=== PATIENT | male | born 1950 | race Caucasian/White ===

== ENCOUNTER 2022-12-20 13:26 | Outpatient (OUT) | payer MEDICARE, OTHER, SELFPAY ==
[2022-12-20 13:59] LABS: C Reactive Protein 2.5 mg/dL (<=1.0)
[2022-12-20 14:41] LABS: Erythrocyte Sedimentation Rate 75 mm/hr (<=20)
== END 2022-12-20 13:27 ==
LOC: LAB 13:31
DX: Z96.651 Presence of right artificial knee joint (principal)
CPT/HCPCS: 36415; 85652; 86140

== ENCOUNTER 2023-03-05 13:43 | Outpatient (OUT) | payer MEDICARE, OTHER, SELFPAY ==
[2023-03-05 14:11] LABS: Erythrocyte Sedimentation Rate 63 mm/hr (<=20)
[2023-03-05 14:34] LABS: C Reactive Protein 2.9 mg/dL (<=1.0)
== END 2023-03-05 13:44 | disposition home or self-care (01) ==
LOC: LAB 13:45
DX: Z96.651 Presence of right artificial knee joint (principal)
CPT/HCPCS: 36415; 85652; 86140

== ENCOUNTER 2023-07-22 08:59 | Outpatient (OUT) | payer MEDICARE, OTHER, SELFPAY ==
--- NOTE | 2023-07-22 09:02 | US_ITS ---
[address] [address] Patient Name: KILO ZEPEDA MRN: [id number] date: 1950 Sex: M Assigned Patient Location: US Current Patient Location: US Accession/Order Number: [id number] Exam Date: 07/22/2023 09:10 Report Date: 07/22/2023 10:08 At the request of: ELHAM DAMICO Procedure: US thyroid EXAMINATION: US thyroid HISTORY: weightloss, low tsh COMPARISON: No relevant comparison available. TECHNIQUE: Sonographic images of the thyroid gland were obtained. FINDINGS: The right thyroid lobe is normal in size, contour and homogeneous echotexture with no focal nodules. The lobe measures 5.0 x 1.4 x 1.5 cm The thyroid isthmus measures 1.1 mm, normal. The left thyroid lobe is normal in size, contour and homogeneous echotexture with no focal nodules. The lobe measures 4.8 x 1.4 x 1.8 cm US/US thyroid IMPRESSION: No abnormality TI-RADS: TI-RADS 1: Normal thyroid gland. No focal lesion. Electronically authenticated by: MIKY DEMARCO Date: 07/22/2023 10:08
== END 2023-07-22 09:00 | disposition home or self-care (01) ==
LOC: US 08:59
PROVIDERS: Visit Provider Nurse Practitioner
DX: R63.4 Abnormal weight loss (principal)
CPT/HCPCS: 76536

== ENCOUNTER 2024-12-23 08:34 | Outpatient (OUT) | payer MEDICARE, OTHER, SELFPAY ==
--- OUTSIDE RECORDS SUMMARY | 2023-08-05 12:00 | XMS_ITS ---
Author Organization The [facility] in [place] Address [address] [place] [address] Care Team Providers Care Integrity Specialist Name Role Phone Nanda Gutierrez Primary Care Provider Unavail able Dewayne Mcfadden Unavailable [phone] Allergies No Known Allergies REASON FOR VISIT REFERRAL-PULMONARY NODULES Medications Medication SIG (Take, Route, Frequency, Duration) Notes Start Date End Date Status Cholecalciferol 50 MCG (1999) 1 tablet Orally Once a day Active Citalopram Hydrobromide 20 MG 1 tablet O rally Once a day Active Lisinopril 40 MG 1 tablet Orally Once a day Active amLODIPine Besylate 10 MG 1 tablet Orall y Once a day Active Carvedilol 12.5 MG 1 tablet with food Orally Twice a day Active Omeprazole 40 MG 1 capsule 30 minutes before morning meal Orally Once a day Active Sildenafil Citrate 100 MG 1 tablet as ne eded Orally Once a day Active Social History Tobacco Use: Social History Observation Description Date Details (start date - stop date) Former Smoker NA - NA Tobacco Use/Smoking Question Answer Notes Patient is a former smoker Additional Findings: Tobacco Non-User Ex-heavy c igarette smoker (20-30/day) Tobacco use other than smoking: Question Answer Notes Are you an other tobacco user? Yes [place] Problems Problem Type SNOMED Code ICD Code Onset Dates Problem Status W/U Status Risk Notes Problem Multiple pulmonary nodules (R91.8) Active confirmed Problem Pulmonary fibrosis (30879965) Pulmonary fibrosis, unspecified (J84.10) Active confirmed Problem Ex-tobacco user (finding) (723248670) History of tobacco abuse (Z87.891) Active confirmed Problem Centrilobular emphysema (63099501) Centrilobular emphysema (J43.2) Active confirmed Vital Signs Temperature 96.6 degrees Fahrenheit 08/05/19 24 Blood pressure systolic 116 mm Hg 08/05/19 24 Blood pressure diastolic 64 mm Hg 024 Heart Rate 64 /min 08/05/2023 Respiratory Rate 18 /min 08/05/2023 Height 72 in 08/05/2023 Weight 199.0 lbs 08/05/2023 BMI 26.99 kg/m2 08/05/2023 Oximetry 98 % 08/05/2023 Encounters Encounter Location Date Provider Diagnosis Pulmonary Medicine [place] [address] [place] [address] 08/05/2023 Dewayne Mcfadden Multiple pulmonary nodules R91.8 ; Pulmonary fibrosis, unspecified J84.10 ; Centrilobular emphysema J43.2 and History of tobacco abuse Z87.891 Assessments Encounter Date Diagnosis (ICD Code) Assessment Notes Treatment Notes Treatment Clinical Notes Section Notes 08/05/2023 Multiple pulmonary nodules (ICD-10 - R91.8) There are [address], all at differing facilities, which were never directly compared with each other until today. Thanks to my MA, Scot, she retreived the records and imaging that I could view the 07/03/2023 and 08/31/2021 studies [id number]. I personally see no significant change between either study regarding the pulmonary nodules, emphysematous changes, and upper lobe predominant fibrosis. The largest is 5mm, and technically according to Fleischner Society Guidelines, nodules at this size do not require further F/U. Regardless, there is stability for 22 months between the 2 studies. I recommended to the patient that no further chest CT are needed to follow these nodules, which he voiced agreement. 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 Other considerations are hypersensitivity pneumonitis (had parakeet 30 years ago), connective tissue diseases (e.g. sarcoidosis), and postinflammatory. Less likely is idiopathic pulmonary fibrosis, as that is typically more lower lobe predominant. The fine inspiratory crackles are so faint on exam, that they could be easily missed. I expressed I am more concerned about the fibrosis than the nodules, though the fibrosis seems to be stable when I compare the imaging between 07/03/2023 and 08/31/2021. I suggested ordering a HRCT in 1 year, which is more specific than a standard CT or CTA for interstitial lung disease. HRCT have fewer slices, so pulmonary nodules the size of 5mm could be missed; however, they have been stable for 22 months, so I feel the risks of missing F/U of the nodules outweigh the benefits of assessing the fibrosis. I reviewed this with the patient and he voiced understanding. Will F/U with patient in 1 year to review the HRCT findings. 08/05/2023 Centrilobular emphysema (ICD-10 - J43.2) Moderate upper lobe predominant emphysematous findings, not grossly changed in my opinion between 07/03/2023 and . Other than a cough from postnasal drip, he is asymptomatic for any dyspnea or wheezing. No indication for PFT in asymptomatic individuals, though I considered it for the pulmonary fibrosis. For now, will hold off on PFT and wait until the HRCT - if there is any worsening, then I would order PFT regardless of symptoms. He was counseled if he beings to develop dyspnea or wheezing to let me know, and a PFT can be ordered at that time. 08/05/2023 History of tobacco abuse (ICD-10 - Z87.891) Patient quit smoking 9 years ago. He meets LDCT criteria, but I am monitoring the pulmonary fibrosis with a HRCT at this time. He was counseled not to restart smoking, not even sneaking a cigarette. Plan Of Treatment Treatment Notes Assessment Notes Multiple pulmonary nodules There are [address], all at differing facilities, which were never directly compared with each other until today. Thanks to my MA, Scot, she retreived the records and imaging that I could view the 07/03/2023 and 08/31/2021 studies [id number]. I personally see no significant change between either study regarding the pulmonary nodules, emphysematous changes, and upper lobe predominant fibrosis. The largest is 5mm, and technically according to Fleischner Society Guidelines, nodules at this size do not require further F/U. Regardless, there is stability for 22 months between the 2 studies. I recommended to the patient that no further chest CT are needed to follow these nodules, which he voiced agreement. Pulmonary fibrosis, unspecified Fibrosis of unclear etiology, though clinical suspicion is secondary to industrial exposure (from welding/fabricating, insulation with fiberglass/cellulose). Other considerations are hypersensitivity pneumonitis (had parakeet 30 years ago), connective tissue diseases (e.g. sarcoidosis), and postinflammatory. Less likely is idiopathic pulmonary fibrosis, as that is typically more lower lobe predominant. The fine inspiratory crackles are so faint on exam, that they could be easily missed. I expressed I am more concerned about the fibrosis than the nodules, though the fibrosis seems to be stable when I compare the imaging between 07/03/2023 and 08/31/2021. I suggested ordering a HRCT in 1 year, which is more specific than a standard CT or CTA for interstitial lung disease. HRCT have fewer slices, so pulmonary nodules the size of 5mm could be missed; however, they have been stable for 22 months, so I feel the risks of missing F/U of the nodules outweigh the benefits of assessing the fibrosis. I reviewed this with the patient and he voiced understanding. Will F/U with patient in 1 year to review the HRCT findings. Centrilobular emphysema Moderate upper lobe predominant emphysematous findings, not grossly changed in my opinion between 07/03/2023 and . Other than a cough from postnasal drip, he is asymptomatic for any dyspnea or wheezing. No indication for PFT in asymptomatic individuals, though I considered it for the pulmonary fibrosis. For now, will hold off on PFT and wait until the HRCT - if there is any worsening, then I would order PFT regardless of symptoms. He was counseled if he beings to develop dyspnea or wheezing to let me know, and a PFT can be ordered at that time. History of tobacco abuse Patient quit smoking 9 years ago. He meets LDCT criteria, but I am monitoring the pulmonary fibrosis with a HRCT at this time. He was counseled not to restart smoking, not even sneaking a cigarette. Next Appt Details Follow Up: 1 Year, Reason: P ulmonary fibrosis Progress Notes * Jemal CARCAMO CDOB: 2 (73 yo M)Acc No.[id number]:08/05/2023 New Patient Patient: Jemal Zhou Provider: Jazmine Mcfadden DO :1950 A ge:73 Y S ex:Male Date:08/05/2023 Address:[address] [place] [address] , [place], [id number] Pcp:KRISTI Kellogg Check In:03:48 PM ESTCheck O ut:04:31 PM EST Subjective: * Chief Complaints: * R EFERRAL-PULMONARY NODULES * HPI: G eneral: NEW PATIENT [age]yo male presents with abnormal chest CT. He had a chest CTA on 07/03/2023 @ [facility] which noted several pulmonary nodules along with other pulmonary findings. I personally reviewed reports of Chest CT 07/03/2023 ([facility]), Chest CTA 05/06/2023 ([facility]), and Chest CTA 08/31/2021 ([facility]). Synopsis below. - 07/03/2023: Bilateral pulmonary nodules, largest ~5mm RUL; emphysema, pulmonary fibrosis, ascending thoracic aorta 5.3cm - 05/06/2023: No mention of nodules, emphysema, pulmonary fibrosis, ascending thoracic aorta 4.7cm - 08/31/2021: A few scattered small granulomas , emphysema, no mention of pulmonary fibrosis, ascending thoracic aorta 5cm I was able to review the actual imaging from 07/03/2023 and 08/31/2021 [id number] (I did not have the 05/06/2023 available). After comparing these two studies, I did not see any change in the size of the pulmonary nodules or upper lung predominant emphysema and fibrosis. T he patient denies any dyspnea or wheezing. He states he has some coughing, but it is secondary to postnasal drip drainage, not from the lungs. He quit smoking cigarettes ~9 years ago; he would sneak a cigarette but then cough so harshly he put out the cigarette. 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 He had a parakeet 30 years ago. No known history of severe pneumonia, aspiration event, or rheumatoilogical diseases (e.g. RA, scleroderma, SLE, sarcoidosis). * * M A Intake Comments:. Patient is referred from Nanda Salmon NP for Multiple Pulmonary Nodules. Patient reports never being seen by Pulmonary in the past. Patient complains of sinus drainage, cough and night sweats. Patient denies any SOB, fevers, chills or hemoptysis. Patient is under the care of [facility] Cardiology & Cardiothoracic Surgery. Patient states he was recently in [facility] for a GI bleed and reports a significant amount of blood loss. Patient received 4 units at that time. Patient states he is being managed by . Patient states his appetite has improved since being in [facility]. Patient reports losing >40lbs. * ROS: G eneral/Constitutional: Fever or sweats d enies. C hange of appetite d enies. C hills d enies. W eight Change l oss ~40# over the past year. H EENT: Dry mouth d enies. S ore throat d enies. O ral Ulcers d enies. P ost Nasal Drip A dmits. C ongestion D enies. H oarseness D enies. C ardiovascular: Tachycardia d enies. C hest pain d enies. P alpitations d enies. R espiratory: Chest tightness d enies. P leurisy D enies. D yspnea d enies. C ough f rom postnasal drip. H emoptysis d enies. W heezing d enies. G astrointestinal: Acid Reflux/GERD/Heartburn d enies. M faye D enies. V omiting blood D enies. A spiration D enies. H ematochezia D enies. D ysphagia d enies. M usculoskeletal: Arthralgias/joint pain D enies. S kin: Easy bruising d enies. R latasha d enies. ? N eurologic: Paresthesias d enies. D izziness/Lightheadedness d enies. S eizures d enies. T remor d enies. H ematology: Abnormal Bleeding n o recent GI bleeding. P sychiatric: Anxiety d enies. * Active Problem List J43.2 Centrilobular emphys clive Modified On:08/05/2023/U Status:confirmed J84.10 Pulmonary fibrosis, unspecified Modified On:08/05/2023U Status:confirmed R91.8 Multiple pulmonary n odules Modified On:08/05/2023/U Status:confirmed Z87.891 History of tobacco a buse Modified On:08/05/2023 Status:confirmed * Medical History: * Surgical History: v entral hernia repair 09/18/2018abdominal aortic aneurysm repair EGD 07/12/2023tonsillectomy and adenoidectomy right knee arthroplasty * Hospitalization/Major Diagno stic Procedure: G I Bleed-[facility] 07/11/2023 * Family History: F ather: stroke, myocardial infarction, COPD, diagnosed with Hypertension. M other: diagnosed with Hypertension. B jerson(s): diagnosed with Hypertension. S istatiana(s): diagnosed with Diabetes. * Social History: T obacco Use: T obacco Use/Smoking P atient is a f ormer smoker A dditional Findings: Tobacco Non-User E x-heavy cigarette smoker (20-30/day) Tobacco use other than smoking A re you an other tobacco user? Y es Pouches LM: Additional Tobacco Questions N umber of Years Pt Smoked: 4 2 N umber of Packs per Day: 1 Electronic Cigarette use C urrent user N o When did you stop smokin years ago.. D rugs/Alcohol: D rugs H ave you used drugs other than those for medical reasons in the past 12 months? Y es M arijuana? Y es T ype: E dibles D oes the Patient have a History of Drug Abuse in the Past? Y es Caffeine I ntake: m ore than 4 cups per day Coffee/Soda Do you drink alcohol?: No. Do you smoke marijuana?: Denies. 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 * Medications: T akingamLODIPine Besylate 10 MG Tablet 1 tablet Orally Once a dayCarvedilol 12.5 MG Tablet 1 tablet with food Orally Twice a dayCholecalciferol 50 MCG (1999) Tablet 1 tablet Orally Once a dayCitalopram Hydrobromide 20 MG Tablet 1 tablet Orally Once a dayLisinopril 40 MG Tablet 1 tablet Orally Once a dayOmeprazole 40 MG Capsule Delayed Release 1 capsule 30 minutes before morning meal Orally Once a daySildenafil Citrate 100 MG Tablet 1 tablet as needed Orally Once a dayMedication List reviewed and reconciled with the patientTaking amLODIPine Besylate 10 MG Tablet 1 tablet Orally Once a dayTaking Carvedilol 12.5 MG Tablet 1 tablet with food Orally Twice a dayTaking Cholecalciferol 50 MCG (1999) Tablet 1 tablet Orally Once a dayTaking Citalopram Hydrobromide 20 MG Tablet 1 tablet Orally Once a dayTaking Lisinopril 40 MG Tablet 1 tablet Orally Once a dayTaking Omeprazole 40 MG Capsule Delayed Release 1 capsule 30 minutes before morning meal Orally Once a dayTaking Sildenafil Citrate 100 MG Tablet 1 tablet as needed Orally Once a dayMedication List reviewed and reconciled with the patient * Allergies: N .K.D.A.no[Allergies Verified] Objective: * Vitals: W t:199.0 lbs, Ht:72 in, BP:sittin/64, Temp:Forehead:96.6, HR:64 /min, RR:18 /min, BMI:26.99 Index, Oxygen sat %:Room Air:98, Ht-cm: 182.88 cm, Wt-k.26 kg. * Examination: E xam: GENERAL APPEARANCE: A ppears stated age. Skin N ormal. Mouth P ink and moist. Oropharynx M allampati Class III. Trachea M idline. Chest I ncreased A-P Diameter. Respiratory Normal M ovements, E ffort N ormal. Auscultation D iminished breath sounds. Very faint fine inspiratory crackles bilaterally in the lateral u pper thoracic area. No rhonchi or wheezing. Cardiac R egular rate and rhythm. Gastrointestinal N ormal. Vascular N o edema. Musculoskeletal N ormal posture. Neurological F ocal, intact. Psychiatric A lert and oriented x3. Polite. Mentation/Cognition N ormal. Assessment: * Assessment: 1. M ultiple pulmonary nodules - R91.8 (Primary) 2 . P ulmonary fibrosis, unspecified - J84.10 3 . C entrilobular emphysema - J43.2 4 . H istory of tobacco abuse - Z87.891? Plan: * Treatment: 2. P ulmonary fibrosis, unspecified I maging: CT Chest High Resolution (Ordered for 07/21/2024) Notes: Fibrosis of unclear etiology, though clinical suspicion is secondary to industrial exposure (from welding/fabricating, insulation with fiberglass/cellulose). Other considerations are hypersensitivity pneumonitis (had parakeet 30 years ago), connective tissue diseases (e.g. sarcoidosis), and postinflammatory. Less likely is idiopathic pulmonary fibrosis, as that is typically more lower lobe predominant. The fine inspiratory crackles are so faint on exam, that they could be easily missed. I expressed I am more concerned about the fibrosis than the nodules, though the fibrosis seems to be stable when I compare the imaging between 07/03/2023 and 08/31/2021. I suggested ordering a HRCT in 1 year, which is more specific than a standard CT or CTA for interstitial lung disease. HRCT have fewer slices, so pulmonary nodules the size of 5mm could be missed; however, they have been stable for 22 months, so I feel the risks of missing F/U of the nodules outweigh the benefits of assessing the fibrosis. I reviewed this with the patient and he voiced understanding. Will F/U with patient in 1 year to review the HRCT findings. 3. C entrilobular emphysema Notes: Moderate upper lobe predominant emphysematous findings, not grossly changed in my opinion between 07/03/2023 and . Other than a cough from postnasal drip, he is asymptomatic for any dyspnea or wheezing. No indication for PFT in asymptomatic individuals, though I considered it for the pulmonary fibrosis. For now, will hold off on PFT and wait until the HRCT - if there is any worsening, then I would order PFT regardless of symptoms. He was counseled if he beings to develop dyspnea or wheezing to let me know, and a PFT can be ordered at that time. 4. H istory of tobacco abuse Notes: Patient quit smoking 9 years ago. He meets LDCT criteria, but I am monitoring the pulmonary fibrosis with a HRCT at this time. He was counseled not to restart smoking, not even sneaking a cigarette.? * Recommended Wellness and Pre vention Guidelines: * S tatus A lert L ast Done N ext Due A ction Taken C OMPLIANT F all Risk Assessment 0 08/05/2023 0 08/05/2024 D ocumented structured data - Fall Risk Assessment: * Procedure Codes: * Preventive Medicine: COVID Vaccination: H as patient had COVID Vaccination? COVID Vaccination N o Patient Refused Immunization Status: P neumovacc P t Refused. I nfluenza P t Refused. Screenings/Counseling: F ALL RISK SCREENING Fall Risk Assessment: N o falls in the past year Are you afraid of falling? N o T OBACCO ACTION PLAN Patient counselled on the dangers of tobacco use and urged to quit. 0 08/05/2023 Cessation counseling provided 0 08/05/2023 F LAUREN EXCLUSION Reason: P atient Reason refused/declined Type of Patient Reason: D rug declined by patient B [place] ACTION PLAN Above Normal BMI Follow-up D ietary management education, guidance, and counseling * Follow Up: 1 Year (Reason: Pulmonary fibrosis) * * Sign off status: Completed Visit Status: C HK (Check Out) true * Provider: Jazmine Mcfadden, DO Date: 0 08/05/2023 Generated for [place] mancia/Abram/Aaronitting on: 0 12/23/2024 08:38 AM EDT History and Physical Notes * HPI (History of Present Illness) Category Sub-Category Detail Notes Category Not es General Patient is refe rred from Nanda Salmon NP for Multiple Pulmonary Nodules. Patient reports never being seen by Pulmonary in the past. Patient complains of sinus drainage, cough and night sweats. Patient denies any SOB, fevers, chills or hemoptysis. Patient is under the care of [facility] Cardiology & Cardiothoracic Surgery. Patient states he was recently in [facility] for a GI bleed and reports a significant amount of blood loss. Patient received 4 units at that time. Patient states he is being managed by . Patient states his appetite has improved since being in [facility]. Patient reports losing >40lbs. Examination Category Sub-Category Detail Notes Category Not es Exam GENERAL APPEARANCE: Appears stated age Skin Normal Mouth [place] and moist Trachea Midline Chest Increased A-P Diamet er Respiratory Normal Movements, Ef fort Normal Auscultation Diminished breath so unds. Very faint fine inspiratory crackles bilaterally in the lateral upper thoracic area. No rhonchi or wheezing Cardiac Regular rate and rhy thm Gastrointestinal Normal Vascular No edema Musculoskeletal Normal posture Neurological Focal, intact Psychiatric Alert and oriented x 3. Polite Mentation/Cognition Normal Oropharynx Mallampati Class III
--- OUTSIDE RECORDS SUMMARY | 2024-08-02 06:16 | XMS_ITS ---
Author Organization The [facility] in [place] Address [address] [place] [address] Care Team Providers Care Story Teller Name Role Phone Viky MONTERO-Nanda Matthews Primary Care Provider Unavail Dewayne Glez Unavailable [phone] REASON FOR VISIT Appt. Cancel Encounters Encounter Location Date Provider Diagnosis Pulmonary Medicine [facility] [address] [place] [address] 08/02/2024 Dewayne Mcfadden Plan Of Treatment No Information Progress Notes * Jemal CARCAMO CDOB: 2 (74 yo M)Acc No.[id number]:08/02/2024 Patient: Ramiro Jemal JEFFRIES :1950 A ge:74 Y S ex:Male Address:[address] [place] [address] * true * Date: Generated for Printi ng/Faxing/eTransmitting on: 0 12/23/2024 08:38 AM EDT
--- OUTSIDE RECORDS SUMMARY | 2024-08-03 05:30 | XMS_ITS ---
Author Organization The [facility] in [place] Address [address] [place] [address] Care Team Providers Care Glacing Machine Tender Name Role Phone Nanda Gutierrez Primary Care Provider Unavail able Dewayne Mcfadden Unavailable [phone] REASON FOR VISIT 1YEAR-PULMONARY FIBROSIS Encounters Encounter Location Date Provider Diagnosis Pulmonary Medicine [address] [address] 08/03/2024 Dewayne Mcfadden Plan Of Treatment No Information Progress Notes * Jemal CARCAMO CDOB: 2 (74 yo M)Acc No.[id number]:08/03/2024 UNLOCKED PROGRESS NOTE Follow Up Patient: Ramiro JEFFRIES Jemal Matthews Provider: Jazmine Mcfadden DO :1950 A ge:74 Y S ex:Male Date:08/03/2024 Address:[address], [id number] Pcp:KRISTI Kellogg Subjective: * Chief Complaints: * 1 . 1YEAR-PULMONARY FIBROSIS. * Medical History: Objective: * Vitals: Assessment: Plan: * Treatment: * * Electronic signature of Jayla Mcfadden DO on 12/23/2024 at 08:38 AM EDT Sign off status: Pending Visit Status: C ANC (Cancelled) * Provider: Jazmine Mcfadden DO Date: 0 08/03/2024 Generated for Printi ng/Abram/Aaronitting on: 0 12/23/2024 08:38 AM EDT
--- OUTSIDE RECORDS SUMMARY | 2024-12-23 08:38 | XMS_ITS | Clinical Summary ---
Author Organization [facility] Address [address] [place] [address] Care Team Providers Care Chimney Construction Supervisor Name Role Phone Natalie Clayton MD Primary Care Provider [phone] Allergies Active Allergy Reactions Criticality Noted Date Comments Atorvastatin Medium 05/06/2023 Other Reaction(s): Other Joint swelling Meloxicam Unknown 12/16/2022 Metoprolol 08/26/2023 Medications acetaminophen (Tylenol) 325 MG tablet every 4 (four) hours. Active amLODIPine (Norvasc) 10 MG tablet 1 (one) time each day at the same time. Active carvedilol (Coreg) 12.5 MG tablet every 12 (twelve) hours. Active citalopram (CeleXA) 20 MG tablet 1 (one) time each day at the same time. Active ibuprofen 200 MG tablet every 8 (eight) hours. Active lisinopril 40 MG tablet 1 (one) time each day at the same time. Active amoxicillin (Amoxil) 500 MG tabletIndication s:Status post total right knee replacement 4 tabs PO once 30-60 mins before procedure 4 tablet 1 3 Active Active Problems Problem Noted Date Diagnosed Date History of total knee replacement 12/16/2022 Resolved Problems Problem Noted Date Diagnosed Date Resolved Date Incisional hernia, without o bstruction or gangrene 12/16/2022 12/16/2022 Family History Relation Name Status Comments Father Mother Social History Tobacco Use Types Packs/Day Years Used Date Smoking Tobacco: Never Smokeless Tobacco: Current Chew Tobacco Cessation:Ready to Q uit: Not Asked; Counseling Given: Not Answered Alcohol Use Standard Drinks/Week Comments Not Currently 0 (1 standard drink = 0.6 oz pur e alcohol) Sex and Gender Information Value Date Recorded Sex Assigned at Not on file Legal Sex Male 8:24 PM EDT Gender Identity Not on file Sexual Orientation Not on file Last Filed Vital Signs Vital Sign Reading Time Taken Comments Blood Pressure 148/78 10/15/2018 12:00 PM EDT Pulse - - Temperature - - Respiratory Rate - - Oxygen Saturation - - Inhaled Oxygen Concentration - - Weight 88.5 kg (195 lb) 08/26/2023 9:35 AM EST Height 180.3 cm (5' 11 ) 08/26/2023 9:35 AM EST Body Mass Index 27.2 08/26/2023 9:35 AM EST Plan of Treatment Not on file [place] [address] MEDICARE [facility] [place] [address] Care Teams Chimney Construction Supervisor Relationship Specialty Start Date End Date Natalie Clayton MD [address] [facility] [place] [address] PCP - General Family Medicine 12/02/22
--- OUTSIDE RECORDS SUMMARY | 2024-12-23 08:38 | XMS_ITS | Encounter Summary ---
Author Organization [facility] Address [address] [place] [address] Care Team Providers Care Deer Farm Worker Name Role Phone Natalie Clayton MD Primary Care Provider [phone] Dru Hess MD Primary Care Provider [phone] Reason for Visit * Reason Comments Med Refill Encounter Details Date Type Department Care Team (Late st Contact Info) Description 01/28/2023 Refill [facility] at [facility] [address] [place] [address] Adeline Dyer PA-C [address] [place] [address] Primary hypertension Social History Tobacco Use Types Packs/Day Years Used Date Smoking Tobacco: Former Cigarettes Q uit: 07/21/2013 Smokeless Tobacco: Never Alcohol Use Standard Drinks/Week Comments Not Currently 0 (1 standard drink = 0.6 oz pur e alcohol) Sex and Gender Information Value Date Recorded Sex Assigned at Not on file Gender Identity Not on file Sexual Orientation Not on file documented as of this encounter Plan of Treatment Not on file documented as of this encounter Visit Diagnoses Diagnosis Primary hypertension Unspecified essential hypertension documented in this encounter Care Teams Deer Farm Worker Relationship Specialty Start Date End Date Natalie Clayton MD [address] [place] [address] #A PCP - General 07/02/22 03/09/23 Dru Hess MD [address] [place], [place] [id number] PCP - General Family Medicine 03/10/23 documented as of this encounter
--- OUTSIDE RECORDS SUMMARY | 2024-12-23 08:38 | XMS_ITS | Referral Summary ---
Author Organization [facility] Address [address] [place] [address] Care Team Providers Care Gravity Prospecting Operator Helper Name Role Phone Dru Hess MD Primary Care Provider [phone] Allergies Active Allergy Reactions Criticality Noted Date Comments Atorvastatin Other Medium 05/06/2023 Joint swelling Meloxicam Rash Low 12/16/2022 Medications Medication Sig Dispensed Refills Start Date End Date Status amLODIPine (Norvasc) 10 mg tablet 1 (one) time each day at the same time. Active aspirin 81 mg chewable tablet Chew 1 tablet every day by oral route. Active citalopram (CeleXA) 20 mg tablet 1 (one) time each day at the same time. Active sildenafil (Viagra) 100 mg tablet Take 1 tablet by mouth if needed each day. Active atorvastatin (Lipitor) 40 mg tabletIndications:Hy perlipidemia, unspecified hyperlipidemia type Take 1 tablet (40 mg) by mouth in the morning. 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 180 tablet 3 03/10/2023 Active Additional Information Patient taking differently: 6.25 mgoral 2 times daily with meals, Reported on 09/17/2023 rosuvastatin (Crestor) 20 mg tabletIndications:Hy perlipidemia, unspecified hyperlipidemia type Take 1 tablet (20 mg) by mouth in the morning. 30 tablet 11 03/10/2023 Active pantoprazole (ProtoNix) 40 mg EC tablet Take 40 mg by mouth in the morning and at bedtime. 08/14/2023 Active Active Problems Problem Noted Date Diagnosed Date Centrilobular emphysema 09/17/2023 09/17/19 24 History of tobacco use 09/17/2023 Multiple pulmonary nodules 09/17/202309/17 Pulmonary fibrosis 09/17/2023 09/17/2023 History of total knee replacement 12/16/2022 09/17/2023 Primary localized osteoarthritis of right knee 0 08/28/2022 09/17/2023 Aneurysm of thoracic aorta 10/01/2021 Stable angina 10/01/2021 Abdominal aortic aneurysm 01/29/2021 Edema of lower extremity 01/29/2021 Fluid overload 03/19/2014 Overview (07/02/2022): 03/19/2014 Gentle diuresis. 03/22/2014 Still requiring O2. Will give lasix 40 mg PO x1 today. 03/23/2014 Good duiresis with lasix. Decreased O2 requirements. Will give another 40mg PO today 03/24/2014 Duiresed well, no futher lasix needed. Stress hyperglycemia 03/19/2014 Overview (07/02/2022): 03/19/2014 Would transition to sliding scale insulin for blood glucose control. 03/22/2014 BS normal, will DC accuchecks Epididymitis 01/07/2014 Overview (07/02/2022): On Doxy, Cipro at OSH. Urine cx @ OSH showed E.coli, S = Cipro. right sided epididymitis with E.coli isolated from the urine 01/07/14 Urology recom tx with 2 week course po Cipro, d/c doxy. Given his prior inguinal hernia repair with mesh, the physical exam findings, and the inflammatory changes seen on CT, would favor obtaining input of the General Surgery service regarding possible infectious involvement of inguinal mesh. The incidentally noted bladder diverticulum will be address following Mr. Carcamo's recovery from his upcoming vascular surgery - we will arrange outpatient follow-up in our department for this issue. 01/10/14 Cipro 750mg bid through 01/25/14 per Infectious Disease consult. Patient will follow up with ID and Urology as outpatient Hypertension 01/07/2014 Overview (07/02/2022): Home meds: bisoprolol/hctz, norvasc IV Metoprolol/hydralazine PRN ordered for BP control post op, goal SBP<160. 03/19/2014 Resume home antihypertensive regimen for blood pressure control. Smoker 01/07/2014 Overview (07/02/2022): Plan: smoking cessation, nicotine patch. 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 He was generally healthy male, PMH w HTN taking HCTZ. 03/18/14 Celiac Artery Aneurysm repair. 03/19/2014 DC NG tube, transfer to [facility] 03/20/2014 Clear liquids 03/22/2014 Begin regular diet, Epidural DC'd. Ambulate with PT. 03/23/2014 DC pimentel, wean O2 03/24/2014 Urinating without difficulties. On RA. Discharge to home Social History Tobacco Use Types Packs/Day Years Used Date Smoking Tobacco: Former Cigarettes Q uit: 2013 Smokeless Tobacco: Current Tobacco Cessation:Ready to Q uit: Not Asked; Counseling Given: Not Answered Alcohol Use Standard Drinks/Week Comments Not Currently 0 (1 standard drink = 0.6 oz pur e alcohol) PHQ-2 Answer Date Recorded Patient Health Questionnaire-2 Score 0 05/06/2023 [place] Safety [facility] [place] Answer Date Rec orded Fear of Current or Ex-Partner Not on file Emotionally Abused Not on file 09/11/2023 Physically Abused Not on file 09/11/2023 Sexually Abused Not on file 09/11/2023 Physically or Sexually Abused Not on file Sex and Gender Information Value Date Recorded Sex Assigned at Not on file Gender Identity Not on file Sexual Orientation Not on file Last Filed Vital Signs Vital Sign Reading Time Taken Comments Blood Pressure 160/71 03/23/2024 1:22 PM EDT Pulse 58 03/23/2024 1:22 PM EDT Temperature 36.4 C (97.5 F) 05/06/2023 12:54 PM EDT Respiratory Rate 16 05/06/2023 12:54 PM EDT Oxygen Saturation 93% 09/17/2023 10:14 AM EST Inhaled Oxygen Concentration - - Weight 82.7 kg (182 lb 6 oz) 03/23/2024 1:22 PM EDT Height 180.3 cm (5' 11 ) 03/23/2024 1:22 PM EDT Body Mass Index 25.44 03/23/2024 1:22 PM EDT Plan of Treatment Not on file Care Teams Gravity Prospecting Operator Helper Relationship Specialty Start Date End Date Dru Hess MD [address] [place], [place] [id number] PCP - General Family Medicine 03/10/23
--- OUTSIDE RECORDS SUMMARY | 2024-12-23 08:38 | XMS_ITS | Clinical Summary ---
Author Organization [employer] Address [id number] [address] [place] [address] Care Team Providers Care Bay Stocker Name Role Phone Natalie Clayton MD Primary Care Provider [phone] Allergies No known active allergies Medications amLODIPine (NORVASC) 10 mg tablet Take 1 tablet (10 mg total) by mouth in the morning. Active lisinopriL (PRINIVIL,ZESTR IL) 40 mg tablet Take 1 tablet (40 mg total) by mouth in the morning. Active citalopram (CeleXA) 20 mg tablet Take 1 tablet (20 mg total) by mouth in the morning. Active carvediloL (COREG) 12.5 mg tablet Take 1 tablet (12.5 mg total) by mouth in the morning and 1 tablet (12.5 mg total) in the evening. Take with meals. Active ascorbic acid, vitamin C, (VITAMIN C) 1000 mg tablet Take 3 tablets (3,000 mg total) by mouth in the morning. Active cholecalciferol , vitamin D3, 2,000 units capsule Take 1 capsule (2,000 Units total) by mouth in the morning. Active selenium 50 mcg tablet Take 1 tablet (50 mcg total) by mouth in the morning. Active ferrous sulfate 325 (65 FE) mg tablet Take 1 tablet (325 mg total) by mouth daily with breakfast. Active Active Problems Problem Noted Date Diagnosed Date Primary localized osteoarthritis of right knee 0 08/28/2022 Family History Medical History Relation Name Comments Cancer Father Hypertension Father Hypertension Mother Stroke Mother Relation Name Status Comments Father Mother Social History Tobacco Use Types Packs/Day Years Used Date Smoking Tobacco: Former Cigarettes Smokeless Tobacco: Never Tobacco Cessation:Counseling Given: Not Answered Alcohol Use Standard Drinks/Week Comments Yes 0 (1 standard drink = 0.6 oz pur e alcohol) rare Childcare Answer Date Recorded Childcare Unknown 12/30/2018 Employment Answer Date Recorded Employment Unknown 12/30/2018 Sex and Gender Information Value Date Recorded Sex Assigned at Not on file Legal Sex Male 11:46 AM EDT Gender Identity Not on file Sexual Orientation Not on file Last Filed Vital Signs Vital Sign Reading Time Taken Comments Blood Pressure 148/83 08/29/2022 7:00 AM EST Pulse 75 08/29/2022 7:00 AM EST Temperature 36.4 C (97.5 F) 08/29/2022 7:00 AM EST Respiratory Rate 18 08/29/2022 7:00 AM EST Oxygen Saturation 93% 08/29/2022 7:00 AM EST Inhaled Oxygen Concentration - - Weight 100 kg (220 lb 6.4 oz) 08/29/2022 4:33 AM EST Height 180.3 cm (5' 11 ) 08/28/2022 2:46 PM EST Body Mass Index 30.74 08/28/2022 2:46 PM EST Plan of Treatment Health Maintenance Due Date Last Done Comments Depression Screening 1964 Tobacco Screening 1962 DTaP,Tdap and Td Vaccines (1 - Tdap) 1971 Zoster (Shingles) Vaccine (1 of 2) 2002 Fall Risk Screening 2017 Adult BMI Screening 08/29/2023 08/29/2022 Influenza Vaccine 03/21/2025 Goals Goal Patient Goal Type Associated Problems Recent Progress Patient-Stated? Author Home with [facility] Yes Yuli Boothe LSW Note: Evaluation of progress towards goal: Home with family support and [facility]. Medical Devices Implanted Type Area Chronometer Repairer Device Identifier Shelf Expiration Date Model / Serial / Lot Cement Bn Bio 40gm Rpl [id number] - Sna - [id number] Implanted:Qt y: 2 on 08/28/2022 by Sammy Riley DO at [facility] Cement Right: Knee [employer] 07/20/2024 [id number] / NA / [id number] Component Ptlr 35mm Persona Alply Kn Strl Lf - Sna - [id number] Implanted:Qt y: 1 on 08/28/2022 by Sammy Riley DO at [facility] Orthopedic Implant Right: Knee [employer] 05/15/2027 [id number] / NA / [id number] Insert Artc 8-11 G-H 11mm Kn Rt Vivacit-E Persona Strl - Sna - [id number] Implanted:Qt y: 1 on 08/28/2022 by Sammy Riley DO at [facility] Orthopedic Implant Right: Knee [employer] 01/30/2027 [id number] / NA / [id number] Component Fem 10 Std Kn Rt Crcte Rtn Cmnt Persona Cocr - Sna - [id number] Implanted:Qt y: 1 on 08/28/2022 by Sammy Riley DO at [facility] Orthopedic Implant Right: Knee [employer] 03/23/2032 [id number] / NA / [id number] Baseplate Tib 5d G Kn Rt Cmnt Stm Persona Tiv Strl - Sna - [id number] Implanted:Qt y: 1 on 08/28/2022 by Sammy Riley DO at [facility] Plate Right: Knee [employer] 03/10/2032 [id number] / NA / [id number] Explanted Type Area Chronometer Repairer Device Identifier Shelf Expiration Date Model / Serial / Lot Screw Bn 35mm 6.5mm St Hip Actb Trlg Strl Rpl [id number] 32 - Sna - [id number] Explanted:Qty: 2 on 08/28/2022 by Sammy Riley DO at [facility] Screw Right: Knee [employer] 05/28/2032 [id number] / NA / [id number] Screw Gd 48mm Qd-Spr Hex Hd Mis Strl - Sna - [id number] Explanted:Qty: 1 on 08/28/2022 by Sammy Riley DO at [facility] Screw Right: Knee [employer] 06/18/[id number] / NA / [id number] Screw Gd 48mm Qd-Spr Hex Hd Mis Strl - Sna - [id number] Explanted:Qty: 1 on 08/28/2022 by Sammy Riley, DO at [facility] Screw Right: Knee [employer] 02/23/[id number] / NA / [id number] Guide 27mm Hx Hd Scr Srg - Sna - [id number] Explanted:Qty: 1 on 08/28/2022 by Sammy Riley, DO at [facility] Screw Right: Knee [employer] 01/02/[id number] / NA / [id number] Guide 27mm Hx Hd Scr Srg - Sna - [id number] Explanted:Qty: 1 on 08/28/2022 by Sammy Riley, DO at [facility] Screw Right: Knee [employer] 12/12/[id number] / NA / [id number] [place] [address] MEDICARE [facility] [place] [address] Advance Directives * Full Code (Latest Code Status on File) Date Activated Date Inactivated Comments 08/28/2022 9:17 AM 08/29/2022 4:21 PM Care Teams Bay Stocker Relationship Specialty Start Date End Date Natalie Clayton MD PCP - General Family Medicine 08/05/22
--- OUTSIDE RECORDS SUMMARY | 2024-12-23 08:38 | XMS_ITS | Clinical Summary ---
Author Organization [facility] Address [address] [place] [address] Care Team Providers Care Golf Stud Riveter Name Role Phone Dru Hess MD Primary Care Provider [phone] Allergies Active Allergy Reactions Criticality Noted Date [...] repair. 03/19/2014 DC NG tube, transfer to [facility] 03/20/2014 Clear liquids 03/22/2014 Begin regular diet, Epidural DC'd. Ambulate with PT. 03/23/2014 DC pimentel, wean O2 03/24/2014 Urinating without difficulties. On RA. Discharge to home Family History Medical History Relation Name Comments Heart attack Father Stroke Father Relation Name Status Comments Father Social History Tobacco Use Types Packs/Day Years Used Date Smoking Tobacco: Former Cigarettes Q uit: 2013 Smokeless Tobacco: Current Tobacco Cessation:Ready to Q uit: Not Asked; Counseling Given: Not Answered Alcohol Use Standard Drinks/Week Comments Not Currently 0 (1 standard drink = 0.6 oz pur e alcohol) PHQ-2 Answer Date Recorded Patient Health Questionnaire-2 Score 0 05/06/2023 [place] [facility] Answer Date Rec orded [...] 03/23/2024 1:22 PM EDT Plan of Treatment Health Maintenance Due Date Last Done Comments CT Colonography 1952 Colonoscopy 1952 Colorectal Cancer Screening 1952 FIT-DNA 1952 FIT 1952 FOBT 1950 Medicare Annual Wellness (AWV) 1952 Sigmoidoscopy 1950 Pneumococcal Vaccine: 65+ Ye ars (1 of 2 - PCV) 1958 Depression Screening 1964 Adult Tetanus 1974 Zoster Vaccines (1 of 2) 2002 Fall Risk Screening 2017 COVID-19 Vaccine ( - 2023-2 5 season) 2024 Influenza Vaccine (Season Ended) 2025 HIB Vaccines Aged Out No longer eligi ble based on patient's age to complete this topic HPV Vaccines Aged Out No longer eligi ble based on patient's age to complete this topic IPV Vaccines Aged Out No longer eligi ble based on patient's age to complete this topic Meningococcal B Vaccine Aged Out No l onger eligible based on patient's age to complete this topic Meningococcal Vaccine Aged Out No jim oksana eligible based on patient's age to complete this topic Rotavirus Vaccines Aged Out No longer eligible based on patient's age to complete this topic Care Teams Golf Stud Riveter Relationship Specialty Start Date End Date Dru Hess MD [address] [place] [id number] PCP - General Family Medicine 03/10/23
--- OUTSIDE RECORDS SUMMARY | 2024-12-23 08:38 | XMS_ITS | Patient Health Record ---
Author Organization [facility] [place] Address [address] [place] [address] Care Team Providers Care Color Printer Operator Name Role Phone Nanda Gutierrez Primary Care Provider Unavail able Dewayne Mcfadden Unavailable [phone] Allergies No Known Allergies Reason For Referral No Information Medications Medication SIG (Take, Route, Frequency, Duration) Notes Start Date End Date Status Cholecalciferol 50 MCG (1999) 1 tablet Orally Once a day Active Citalopram Hydrobromide 20 MG 1 tablet O rally Once a day Active Lisinopril 40 MG 1 tablet Orally Once a day Active Omeprazole 40 MG 1 capsule 30 minutes before morning meal Orally Once a day Active Sildenafil Citrate 100 MG 1 tablet as ne eded Orally Once a day Active amLODIPine Besylate 10 MG 1 tablet Orall y Once a day Active Carvedilol 12.5 MG 1 tablet with food Orally Twice a day Active Social History Tobacco Use: [...] Problem Status W/U Status Risk Notes Problem Centrilobular emphysema (69611970) Centrilobular emphysema (J43.2) Active confirmed Problem Pulmonary fibrosis (00974515) Pulmonary fibrosis, unspecified (J84.10) Active confirmed Problem Multiple pulmonary nodules (121049238) Multiple pulmonary nodules (R91.8) Active confirmed Problem Ex-tobacco user (finding) (689506010) History of tobacco abuse (Z87.891) Active confirmed Encounters Encounter Location Date Provider Diagnosis Pulmonary Medicine [place] [address] [place] [address] 08/02/2024 Dewayne Mcfadden Plan Of Treatment No Information Insurance Providers Payer Name Payer Address Payer Phone Subscriber Number Group Number Insured Name Patient Relationship to Insured Coverage Start Date Coverage End Date [place] [address] [place] [address] [id number] Jemal Carcamo Self - patient is the insured 0 [employer] [place] [address] 8 MEDICARE SUPP CLMS DEPT [place] [id number] [phone] [id number] PLAN G Jemal Carcamo Self - patient is the insured Medical (General) History Medical History History ICD Code Multiple pulmonary nodules R91.8 Pulmonary fibrosis, unspecified J84.10 Centrilobular emphysema J43.2 Moderate recurrent major depression F33. 1 OA (osteoarthritis) M19.90 HTN (hypertension) I10 BPH (benign prostatic hypertrophy) N40.0 GERD (gastroesophageal reflux disease) K 21.9 Gastric ulcer with hemorrhage K25.4 Postnasal drip R09.82 Thoracic aortic aneurysm, without ruptur e I71.2 History of tobacco abuse Z87.891 Surgical History Surgery Date(Month/Year) right knee arthroplasty tonsillectomy and adenoidectomy EGD 07/12/2023 abdominal aortic aneurysm repair ventral hernia repair 09/18/2018 Hospitalization History Reason Date(Month/Year) [facility] [place] 07/11/2023
--- OUTSIDE RECORDS SUMMARY | 2024-12-23 08:39 | XMS_ITS | Clinical Summary ---
Author Organization [facility] Address [address] [place] [id number] Care Team Providers Care Communications Strategist Name Role Phone Nanda Salmon APRN.CNP Primary Care Provider [phone] Allergies Active Allergy Reactions Criticality Noted Date Comments Atorvastatin Other: See Comments 05/06/2023 Joint swelling Meloxicam Rash 12/16/2022 Medications amLODIPine (NORVASC) 10 mg tablet Take 1 tablet by mouth every afternoon. 08/22/2023 Active carvedilol (COREG) 12.5 mg tablet TAKE 1/2 (ONE-HALF) OF A TABLET BY MOUTH TWICE DAILY 07/15/2023 Active citalopram (CELEXA) 20 mg tablet Take 10 mg by mouth every morning. 08/01/[address] (PROTONIX) 40 mg tablet Take 1 tablet by mouth every 12 hours. 08/14/2023 Active lisinopril (ZESTRIL) 40 mg tablet TAKE 1/2 (ONE-HALF) OF A TABLET BY MOUTH DAILY 07/15/2023 Active MEDICATION, NON-DATABASE Take by mouth two times a day. 07/22 Delta 8 CBD gummy am and pm Active cholecalciferol (VITAMIN D-3) 50 mcg (2,000 unit) tablet Take 1 tablet by mouth once daily. 10/15/2023 Active Ascorbic Acid (VITAMIN C) 1,000 mg tablet Take 1 tablet by mouth once daily. 10/15/2023 Active Iron 18 mg tab Take 1 tablet by mouth every other day. 10/15/2023 Active tamsulosin (FLOMAX) 0.4 mg Take 1 capsule by mouth daily at bedtime. 90 capsule 10/30/2023 Active acetaminophen (TYLENOL EXTRA STRENGTH) 500 mg tablet Take 2 tablets by mouth every 6 hours as needed for pain. 56 tablet 10/30/2023 Active trospium (SANCTURA) 20 mg tablet Take 1 tablet by mouth two times a day as needed (Bladder spasms). Stop at least 24 hours before your catheter is removed 28 tablet 10/30/2023 Active Active Problems Patient Care Coordination No te Formatting of this note migh t be different from the original. 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 on file, negative stress test Important/Relevant PMH/PSH: HTN, Current smoker Overall Course (narrative, include presentation and problems managed prior to surgery or admission to Current Unit): Admitted to ICU s/p celiac artery aneurysm Procedure/Surgeries: 03/18/2014 Celiac artery aneurysm repair Airway Difficulty: Elective glidescope OR Course: Uncomplicated Pacing wires: No UNIT (summarize and move summary to overall course prior to transfer of care) Course in Current Unit (narrative): Today's Impression and Plan 03/19/2014 (include currently managed major problems): Fluid overload, Hyperglycemia, HTN Issues to communicate at signout: RNF Problem Noted Date Diagnosed Date Anemia 10/15/2023 10/15/2023 Assessment & Plan (10/16/2023 7:51 AM EDT): Assessment: + anemia related to bleeding ulcer. Required 4 units PRBCs Had EGD with clipping 06/2023 CBC stable CBC with diff: WBC 11.03 10/15/2023 RBC 5.24 10/15/2023 Hemoglobin 11.9 10/15/2023 Hematocrit 40.2 10/15/2023 MCV 76.7 10/15/2023 MCH 22.7 10/15/2023 MCHC 29.6 10/15/2023 RDW-CV 17.9 10/15/2023 Platelet Count 419 10/15/2023 Bleeding ulcer 10/15/2023 Assessment & Plan (10/15/2023 11:45 AM EDT): Assessment: required EGD with 4 clips 06/2023 Denies abdominal pain, hematochezia or N/V On Pantoprazole Pulmonary fibrosis 09/17/2023 10/15/2023 Assessment & Plan (10/15/2023 11:01 AM EDT): Assessment: Following with Dr. Mcfadden at [facility] Last OV 08/05/2023- fibrosis seems to be stable when I compare the imaging between 07/03/2023 and 08/31/2021. I suggested ordering a HRCT in 1 year, which is more specific than a standard CT or CTA for interstitial lung disease Centrilobular emphysema 09/17/2023 10/15/19 Assessment & Plan (10/15/2023 11:02 AM EDT): Assessment: Follows with Dr. Mcfadden at [facility]. Last OV 08/05/2023... Moderate upper lobe predominant emphysematous findings, not [...] PFT can be ordered at that time. Abdominal aortic aneurysm 01/29/20212023 Assessment & Plan (10/15/2023 11:41 AM EDT): Assessment: Per CT scans ( In care everywhere) CT (05/02) shows an AAA of 2.89 cm and ascending thoracic aneurysm measuring 4.74 cm with no dissection Following with vascular, Dr. Logan at [facility] - last OV 04/2023, stable Denies chest pain Fluid overload 03/19/2014 Overview (03/24/2014): 03/19/2014 Gentle diuresis. 03/22/2014 Still requiring O2. Will give lasix 40 mg PO x1 today. 03/23/2014 Good duiresis with lasix. Decreased O2 requirements. Will give another 40mg PO today 03/24/2014 Duiresed well, no futher lasix needed. Stress hyperglycemia 03/19/2014 Overview (03/22/2014): 03/19/2014 Would transition to sliding scale insulin for blood glucose control. 03/22/2014 BS normal, will DC accuchecks Epididymitis 01/07/2014 Overview (01/11/2014): On Doxy, Cipro at OSH. Urine cx [...] and Urology as outpatient Hypertension 01/07/2014 Overview (03/22/2014): Home meds: bisoprolol/hctz, norvasc IV Metoprolol/hydralazine PRN ordered for BP control post op, goal SBP<160. 03/19/2014 Resume home antihypertensive regimen for blood pressure control. Assessment & Plan (10/15/2023 11:03 AM EDT): Assessment: Stable and compliant with medications Followed by PCP and cardiology Denies chest pain or headaches Last 2 Encounter BP Readings: Date: BP: 10/15/2023 132/71 08/27/2023 160/74 Former smoker 01/07/2014 Overview (01/07/2014): Plan: smoking cessation, nicotine patch. 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 He was generally healthy male, PMH w HTN taking HCTZ. 03/18/14 Celiac Artery Aneurysm repair. 03/19/2014 DC NG tube, transfer to RNF 03/20/2014 Clear liquids 03/22/2014 Begin regular diet, Epidural DC'd. Ambulate with PT. 03/23/2014 DC pimentel, wean O2 03/24/2014 Urinating without difficulties. On RA. Discharge to home Assessment & Plan (10/15/2023 11:41 AM EDT): Assessment: s/p Celiac Artery Aneurysm repair 2013 Monitored by at [facility], stable per last OV 04/2023 Family History Medical History Relation Comments TIAs, Lyme's disease [Other] Brother Chanel ve age 55 Lymphoma [Other] Father age 67 CVA after surgery for SBO, Breast cancer [Other] Mother age 83 Obesity, fibromyalgia [Other] Sister Norman galvez age 53 Difficulty with anesthesia No Family History Relation Status Comments Brother Father Mother Sister Social History Tobacco Use Types Packs/Day Years Used Date Smoking Tobacco: Former Cigarettes 1 40 Smokeless Tobacco: Former Snuff Tobacco Cessation:Counseling Given: Not Answered Comments:occasionally has a cigarette Alcohol Use Standard Drinks/Week Comments No 0 (1 standard drink = 0.6 oz pur e alcohol) Area Deprivation Index Answer Date Jonathon rded National Score (1-100), lower number is lower ri sk 61 08/27/2023 State Score (1-10), lower number is lower risk 4 08/27/2023 Data from: https://www.neighborhoodatlas.medicine.[facility].edu/. Last address used for calculation [address] 08/27/2023 Sex and Gender Information Value Date Recorded Sex Assigned at Not on file Legal Sex Male 10:58 AM EDT Gender Identity Not on file Sexual Orientation Not on file Last Filed Vital Signs Vital Sign Reading Time Taken Comments Blood Pressure 164/75 02/18/2024 2:11 PM EDT Pulse 79 02/18/2024 2:11 PM EDT Temperature 36.6 C (97.8 F) 02/18/2024 2:11 PM EDT Respiratory Rate 15 12/03/2023 9:29 AM EDT Oxygen Saturation 100% 02/18/2024 2:11 PM EDT Inhaled Oxygen Concentration - - Weight 83.6 kg (184 lb 4.9 oz) 02/18/2024 2:11 P M EDT Height 180.3 cm (5' 11 ) 10/30/2023 2:07 PM EDT Body Mass Index 25.71 10/30/2023 2:07 PM EDT Plan of Treatment Health Maintenance Due Date Last Done Comments Abdominal Aortic Aneurysm Screening 1950 Annual PCP Team Chronic Dise ase Visit 1970 Anxiety Screening 1970 BP Controlled (<130/80) 1970 Depression Screening 1970 Hepatitis C Screening 1970 DTaP,Tdap,Td Vaccine (1 - Tdap) 1971 Pneumococcal Vaccine: 50+ (1 of 2 - PCV) 1971 CT Colonography 1997 Cologuard (FIT-DNA) 1997 Colonoscopy 1997 Colorectal Cancer Screening 1997 Fecal Occult Blood 1997 Sigmoidoscopy 1997 Shingrix Vaccine (1 of 2) 2002 RSV Vaccine (1 - Risk 60-74 years 1-dose series) 2012 Lipid Screening 01/06/2019 01/06/2014 Covid-19 Vaccine (1 - 2023-2 5 season) 2024 Advance Directive Discussion 07/21/2024 Influenza Vaccine (Season Ended) 2025 Diabetes Screening 02/03/2027 02/04/2024, 0 10/31/2023, 10/30/2023, Additional history exists Medical Devices Implanted Type Area Administrative Accountant Device Identifier Shelf Expiration Date Model / Serial / Lot Graft Vasc 15cm 8mm [facility] G - [id number] Implanted:Qty : 1 on 03/18/2014 at [facility] Graft MAQUET 01/17/2018 [id number] / / [id number] Stent Inlay [employer] 6fr Taper [employer] Polymer Phreecoat 26cm Ureteral - [id number] Implanted:Qty : 1 on 10/30/2023 at [facility] Urologic Stents Right: Ureter TERESA KE 02/27/2028 [id number] / / [id number] Procedures Procedure Name Priority Date/Time Associated Diagnosis Comments BASIC METABOLIC PANEL Routine 02/04/2024 8:05 AM EDT Malignant neoplasm of overlapping sites of bladder (HCC) LIPID PANEL, FASTING Routine 01/06/2014 9:19 AM EDT from Last 3 Months or Most Recently Relevant to Health Maintenance Results * (ABNORMAL) BASIC METABOLIC PANEL (02/04/2024 8:05 AM EDT) Glucose 120(H) 74 - 99 mg/dL 02/04/2024 8:[address] [facility] Comment: The [place] Diabetes Association (ADA) provides guidance for cutoff values for fasting glucose and random glucose. The ADA defines fasting as no caloric intake for at least 8 hours. Fasting plasma glucose results between 100 to 125 mg/dL indicate increased risk for diabetes (prediabetes). Fasting plasma glucose results greater than or equal to 126 mg/dL meet the criteria for diagnosis of diabetes. In the absence of unequivocal hyperglycemia, results should be confirmed by repeat testing. In a patient with classic symptoms of hyperglycemia or hyperglycemic crisis, random plasma glucose results greater than or equal to 200 mg/dL meet the criteria for diagnosis of diabetes. Reference: Standards of Medical Care in Diabetes 2016, [place] Diabetes Association. Diabetes Care. 2016.39(Suppl 1). BUN 15 9 - 24 mg/dL 02/04/2024 8:[address] [facility] Creatinine 0.92 0.73 - 1.22 mg/dL 02/04/2024 8:[address] [facility] Sodium 139 136 - 144 mmol/L 02/04/2024 8:[address] [facility] Potassium 4.7 3.7 - 5.1 mmol/L 02/04/2024 8:[address] [facility] Chloride 103 98 - 107 mmol/L 02/04/2024 8:[address] [facility] CO2 29 22 - 30 mmol/L 02/04/2024 8:[address] [facility] Anion Gap 7(L) 8 - 15 mmol/L 02/04/2024 8:[address] [facility] Calcium, Total 9.5 8.5 - 10.2 mg/dL 02/04/2024 8:[address] [facility] Estimated Glomerular Filtration Rate 89 >=60 mL/min/1. 73m 02/04/2024 8:[address] [facility] Comment:Estimated Glomerular Filtration Rate (eGFR) is calculated using the 2020 CKD-EPI creatinine equation. This equation utilizes serum creatinine, sex, and age as parameters. The creatinine assay has traceable calibration to isotope dilution- mass spectrometry. Refer to KDIGO guidelines for clinical interpretation. In patients with unstable renal function, e.g. those with acute kidney injury, the eGFR may not accurately reflect actual GFR. Blood BLOOD SPECIMEN / Unknown Venipuncture / Unknown 02/04/2024 8:05 AM EDT 02/04/2024 8:11 AM EDT us Abhilash Leggett MD LABORATORY Final Resul t [facility] [address] [place] [id number] * (ABNORMAL) LIPID PANEL BASIC (01/06/2014 9:19 AM EDT) Triglyceride 88 30 - 149 mg/dL [facility] Cholesterol, Total 116 100 - 199 mg/dL [facility] HDL Cholesterol 47 >45 mg/dL [facility] VLDL Cholesterol 18 6 - 40 mg/dL [facility] LDL Cholesterol, Calculated 51(L) 60 - 129 mg/dL [facility] Fasting Time Unknown hrs [facility] TC:HDL Ratio 2.47 1.00 - 5.00 [facility] LDL:HDL Ratio 1.09 0.50 - 3.55 [facility] Non HDL Cholesterol 69(L) 90 - 159 mg/dL [facility] Blood specimen (specimen) BLOOD SPECIMEN / Unknown 01/06/2014 9:19 AM EDT 01/06/2014 9:20 AM EDT Ceci Liriano PRODUCT TESTER.[employer] LABORATORY Fin al Result [facility] [address] [place] [address] from Last 3 Months or Most Recently Relevant to Health Maintenance Insurance MEDICARE Member Subscriber Plan / Payer (Ef fective 2017-Present) Name:Jemal Carcamo Member ID:[id number] Relation to Subscriber:Self Name:Jemal Carcamo Subscriber ID:[id number] Payer ID:Not on file Group ID:Not on file Type:Medicare Address: [address] Care Teams Communications Strategist Relationship Specialty Start Date End Date Nanda Salmon APRN.RHEA PCP - General 10/15/23
--- OUTSIDE RECORDS SUMMARY | 2024-12-23 08:53 | XMS_ITS | CCD ---
Author Organization [facility] Care Team Providers Care Kettle Chipper Name Role Phone CLAYTON ., DR TERE Peraza Consulting Unavailable CLAYTON ., DR TERE Peraza Primary Care Unavailable CLAYTON ., DR TERE Peraza Admitting Unavailable CLAYTON ., DR TERE Peraza Attending Unavailable TALMAGE, DR MIKY Gallo Consulting Unavailable CHAKY, MIKY Consulting Unavailable ELTAHAWY, DR BARCLAY Admitting Unavailable ELTAHAWY, DR BARCLAY Attending Unavailable ELTAHAWY, DR BARCLAY Consulting Unavailable CLAYTON ., DR TERE Peraza Primary Care Unavailable MISC, DR ANGEL Admitting Unavailable MISC, DR ANGEL Attending Unavailable MISC, DR ANGEL Consulting Unavailable CLAYTON ., DR TERE Peraza Primary Care Unavailable ALVA, DR Yasmin Alvarez Attending Unavailable ALVA, DR Yasmin Alvarez Consulting Unavailable ALVA, DR Yasmin Alvarez Admitting Unavailable CLAYTON ., DR TERE Peraza Primary Care Unavailable MISC, DR ANGEL Attending Unavailable MISC, DR ANGEL Admitting Unavailable CLAYTON ., DR TERE Peraza Primary Care Unavailable CLAYTON ., DR TERE Peraza Primary Care Unavailable ELTAHAWY, DR BARCLAY Attending Unavailable ELTAHAWY, DR BARCLAY Admitting Unavailable Elham Damico Primary Care Physician MAYNOR Santamaria Emergency Provider [phone] ALVARADO Damico Primary Care Provider [phone] MD Tia Hernandes Admit Provider MD Tia Hernandes Attending Provider MD Arvin Al Other Provider MD Rex Burgos Other Provider Arvin Al Unavailable Unavailable Primary Care Provider UnavailArvin Hatfield Consulting Unavailable Semaskiene, Tia Attending Unavailable Semaskiene, Tia Admitting Unavailable Mookie, Elham Mcgovern Primary Care Unavailable Rex Burgos Consulting Unavailable ALVA, FRANCOIS Alvarez Attending Unavailable FRANCOIS CALLE Referring Unavailable Mookie STAFFING CONSULTANT.Elham WILKERSON Primary Care Provider Mookie STAFFING CONSULTANT.Elham WILKERSON Primary Care Provider Mookie, Elham Crowley Admitting Unavailable Mookie, Elham Crowley Attending Unavailable Mookie, Elham Crowley Admitting Unavailable Mookie, Elham Crowley Attending Unavailable Mookie, Elham Crowley Referring Unavailable Mookie, Elham Crowley Admitting Unavailable Mookie, Elham Crowley Attending Unavailable Mookie, Elham Crowley Attending Unavailable Mookie, Elham Crowley Admitting Unavailable Mookie, Elham Crowley Attending Unavailable Mookie, Elham L Admitting Unavailable Mookie, Elham Crowley Admitting Unavailable Mookie, Elham Crowley Attending Unavailable Rex BURGOS Admitting Unavailable Rex BURGOS Attending Unavailable Rex BURGOS Referring Unavailable Mookie, Elham Crowley Attending Unavailable Mookie, Elham Crowley Admitting Unavailable Mookie, Elham Crowley Attending Unavailable Mookie, Elham Crowley Admitting Unavailable Mookie, Elham Crowley Admitting Unavailable Mookie, Elham Crowley Attending Unavailable Mookie, Elham Crowley Attending Unavailable Mookie, Elham Crowley Attending Unavailable Mookie, Elham Crowley Attending Unavailable Mookie, Elham Crowley Attending Unavailable Mookie, Elham Crowley Attending Unavailable Mookie, Elham Crowley Referring Unavailable Martha KELLEY Attending Unavailable Mookie STAFFING CONSULTANT.Elham WILKERSON Primary Care Provider BRENDA LEGGETT Attending Unavailable MOOKIE, ELHAM MCGOVERN Primary Care Unavailable BRENDA LEGGETT Attending Unavailable MOOKIE, ELHAM MCGOVERN Primary Care Unavailable ABOBRENDA AKERS Admitting Unavailable ABOUASSALYBRENDA Attending Unavailable ABOUASSALYBRENDA Attending Unavailable MOOKIE, ELHAM MCGOVERN Primary Care Unavailable ABOBRENDA AKERS Attending Unavailable MOOKIE, ELHAM MCGOVERN Primary Care Unavailable YESSYZOIRISJAYLENE Referring Unavailable CARRIZO, JAYLENE Referring Unavailable ELTAHAWY, EHAB Referring Unavailable CARRIZO, JAYLENE Referring Unavailable CARRIZO, JAYLENE Attending Unavailable ELTAHAWY, EHAB Referring Unavailable ELTAHAWY, EHAB Attending Unavailable CARRIZO, JAYLENE Referring Unavailable ABOUASSALY, BRENDA Referring Unavailable ABOUASSALY, BRENDA Referring Unavailable MOOKIEELHAM PRATHER Primary Care Unavailable ABOUASSALY, BRENDA Referring Unavailable MOOKIEELHAM Primary Care Unavailable MOOKIE, ELHAM MCGOVERN Primary Care Unavailable ABOUASSALY, BRENDA Referring Unavailable MOOKIEELHAM PRATHER Primary Care Unavailable Elham Damico Attending Unavailable Allergies Allergy Classification Reported Allergen(s) Allergy Type Date of Onset Reaction(s) Facility HMG-CoA Reductase Inhibitors (statins) (1 source) atorvastatin; Translations: [ATORVASTATIN] Drug Allergy [facility] Metoprolol (1 source) Metoprolol; Translations: [metoprolol] Drug Allergy [facility] NSAIDs (1 source) meloxicam; Translations: [MELOXICAM] Drug Allergy [facility] (12 sources) Metoprolol; Translations: [metoprolol] Drug Allergy [facility] (1 source) Non-steroidal anti-inflammato ry agent Drug allergy Unknown [employer] Other (1 source) NSAIDs Drug allergy (disorder) [facility] Repository (19 sources) atorvastatin; Translations: [ATORVASTATIN] Drug Allergy 3 Other: See Comments [facility] (19 sources) meloxicam; Translations: [MELOXICAM] Drug Allergy 3 Rash [facility] Medications Current Medications Medication Drug Class(es) Dates Sig (Normalized) Sig (Original) acetaminophen 500 mg oral tablet (16 sources) Start: 10-30-2023 take 2 tablets by mouth every six hours as needed acetaminophen (TYLENOL EXTRA STRENGTH) 500 mg tablet Take 2 tablets by mouth every 6 hours as needed for pain. 56 tablet 10/30/2023 Active Comment on above: Take 2 tablets by mo [facility] every 6 hours as needed for pain. amLODIPine 10 mg oral tablet (20 sources) Dihydropyridine Calcium Channel Sanna Start: 05-01-2023 take 1 tablet by mouth once amLODIPine (NORVASC) 10 mg tablet Take 1 tablet by mouth every afternoon. 08/22/2023 Active Start: 04-07-2017 take 1 tablet by polo th once daily in the morning Amlodipine Active 1 TAB PO Every morning April 06, 2017 11:00pm End: 08-27-2023 take 1 tablet by mouth once daily amLODIPine 2.5 mg tablet Take 2.5 mg by mouth once daily. 0 08/27/2023 Discontinued (Dosage adjustment) Comment on above: Take 1 tablet by polo th every afternoon. Take 2.5 mg by mouth once daily. ascorbic acid 1000 mg oral tablet (19 sources) Vitamin C Start: 10-15-2023 take 1 tablet by mouth once daily Ascorbic Acid (VITAMIN C) 1,000 mg tablet Take 1 tablet by mouth once daily. 10/15/2023 Active Start: 04-07-2017 End: 07-11-2023 take 4 tablets by mouth once daily Vitamin C Discontinued 4 TAB PO Daily April 06, 2017 11:00pm July 11, 2023 9:09pm Comment on above: Take 1 tablet by polo th once daily. carvedilol 12.5 mg oral tablet (20 sources) alpha-Adrenergic Sanna, beta-Adrenergic Sanna Start: 07-15-2023 take 6.25 mg by mouth twice daily Carvedilol Active 6.25 MG PO Twice daily 60 July 15, 2023 2:02pm Start: 07-15-2023 take 0.5 tablet by m outh twice daily carvedilol (COREG) 12.5 mg tablet TAKE 1/2 (ONE-HALF) OF A TABLET BY MOUTH TWICE DAILY 07/15/2023 Active Start: 07-11-2023 End: 07-15-2023 take 12.5 mg by mouth once daily Carvedilol Discontinued 12.5 MG PO Daily July 11, 2023 12:00am July 15, 2023 2:02pm Start: 04-29-2023 carvedilol 12. 5 mg Tab 6.25 mg = 0.5 tab(s), Oral, BID, 180 EA, 0 Refill(s), TAKE 1 TABLET BY MOUTH TWICE DAILY (WITH BREAKFAST and WITH evening meal), Refills(s) 0 Start Date: 04/29/23 Status: Ordered Comment on above: TAKE 1/2 (ONE-HALF) OF A TABLET BY MOUTH TWICE DAILY cholecalciferol 0.05 mg oral tablet (20 sources) Vitamin D Start: 10-15-19 take 1 tablet by mouth once daily cholecalciferol (VITAMIN D-3) 50 mcg (2,000 unit) tablet Take 1 tablet by mouth once daily. 10/15/2023 Active Start: 04-29-2023 Start: 04-29-2023 Comment on above: Take 1 tablet by polo th once daily. ciprofloxacin 500 mg oral tablet (1 source) Quinolone Antimicrobial Start: 10-30-19 End: 11-02-19 take 1 tablet by mouth twice daily ciprofloxacin HCl (CIPRO) 500 mg tablet Take 1 tablet by mouth two times a day for 3 days. Start the day before your Francisco catheter is removed and continue until the day afterwards 6 tablet 0 10/30/2023 11/02/2023 Active Comment on above: Take 1 tablet by polo th two times a day for 3 days. Start the day before your Francisco catheter is removed and continue until the day afterwards citalopram 20 mg oral tablet (20 sources) Serotonin Reuptake Inhibitor Start: 08-01-19 take 10 mg by mouth once daily in the morning citalopram (CELEXA) 20 mg tablet Take 10 mg by mouth every morning. 08/01/2023 Active Start: 04-29-2023 citalopram 20 mg Tab 20 mg = 1 tab(s), Oral, Daily, 90 EA, 0 Refill(s), TAKE 1 TABLET BY MOUTH EVERY MORNING, # 90 tab(s), Refills(s) 0, Pharmacy: [facility] #[id number], 176.5, cm, 07/17/23 14:25:00 EST, Height/Length Dosing, 81.8, kg, 07/17/23 14:25:00 EST, Weight Dosing Start Date: 08/01/23 Status: Ordered take 1 tablet by polo th every twenty-four hours Citalopram Hydrobromide 10 MG 1 tablet Orally Once a day Active Comment on above: Take 10 mg by mouth every morning. docusate sodium 100 mg oral capsule (9 sources) Start: 10-30-2023 End: 11-29-2023 take 1 capsule by mouth twice daily docusate sodium (COLACE) 100 mg capsule Take 1 capsule by mouth two times a day. 60 capsule 0 10/30/2023 11/29/2023 Active Comment on above: Take 1 capsule by mo [facility] two times a day. Iron (17 sources) Start: 10-15-2023 take 1 tablet by mouth every other day Iron 18 mg tab Take 1 tablet by mouth every other day. 10/15/2023 Active Start: 10-15-2023 take 1 tablet by polo every other day Iron 18 mg tab Take 1 tablet by mouth every other day. 0 10/15/2023 Suspended Start: 10-15-2023 take 1 tablet by polo th every other day Iron 18 mg tab Take 1 tablet by mouth every other day. 0 10/15/2023 Active Comment on above: Take 1 tablet by polo th every other day. iv contrast (will be provided with radiology test) (2 sources) Start: 02-18-2024 End: 02-19-2024 iv contrast (will be provided with radiology test) CT Urogram WO/W Inject, intravenously, once for 1 dose.No IV access, insert saline lock prior to the beginning of sedation, infusion, injection of imaging exam. Discontinue saline lock post exam. If Pt. has a central line or IVAD, may access for administration according to line specific nursing protocol. Once exam is complete flush line and de-access according to line specific nursing protocol in the CT contrast administration guidelines link. 1 Each 0 02/18/2024 02/19/2024 Active Start: 12-03-2023 End: 12-04-2023 iv contrast (will be provide d with radiology test) Indications: Malignant neoplasm of overlapping sites of bladder (HCC) CT Urogram WO/W Inject, intravenously, once for 1 dose.No IV access, insert saline lock prior to the beginning of sedation, infusion, injection of imaging exam. Discontinue saline lock post exam. If Pt. has a central line or IVAD, may access for administration according to line specific nursing protocol. Once exam is complete flush line and de-access according to line specific nursing protocol in the CT contrast administration guidelines link. 1 Each 0 12/03/2023 12/04/2023 Active lisinopril 20 mg oral tablet (20 sources) Angiotensin Converting Enzyme Inhibitor Start: 07-16-2023 take 1 tablet by mouth once daily lisinopril 20 mg Tab 20 mg = 1 tab(s), Oral, Daily, Refills(s) 0 Start Date: 07/16/23 Status: Ordered Start: 07-15-2023 Lisinopril Act lenny 20 MG PO DIALYSIS July 15, 2023 2:02pm Start: 07-15-2023 take 0.5 tablet by m outh once daily lisinopril (ZESTRIL) 40 mg tablet TAKE 1/2 (ONE-HALF) OF A TABLET BY MOUTH DAILY 07/15/2023 Active Start: 04-29-2023 End: 07-15-2023 Lisinopril Discontinued 40 M G PO DIALYSIS July 11, 2023 12:00am July 15, 2023 2:02pm Start: 02-28-2021 End: 07-11-2023 take 10 mg by mouth once daily Lisinopril Discontinued 10 MG PO Daily February 27, 2021 11:00pm July 11, 2023 9:09pm Comment on above: TAKE 1/2 (ONE-HALF) OF A TABLET BY MOUTH DAILY MEDICATION, NON-DATABASE (17 sources) MEDICATION, NON- DATABASE Take by mouth two times a day. 1/2 Delta 8 CBD gummy am and pm Active MEDICATION, NON- DATABASE Take by mouth two times a day. 1/2 Delta 8 CBD gummy am and pm 0 Suspended MEDICATION, NON- DATABASE Take by mouth two times a day. 1/2 Delta 8 CBD gummy am and pm 0 Active Comment on above: Take by mouth two ti mes a day. 1/2 Delta 8 CBD gummy am and pm nystatin 400652 unt/ml topical cream (11 sources) Polyene Antifungal Start: 3 nystatin Top 100,000 units/g Crm 15 gram 1 chantal, Topical, BID, 30 gram, Refill(s) 1, [facility] #[id number], 176.5, cm, 06/03/23 11:10:00 EST, Height/Length Dosing, 91.6, kg, 06/03/23 11:10:00 EST, Weight Dosing Start Date: 06/03/23 Status: Ordered omeprazole 40 mg delayed release oral capsule (3 sources) Proton Pump Inhibitor Start: 3 take 1 capsule by mouth once daily omeprazole 40 mg Cap-DR 40 mg = 1 cap(s), Oral, Daily, # 30 cap(s), Refills(s) 3, Pharmacy: [facility] #[id number], 176.5, cm, 06/03/23 11:10:00 EST, Height/Length Dosing, 91.6, kg, 06/03/23 11:10:00 EST, Weight Dosing Start Date: 06/03/23 Status: Ordered oxyCODONE hydrochloride 5 mg oral tablet (1 source) Opioid Agonist Start: End: take 1 tablet by mouth every six hours as needed for pain oxyCODONE IR (ROXICODONE) 5 mg immediate release tablet Indications: Acute post-operative pain Take 1 tablet by mouth every 6 hours as needed for pain for up to 3 days. 6 tablet 0 10/30/2023 11/02/2023 Active Comment on above: Take 1 tablet by polo th every 6 hours as needed for pain for up to 3 days. pantoprazole 40 mg delayed release oral tablet (20 sources) Proton Pump Inhibitor Start: take 1 tablet by mouth every twelve hours [address] (PROTONIX) 40 mg tablet Take 1 tablet by mouth every 12 hours. 08/14/2023 Active Start: 07-17-2023 Pantopraz[address] Tab See Instructions, Take 1 tablet twice a day for 2 weeks then 1 tablet daily Start Date: 07/17/23 Status: Ordered Start: 07-15-2023 take 1 tablet by polo twice daily, then take 1 tablet by mouth once daily Pantoprazole (Protonix) 40 mg tablet,delayed release (DR/EC) Active 40 MG PO As Directed July 15, 2023 12:00am 40 mg twice a day x 2 weeks, then 40 mg daily Comment on above: Take 1 tablet by polo every 12 hours. 1000 ml sodium chloride 9 mg/ml injection (2 sources) Start: 02-18-2024 End: 02-18-2024 0.9 % sodium chloride (NACL 0.9%) infusion Administer at rate defined per CT contrast administration specifications. To be provided with radiology test. 150 mL 0 02/18/2024 02/18/2024 Active Start: 12-03-2023 End: 12-03-2023 0.9 % sodium chloride (NACL 0.9%) infusion Administer at rate defined per CT contrast administration specifications. To be provided with radiology test. 150 mL 0 12/03/2023 12/03/2023 tamsulosin hydrochloride 0.4 mg oral capsule (16 sources) alpha-Adrenergic Sanna Start: 10-30-2023 End: 01-28-2024 take 1 capsule by mouth once daily at bedtime tamsulosin (FLOMAX) 0.4 mg Take 1 capsule by mouth daily at bedtime. 90 capsule 10/30/2023 Active Comment on above: Take 1 capsule by mo [facility] daily at bedtime. trospium chloride 20 mg oral tablet (16 sources) Cholinergic Muscarinic Antagonist Start: 10-30-2023 take 1 tablet by mouth every twelve hours as needed trospium (SANCTURA) 20 mg tablet Take 1 tablet by mouth two times a day as needed (Bladder spasms). Stop at least 24 hours before your catheter is removed 28 tablet 10/30/2023 Active Comment on above: Take 1 tablet by polo two times a day as needed (Bladder spasms). Stop at least 24 hours before your catheter is removed Completed/Discontinued Medications Medication Drug Class(es) Dates Sig (Normalized) Sig (Original) acetaminophen 325 mg / oxyCODONE hydrochloride 5 mg oral tablet (2 sources) Opioid Agonist Start: 04-16-2017 End: 02-28-2021 take 1 tablet by mouth every six hours Oxycodone-Acetamin ophen (Percocet) 5-325 mg tablet Discontinued 1 TAB PO Q6H April 16, 2017 February 28, 2021 6:14am aspirin 325 mg oral tablet (6 sources) Platelet Aggregation Inhibitor, Nonsteroidal Anti-inflammatory Drug Start: 04-07-2017 End: 07-11-2023 take 1 tablet by mouth once daily in the morning Aspirin ([place] Aspirin) 325 mg Tablet Discontinued 1 TAB PO Every morning April 06, 2017 11:00pm July 11, 2023 9:09pm Comment on above: Take 325 mg by mouth once daily. 12 hr buPROPion hydrochloride 150 mg extended release oral tablet (3 sources) Aminoketone Start: 04-07-2017 End: 07-11-2023 take 1 tablet by mouth once daily in the morning Bupropion Hcl Discontinued 1 TAB PO Every morning April 06, 2017 11:00pm July 11, 2023 9:09pm End: 08-27-2023 take 1 tablet by mouth once daily buPROPion XL 150 mg 24 hr tablet Indications: smoking cessation Take 150 mg by mouth once daily. Indications: SMOKING CESSATION 0 08/27/2023 Discontinued (Other) Comment on above: Take 150 mg by mouth once daily. Indications: SMOKING CESSATION cephalexin 500 mg oral capsule (2 sources) Cephalosporin Antibacterial Start: 04-16-20 End: 02-29-20 take 1 capsule by mouth every twelve hours Cephalexin (Keflex) 500 mg capsule Discontinued 500 MG PO Q12H April 15, 2017 11:00pm February 28, 2021 6:14am Cod Liver Oil (2 sources) Start: 04-07-20 End: 02-29-20 Cod Liver Oil Discontinued 1 TBSP PO Daily April 06, 2017 11:00pm February 28, 2021 6:13am Garlic preparation (2 sources) Non-Standardized Food Allergenic Extract Start: 04-07-20 End: 02-29-20 take 1 tablet by mouth once daily Garlic Discontinued 1 TAB PO Daily April 06, 2017 11:00pm February 28, 2021 6:14am Glucosamine-Chondroit -Vit C-Mn (Glucosamine Chondroitin Maxstr) 500-400 mg Capsule (2 sources) Start: 04-07-20 End: 07-11-20 take 3 tablets by mouth once daily Glucosamine-Chondroi t-Vit C-Mn (Glucosamine Chondroitin Maxstr) 500-400 mg Capsule Discontinued 3 TAB PO Daily April 06, 2017 11:00pm July 11, 2023 9:09pm lidocaine hydrochloride 0.02 mg/mg topical gel (8 sources) Antiarrhythmic, Amide Local Anesthetic Start: 02-18-20 End: 02-18-20 lidocaine urojet 2 % 11 mL topical gel (GLYDO) Start: 11-21-2023 End: 12-21-2023 lidocaine urojet 2 % 11 mL t opical gel (GLYDO) nadolol 20 mg oral tablet (2 sources) beta-Adrenergic Sanna Start: 02-28-2021 End: 07-11-2023 take 20 mg by mouth once daily Nadolol Discontinued 20 MG PO Daily February 27, 2021 11:00pm July 11, 2023 9:09pm Vaughan Starrucca Extract (2 sources) Start: 04-07-2017 End: 02-28-2021 take 1 capsule by mouth once daily Vaughan Starrucca Extract Discontinued 1 CAP PO Daily April 06, 2017 11:00pm February 28, 2021 6:14am rosuvastatin calcium 20 mg oral tablet (2 sources) HMG-CoA Reductase Inhibitor Start: 04-29-2023 rosuvastatin 20 mg Tab 30 EA, 0 Refill(s), TAKE 1 TABLET BY MOUTH IN THE MORNING, Refills(s) 0 Start Date: 04/29/23 Status: Ordered Jesus Vasques (2 sources) Start: 04-07-2017 End: 07-11-2023 take 1 tablet by mouth once daily Jesus Vasques Discontinued 1 TAB PO Daily April 06, 2017 11:00pm July 11, 2023 9:09pm sulfamethoxazole 800 mg / trimethoprim 160 mg oral tablet (15 sources) Dihydrofolate Reductase Inhibitor Antibacterial, Sulfonamide Antimicrobial Start: 02-18-2024 End: 02-18-2024 sulfamethoxazole- trimethoprim 800-160 mg 1 tablet (BACTRIM DS) Start: 01-05-2024 End: 01-15-2024 sulfamethoxazole-trimethopri m 800 mg-160 mg Tab 1 tab(s), Oral, BID for 10 day(s), 20 tab(s), Refill(s) 0, [facility] #72, 176.5, cm, 07/17/23 14:25:00 EST, Height/Length Dosing, 81.8, kg, 07/17/23 14:25:00 EST, Weight Dosing Start Date: 01/05/24 Stop Date: 01/15/24 Status: Ordered Start: 12-03-2023 End: 12-03-2023 sulfamethoxazole-trimethopri m 800-160 mg 1 tablet (BACTRIM DS) Start: 12-03-2023 End: 12-03-2023 sulfamethoxazole-trimethopri m 800-160 mg 1 tablet (BACTRIM DS) Start: 11-28-2023 End: 12-05-2023 take 1 tablet by mouth twice daily sulfamethoxazole-trimethoprim (BACTRIM D S) 800-160 mg per tablet Indications: Dysuria Take 1 tablet by mouth two times a day for 7 days. 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] Onset: 4 04-29-2023 Chronic Cancer of bladder (12 sources) Malignant tumor of urinary bladder; Translations: [Malignant neoplasm of bladder, unspecified] Onset: 4 08-27-2023 Chronic Chronic obstructive pulmonary disease and bronchiectasis (20 sources) Pulmonary emphysema; Translations: [Centriacinar emphysema] Onset: 4 07-09-2023 Chronic Deficiency and other anemia (3 sources) Anemia, unspecified; Translations: [Anemia, unspecified] Onset: 3 07-11-2023 Episodic Disorders of lipid metabolism (4 sources) Hyperlipidemia, unspecified; Translations: [HYPERLIPIDEMIA UNSPECIFIED] Onset: 2 Chronic Esophageal disorders (15 sources) Gastroesophageal reflux disease; Translations: [Gastro-esophageal reflux disease without esophagitis] Onset: 3 06-03-2023 Chronic Essential hypertension (20 sources) Essential hypertension; Translations: [Hypertensive disorder] Onset: 4 04-29-2023 Chronic Gastroduodenal ulcer (except hemorrhage) (2 sources) Gastric ulcer; Translations: [Gastric ulcer, unspecified as acute or chronic, without hemorrhage or perforation] Chronic Gastrointestinal hemorrhage (17 sources) Hemorrhage of digestive system; Translations: [Chronic or unspecified gastrojejunal ulcer with hemorrhage] Onset: 4 10-15-2023 Chronic Gastrointestinal hemorrhage (7 sources) Gastrointestinal hemorrhage; Translations: [Gastrointestinal hemorrhage, unspecified] Onset: 3 07-11-2023 Episodic Gastrointestinal hemorrhage (1 source) Gastrointestinal hemorrhage; Translations: [Gastrointestinal hemorrhage, unspecified] Onset: 3 Genitourinary symptoms and ill-defined conditions (2 sources) Urinary catheter in situ; Translations: [Encounter for fitting and adjustment of urinary device] Onset: 4 11-12-2023 Chronic Genitourinary symptoms and ill-defined conditions (2 sources) Dysuria; Translations: [Dysuria] 05-10-2024 Episodic Hyperplasia of prostate (9 sources) Large prostate 07-09-2023 Chronic Mood disorders (9 sources) Recurrent major depressive episodes, moderate 07-08-2023 Chronic Comment on above: added per 07/08/2023 query response. Osteoarthritis (11 sources) Osteoarthritis of right knee joint Onset: 3 04-29-2023 Chronic Other connective tissue disease (4 sources) Presence of right artificial knee joint; Translations: [PRESENCE RT ARTIFICIAL KNEE JOINT] Onset: 3 Chronic Other diseases of kidney and ureters (1 source) Urinary tract obstruction; Translations: [Other obstructive and reflux uropathy] Onset: 4 Episodic Other injuries and conditions due to external causes (2 sources) Urine finding; Translations: [Abnormal urine levels of substances chiefly nonmedicinal as to source] 08-27-2023 Episodic Other lower respiratory disease (17 sources) Fibrosis of lung; Translations: [Pulmonary fibrosis, unspecified] Onset: 4 10-15-2023 Chronic Other lower respiratory disease (9 sources) Multiple nodules of lung 07-09-2023 Episodic Other nutritional; endocrine; and metabolic disorders (11 sources) Unexplained weight loss 06-03-2023 Episodic Other nutritional; endocrine; and metabolic disorders (1 source) Unintentional weight loss; Translations: [Abnormal weight loss] 07-12-2023 Episodic Other nutritional; endocrine; and metabolic disorders (2 sources) Abnormal weight loss; Translations: [Loss of weight] Onset: 3 07-15-2023 Episodic Residual codes; unclassified (1 source) Postoperative state; Translations: [Other specified postprocedural states] 11-12-2023 Episodic Substance-related disorders (15 sources) Smoker; Translations: [Nicotine dependence, unspecified, uncomplicated] Onset: 4 04-29-2023 Chronic Comment on above: Outside Source Comme nt: Overview: Plan: smoking cessation, nicotine patch. Unclassified (1 source) Aneurysm of the ascending aorta, ruptured; Translations: [Aneurysm of the ascending aorta, ruptured] Onset: 2 Unclassified (1 source) Abdominal aortic aneurysm, without rupture, unspecified; Translations: [Abdominal aortic aneurysm, without rupture, unspecified] Onset: 2 Urinary tract infections (3 sources) Urinary tract infectious disease; Translations: [Urinary tract infection, site not specified] Onset: 4 Episodic Past or Other Problems Problem Classification Problem Date Documented Date Episodic/Chronic Crushing injury or internal injury (1 source) Unspecified injury of bladder, subsequent encounter; Translations: [Closed injury of bladder, subsequent encounter] Onset: 10-30-2023 Episodic Deficiency and other anemia (19 sources) Anemia; Translations: [Anemia, unspecified] Onset: 10-15-2023 07-11-2023 Episodic Diabetes mellitus without complication (20 sources) Metabolic stress hyperglycemia; Translations: [Hyperglycemia, unspecified] Onset: 03-19-2014 Episodic Fluid and electrolyte disorders (20 sources) Hypervolemia; Translations: [Fluid overload, unspecified] Onset: 03-19-2014 Episodic Inflammatory conditions of male genital organs (20 sources) Epididymitis; Translations: [Epididymitis] Onset: 01-07-2014 04-29-2023 Episodic Comment on above: Outside Source Comme nt: Overview: On Doxy, Cipro at OSH. Urine cx [...] bladder diverticulum will be address following Mr. Zepeda's recovery from his upcoming vascular surgery - we will arrange outpatient follow-up in our department for this issue. 01/10/14 Cipro 750mg bid through 01/25/14 per Infectious Disease consult. Patient will follow up with ID and Urology as outpatient Other connective tissue disease (1 source) Synovial cyst of popliteal space [Aaron], right knee; Translations: [SYNOVIAL CYST POP SPACE RIGHT KNEE] Onset: 02-27-2022 Episodic Other injuries and conditions due to external causes (2 sources) Abnormal urine levels of substances chiefly nonmedicinal as to source; Translations: [Abnormal urine levels of substances chiefly nonmedicinal as to source] Onset: 10-15-2023 Episodic Other nervous system disorders (1 source) Other acute postprocedural pain; Translations: [Acute post-operative pain] Onset: 10-30-2023 Episodic Other screening for suspected conditions (not mental disorders or infectious disease) (20 sources) Raised prostate specific antigen; Translations: [Decreased thyroid stimulating hormone level] Onset: 10-15-2023 06-04-2023 Episodic Residual codes; unclassified (1 source) Other specified postprocedural states; Translations: [Post-operative state] Onset: 11-12-2023 Episodic Screening and history of mental health and substance abuse codes (20 sources) Ex-smoker; Translations: [Personal history of nicotine dependence] Onset: 01-07-2014 07-09-2023 Episodic Sprains and strains (4 sources) Strain of other muscle(s) and tendon(s) at lower leg level, right leg, initial encounter; Translations: [STRAIN OTH MSC TEND LOW RT LEG INIT] Onset: 02-25-2022 Episodic Unclassified (1 source) Aneurysm of the ascending aorta, ruptured; Translations: [Aneurysm of the ascending aorta, ruptured] Onset: 09-17-2023 Unclassified (1 source) Abdominal aortic aneurysm, without rupture, unspecified; Translations: [Abdominal aortic aneurysm, without rupture, unspecified] Onset: 05-06-2023 Results Test Name Value Interpretation Reference Range Facility Ambulatory Visit Summaryon 1 Ambulatory Visit Summary Ambulatory Visit Summary JEMAL ZEPEDA :1950 Visit Date:05/17/2024 Ambulatory Visit Instructions Your Diagnosis BMI 26.0-26.9,adult, Body mass index [BMI] 26.0-26.9, adult Former smoker Overweight with body mass index (BMI) of 26 to 26.9 in adult Your Care Team Attending Physician - Elham Moon Primary Care Physician - Elham Moon This Is Your Medications List amlodipine (amLODIPine 10 mg Tab) amoxicillin-clavulanate (Augmentin 875 mg oral tablet) carvedilol (carvedilol 12.5 mg Tab) Procedures Performed TURBT - Transurethral resection of bladder tumor (09/19/2023), Cystoscopy (08/18/2023). Discharge Vitals Temperature (Tympanic) 36.7 ???C Heart Rate (Peripheral) 63 Respiratory Rate 18 Blood Pressure 180/90 Height 176.5 cm Height 69 in Weight 83.10 kg Weight 182.82 lb BMI 26.68 Medications What How Much When Why Instructions New amoxicillin-clavulanate (Augmentin 875 mg oral tablet) 1 Tablets By Mouth Every 12 hours BMI 26.0-26.9,adult Former smoker Overweight with body mass index (BMI) of 26 to 26.9 in adult Duration: 7 Days Pickup at [email or web address] Unchanged amlodipine (amLODIPine 10 mg Tab) 1 Tablets By Mouth Every day Unchanged carvedilol (carvedilol 12.5 mg Tab) 0.5 Tablets By Mouth 2 times a day 180 EA, 0 Refill(s), TAKE 1 TABLET BY MOUTH TWICE DAILY (WITH BREAKFAST and WITH evening meal) Pharmacy Information [email or web address]: [address] [place], [place] [id number] [phone] Allergies Toprol-XL Problems Ongoing - Any problem that you are currently receiving treatment for. Acid reflux Aneurysm of ascending aorta Elevated PSA Emphysema, unspecified Epididymitis Essential hypertension Former smoker Low TSH level Moderate recurrent major depression Multiple nodules of lung Osteoarthritis of right knee joint Overweight with body mass index (BMI) of 26 to 26.9 in adult Prostate enlargement Smoker Unexplained weight loss Urinary tract infection, site not specified Patient Survey You may receive a survey via text or e-mail asking about your office visit. Please share your experience with us by completing your survey. We appreciate your feedback and thank you for choosing us for your care. Normal [facility] Family Medicine Office/Clini c Noteon 05-17-2024 Family Medicine Office/Clinic Note Family Medicine Office/Clinic Note Chief Complaint BL ear drainage HPI Staff Jemal is a 73 year old male presenting with bilateral ear pain and drainage Onset: Last week Fevers: no Sinus congestion: yes over the past few months. Sneezing: no Ear pain: yes, bilateral ears Ear drainage: yes, bilateral ears Pulling at ears: yes, bilateral ears Swollen nodes: no Sore throat: no History of Present Illness pt presents today with ear pain and drainage Review of Systems PHQ Score Initial Depression Screen Score: 1 SCORE Physical Exam Vitals & Measurements T: 36.7 ???C(Tympanic) HR: 63(Peripheral) RR: 18 BP: 180/90 SpO2: 98% HT: 69 in HT: 176.5 cm WT: 83.10 kg WT: 182.82 lb BMI: 26.68 General: alert, no acute distress ENMT: oral mucosa moist, no pharyngeal erythema or exudate Cardiovascular: regular rate and rhythm, normal peripheral perfusion Respiratory: Lungs CTA, respirations non labored Extremities: no deformity, no trauma Neurological: oriented x 4, LOC appropriate for age, CN II-XII intact, motor strength equal & normal bilaterally, speech normal Assessment/Plan 1. Bilateral serous otitis media (H65.93: Unspecified nonsuppurative otitis media, bilateral) pt presents today with ear pain and drainage since . ELAINE TM red canals are swollen red and draining fluid. the outside of ears are very dry and irritated from the drainage. pt states he puts a towel on his pillow at night due to the drainage. Kenalog given in office. Augmentin sent to pharmacy. pt has been monitoring BP at home and it is 130's/70-80's. he is anxious in office today. if it increases he will notify office for medication adjustment. RTC as needed 2. BMI 26.0-26.9,adult, (Z68.26: Body mass index [BMI] 26.0-26.9, adult)Body mass index [BMI] 26.0-26.9, adult BMI education given Ordered: amoxicillin-clavulanate, = 1 tab(s), Oral, q12hr, X 7 day(s), # 14 tab(s), Refills(s) 0, Pharmacy: [email or web address], 176.5, cm, 05/17/24 13:31:00 EDT, Height/Length Dosing, 83.1, kg, 05/17/24 13:31:00 EDT, Weight Dosing 3. Former smoker (Z87.891: Personal history of nicotine dependence) continue not smoking Ordered: amoxicillin-clavulanate, = 1 tab(s), Oral, q12hr, X 7 day(s), # 14 tab(s), Refills(s) 0, Pharmacy: [email or web address], 176.5, cm, 05/17/24 13:31:00 EDT, Height/Length Dosing, 83.1, kg, 05/17/24 13:31:00 EDT, Weight Dosing 4. Overweight with body mass index (BMI) of 26 to 26.9 in adult (E66.3: Overweight) see above Ordered: amoxicillin-clavulanate, = 1 tab(s), Oral, q12hr, X 7 day(s), # 14 tab(s), Refills(s) 0, Pharmacy: [email or web address], 176.5, cm, 05/17/24 13:31:00 EDT, Height/Length Dosing, 83.1, kg, 05/17/24 13:31:00 EDT, Weight Dosing Orders: citalopram, 20 mg = 1 tab(s), Oral, Daily, 90 EA, 0 Refill(s), TAKE 1 TABLET BY MOUTH EVERY MORNING, # 90 tab(s), Refills(s) 0, Pharmacy: [email or web address], 176.5, cm, 07/17/23 14:25:00 EST, Height/Length Dosing, 81.8, kg, 07/17/23 14:25:00 EST, Weight D... nystatin topical, 1 chantal, Topical, BID, 30 gram, Refill(s) 1, [email or web address], 176.5, cm, 06/03/23 11:10:00 EST, Height/Length Dosing, 91.6, kg, 06/03/23 11:10:00 EST, Weight Dosing Follow-up No qualifying data available Problem List/Past Medical History Ongoing Acid reflux Aneurysm of ascending aorta Bilateral serous otitis media Elevated PSA Emphysema, unspecified Epididymitis Essential hypertension Former smoker Low TSH level Moderate recurrent major depression Multiple nodules of lung Osteoarthritis of right knee joint Overweight with body mass index (BMI) of 26 to 26.9 in adult Prostate enlargement Smoker Unexplained weight loss Urinary tract infection, site not specified Historical No qualifying data Procedure/Surgical History TURBT - Transurethral resection of bladder tumor (09/19/2023), Cystoscopy (08/18/2023). Medications amLODIPine 10 mg Tab, 10 mg= 1 tab(s), Oral, Daily, 3 refills Augmentin 875 mg oral tablet, 1 tab(s), Oral, q12hr carvedilol 12.5 mg Tab, 6.25 mg= 0.5 tab(s), Oral, BID Allergies Toprol-XL Social History Alcohol Never., 05/17/2024 Substance Abuse Never., 05/17/2024 Tobacco Former smoker, quit more than 30 days ago Tobacco Use:. Never Smokeless Tobacco Use:. Household tobacco concerns: No. Yes, 05/17/2024 Immunizations Vaccine Date Status Comments influenza virus vaccine, inactivated - Not Given Patient Refuses Normal [facility] Comment on above: Result Comment: Elec tronically Signed By: Mookie MONTERO, Elham Crowley\.br\Date and Time Signed: 05/17/24 14:41 EDT CREATININE BLDOrdered By: Manju Woodward on 04-21-2024 Creatinine [Mass/Vol] 0.92 mg/dL 0.73 - 1.22 mg/dL [facility] GFR/1.73 sq M.predicted among non-blacks MDRD (S/P/Bld) [Vol rate/Area] 89 mL/min/{1.73_m2} - PINF [facility] Comment on above: Estimated Glomerular Filtration Rate (eGFR) is calculated using the 2020 CKD-EPI creatinine equation. This equation utilizes serum creatinine, sex, and age as parameters. The creatinine assay has traceable calibration to isotope dilution-mass spectrometry. Refer to KDIGO guidelines for clinical interpretation. In patients with unstable renal function, e.g. those with acute kidney injury, the eGFR may not accurately reflect actual GFR. Interpretation and review of laboratory results Normal [facility] CREATININE BLDon 04-21-2024 Creatinine [Mass/Vol] 0.92 mg/dL Normal 0.73-1.22 [facility] Comment on above: Order Comment: Speci men Type: BLOOD SPECIMEN Ordering Facility: [facility] Address: [address] [place] [address] Performed By: #### C RET1 #### [facility] CLIA [id number] [address] [place] [id number] Creatinine and Glomerular filtration rate.predicted panel (S/P/Bld) 89 mL/min/1.73m??? Normal >=60 [facility] Comment on above: Order Comment: Speci men Type: BLOOD SPECIMEN Ordering Facility: [facility] Address: [address] [place] [address] Result Comment: Janis mated Glomerular Filtration Rate (eGFR) is calculated using the 2020 CKD-EPI creatinine equation. This equation utilizes serum creatinine, sex, and age as parameters. The creatinine assay has traceable calibration to isotope dilution-mass spectrometry. Refer to KDIGO guidelines for clinical interpretation. In patients with unstable renal function, e.g. those with acute kidney injury, the eGFR may not accurately reflect actual GFR. Performed By: #### C RET1 #### [facility] CLIA [id number] [address] [place] [id number] Kidney WO and W contrast Bella 04-21-2024 IMPRESSION: 1. Retroperitoneal lymphadenopathy overall similar in appearance to prior exam. 2. Mild thickening of the right lateral bladder wall, similar to prior study. No new bladder calculus or mass is seen. 3. 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 Transcribe Date/Time: Apr 21 2024 5:43P Dictated by: AKIN STEINER MD This examination was interpreted and the report reviewed and electronically signed by: AKIN STEINER MD on Apr 21 2024 5:55PM EST Thank you for allowing us to participate in the care of your patient. Should there be any questions regarding this interpretation, please call [phone]. If you are unable to reach us at the number above, please feel free to contact [facility] eRadiology at [phone]. DIVISION OF RADIOLOGY * * *Final Report* * * DATE OF EXAM: Apr 21 2024 11:16AM [facility] 0560 - CT UROGRAM WO/W IVCON / PROCEDURE REASON: Malignant neoplasm of overlapping sites of bladder (HCC) * * * * Physician Interpretation * * * * RESULT: EXAMINATION: CT ABDOMEN AND PELVIS WITHOUT AND WITH IV CONTRAST, INCLUDING EXCRETORY PHASE IMAGING (CT UROGRAM) 3D RECONSTRUCTIONS CLINICAL HISTORY: History of bladder cancer. TECHNIQUE: CT urogram protocol including unenhanced, renal parenchymal phase and excretory phase renal imaging was obtained following IV contrast. Normal saline was also administered IV. No oral contrast was given. 3D image post-processing was performed and archived at the request of the referring physician, on the CT scanner workstation without concurrent physician supervision. MQ: CTU_2 Contrast: IV: 120 ml of Omnipaque 350 IV Saline: 150 ml of 0.9% NACL Solution Oral Contrast: None CT Radiation dose: Integrated dose-length product (DLP) for this visit = 2364 mGy*cm. CT Dose Reduction Employed: Automated exposure control (AEC) COMPARISON: CT performed 02/04/2024 RESULT: Kidneys and urinary tract: Right: No solid renal mass is visualized. There is a right renal cyst measuring up to 2 cm. The opacified calices, renal pelvis and ureter are normal without dilation, filling defect, or stricture. Left: No solid renal mass is seen. There is a left renal cyst measuring up to 4.5 cm. The opacified calices, renal pelvis and ureter are normal without dilation, filling defect, or stricture. Bladder: Mild diffuse thickening of the right lateral bladder wall is noted. No gross bladder calculus or mass is seen. Abdomen and Pelvis: Liver: Multiple rounded hypodensities are seen throughout the liver, the largest measuring up to 1.8 cm. No suspicious hepatic mass is seen. Biliary: The gallbladder is distended. No cholelithiasis or gallbladder wall thickening is seen. No biliary ductal dilation is noted. Spleen: Punctate calcifications are seen within the spleen. A 1.4 cm hypodensity is noted in the spleen, nonspecific. No splenomegaly. Pancreas: No mass or duct dilation. Adrenals: No mass. GI tract: The stomach and small bowel are unremarkable. There is no evidence of small bowel obstruction or wall thickening. There is colonic diverticulosis without evidence of diverticulitis. The colon is otherwise unremarkable. Lymph nodes: Multiple bilateral retrocrural nodes are seen measuring up to 8mm in short axis. There is an ill-defined soft tissue density between the SMA and celiac axis (4:39) measuring up to 1.7 cm, stable. Left common iliac chain nodes are seen measuring up to 1.1 cm, previously 1 cm. Mesentery/Peritoneum: No ascites or mass. Retroperitoneum: No mass. Vasculature: - Abdominal aorta and iliac arteries: Atherosclerotic calcification is seen throughout the abdominal aorta. There is an infrarenal abdominal aortic aneurysm measuring up to 3.2 cm. 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 - Celiac and SMA: Patent without stenosis. - Portal venous system (SMV, splenic vein, portal vein and branches): Patent. - Hepatic veins: Patent. Pelvis: No pelvic mass or fluid collection is noted. Bones and Soft Tissues: Degenerative changes are seen in the lumbar spine. No destructive osseous lesions are seen. There is a fat-containing ventral hernia. The neck of the hernia measures up to 1.2 cm in short axis. Lower thorax: No lobar consolidation or pleural effusion is seen. Localizer images: No additional findings. DIVISION OF RADIOLOGY Provider, [facility] - 04/21/2024 * * *Final Report* * * DATE OF EXAM: Apr 21 2024 11:16AM [facility] 0560 - CT UROGRAM WO/W IVCON / PROCEDURE REASON: Malignant neoplasm of overlapping sites of bladder (HCC) * * * * Physician Interpretation * * * * RESULT: EXAMINATION: CT ABDOMEN AND PELVIS WITHOUT AND WITH IV CONTRAST, INCLUDING EXCRETORY PHASE IMAGING (CT UROGRAM) 3D RECONSTRUCTIONS CLINICAL HISTORY: History of bladder cancer. TECHNIQUE: CT urogram protocol including unenhanced, renal parenchymal phase and excretory phase renal imaging was obtained following IV contrast. Normal saline was also administered IV. No oral contrast was given. 3D image post-processing was performed and archived at the request of the referring physician, on the CT scanner workstation without concurrent physician supervision. MQ: CTU_2 Contrast: IV: 120 ml of Omnipaque 350 IV Saline: 150 ml of 0.9% NACL Solution Oral Contrast: None CT Radiation dose: Integrated dose-length product (DLP) for this visit = 2364 mGy*cm. CT Dose Reduction Employed: Automated exposure control (AEC) COMPARISON: CT performed 02/04/2024 RESULT: Kidneys and urinary tract: Right: No solid renal mass is visualized. There is a right renal cyst measuring up to 2 cm. The opacified calices, renal pelvis and ureter are normal without dilation, filling defect, or stricture. Left: No solid renal mass is seen. There is a left renal cyst measuring up to 4.5 cm. The opacified calices, renal pelvis and ureter are normal without dilation, filling defect, or stricture. Bladder: Mild diffuse thickening of the right lateral bladder wall is noted. No gross bladder calculus or mass is seen. Abdomen and Pelvis: Liver: Multiple rounded hypodensities are seen throughout the liver, the largest measuring up to 1.8 cm. No suspicious hepatic mass is seen. Biliary: The gallbladder is distended. No cholelithiasis or gallbladder wall thickening is seen. No biliary ductal dilation is noted. Spleen: Punctate calcifications are seen within the spleen. A 1.4 cm hypodensity is noted in the spleen, nonspecific. No splenomegaly. Pancreas: No mass or duct dilation. Adrenals: No mass. GI tract: The stomach and small bowel are unremarkable. There is no evidence of small bowel obstruction or wall thickening. There is colonic diverticulosis without evidence of diverticulitis. The colon is otherwise unremarkable. Lymph nodes: Multiple bilateral retrocrural nodes are seen measuring up to 8mm in short axis. There is an ill-defined soft tissue density between the SMA and celiac axis (4:39) measuring up to 1.7 cm, stable. Left common iliac chain nodes are seen measuring up to 1.1 cm, previously 1 cm. Mesentery/Peritoneum: No ascites or mass. Retroperitoneum: No mass. Vasculature: - Abdominal aorta and iliac arteries: Atherosclerotic calcification is seen throughout the abdominal aorta. There is an infrarenal abdominal aortic aneurysm measuring up to 3.2 cm. 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 - Celiac and SMA: Patent without stenosis. - Portal venous system (SMV, splenic vein, portal vein and branches): Patent. - Hepatic veins: Patent. Pelvis: No pelvic mass or fluid collection is noted. Bones and Soft Tissues: Degenerative changes are seen in the lumbar spine. No destructive osseous lesions are seen. There is a fat-containing ventral hernia. The neck of the hernia measures up to 1.2 cm in short axis. Lower thorax: No lobar consolidation or pleural effusion is seen. Localizer images: No additional findings. IMPRESSION IMPRESSION: 1. Retroperitoneal lymphadenopathy overall similar in appearance to prior exam. 2. Mild thickening of the right lateral bladder wall, similar to prior study. No new bladder calculus or mass is seen. 3. 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 Transcribe Date/Time: Apr 21 2024 5:43P Dictated by: AKIN STEINER MD This examination was interpreted and the report reviewed and electronically signed by: AKIN STEINER MD on Apr 21 2024 5:55PM EST Thank you for allowing us to participate in the care of your patient. Should there be any questions regarding this interpretation, please call [phone]. If you are unable to reach us at the number above, please feel free to contact [facility] eRadiology at [phone]. [facility] Radiology Study observation (narrative) [facility] CT Kidney WO and W contrast IVOrdered By: [facility] Provider on 04-21-[address] [facility] [address] UROGRAM WO/W IVCONon -0 CT UROGRAM WO/W IVCON * * *Final Report* * * DATE OF EXAM: Apr 21 2024 11:16AM [facility] 0560 - CT UROGRAM WO/W IVCON / PROCEDURE REASON: Malignant neoplasm of overlapping sites of bladder (HCC) * * * * Physician Interpretation * * * * RESULT: EXAMINATION: CT ABDOMEN AND PELVIS WITHOUT AND WITH IV CONTRAST, INCLUDING EXCRETORY PHASE IMAGING (CT UROGRAM) 3D RECONSTRUCTIONS CLINICAL HISTORY: History of bladder cancer. TECHNIQUE: CT urogram protocol including unenhanced, renal parenchymal phase and excretory phase renal imaging was obtained following IV contrast. Normal saline was also administered IV. No oral contrast was given. 3D image post-processing was performed and archived at the request of the referring physician, on the CT scanner workstation without concurrent physician supervision. MQ: CTU_2 Contrast: IV: 120 ml of Omnipaque 350 IV Saline: 150 ml of 0.9% NACL Solution Oral Contrast: None CT Radiation dose: Integrated dose-length product (DLP) for this visit = 2364 mGy*cm. CT Dose Reduction Employed: Automated exposure control (AEC) COMPARISON: CT performed 02/04/2024 RESULT: Kidneys and urinary tract: Right: No solid renal mass is visualized. There is a right renal cyst measuring up to 2 cm. The opacified calices, renal pelvis and ureter are normal without dilation, filling defect, or stricture. Left: No solid renal mass is seen. There is a left renal cyst measuring up to 4.5 cm. The opacified calices, renal pelvis and ureter are normal without dilation, filling defect, or stricture. Bladder: Mild diffuse thickening of the right lateral bladder wall is noted. No gross bladder calculus or mass is seen. Abdomen and Pelvis: Liver: Multiple rounded hypodensities are seen throughout the liver, the largest measuring up to 1.8 cm. No suspicious hepatic mass is seen. Biliary: The gallbladder is distended. No cholelithiasis or gallbladder wall thickening is seen. No biliary ductal dilation is noted. Spleen: Punctate calcifications are seen within the spleen. A 1.4 cm hypodensity is noted in the spleen, nonspecific. No splenomegaly. Pancreas: No mass or duct dilation. Adrenals: No mass. GI tract: The stomach and small bowel are unremarkable. There is no evidence of small bowel obstruction or wall thickening. There is colonic diverticulosis without evidence of diverticulitis. The colon is otherwise unremarkable. Lymph nodes: Multiple bilateral retrocrural nodes are seen measuring up to 8mm in short axis. There is an ill-defined soft tissue density between the SMA and celiac axis (4:39) measuring up to 1.7 cm, stable. Left common iliac chain nodes are seen measuring up to 1.1 cm, previously 1 cm. Mesentery/Peritoneum: No ascites or mass. Retroperitoneum: No mass. Vasculature: - Abdominal aorta and iliac arteries: Atherosclerotic calcification is seen throughout the abdominal aorta. There is an infrarenal abdominal aortic aneurysm measuring up to 3.2 cm. 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 - Celiac and SMA: Patent without stenosis. - Portal venous system (SMV, splenic vein, portal vein and branches): Patent. - Hepatic veins: Patent. Pelvis: No pelvic mass or fluid collection is noted. Bones and Soft Tissues: Degenerative changes are seen in the lumbar spine. No destructive osseous lesions are seen. There is a fat-containing ventral hernia. The neck of the hernia measures up to 1.2 cm in short axis. Lower thorax: No lobar consolidation or pleural effusion is seen. Localizer images: No additional findings. IMPRESSION: 1. Retroperitoneal lymphadenopathy overall similar in appearance to prior exam. 2. Mild thickening of the right lateral bladder wall, similar to prior study. No new bladder calculus or mass is seen. 3. 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 Transcribe Date/Time: Apr 21 2024 5:43P Dictated by: AKIN STEINER MD This examination was interpreted and the report reviewed and electronically signed by: AKIN STEINER MD on Apr 21 2024 5:55PM EST Thank you for allowing us to participate in the care of your patient. Should there be any questions regarding this interpretation, please call [phone]. If you are unable to reach us at the number above, please feel free to contact [facility] eRadiology at [phone]. [id number] Normal [facility] Abstracton 04-09-2024 Abstract [id number] Sherice Zepeda 1950 M Date Provider Department Center 04/09/20242019[facility] HeartVAS Family History Problem Relation Age of Onset Heart attack Father Stroke Father Family Status - Relation Status Age at Father Normal [facility] Abstracton 03-23-2024 Abstract [id number] Sherice Zepeda 1950 M Date Provider Department Center 03/23/20242019[facility] HeartVAS Family History Problem Relation Age of Onset Heart attack Father Stroke Father Family Status - Relation Status Age at Father Normal [facility] CNPNon 03-17-2024 CNPN Telephone (HEMTSA) -- JEMAL ZEPEDA ([id number]) 1950 M Date Time Provider Department 03/17/24 BRENDA LEGGETT During your visit today, we recorded the following information about you: Rut Baez RN 03/17/2024 11:18 AM Signed Please sign pended Cre for upcoming Urogram Thank You! Rut Baez RN Allergies As of Date: 03/17/2024 Noted Allergy Reaction ATORVASTATIN 05/06/2023 14 - Other: See Comments Comments: Joint swelling MELOXICAM 12/16/2022 2 - Rash Date Reviewed: 02/18/2024 Reviewed by: Tiffany Massey MA - Fully Assessed Reason for Visit: Orders [681] Primary Visit Diagnosis:Malignant neoplasm of urinary bladder, unspecified site (HCC) [C67.9] Order(s):CREATININE BLD [SQCRET] Order #: [id number] FUTURE Prescriptions as of 03/17/2024 - tamsulosin (FLOMAX) 0.4 mg Take 1 capsule by mouth daily at bedtime. - acetaminophen (TYLENOL EXTRA STRENGTH) 500 mg tablet Take 2 tablets by mouth every 6 hours as needed for pain. - trospium (SANCTURA) 20 mg tablet Take 1 tablet by mouth two times a day as needed (Bladder spasms). Stop at least 24 hours before your catheter is removed - MEDICATION, NON-DATABASE Take by mouth two times a day. 07/22 Delta 8 CBD gummy am and pm - cholecalciferol (VITAMIN D-3) 50 mcg (2,000 unit) tablet Take 1 tablet by mouth once daily. - Ascorbic Acid (VITAMIN C) 1,000 mg tablet Take 1 tablet by mouth once daily. - Iron 18 mg tab Take 1 tablet by mouth every other day. - amLODIPine (NORVASC) 10 mg tablet Take 1 tablet by mouth every afternoon. - carvedilol (COREG) 12.5 mg tablet TAKE 1/2 (ONE-HALF) OF A TABLET BY MOUTH TWICE DAILY - citalopram (CELEXA) 20 mg tablet Take 10 mg by mouth every morning. - pantoprazole DR (PROTONIX) 40 mg tablet Take 1 tablet by mouth every 12 hours. 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 Epididymitis [N45.1] 01/07/2014 Hypertension [I10] 01/07/2014 Former smoker [Z87.891] 01/07/2014 Fluid overload [E87.70] 03/19/2014 Stress hyperglycemia [R73.9] 03/19/2014 Abdominal aortic aneurysm (HCC) [I71.40] 01/29/2021 Diagnosed: 10/15/2023 Anemia [D64.9] 10/15/2023 Diagnosed: 10/15/2023 Pulmonary fibrosis (HCC) [J84.10] 09/17/2023 Diagnosed: 10/15/2023 Centrilobular emphysema (HCC) [J43.2] 09/17/2023 Diagnosed: 10/15/2023 Bleeding ulcer [K28.4] 10/15/2023 Encounter Status:Closed by MARY SCHROEDER on 03/17/24 Normal [facility] Orders Onlyon 03-16-2024 Orders Only [id number] Sherice Zepeda 1950 M Date Provider Department Center 03/16/2024 KB KRISHNA CARD [facility] Family History Problem Relation Age of Onset Heart attack Father Stroke Father Family Status - Relation Status Age at Father Normal [facility] CTA ABDOMEN PELVIS W IV CONT Timur 03-09-2024 CTA ABDOMEN PELVIS W IV CONTRAST CTA ABDOMEN/PELVIS HISTORY: Abdominal aortic aneurysm COMPARISON: 08/31/2021 TECHNIQUE: Multidetector CT angiogram through the abdomen and pelvis performed following the uncomplicated intravenous administration of 100 mL Omnipaque 350. 3-D maximum intensity projection reconstructions constructed under concurrent physician supervision on a independent workstation. 3-D images obtained to improve visualization of vascular detail. FINDINGS: Fusiform ascending aortic aneurysm measuring up to 5.1 cm in size. Extensive coronary artery calcifications. Tortuous descending thoracic aorta. Aorta at the level of the hiatus measures 3.9 cm. Diffuse atherosclerotic disease throughout the abdominal aorta. Distal abdominal aorta measures 3.1 cm in greatest dimension. Severe atherosclerotic disease in the iliac and femoral arteries without high-grade stenosis or occlusion. 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 There is a focal dissection in the distal left external iliac artery, not seen on previous study. There is a 1.1 cm irregular nodule in the right upper lobe (axial image 2), not seen on previous study. Benign cyst in the left hepatic lobe. The gallbladder is distended. The adrenal glands are unremarkable. Calcified splenic granulomas. Surgical clips and soft tissue thickening adjacent to the origin of the celiac axis, which appears similar to previous study. The celiac axis, SMA, multiple bilateral renal arteries, and JOSE ANTONIO are patent. No enlarged abdominal or pelvic lymph nodes. The prostate gland is enlarged. Right-sided bladder wall thickening. The small and large bowel are of normal caliber with no evidence of bowel wall thickening. Colonic diverticulosis without acute inflammation. Normal appendix. Fat-containing midline ventral hernia. Multilevel degenerative changes in the spine. 3D reformatted images confirm the source data findings. IMPRESSION: *Suprarenal abdominal aortic aneurysm measuring up to 3.9 cm at the level of the aortic hiatus. There is also aneurysmal dilatation of the infrarenal abdominal aorta measuring 3.1 cm. *Partially visualized ascending thoracic aortic aneurysm measuring up to 5.1 cm, incompletely imaged on this study. Dedicated CTA chest suggested for more detailed evaluation. 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 *Noncalcified nodule in the right upper lobe measuring 1.1 cm, new since previous study and concerning for malignancy until proven otherwise. *Right-sided bladder wall thickening related to cystitis though atypical bladder neoplasm not excluded. As indicated consider cystoscopy. All CT scans at this facility use dose modulation, iterative reconstruction, and/or weight based dosing when appropriate to reduce radiation dose to as low as reasonably achievable. Electronically signed: Dewayne Oreilly MD. Not Vldtd Invalid Interpretation Code [facility] CNOVon 02-18-2024 CNOV Office Visit (URFHR) -- DUANEJEMAL Byron ([id number]) 1950 M Date Time Provider Department 02/18/24 2:00 PM BRENDA LEGGETT URR During your visit today, we recorded the following information about you: Temperature Pulse Blood pressure Weight 97.8 degrees 79/minute 164/75 83.6 kg Brenda Leggett MD 02/18/2024 2:46 PM Signed Jemal Matthews Duane is a 73 year old male with history of urothelial carcinoma and a bladder diverticulum s/p robotic bladder diverticulectomy/partial cystectomy on 10/30/2023. Denies gross hematuria, UTIs or change in urinary symptoms. CTU 02/04/2024 IMPRESSION: 1. Borderline left pelvic lymphadenopathy, increased since 07/03/23. Consider interval follow-up. 2. Interval postoperative changes of the urinary bladder. 3. Mild infrarenal abdominal aortic aneurysm measuring 3.2 cm diameter, stable. No evidence of aneurysm rupture or leak. 4. Sigmoid colon diverticulosis without evidence of diverticulitis. Surgical Pathology: Robotic bladder diverticulectomy/partial cystectomy on 10/30/2023 FINAL DIAGNOSIS A. Urinary bladder, neck of bladder diverticulum margin, excision: - Benign fibromuscular tissue, negative for neoplasm. B. Urinary bladder, neck of bladder diverticulum margin, excision: - Benign urothelial mucosa. C. Lymph nodes, bilateral pelvic, excision: - Nine lymph nodes, negative for neoplasm (0/9). D. Urinary bladder, partial cystectomy: - Papillary urothelial carcinoma, high-grade, with foci of superficial lamina propria invasion. - Surgical margins are negative. - See synoptic report. Nicole's HOPS NOTE/ UNIVERSAL PROTOCOL/ SAFETY CHECKLIST Sign In History and Physical Exam reviewed and is unchanged. Primary Diagnosis: History of bladder cancer Sign in Communication: Completed. Time Out: Immediately prior to procedure, Team confirms the correct patient, correct procedure, cystoscopy, correct site and site marking, correct position (if applicable). Sign Out: Sign out discussion: Completed. Antibiotic(s) given immediately prior to procedure: Bactrim Details of procedure: as below Cystoscopy - Normal Urethra - Normal Prostate: Moderate lateral lobes VN: open Urothelium: Normal, no evidence of tumor, CIS stone, foreign body, diverticuli, etc. bladder scar right side of the bladder. Trabeculation: Moderate Inflammation: mild Ureteral Orifices: Normal, clear efflux bilaterally Trigone: Normal Preoperative diagnosis: History of bladder cancer cystoscopy today JOSE. Postoperative diagnosis: Same Procedure: Flexible cystoscopy Surgeon: Dr. Brenda Leggett Anesthesia: Lidocaine urojet Procedure: The patient was taken to the cystoscopy suite and placed in the spine position. He was then prepped and draped in the usual manner. Lidocaine gel was placed per urethra for local anesthesia. Cystoscopy was then performed using a flexible cystoscope. Sterile technique was maintained throughout. Please refer to above for specific findings during this part of the procedure. After carefully and atraumatically inspecting the urethra, prostate, VN, bladder, and UO's, the cystoscope was removed. The patient tolerated the procedure well and there were no complications. He was take for recovery in good condition. Findings: see above Complications: None EBL: None Disposition: Cystoscopy today is JOSE. Will send cytology today. Given the findings on the CT urogram recommend repeat CT urogram in 3 months. If lymph nodes continue to enlarge can consider biopsy. Given the fact that his disease was microscopically pT1 it is unlikely that this is related to his bladder cancer. MD Janine Rea Jennifer, RN 02/18/2024 2:18 PM Signed [facility] - DEPARTMENT OF UROLOGY AFTER YOUR CYSTOSCOPY Brenda Leggett MD Cysto post procedure instructions You have undergone a cystoscopy. Your doctor has inserted a telescope into your urinary bladder through your urethra to view the inside of your bladder. WHAT TO EXPECT: Possible burning during urination and/or blood-tinged urine. WHAT TO DO: Resume normal activity and medications. Drink 6-8 glasses of fluid each day for 3 days to help flush your urinary system. If a Biopsy was done, avoid Aspirin for 3 days. MEDICATIONS: You were given a preventative antibiotic, prior to the procedure. WHEN TO CALL THE DOCTOR: IF you have a fever over 100 degrees Fahrenheit. IF you are unable to urinate. IF blood clots form in your urine. IF your urine becomes very bloody and does not clear with drinking extra fluids. Allergies As of Date: 02/18/2024 Noted Allergy Reaction ATORVASTATIN 05/06/2023 14 - Other: See Comments Comments: Joint swelling MELOXICAM 12/16/2022 2 - Rash Date Reviewed: 02/18/2024 Reviewed by: Tiffany Massey MA - Fully Assessed Primary Visit Diagnosis:Malignant neoplasm of overlappi (more content not included)... Normal [facility] CYTOLOGY NON-GYNon CASE REPORT Normal [facility] Comment on above: Order Comment: Speci men Type: URINE SPECIMEN Ordering Facility: [facility] Address: [address] [place] [address] Result Comment: [facility] Cytology Report Case: [id number] Authorizing Provider: Brenda Leggett MD Collected: 02/18/2024 02:51 PM Ordering Location: Urology Received: 02/18/2024 04:44 PM Pathologist: Jagdish Hickman MD Specimen: Urine, Midstream Performed By: #### C YTONON #### [facility] CLIA [id number] [address] [place] [address] CLINICAL HISTORY History of bladder cancer Normal [facility] Comment on above: Order Comment: Speci men Type: URINE SPECIMEN Ordering Facility: [facility] Address: [address] [place] [address] Performed By: #### C YTONON #### [facility] CLIA [id number] [address] [place] [address] OF [facility] FINAL DIAGNOSIS Normal [facility] Comment on above: Order Comment: Speci men Type: URINE SPECIMEN Ordering Facility: [facility] Address: [address] [place] [address] Result Comment: A - Urine, Midstream, Urine Negative for high-grade urothelial carcinoma. Cellular changes consistent with polyomavirus. Performed By: #### C YTONON #### [facility] CLIA [id number] [address] [place] [address] FINAL PERFORMING LAB Normal [facility] Comment on above: Order Comment: Speci men Type: URINE SPECIMEN Ordering Facility: [facility] Address: [address] [place] [address] Result Comment: Tech nical component, document control assistant screening performed at [facility], [address] [place] [address] CLIA# [id number] Diagnostic interpretation performed at [facility], [address] [place] [address] CLIA# [id number] Lead Nurse: Jagdish Hickman M.D. Performed By: #### C YTONON #### [facility] CLIA [id number] [address] [place] [address] OF [facility] GROSS DESCRIPTION Normal [facility] Comment on above: Order Comment: Speci men Type: URINE SPECIMEN Ordering Facility: [facility] Address: [address] [place] [address] Result Comment: A. U rine, Midstream 90 cc clear yellow fluid . ThinPrep prepared. Performed By: #### C YTONOCampos #### [facility] CLIA [id number] OF [facility] UA DIP, URINE (POC)on 2023 BILIRUBIN UA (POCT) Negative Negative [facility] CLARITY UA (POCT) Clear [facility] COLOR UA (POCT) Yellow [facility] GLUCOSE UA (POCT) Negative Negative mg/dL [facility] Hemoglobin Ql (U) Negative Negative [facility] KETONE UA (POCT) Negative Negative mg/dL [facility] LEUKOCYTES UA (POCT) Negative Negative [facility] NITRITE UA (POCT) Negative Negative [facility] PH UA (POCT) 5.5 4.5 - 8.0 [facility] Protein Ql (U) Negative Negative mg/dL [facility] SPECIFIC GRAVITY UA (POCT) 1.010 1.005 - 1.030 [facility] UROBILINOGEN UA (POCT) 0.2 Aleyda l E.U./dL [facility] Location:[facility], [address] [place], [place], [address] [place] [address] POINT OF CARE [facility] Basic metabolic 2000 panelOr dered By: Rafael Nixon on 02-04-2024 Anion gap [Moles/Vol] 7 mmol/L Low 8 - 15 mmol/L [facility] Calcium [Mass/Vol] 9.5 mg/dL 8.5 - 10. 2 mg/dL [facility] Chloride [Moles/Vol] 103 mmol/L 98 - 10 7 mmol/L [facility] CO2 [Moles/Vol] 29 mmol/L 22 - 30 mmol/L [facility] Creatinine [Mass/Vol] 0.92 mg/dL 0.73 - 1.22 mg/dL [facility] GFR/1.73 sq M.predicted among non-blacks MDRD (S/P/Bld) [Vol rate/Area] 89 mL/min/{1.73_m2} - PINF [facility] Comment on above: Estimated Glomerular Filtration Rate (eGFR) is calculated using the 2020 CKD-EPI creatinine equation. This equation utilizes serum creatinine, sex, and age as parameters. The creatinine assay has traceable calibration to isotope dilution-mass spectrometry. Refer to KDIGO guidelines for clinical interpretation. In patients with unstable renal function, e.g. those with acute kidney injury, the eGFR may not accurately reflect actual GFR. Glucose [Mass/Vol] 120 mg/dL High 74 - 99 mg/dL [facility] Comment on above: The Citizen [place] Diabete s Association (ADA) provides guidance for cutoff values [...] Standards of Medical Care in Diabetes 2016, [place] Diabetes Association. Diabetes Care. 2016.39(Suppl 1). Interpretation and review of laboratory results Abnormal [facility] Potassium [Moles/Vol] 4.7 mmol/L 3.7 - 5.1 mmol/L [facility] Sodium [Moles/Vol] 139 mmol/L 136 - 144 mmol/L [facility] Urea nitrogen [Mass/Vol] 15 mg/dL 9 - 24 mg/dL [facility] Basic metabolic 2000 panelon 02-04-2024 Anion gap [Moles/Vol] 7 mmol/L Low 8-15 [facility] Comment on above: Order Comment: Emmie novoa Type: BLOOD SPECIMEN Ordering Facility: [facility] Address: [address] [place] [address] Performed By: #### 2 4321-2 #### [facility] CLIA [id number] [address] [place] [address] Calcium [Mass/Vol] 9.5 mg/dL Normal 8.5-10.2 [facility] Comment on above: Order Comment: Emmie novoa Type: BLOOD SPECIMEN Ordering Facility: [facility] Address: [address] [place] [address] Performed By: #### 2 4321-2 #### [facility] CLIA [id number] [address] [place] [address] Chloride [Moles/Vol] 103 mmol/L Normal 98-107 [facility] Comment on above: Order Comment: Speci men Type: BLOOD SPECIMEN Ordering Facility: [facility] Address: [address] [place] [address] Performed By: #### 2 4321-2 #### [facility] CLIA [id number] [address] [place] [address] CO2 [Moles/Vol] 29 mmol/L Normal 22-30 [facility] Comment on above: Order Comment: Speci men Type: BLOOD SPECIMEN Ordering Facility: [facility] Address: [address] [place] [address] Performed By: #### 2 4321-2 #### [facility] CLIA [id number] [address] [place] [address] Creatinine [Mass/Vol] 0.92 mg/dL Normal 0.73-1.22 [facility] Comment on above: Order Comment: Speci men Type: BLOOD SPECIMEN Ordering Facility: [facility] Address: [address] [place] [address] Performed By: #### 2 4321-2 #### [facility] CLIA [id number] [address] [place] [address] Creatinine and Glomerular filtration rate.predicted panel (S/P/Bld) 89 mL/min/1.73m??? Normal >=60 [facility] Comment on above: Order Comment: Speci men Type: BLOOD SPECIMEN Ordering Facility: [facility] Address: [address] [place] [address] Result Comment: Janis mated Glomerular Filtration Rate (eGFR) is calculated using the 2020 CKD-EPI creatinine equation. This equation utilizes serum creatinine, sex, and age as parameters. The creatinine assay has traceable calibration to isotope dilution-mass spectrometry. Refer to KDIGO guidelines for clinical interpretation. In patients with unstable renal function, e.g. those with acute kidney injury, the eGFR may not accurately reflect actual GFR. Performed By: #### 2 4321-2 #### [facility] CLIA [id number] [address] [place] [address] Glucose [Mass/Vol] 120 mg/dL High 74-99 [facility] Comment on above: Order Comment: Speci men Type: BLOOD SPECIMEN Ordering Facility: [facility] Address: [address] [place] [address] Result Comment: The [place] Diabetes Association (ADA) provides guidance for cutoff [...] Standards of Medical Care in Diabetes 2016, [place] Diabetes Association. Diabetes Care. 2016.39(Suppl 1). Performed By: #### 2 4321-2 #### [facility] CLIA [id number] [address] [place] [address] Potassium [Moles/Vol] 4.7 mmol/L Normal 3.7-5.1 [facility] Comment on above: Order Comment: Speci men Type: BLOOD SPECIMEN Ordering Facility: [facility] Address: [address] [place] [address] Performed By: #### 2 4321-2 #### [facility] CLIA [id number] [address] [place] [address] Sodium [Moles/Vol] 139 mmol/L Normal 136-144 [facility] Comment on above: Order Comment: Speci men Type: BLOOD SPECIMEN Ordering Facility: [facility] Address: [address] [place], [place] [address] Performed By: #### 2 4321-2 #### [facility] CLIA [id number] [address] [place] [address] Urea nitrogen [Mass/Vol] 15 mg/dL Normal 9-24 [facility] Comment on above: Order Comment: Speci men Type: BLOOD SPECIMEN Ordering Facility: [facility] Address: [address] [place] [address] Performed By: #### 2 4321-2 #### [facility] CLIA [id number] [address] [place] [address] CT Kidney WO and W contrast Bella 02-04-2024 IMPRESSION: 1. Borderline left pelvic lymphadenopathy, increased since 07/03/23. Consider interval follow-up. 2. Interval postoperative changes of the urinary bladder. 3. Mild infrarenal abdominal aortic aneurysm measuring 3.2 cm diameter, stable. No evidence of aneurysm rupture or leak. 4. Sigmoid colon diverticulosis without evidence of diverticulitis. Transcribe Date/Time: Feb 04 2024 4:19P Dictated by: ILSA WAKEFIELD MD This examination was interpreted and the report reviewed and electronically signed by: ILSA WAKEFIELD MD on Feb 04 2024 4:56PM EST Thank you for allowing us to participate in the care of your patient. Should there be any questions regarding this interpretation, please call [phone]. If you are unable to reach us at the number above, please feel free to contact [facility] eRadiology at [phone]. DIVISION OF RADIOLOGY * * *Final Report* * * DATE OF EXAM: Feb 04 2024 9:49AM [facility] 0560 - CT UROGRAM WO/W IVCON / PROCEDURE REASON: Malignant neoplasm of overlapping sites of bladder (HCC) * * * * Physician Interpretation * * * * RESULT: EXAMINATION: CT ABDOMEN AND PELVIS WITHOUT AND WITH IV CONTRAST, INCLUDING EXCRETORY PHASE IMAGING (CT UROGRAM) 3D RECONSTRUCTIONS CLINICAL HISTORY: Bladder cancer. Status post celiac artery aneurysm repair, history of urothelial carcinoma and a bladder diverticulum s/p robotic bladder diverticulectomy/partial cystectomy on 10/30/2023 TECHNIQUE: CT urogram protocol including unenhanced, renal parenchymal phase and excretory phase renal imaging was obtained following IV contrast. Normal saline was also administered IV. No oral contrast was given. 3D image post-processing was performed and archived at the request of the referring physician, on the CT scanner workstation without concurrent physician supervision. MQ: CTU_2 Contrast: IV: 150 ml of Omnipaque 300 IV Saline: ml of Oral Contrast: None CT Radiation dose: Integrated dose-length product (DLP) for this visit = 852 mGy*cm. CT Dose Reduction Employed: Automated exposure control (AEC) COMPARISON: 07/03/23. RESULT: Kidneys and urinary tract: Right: 2 cm right renal cyst. No evidence of suspicious enhancing renal mass or renal stones. The opacified calices, renal pelvis and ureter are normal without dilation, filling defect, or stricture. Left: 4.5 cm upper pole cyst. No suspicious enhancing mass or renal stones. The opacified calices, renal pelvis and ureter are normal without dilation, filling defect, or stricture. Bladder: Interval postoperative changes of the urinary bladder. Abdomen and Pelvis: Liver: No mass. Hepatic cysts measuring up to 1.8 cm. Biliary: No bile duct dilation. Gallbladder is unremarkable. Spleen: No mass. No splenomegaly. Pancreas: No mass or duct dilation. Adrenals: No mass. GI tract: No dilation or wall thickening. Sigmoid colon diverticulosis is noted without evidence of diverticulitis. Lymph nodes: Borderline enlarged left common iliac lymph node measuring 1.0 cm short axis (4:89), previously 0.7 cm, increased in size. Periaortic soft tissue near the celiac artery (4:43) most likely due to postoperative change, stable. Mesentery/Peritoneum: No ascites or mass. Retroperitoneum: No mass. Vasculature: - Abdominal aorta and iliac arteries: Infrarenal abdominal aortic aneurysm measuring up to 3.2 x 3.1 cm (4:80), stable. No evidence of aneurysm rupture or leak. 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 - Celiac and SMA: Patent without stenosis. Postoperative changes along the celiac artery. - Portal venous system (SMV, splenic vein, portal vein and branches): Patent. - Hepatic veins: Patent. Pelvis: No mass, ascites or fluid collection. Bones and Soft Tissues: Bone islands are noted in the left acetabulum and left proximal femur, stable. No new osseous abnormalities. Fat containing epigastric anterior abdominal hernias, stable. Lower thorax: No focal consolidation. Localizer images: No additional findings. DIVISION OF RADIOLOGY Provider, [facility] - 02/04/2024 * * *Final Report* * * DATE OF EXAM: Feb 04 2024 9:49AM [facility] 0560 - CT UROGRAM WO/W IVCON / PROCEDURE REASON: Malignant neoplasm of overlapping sites of bladder (HCC) * * * * Physician Interpretation * * * * RESULT: EXAMINATION: CT ABDOMEN AND PELVIS WITHOUT AND WITH IV CONTRAST, INCLUDING EXCRETORY PHASE IMAGING (CT UROGRAM) 3D RECONSTRUCTIONS CLINICAL HISTORY: Bladder cancer. Status post celiac artery aneurysm repair, history of urothelial carcinoma and a bladder diverticulum s/p robotic bladder diverticulectomy/partial cystectomy on 10/30/2023 TECHNIQUE: CT urogram protocol including unenhanced, renal parenchymal phase and excretory phase renal imaging was obtained following IV contrast. Normal saline was also administered IV. No oral contrast was given. 3D image post-processing was performed and archived at the request of the referring physician, on the CT scanner workstation without concurrent physician supervision. MQ: CTU_2 Contrast: IV: 150 ml of Omnipaque 300 IV Saline: ml of Oral Contrast: None CT Radiation dose: Integrated dose-length product (DLP) for this visit = 852 mGy*cm. CT Dose Reduction Employed: Automated exposure control (AEC) COMPARISON: 07/03/23. RESULT: Kidneys and urinary tract: Right: 2 cm right renal cyst. No evidence of suspicious enhancing renal mass or renal stones. The opacified calices, renal pelvis and ureter are normal without dilation, filling defect, or stricture. Left: 4.5 cm upper pole cyst. No suspicious enhancing mass or renal stones. The opacified calices, renal pelvis and ureter are normal without dilation, filling defect, or stricture. Bladder: Interval postoperative changes of the urinary bladder. Abdomen and Pelvis: Liver: No mass. Hepatic cysts measuring up to 1.8 cm. Biliary: No bile duct dilation. Gallbladder is unremarkable. Spleen: No mass. No splenomegaly. Pancreas: No mass or duct dilation. Adrenals: No mass. GI tract: No dilation or wall thickening. Sigmoid colon diverticulosis is noted without evidence of diverticulitis. Lymph nodes: Borderline enlarged left common iliac lymph node measuring 1.0 cm short axis (4:89), previously 0.7 cm, increased in size. Periaortic soft tissue near the celiac artery (4:43) most likely due to postoperative change, stable. Mesentery/Peritoneum: No ascites or mass. Retroperitoneum: No mass. Vasculature: - Abdominal aorta and iliac arteries: Infrarenal abdominal aortic aneurysm measuring up to 3.2 x 3.1 cm (4:80), stable. No evidence of aneurysm rupture or leak. 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 - Celiac and SMA: Patent without stenosis. Postoperative changes along the celiac artery. - Portal venous system (SMV, splenic vein, portal vein and branches): Patent. - Hepatic veins: Patent. Pelvis: No mass, ascites or fluid collection. Bones and Soft Tissues: Bone islands are noted in the left acetabulum and left proximal femur, stable. No new osseous abnormalities. Fat containing epigastric anterior abdominal hernias, stable. Lower thorax: No focal consolidation. Localizer images: No additional findings. IMPRESSION IMPRESSION: 1. Borderline left pelvic lymphadenopathy, increased since 07/03/23. Consider interval follow-up. 2. Interval postoperative changes of the urinary bladder. 3. Mild infrarenal abdominal aortic aneurysm measuring 3.2 cm diameter, stable. No evidence of aneurysm rupture or leak. 4. Sigmoid colon diverticulosis without evidence of diverticulitis. Transcribe Date/Time: Feb 04 2024 4:19P Dictated by: ILSA WAKEFIELD MD This examination was interpreted and the report reviewed and electronically signed by: ILSA WAKEFIELD MD on Feb 04 2024 4:56PM EST Thank you for allowing us to participate in the care of your patient. Should there be any questions regarding this interpretation, please call [phone]. If you are unable to reach us at the number above, please feel free to contact [facility] eRadiology at [phone]. [facility] Radiology Study observation (narrative) [facility] CT Kidney WO and W contrast IVOrdered By: [facility] Provider on 02-04-[address] [facility] [address] UROGRAM WO/W IVCONon 01-18 CT UROGRAM WO/W IVCON * * *Final Report* * * DATE OF EXAM: Feb 04 2024 9:49AM [facility] 0560 - CT UROGRAM WO/W IVCON / PROCEDURE REASON: Malignant neoplasm of overlapping sites of bladder (HCC) * * * * Physician Interpretation * * * * RESULT: EXAMINATION: CT ABDOMEN AND PELVIS WITHOUT AND WITH IV CONTRAST, INCLUDING EXCRETORY PHASE IMAGING (CT UROGRAM) 3D RECONSTRUCTIONS CLINICAL HISTORY: Bladder cancer. Status post celiac artery aneurysm repair, history of urothelial carcinoma and a bladder diverticulum s/p robotic bladder diverticulectomy/partial cystectomy on 10/30/2023 TECHNIQUE: CT urogram protocol including unenhanced, renal parenchymal phase and excretory phase renal imaging was obtained following IV contrast. Normal saline was also administered IV. No oral contrast was given. 3D image post-processing was performed and archived at the request of the referring physician, on the CT scanner workstation without concurrent physician supervision. MQ: CTU_2 Contrast: IV: 150 ml of Omnipaque 300 IV Saline: ml of Oral Contrast: None CT Radiation dose: Integrated dose-length product (DLP) for this visit = 852 mGy*cm. CT Dose Reduction Employed: Automated exposure control (AEC) COMPARISON: 07/03/23. RESULT: Kidneys and urinary tract: Right: 2 cm right renal cyst. No evidence of suspicious enhancing renal mass or renal stones. The opacified calices, renal pelvis and ureter are normal without dilation, filling defect, or stricture. Left: 4.5 cm upper pole cyst. No suspicious enhancing mass or renal stones. The opacified calices, renal pelvis and ureter are normal without dilation, filling defect, or stricture. Bladder: Interval postoperative changes of the urinary bladder. Abdomen and Pelvis: Liver: No mass. Hepatic cysts measuring up to 1.8 cm. Biliary: No bile duct dilation. Gallbladder is unremarkable. Spleen: No mass. No splenomegaly. Pancreas: No mass or duct dilation. Adrenals: No mass. GI tract: No dilation or wall thickening. Sigmoid colon diverticulosis is noted without evidence of diverticulitis. Lymph nodes: Borderline enlarged left common iliac lymph node measuring 1.0 cm short axis (4:89), previously 0.7 cm, increased in size. Periaortic soft tissue near the celiac artery (4:43) most likely due to postoperative change, stable. Mesentery/Peritoneum: No ascites or mass. Retroperitoneum: No mass. Vasculature: - Abdominal aorta and iliac arteries: Infrarenal abdominal aortic aneurysm measuring up to 3.2 x 3.1 cm (4:80), stable. No evidence of aneurysm rupture or leak. 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 - Celiac and SMA: Patent without stenosis. Postoperative changes along the celiac artery. - Portal venous system (SMV, splenic vein, portal vein and branches): Patent. - Hepatic veins: Patent. Pelvis: No mass, ascites or fluid collection. Bones and Soft Tissues: Bone islands are noted in the left acetabulum and left proximal femur, stable. No new osseous abnormalities. Fat containing epigastric anterior abdominal hernias, stable. Lower thorax: No focal consolidation. Localizer images: No additional findings. IMPRESSION: 1. Borderline left pelvic lymphadenopathy, increased since 07/03/23. Consider interval follow-up. 2. Interval postoperative changes of the urinary bladder. 3. Mild infrarenal abdominal aortic aneurysm measuring 3.2 cm diameter, stable. No evidence of aneurysm rupture or leak. 4. Sigmoid colon diverticulosis without evidence of diverticulitis. Transcribe Date/Time: Feb 04 2024 4:19P Dictated by: ILSA WAKEFIELD MD This examination was interpreted and the report reviewed and electronically signed by: ILSA WAKEFIELD MD on Feb 04 2024 4:56PM EST Thank you for allowing us to participate in the care of your patient. Should there be any questions regarding this interpretation, please call [phone]. If you are unable to reach us at the number above, please feel free to contact [facility] eRadiology at [phone]. [id number] Normal [facility] Coding Summary.on 01-13-2024 Coding Summary. [id number]+PG hlYWQ+ HZ9NVNAiR87wbDYyhC8hG0XKJE kMDbfaJSUHBWtRFoUlffHnYN2u aXNjZXJu IC8+JW9zHBElHpzdvIDjt6A6yU M8G87edb4pCJujyTB5HAUzRzDb xkbwb5eymHc4ETcaExaoCtUt AVMsdE43RFC3iD24Ae96gVNmxG Cnc5ksqOg8QaHhCLFePNI5nKgs JMehl7HsLHCaL07unHDbk0P8 ZBPhpDlvyYXrFjTkvSB7sV1kZT acrhqkv3jkhyynLun3mw54cBNr t2Q2nMC0I2JkwzO6YUPcjIMx OlduqOBReG4vhiyqu8yghypoMm ShCHCyXWd4GMe8UUIhrHqxSdUm TR14VXF3UWQtsqMqT6LzVRLd mTizNsY3w9C8Li2FV8OHBikhH8 VNTUFSWTwvdGQ+SS64ky88U9Um AavzImq8KLMsXCU8aDR5nN2x MHBwQIfhf8D0pXK4C4PetsMilj 1jg5ijETHqUTrgB41asYRso5D1 QQDpoLP4MAGoaCpiRgEqmP37 Oyc+HQBsoVnub3ZjKwvfd8dth2 vynLp2TadmUNBscbSeeCdlPQP1 u3CbVv5zPCBwaVT0lTO9mB1j UdKkMvO9QHevH242BmLgwQXgMw woE22vV8JfwZL+HXTvJeh5EZWs lZcoTA5jN4PiSHOfylgyeIEz lGfsDF0yDMEghzyiPCCmpG1tYJ UyU1c5BpDbNbB2ZEviR0XxWDKs rgtjGt39qV0tRnMcVkP0ONtw M8DmxlT0QRFqxBOdETtaIVN1Q6 0zu4O4PFBvGUMhHYH1bUX8zU9b bGlnbjogbGVmdDsgdmVydGlj KAjxLBcrR394ZPKsaHlaEnNeGH luZyBEYXRlOiAgMDYvMjUvMjAy NDwvdGQ+ZIDvVQB4yRpwVJPw pLJuSVpgZc9slEieoZurNP4oKS QvfvoiAXTtuV7jNVAanMIgxAng KD4nRYXwmessk456JcPeXHE1 AZQiuCIeX6YpjY9vSbUpNZPnZK VfL1DnzGBkUXxeX136GIkrJpG2 NCZodwKsC8CpSJOilAodUiG0 w4R7Hv0Jv9HhafouT3BirLDtGc KjRdypXIy6E7PrDypznGZ+PC90 RMIaKY95EVc9SCH3qGiyPSxd LWPxY0BmcQ9pBbDyDQQjCJLrVe c+PHRhYmxlIHdpZHRoPScxMDAl UyPqwAyzNE7vEo4aUWUxKXBi mAirxLZwGeKti7xeTQPaMTvdUA 8egMilW5PooWP9IWKzr4c5Gr00 S17iG8PkjWH+PDDahFA3lLA3 zE1mYrWzVaH3IYpgN316ZbGznN EsXzunq4hnm4wgtDz5FjK3QKHw afYerAieBIY1c7RcJa68W95b IHdpZHRoPSIxNSUiIHZhbGlnbj 4dsP5bIf2+YVKkoFW6yOB6bO5l UgSxXaQ2QGdfT943FkQqmHAs Aaewk9mmp7ifgGm5QmBkRZWspx YnjUmvFHN6p8TpRk88R7LfeHvg x1ZeWmz5gq88aFQvy5E7jSA2 H7VhFGPlkoqblEFkuRvkRC8eQA MjunlzIDAdtZ4qYFTbZ3b3ZcZg YsU8ZFhsQ7AcqlA4RMFjiIGv HQKzwESJjW6jdruux0clfbuuEs QfKEEmICa2XXj8SSAioHbhHhRn FAO4HdG8ZGN0fHSdyR4mkRlu sygqtH6nUij+RTR2lRDpjTSYKX 1lOjwvdGQ+UAQcEQZ0oDnpEEhh MZEecY5tAGSiN3p6OoJxElA7 CKifL6RpauE1GFLpcWJoCLJvtB GSiD1okonws7gputpiCjAjSZFd ALa0EKe9BTZtjNpnQmSgTPW7 OkK7RBH6jIXyzO3flLnpaqlacE 9wOyc+UblhgCscRUR9MRd5V1Qa Nxk5ZXChzMnmLK3khYYpZDga Ki9vqBrscQmvUQ0pWCGusapbv8 78KtCth4xuSBCwqBCmCLwqBFP7 P77hz1M9QCEeOENlGEJ8mBN0 oU7gjUtczptdqHVupOkuqfAytW jqIEqdOTpxI505BHWfaSfhShSi SKz3S7SbNbz1NGPtbQaqAY5e eQKvTChlPk7kcFglwVrcQK3iCT Nzwpchp557WrOsx0ypFJLfqNLz FXfrKLE1S45ze7J3KFEtNRBd WME3pQA1rC2aeUgdollcrZMrdI cnnyVziJvbRTqmLKboE190RFWf xOdlJfQpyYt1Y0EkHza3GYIz jKomIE4xiIVxGJahRs9bxGgtaD deZE5vQTOxftikk130QrUwz8rc HTYbvQBoESyjFTU6S13zk0C8 UIWnCFOxSNX7qIV5tE8vhZreli ogbGVmdDsgdmVydGljYWwtYWxp G746JGCwgSwxSmKkoEoeeaBw GSpeHEy4K0MxRubquVB+PC90YW QbUK87pZGotEHaq0xmwNr7KvSh YHLaSJE5sVzoRDqlu2NcYOKb L72zpPRvl6I0VLKfbTogcZUsQs WkySP3iF1xWSrulizye5klrkfp Wuaxr6tkew54dT89C85bLSnw FTWlHAUkGAFqSLJkpLfuma6zeK 9wIi8+HBWmoKW7rWS5nB5qEMIz WrZ1SGgrC519IrRntHLwCepw x4far5cxfVq0ClL0KCRzfbZmjD ttSFL8e1NhQj96O43eIFilMHRb CQHgVQMhNPCdbLgbsb5eaH5m Ii8+GSWxaNL4eTR2gB7tUgJiDr E6ARwiM087GyXgkJUgMlnvQ96v J5VnnVA+EUBnHfy0QBTvdOvs CI0klDXdJFpyNk1hFZN9CjDtBt JgDTpqE5LsMPXovalbqtgghBN7 AHEcDBCznL24Th3nhWnpKLQk hRCYpF4fxkzdv5pfcrrjQnEsXU CjSAp9KGj8WTMrhIbmFsDaHQZ8 DoX8QSK7mFYhzD4fnXxbnyqm kQ4mA1SjJVEmtszdFg73yA1eZw YcAbS3KMdbXbe+CTtNH4OUAPLW OxkFXADKLT65DR16yPJss6T2 bEB8A1TeBPDucixzevahcMY7IV SmWGXtdU79bWGpSOkbRd0fz9O1 d742UOPrXOXvgQ74Gn0gsHrm MKVjmGGZzY1yljesd4pzpmtjEb KxKMCwTNj7NGm7PDSirNkpUnYc QFJ2YdW0PLK1hTBxkM6tpKnc ailtrG0nQwz+HDSgUqxdNYz6Zi wvdGQ+EFLpQZD3cKiqZHneNOTg fO5gKFXpY0i6ToDpInC4PEwm E3TxGCWszqpyKt50bY4lJsScHx S8JPuyK3CjqcH2VPDjlLOgYAck BMH1M74is9S7BYJfKJLiSLC6 xJC2sQ9ouJdwehvsaTKmaMwetx LxyLiqFDllXTtiV545RHMdmPoh AvxxAIrtLBYgYX70MG73zDRo v0X0zRB3O5VsKLWhsimycdgrvB W3VCKeVUJfnB89uWOeXMvrWr6d d4Y5m718UWOiDROeqP21Iu1e yPofEITlnXCXeS0qsysxn4wkrq eoSmRaQRMqQDi7MWy9TSGkhRib ZoQfCQG8ZrV5WJN4lJKneX0s eKonmvnkjH9dUxi+TWFsZTwvdG Q+ZZYvUZG7tAenXNsxKZLwnS7j CYAnE8n0RgSaXgY7BCdmZ5Ge DODkwrylRw46uX0eChGaUrT2ZX peQ9QcgbR0ARCklNXcZKmmVSL5 L41qv8F2DNQlLOPbHEI9lHR5 aK9pjGwdtwshsSKroQikumPqlA njOSjnEExzW719WUEooRsqTmoz TlEOvq6eKA2bJhbwmMU+PC90 rt15K0PyBaxhYuz6YOLpYWT6yF A9dP6eTUGbTHqqa4R2dRE4Q5Mv jnDvee9qt1gaBUDqVAnaX53h kZGdp6E3NRFhvGM7DCTwdVknVr PziJ48Yll+MZBsbDgib1SyBlyk o2epb2vaiGn7YdRfJLLxmpRz pRerGLO2s4GyDq11X03tWTxiSL DaWXCaOCUnKWFupCokrq8ayT8n Ii8+EWBbwZO8tVF4jD5fOgSa WlZ2TWftW987StGmuJQvDstge9 adn7xgaIh8DaSxZPIxhaUbvLom IPX1u8FeNj95F5JvnUymk8Kb Sst6yc49jBVmi0C6yRB6X1ArVC MzwrakuGRpcPplVG2hRAIllqiw YWQfbM1yQIWtM8v9AqFvAvO3 NFvcT2SgdbG7WZTzfLOaZYDewO XReQ0ulsmxl5qdskxdBfOtAFIj MOe8VHg9IUSlwHneYvLiZBQ5 HxE1BAG3fUAdhQ7unPvvkpgxsP 9wOyc+CUp8z5rcdHEsJV0knMO6 LL30CD46wWUbz0U6nLM9E8Nn NXVpknmugipkwNB4QHAwOYFfoO 77Ey9umQxkLz4iSKCrDAL9DABb tHPdC5BfcX4bKoOgNSUoPJDe E5SsvLWzLXujT434PImiZdR1ND VzapUoG8FhLQHsqHbnGmF7z7U9 Qf9JWM88QE03MQ06lNSyd0D2 lBH3T2EhYKGwqcbkayensYC3IT CbZVUxkZ12Ji0odEgsUu1hQZEg MEP3RVGziAXqP9EvwT0aTaNr NIFgZGWbB2AyvOBgNBebO717TT ieHeS7GNNnhbTdN5PxQCBanWzg KaZ3r2U9Mq1KXa10JN96VG98 pNNbx3B5nDO0U4FeLTPytfqwje befBL1HIJgZREjlY01Vi0cwJck Dr2yZUYrZQE0MSJsmYZpR5Bi wI3pKiRiCZRuWRGlC6DejEGsQR reH945ZQvqTsV8WPDfruQsT3Tx RQUzzOosQiI6t5L8Ow9STTgc esd9W7RkBawmqPK+IY15GHPgHP 36mJLliRHyl5nkhTs2MxZfYCCj XTW6xDahZQdtn1CtMCGhJ60d nCRwv2O3JNLld (more content not included)... Normal [facility] C Urineon 01-07-2024 Bacteria identified Cx Nom (U) Microbiology PROCEDURE: Urine Culture [R1] SOURCE: U CleanCatch BODY SITE: COLLECTED DATE/TIME: 01/05/2024 11:58 EDT RECEIVED DATE/TIME: 01/05/2024 17:54 EDT START DATE/TIME: 01/05/2024 17:54 EDT FREE TEXT SOURCE: [employer]PUTER OPERATIONS SUPERVISOR, Elham MONTERO, Elham Crowley FINAL REPORTS Final Report [] Verified Date/Time: 01/07/2024 10:26 EDT >100,000 cfu/ml Escherichia coli SUSCEPTIBILITY RESULTS _ LEGEND: S=Susceptible, N/R=Not Reported, Blank=Data not available, or drug not advisable or tested, I=Intermediate, ESBL=Extended spectrum beta-lactamase, R=Resistant, TFG=Thymidine-dependent strain, RODY=Beta-lactamase positive, ANDREA=mcg/m;(mg/L), S*=Predicted susceptible interp, R*=Predicted resistant interp EC Antibiotic ANDREA Dilutn ANDREA Interp Ampicillin <=8 S Ampicillin/ <=8/4 S Sulbactam Aztreonam <=4 S Cefazolin <=2 S Cefepime <=2 S Ceftazidime <=1 S Ceftazidime/ <=8 S Avibactam Ceftriaxone <=1 S Cefuroxime <=4 S Ciprofloxacin <=0.25 S Ertapenem <=0.5 S Gentamicin <=2 S Levofloxacin <=0.5 S Meropenem <=1 S Nitrofurantoin <=32 S Piperacillin/ <=8 S Tazobactam Tetracycline <=4 S Tobramycin <=2 S Trimethoprim/ <=2/38 S Sulfa Performing Locations R1: This test was performed at: [facility], [address] [place] [address], [id number] , [place], Normal [facility] Comment on above: Performed By: #### [id number] #### [facility] [address] [place] [id number] [facility] -- JEMAL ZEPEDA ([id number]) 1950 M Date Time Provider Department 01/07/24 SANGITA WELSH [facility] During your visit today, we recorded the following information about you: Sangita Welsh RN 01/07/2024 2:12 PM Signed Patient called to update that he saw PCP a couple days ago for UTI symptoms and was found to have + e-coli. He is currently on Bactrin BID x 10days. He wanted to update office. Next appointment 02/18/24. He will update if any worsening symptoms prior to appointment. Allergies As of Date: 01/07/2024 Noted Allergy Reaction ATORVASTATIN 05/06/2023 14 - Other: See Comments Comments: Joint swelling MELOXICAM 12/16/2022 2 - Rash Date Reviewed: 12/03/2023 Reviewed by: Kera Cormier RN - Fully Assessed Reason for Visit: Patient Update [1234] Prescriptions as of 01/07/2024 - tamsulosin (FLOMAX) 0.4 mg Take 1 capsule by mouth daily at bedtime. - acetaminophen (TYLENOL EXTRA STRENGTH) 500 mg tablet Take 2 tablets by mouth every 6 hours as needed for pain. - trospium (SANCTURA) 20 mg tablet Take 1 tablet by mouth two times a day as needed (Bladder spasms). Stop at least 24 hours before your catheter is removed - MEDICATION, NON-DATABASE Take by mouth two times a day. 07/22 Delta 8 CBD gummy am and pm - cholecalciferol (VITAMIN D-3) 50 mcg (2,000 unit) tablet Take 1 tablet by mouth once daily. - Ascorbic Acid (VITAMIN C) 1,000 mg tablet Take 1 tablet by mouth once daily. - Iron 18 mg tab Take 1 tablet by mouth every other day. - amLODIPine (NORVASC) 10 mg tablet Take 1 tablet by mouth every afternoon. - carvedilol (COREG) 12.5 mg tablet TAKE 1/2 (ONE-HALF) OF A TABLET BY MOUTH TWICE DAILY - citalopram (CELEXA) 20 mg tablet Take 10 mg by mouth every morning. - pantoprazole DR (PROTONIX) 40 mg tablet Take 1 tablet by mouth every 12 hours. 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 Epididymitis [N45.1] 01/07/2014 Hypertension [I10] 01/07/2014 Former smoker [Z87.891] 01/07/2014 Fluid overload [E87.70] 03/19/2014 Stress hyperglycemia [R73.9] 03/19/2014 Abdominal aortic aneurysm (HCC) [I71.40] 01/29/2021 Anemia [D64.9] 10/15/2023 Pulmonary fibrosis (HCC) [J84.10] 09/17/2023 Centrilobular emphysema (HCC) [J43.2] 09/17/2023 Bleeding ulcer [K28.4] 10/15/2023 Encounter Status:Closed by SANGITA WELSH on 01/07/24 [facility] Reminderson 01-07-2024 Reminders - From: Elham Moon To: [facility] - Clinical; Sent: 01/07/2024 10:30:22 EDT Show up: 01/07/2024 10:30:00 EDT Subject: Ambulatory Reminder Due Date/Time: 01/08/2024 10:29:00 EDT Urine culture positive for e coli, continue and finish antibiotic that was sent in. Should notify urologist of UTI Results: Date Result Type Ind Result Name 01/05/2024 11:58 EDT MBO POS Urine Culture pt notified of message below Normal [facility] Reminders - From: Elham Moon To: [facility] - Clinical; Sent: 01/07/2024 10:30:22 EDT Show up: 01/07/2024 10:30:00 EDT Subject: Ambulatory Reminder Due Date/Time: 01/08/2024 10:29:00 EDT Urine culture positive for e coli, continue and finish antibiotic that was sent in. Should notify urologist of UTI Results: Date Result Type Ind Result Name 01/05/2024 11:58 EDT MBO POS Urine Culture Normal [facility] Nurse Consultation Noteon Nurse Consultation Note Reason for Visit Patient left a urine specimen. States that he had a tumor removed 9 weeks ago form his bladder. States that his urine smells very strong, having urination frequency and lower abdominal discomfort Assessment/Plan Urinary frequency (R35.0: Frequency of micturition) Medications amLODIPine 10 mg Tab, 10 mg= 1 tab(s), Oral, Daily, 3 refills carvedilol 12.5 mg Tab, 6.25 mg= 0.5 tab(s), Oral, BID cholecalciferol 2000 intl units oral capsule citalopram 20 mg Tab citalopram 20 mg Tab, 20 mg= 1 tab(s), Oral, Daily lisinopril 20 mg Tab, 20 mg= 1 tab(s), Oral, Daily nystatin Top 100,000 units/g Crm 15 gram, 1 chantal, Topical, BID, 1 refills Pantoprazole [address] Tab, See Instructions Allergies Toprol-XL Immunizations Vaccine Date Status Comments influenza virus vaccine, inactivated - Not Given Patient Refuses Lab Results Ambulatory Point of Care Results Bilirubin Urine Dipstick: Negative (01/05/24 11:56:00) Blood Urine Dipstick: Trace-intact (01/05/24 11:56:00) Glucose Urine Dipstick: Negative (01/05/24 11:56:00) Ketones Urine Dipstick: Negative (01/05/24 11:56:00) Leukocytes Urine Dipstick: 3+ Large (01/05/24 11:56:00) Nitrite Urine Dipstick: Positive (01/05/24 11:56:00) Protein Urine Dipstick: Negative (01/05/24 11:56:00) Specific [place] Urine Dipstick: 1.020 (01/05/24 11:56:00) Urine Appearance Urine Dipstick: Cloudy (01/05/24 11:56:00) Urine Color Urine Dipstick: Yellow (01/05/24 11:56:00) Urobilinogen Urine Dipstick: Normal 0.2-1 EU/dl (01/05/24 11:56:00) pH Urine Dipstick: 6.5 (01/05/24 11:56:00) [facility] Office Visit (URR) -- JEMAL ZEPEDA ([id number]) 1950 M Date Time Provider Department 12/03/23 9:30 AM [facility] During your visit today, we recorded the following information about you: Temperature Pulse Respiration Blood pressure 97.7 degrees 75/minute 15/minute 135/75 Brenda Leggett MD 12/03/2023 11:35 AM Signed HISTORY: Jemal Zepeda is a 73 yr old male with history of urothelial carcinoma and a bladder diverticulum s/p robotic bladder diverticulectomy/partial cystectomy on 10/30/2023 presenting for stent removal today. Surgical Pathology: Robotic bladder diverticulectomy/partial cystectomy on 10/30/2023 FINAL DIAGNOSIS A. Urinary bladder, neck of bladder diverticulum margin, excision: - Benign fibromuscular tissue, negative for neoplasm. B. Urinary bladder, neck of bladder diverticulum margin, excision: - Benign urothelial mucosa. C. Lymph nodes, bilateral pelvic, excision: - Nine lymph nodes, negative for neoplasm (0/9). D. Urinary bladder, partial cystectomy: - Papillary urothelial carcinoma, high-grade, with foci of superficial lamina propria invasion. - Surgical margins are negative. - See synoptic report. Nicole's SARAH BETH NOTE/ UNIVERSAL PROTOCOL/ SAFETY CHECKLIST Sign In History and Physical Exam reviewed and is unchanged. Primary Diagnosis: Hx of bladder cancer Sign in Communication: Completed. Time Out: Immediately prior to procedure, Team confirms the correct patient, correct procedure, cystoscopy, correct site and site marking, correct position (if applicable). Sign Out: Sign out discussion: Completed. Antibiotic(s) given immediately prior to procedure: bactrim Details of procedure: as below Urethra - See below Prostate: Moderate lateral lobes VN: open Urothelium: Normal, no evidence of tumor, CIS stone, foreign body, diverticuli, etc. Trabeculation: mild Inflammation: mild Ureteral Orifices: Normal, clear efflux bilaterally Trigone: Normal Preoperative diagnosis: Hx of bladder cancer Postoperative diagnosis: Same Procedure: Flexible cystoscopy Surgeon: Dr. Brenda Travis Anesthesia: Lidocain urojet Procedure: The patient was taken to the cystoscopy suite and placed in the supine position. He was then prepped and draped in the usual manner. Lidocaine gel was placed per urethra for local anasthesia. Cystoscopy was then performed using a flexible cystoscope. Sterile technique was maintained throughout. Please refer to above for specific findings during this part of the procedure. After carefully and atraumatically inspecting the urethra, prostate, VN, bladder, and UO's. Right ureteral stent was grasped and removed without difficulty. The cystoscope was then removed. The patient tolerated the procedure well and there were no complications. He was take for recovery in good condition. Findings: see above Complications: None EBL: None Disposition: Standard removal of right double-J stent Cystoscopy in 2 months with CTU and BMP prior By signing my name below, I, Shanell Frye, attest that this documentation has been prepared under the direction and in the presence of Dr. Leggett Electronically signed, Stweart Campbell I agree with the Chief Complaint, ROS, and Past Histories independently gathered by the clinical sales support engineer and the remaining scribed note accurately describes my personal service to the patient. MD Jarvis Guthrie Rosalie, RN 12/03/2023 1:26 PM Signed [facility] - DEPARTMENT OF UROLOGY AFTER YOUR CYSTOSCOPY Brenda Leggett MD Cysto post procedure instructions You have undergone a cystoscopy. Your doctor has inserted a telescope into your urinary bladder through your urethra to view the inside of your bladder. WHAT TO EXPECT: Possible burning during urination and/or blood-tinged urine. WHAT TO DO: Resume normal activity and medications. Drink 6-8 glasses of fluid each day for 3 days to help flush your urinary system. MEDICATIONS: You were given Bactrim DS a preventative antibiotic, prior to the procedure. WHEN TO CALL THE DOCTOR: IF you have a fever over 100 degrees Fahrenheit. IF you are unable to urinate. IF blood clots form in your urine. IF your urine becomes very bloody and does not clear with drinking extra fluids. Please call the urology office with any questions you may have. 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 #:[id number] (more content not included)... Normal [facility] UA DIP, URINE (POC)on 2023 BILIRUBIN UA (POCT) Negative Negative [facility] CLARITY UA (POCT) Cloudy [facility] COLOR UA (POCT) Dark yellow [facility] GLUCOSE UA (POCT) Negative Negative mg/dL [facility] Hemoglobin Ql (U) Large Abnormal Negative [facility] Interpretation and review of laboratory results Abnormal [facility] KETONE UA (POCT) Negative Negative mg/dL [facility] LEUKOCYTES UA (POCT) Large Abnormal Negative [facility] NITRITE UA (POCT) Positive Abnormal Negative [facility] PH UA (POCT) 5.5 4.5 - 8.0 [facility] Protein Ql (U) 30 mg/dL Abnormal Negative [facility] SPECIFIC GRAVITY UA (POCT) 1.015 1.005 - 1.030 [facility] UROBILINOGEN UA (POCT) 1.0 Aleyda l E.U./dL [facility] Location:[facility] [place], [address] [address], [place], [address] [place] [address] POINT OF CARE [facility] CNPNon 12-01-2023 CNPN Telephone (URR) -- JEMAL ZEPEDA ([id number]) 1950 M Date Time Provider Department 12/01/23 KERA CORMIER [facility] During your visit today, we recorded the following information about you: Kera Cormier RN 12/01/2023 2:14 PM Signed Pt LVM for results. Urine cx results 11/28/2023 >=100,000 CFU/ml Escherichia coli Abnormal Allergies As of Date: 12/01/2023 Noted Allergy Reaction ATORVASTATIN 05/06/2023 14 - Other: See Comments Comments: Joint swelling MELOXICAM 12/16/2022 2 - Rash Date Reviewed: 11/26/2023 Reviewed by: Briana Santos MA - Fully Assessed Reason for Visit: Results [95] Prescriptions as of 12/01/2023 - sulfamethoxazole-trimethop rim (BACTRIM DS) 800-160 mg per tablet Take 1 tablet by mouth two times a day for 7 days. - tamsulosin (FLOMAX) 0.4 mg Take 1 capsule by mouth daily at bedtime. - acetaminophen (TYLENOL EXTRA STRENGTH) 500 mg tablet Take 2 tablets by mouth every 6 hours as needed for pain. - trospium (SANCTURA) 20 mg tablet Take 1 tablet by mouth two times a day as needed (Bladder spasms). Stop at least 24 hours before your catheter is removed - MEDICATION, NON-DATABASE Take by mouth two times a day. 07/22 Delta 8 CBD gummy am and pm - cholecalciferol (VITAMIN D-3) 50 mcg (2,000 unit) tablet Take 1 tablet by mouth once daily. - Ascorbic Acid (VITAMIN C) 1,000 mg tablet Take 1 tablet by mouth once daily. - Iron 18 mg tab Take 1 tablet by mouth every other day. - amLODIPine (NORVASC) 10 mg tablet Take 1 tablet by mouth every afternoon. - carvedilol (COREG) 12.5 mg tablet TAKE 1/2 (ONE-HALF) OF A TABLET BY MOUTH TWICE DAILY - citalopram (CELEXA) 20 mg tablet Take 10 mg by mouth every morning. - pantoprazole DR (PROTONIX) 40 mg tablet Take 1 tablet by mouth every 12 hours. 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 Epididymitis [N45.1] 01/07/2014 Hypertension [I10] 01/07/2014 Former smoker [Z87.891] 01/07/2014 Fluid overload [E87.70] 03/19/2014 Stress hyperglycemia [R73.9] 03/19/2014 Abdominal aortic aneurysm (HCC) [I71.40] 01/29/2021 Anemia [D64.9] 10/15/2023 Pulmonary fibrosis (HCC) [J84.10] 09/17/2023 Centrilobular emphysema (HCC) [J43.2] 09/17/2023 Bleeding ulcer [K28.4] 10/15/2023 Encounter Status:Closed by KERA CORMIER on 12/01/23 [facility] Bacteria Ur Culton Bacteria identified Cx Nom (U) ORGANISM ID: 1 >=100,000 CFU/ml Escherichia coli ORGANISM ID: 1 (ESCHERICHIA COLI) ANTIBIOTIC INTERPRETATION ANDREA STATUS REFERENCE RANGE Ampicillin S 8 F Susceptible <=8 , Intermediate >8 , Resistant >16 Cefazolin S <=4 F Susceptible 0-16 , Intermediate <0 or >16 , Resistant >16 For uncomplicated urinary tract infections, cefazolin results can be used to predict susceptibility or resistance to cephalexin. Ceftriaxone S <=1 F Susceptible <=1 , Intermediate >1 , Resistant >=4 Cefepime S <=1 F Susceptible <=2 , Susceptible-Dose Dependent >2 , Resistant >=16 Ertapenem S <=0.5 F Susceptible <=0.5 , Intermediate >.5 , Resistant >1 Meropenem S <=0.25 F Susceptible <=1 , Intermediate >1 , Resistant >2 Ampicillin/Sulbact S 4 F Susceptible <=8 , Intermediate >8 , Resistant >16 Piperacillin/Tazobac S <=4 F Susceptible <16 , Susceptible-Dose Dependent >=16 , Resistant >=32 Gentamicin S <=1 F Susceptible <=2 , Intermediate >2 , Resistant >=8 Tobramycin S <=1 F Susceptible <4 , Intermediate >=4 , Resistant >=8 Trimeth sulfameth S <=20 F Susceptible <=40 , Resistant >40 Ciprofloxacin S <=0.25 F Susceptible <0.5 , Intermediate >=.5 , Resistant >=1 Nitrofurantoin S <=16 F Susceptible <=32 , Intermediate >32 , Resistant >64 Abnormal [facility] Comment on above: Performed By: #### 2 [id number] #### [facility] CLIA [id number] [address] [place], [place] [address] [address] [place] Monica 11-28-2023 CNPN Telephone ([facility]) -- JEMAL ZEPEDA ([id number]) 1950 M Date Time Provider Department 11/28/23 SANGITA WELSH [facility] During your visit today, we recorded the following information about you: Sangita Welsh RN 11/28/2023 11:43 AM Signed Patient order for urine culture placed. He will submit to local lab.. Sangita Welsh RN 11/28/2023 1:08 PM Signed Patient submitted urine culture and is aware to start antibiotics and that they may change after culture resulted. Grateful for call. Allergies As of Date: 11/28/2023 Noted Allergy Reaction ATORVASTATIN 05/06/2023 14 - Other: See Comments Comments: Joint swelling MELOXICAM 12/16/2022 2 - Rash Date Reviewed: 11/26/2023 Reviewed by: Briana Santos MA - Fully Assessed Reason for Visit: Orders [681] Primary Visit Diagnosis:Dysuria [R30.0] Order(s):URINE CULTURE [SQURCUL] Order #: [id number] FUTURE Prescriptions as of 11/28/2023 - sulfamethoxazole-trimethop rim (BACTRIM DS) 800-160 mg per tablet Take 1 tablet by mouth two times a day for 7 days. - tamsulosin (FLOMAX) 0.4 mg Take 1 capsule by mouth daily at bedtime. - docusate sodium (COLACE) 100 mg capsule Take 1 capsule by mouth two times a day. - acetaminophen (TYLENOL EXTRA STRENGTH) 500 mg tablet Take 2 tablets by mouth every 6 hours as needed for pain. - trospium (SANCTURA) 20 mg tablet Take 1 tablet by mouth two times a day as needed (Bladder spasms). Stop at least 24 hours before your catheter is removed - MEDICATION, NON-DATABASE Take by mouth two times a day. 07/22 Delta 8 CBD gummy am and pm - cholecalciferol (VITAMIN D-3) 50 mcg (2,000 unit) tablet Take 1 tablet by mouth once daily. - Ascorbic Acid (VITAMIN C) 1,000 mg tablet Take 1 tablet by mouth once daily. - Iron 18 mg tab Take 1 tablet by mouth every other day. - amLODIPine (NORVASC) 10 mg tablet Take 1 tablet by mouth every afternoon. - carvedilol (COREG) 12.5 mg tablet TAKE 1/2 (ONE-HALF) OF A TABLET BY MOUTH TWICE DAILY - citalopram (CELEXA) 20 mg tablet Take 10 mg by mouth every morning. - pantoprazole DR (PROTONIX) 40 mg tablet Take 1 tablet by mouth every 12 hours. 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 Epididymitis [N45.1] 01/07/2014 Hypertension [I10] 01/07/2014 Former smoker [Z87.891] 01/07/2014 Fluid overload [E87.70] 03/19/2014 Stress hyperglycemia [R73.9] 03/19/2014 Abdominal aortic aneurysm (HCC) [I71.40] 01/29/2021 Anemia [D64.9] 10/15/2023 Pulmonary fibrosis (HCC) [J84.10] 09/17/2023 Centrilobular emphysema (HCC) [J43.2] 09/17/2023 Bleeding ulcer [K28.4] 10/15/2023 Encounter Status:Closed by SANGITA WELSH on 11/28/23 [facility] Jonathan 11-26-2023 CNOV Office Visit (URFHR) -- JEMAL ZEPEDA ([id number]) 1950 M Date Time Provider Department 11/26/23 2:30 PM [facility] your visit today, we recorded the following information about you: Temperature Pulse Blood pressure 97.4 degrees 67/minute 138/[address], RN 11/26/2023 2:26 PM Signed Cystoscopy cancelled due to Positive B/O urine sample. Brenda Leggett MD 11/26/2023 2:25 PM [facility]igned [facility] H[facility]ORY AND PHYSICAL EXAM PATIENT INFO: Jemal Zepeda 73 year old REFERRING M.D.: No referring provider defined for this encounter. CHIEF COMPLAINT: UTI, hx of bladder cancer HISTORY: Jemal Zepeda is a 73 yr old male with history of urothelial carcinoma and a bladder diverticulum s/p robotic bladder diverticulectomy/partial cystectomy on 10/30/2023 presenting for stent removal today. Surgical Pathology: Robotic bladder diverticulectomy/partial cystectomy on 10/30/2023 FINAL DIAGNOSIS A. Urinary bladder, neck of bladder diverticulum margin, excision: - Benign fibromuscular tissue, negative for neoplasm. B. Urinary bladder, neck of bladder diverticulum margin, excision: - Benign urothelial mucosa. C. Lymph nodes, bilateral pelvic, excision: - Nine lymph nodes, negative for neoplasm (0/9). D. Urinary bladder, partial cystectomy: - Papillary urothelial carcinoma, high-grade, with foci of superficial lamina propria invasion. - Surgical margins are negative. - See synoptic report. LABS No results found for: PSA Creatinine (mg/dL) Date Value 10/31/2023 0.77 10/30/2023 0.83 10/15/2023 0.79 03/24/2014 0.95 03/23/2014 0.81 03/22/2014 0.74 03/21/2014 1.00 03/20/2014 1.18 PAST MEDICAL HISTORY Diagnosis Date Abdominal aortic aneurysm (HCC) 01/29/2021 Celiac artery aneurysm (HCC) Centrilobular emphysema (HCC) 09/17/2023 HTN (hypertension) Hydrocele Pulmonary fibrosis (HCC) 09/17/2023 Sleep apnea Smoker PAST SURGICAL HISTORY Procedure Laterality Date CYSTOSCOPY EGD + ulcer HERNIA REPAIR W/MESH 07/21/2001 bilateral open inguinal herniorrhaphy with mesh PAST SURGICAL HISTORY OF 03/18/2014 celiac artery aneurysm repair TOTAL KNEE REPLACEMENT Right 2022 Social History Tobacco Use Smoking status: Former Packs/day: 1.00 Years: 40.00 Additional pack years: 0.00 Total pack years: 40.00 Types: Cigarettes Smokeless tobacco: Former Types: Snuff Tobacco comments: occasionally has a cigarette Substance Use Topics Alcohol use: No Drug use: No REVIEW OF SYSTEMS: CONSTITUTIONAL: Patient reports no recent fever or weight loss EYES: Negative for redness, blurry vision, double vision or loss of vision CARDIOVASCULAR: Negative for chest pain. RESPIRATORY: Negative for cough, hemoptysis, wheezing, COPD, dyspnea or shortness of breath GI: No nausea, vomiting, or diarrhea MUSCULOSKELETAL: denies back pain or muscular weakness SKIN: Negative for lesions, rash, and itching PSYCH: Negative for sleep disturbance, mood disorder and recent psychosocial stressors. ALLERGY/IMMUNOLOGIC: Atorvastatin and Meloxicam All other reviewed and negative other than HPI. PHYSICAL EXAM: constitutional: appears healthy in no acute distress cardiovascular: appears well perfused, good color respiratory: normal respiratory motion gi: abdomen soft, non-tender without masses, hernia or organomegaly skin: no rashes or bruises noted. Extremities: Extremities normal. No deformities, edema, or skin discoloration. Neuro: Gait normal. Sensation grossly intact. IMPRESSION: Jemal Zepeda is a 73 yr old male with history of urothelial carcinoma and a bladder diverticulum s/p robotic bladder diverticulectomy/partial cystectomy on 10/30/2023 presenting for stent removal today. UA positive for nitrites today. Discussed the pros and cons of stent removal today. Mutually decided to reschedule stent extraction for a later date. Urine culture ordered today. PLAN: Urine culture ordered today Will reschedule stent extraction By signing my name below, I, Shanell Frye, attest that this documentation has been prepared under the direction and in the presence of Dr. Betsey Faulknerally signed, Stewart Campbell I agree with the Chief Complaint, ROS, and Past Histories independently gathered by the clinical sales support engineer and the remaining scribed note accurately describes my personal service to the patient. Dr. Brenda Leggett MD Provider Attestation: I, Brenda Leggett MD, personally performed the services described in this documentation. All medical record entries made by the scribe were at my direction and in my presence. I have reviewed the chart and discharge instructions (if applicable) and agree that the record reflects my personal performance and is accurate and complete. Dr. Brenda Leggett MD November 25 (more content not included)... Normal [facility] UA DIP, URINE (POC)on 2023 BILIRUBIN UA (POCT) Negative Negative [facility] CLARITY UA (POCT) Clear [facility] COLOR UA (POCT) Yellow [facility] GLUCOSE UA (POCT) Negative Negative mg/dL [facility] Hemoglobin Ql (U) Moderate Abnormal Negative [facility] Interpretation and review of laboratory results Abnormal [facility] KETONE UA (POCT) Negative Negative mg/dL [facility] LEUKOCYTES UA (POCT) Large Abnormal [facility] NITRITE UA (POCT) Positive Abnormal Negative [facility] PH UA (POCT) 6.0 4.5 - 8.0 [facility] Protein Ql (U) 30 mg/dL Abnormal Negative [facility] SPECIFIC GRAVITY UA (POCT) 1.010 1.005 - 1.030 [facility] UROBILINOGEN UA (POCT) 0.2 Aleyda l E.U./dL [facility] Location:[facility] [place], [address] [address] [place], [place], [address] [place] [address] POINT OF CARE [facility] CNPCaro 11-21-2023 CNPN Telephone (URFMOB) -- JEMAL ZEPEDA ([id number]) 1950 M Date Time Provider Department 11/21/23 BRENDA LEGGETT During your visit today, we recorded the following information about you: Anil Francisco 11/21/2023 11:36 AM Signed Jemal Gómez's , called and I was transferred her voicemail. She said he is not going to make it to his appointment today, he has flu like symptoms and does not want to make the trip. They would like to reschedule, I will call but I figure he will need triage because he has the stent in place. Allergies As of Date: 11/21/2023 Noted Allergy Reaction ATORVASTATIN 05/06/2023 14 - Other: See Comments Comments: Joint swelling MELOXICAM 12/16/2022 2 - Rash Date Reviewed: 11/12/2023 Reviewed by: Briana Santos MA - Fully Assessed Reason for Visit: Appointment [186] Prescriptions as of 11/24/2023 - tamsulosin (FLOMAX) 0.4 mg Take 1 capsule by mouth daily at bedtime. - docusate sodium (COLACE) 100 mg capsule Take 1 capsule by mouth two times a day. - acetaminophen (TYLENOL EXTRA STRENGTH) 500 mg tablet Take 2 tablets by mouth every 6 hours as needed for pain. - trospium (SANCTURA) 20 mg tablet Take 1 tablet by mouth two times a day as needed (Bladder spasms). Stop at least 24 hours before your catheter is removed - MEDICATION, NON-DATABASE Take by mouth two times a day. 07/22 Delta 8 CBD gummy am and pm - cholecalciferol (VITAMIN D-3) 50 mcg (2,000 unit) tablet Take 1 tablet by mouth once daily. - Ascorbic Acid (VITAMIN C) 1,000 mg tablet Take 1 tablet by mouth once daily. - Iron 18 mg tab Take 1 tablet by mouth every other day. - amLODIPine (NORVASC) 10 mg tablet Take 1 tablet by mouth every afternoon. - carvedilol (COREG) 12.5 mg tablet TAKE 1/2 (ONE-HALF) OF A TABLET BY MOUTH TWICE DAILY - citalopram (CELEXA) 20 mg tablet Take 10 mg by mouth every morning. - pantoprazole DR (PROTONIX) 40 mg tablet Take 1 tablet by mouth every 12 hours. 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 Epididymitis [N45.1] 01/07/2014 Hypertension [I10] 01/07/2014 Former smoker [Z87.891] 01/07/2014 Fluid overload [E87.70] 03/19/2014 Stress hyperglycemia [R73.9] 03/19/2014 Abdominal aortic aneurysm (HCC) [I71.40] 01/29/2021 Anemia [D64.9] 10/15/2023 Pulmonary fibrosis (HCC) [J84.10] 09/17/2023 Centrilobular emphysema (HCC) [J43.2] 09/17/2023 Bleeding ulcer [K28.4] 10/15/2023 Encounter Status:Closed by ANIL FRANCISCO on 11/24/23 [facility] 11-13-2023 CNPN Telephone (URFMOB) -- JEMAL ZEPEDA ([id number]) 1950 M Date Time Provider Department 11/13/23 BRENDA LEGGETT During your visit today, we recorded the following information about you: Brenda Leggett MD 11/13/2023 8:09 AM Signed Called the patient and gave him the results of his pathology report. 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 We talked about the options of close surveillance versus BCG. Given that the tumor was not located within the bladder itself and his bladder appeared normal I told him it may be reasonable to forego the BCG this time and monitor closely with a cystoscopy in 3 months. He would prefer to do that locally. He is scheduled for stent removal next week and we will discuss further at that time. Brenda Leggett MD Allergies As of Date: 11/13/2023 Noted Allergy Reaction ATORVASTATIN 05/06/2023 14 - Other: See Comments Comments: Joint swelling MELOXICAM 12/16/2022 2 - Rash Date Reviewed: 11/12/2023 Reviewed by: Briana Santos MA - Fully Assessed Reason for Visit: Results [95] Prescriptions as of 11/13/2023 - tamsulosin (FLOMAX) 0.4 mg Take 1 capsule by mouth daily at bedtime. - docusate sodium (COLACE) 100 mg capsule Take 1 capsule by mouth two times a day. - acetaminophen (TYLENOL EXTRA STRENGTH) 500 mg tablet Take 2 tablets by mouth every 6 hours as needed for pain. - trospium (SANCTURA) 20 mg tablet Take 1 tablet by mouth two times a day as needed (Bladder spasms). Stop at least 24 hours before your catheter is removed - MEDICATION, NON-DATABASE Take by mouth two times a day. 07/22 Delta 8 CBD gummy am and pm - cholecalciferol (VITAMIN D-3) 50 mcg (2,000 unit) tablet Take 1 tablet by mouth once daily. - Ascorbic Acid (VITAMIN C) 1,000 mg tablet Take 1 tablet by mouth once daily. - Iron 18 mg tab Take 1 tablet by mouth every other day. - amLODIPine (NORVASC) 10 mg tablet Take 1 tablet by mouth every afternoon. - carvedilol (COREG) 12.5 mg tablet TAKE 1/2 (ONE-HALF) OF A TABLET BY MOUTH TWICE DAILY - citalopram (CELEXA) 20 mg tablet Take 10 mg by mouth every morning. - pantoprazole DR (PROTONIX) 40 mg tablet Take 1 tablet by mouth every 12 hours. 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 Epididymitis [N45.1] 01/07/2014 Hypertension [I10] 01/07/2014 Former smoker [Z87.891] 01/07/2014 Fluid overload [E87.70] 03/19/2014 Stress hyperglycemia [R73.9] 03/19/2014 Abdominal aortic aneurysm (HCC) [I71.40] 01/29/2021 Anemia [D64.9] 10/15/2023 Pulmonary fibrosis (HCC) [J84.10] 09/17/2023 Centrilobular emphysema (HCC) [J43.2] 09/17/2023 Bleeding ulcer [K28.4] 10/15/2023 Encounter Status:[facility] Nurse Visit (URFHR) -- JEMAL ZEPEDA ([id number]) 1950 M Date Time Provider Department 11/12/23 10:00 AM NURSE [facility] During your visit today, we recorded the following information about you: Temperature Pulse Blood pressure Weight 97.7 degrees 93/minute 153/73 91.6 kg Martina Mehta RN 11/12/2023 10:40 AM Signed Urology Trial Void CHIEF COMPLAINT: Catheter Removal HPI: This is a 73 year old male with a history of 1) cystoscopy and right retrograde pyelogram and right double-J stent placement 2) robotic bladder diverticulectomy/partial cystectomy [complicated] 3) robotic right pelvic lymph node dissection on (date) 10/30/2023. The patient is here today for francisco removal by trial - of - void. He presents with a # 20 F coude Indwelling Urethral catheter. The catheter is attached to a leg bag with yellow urine. Procedure: The patient's bladder was filled to a capacity of 150 ml. with sterile water. The indwelling francisco was removed without difficulty. The total voided amount was 125ml pink tinged. The patient tolerated the procedure well. Assessment: Successful voiding trial Plan: Patient provided with emergency contact phone numbers and advised to call the doctor with symptoms of fever over 100 degrees Fahrenheit, if unable to urinate, or if urine becomes very bloody and does not clear with drinking extra fluids. Follow-up Visit: 11/21/2023 for stent removal Martina Mehta RN Allergies As of Date: 11/12/2023 Noted Allergy Reaction ATORVASTATIN 05/06/2023 14 - Other: See Comments Comments: Joint swelling MELOXICAM 12/16/2022 2 - Rash Date Reviewed: 11/12/2023 Reviewed by: Briana Santos MA - Fully Assessed Reason for Visit: Established Patient [175] Primary Visit Diagnosis:Encounter for removal of urinary catheter [Z46.6] Other Visit Diagnosis:Post-operative state [Z98.890] Prescriptions as of 11/12/2023 - tamsulosin (FLOMAX) 0.4 mg Take 1 capsule by mouth daily at bedtime. - docusate sodium (COLACE) 100 mg capsule Take 1 capsule by mouth two times a day. - acetaminophen (TYLENOL EXTRA STRENGTH) 500 mg tablet Take 2 tablets by mouth every 6 hours as needed for pain. - trospium (SANCTURA) 20 mg tablet Take 1 tablet by mouth two times a day as needed (Bladder spasms). Stop at least 24 hours before your catheter is removed - MEDICATION, NON-DATABASE Take by mouth two times a day. 07/22 Delta 8 CBD gummy am and pm - cholecalciferol (VITAMIN D-3) 50 mcg (2,000 unit) tablet Take 1 tablet by mouth once daily. - Ascorbic Acid (VITAMIN C) 1,000 mg tablet Take 1 tablet by mouth once daily. - Iron 18 mg tab Take 1 tablet by mouth every other day. - amLODIPine (NORVASC) 10 mg tablet Take 1 tablet by mouth every afternoon. - carvedilol (COREG) 12.5 mg tablet TAKE 1/2 (ONE-HALF) OF A TABLET BY MOUTH TWICE DAILY - citalopram (CELEXA) 20 mg tablet Take 10 mg by mouth every morning. - pantoprazole DR (PROTONIX) 40 mg tablet Take 1 tablet by mouth every 12 hours. 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 Epididymitis [N45.1] 01/07/2014 Hypertension [I10] 01/07/2014 Former smoker [Z87.891] 01/07/2014 Fluid overload [E87.70] 03/19/2014 Stress hyperglycemia [R73.9] 03/19/2014 Abdominal aortic aneurysm (HCC) [I71.40] 01/29/2021 Anemia [D64.9] 10/15/2023 Pulmonary fibrosis (HCC) [J84.10] 09/17/2023 Centrilobular emphysema (HCC) [J43.2] 09/17/2023 Bleeding ulcer [K28.4] 10/15/2023 Encounter Status:[facility]EM[facility] ZEP[facility] ([id number]) 1950 M Date Time Provider Department 11/12[facility]23 [facility] During your visit today, we recorded the following information about you: Lashaun Cheney, RN 11/12/2023 2:22 PM Signed Patient LVM requesting pathology from 10/30/[address] Leggett. Will update medical team. Allergies As of Date: 11/12/2023 Noted Allergy Reaction ATORVASTATIN 05/06/2023 14 - Other: See Comments Comments: Joint swelling MELOXICAM 12/16/2022 2 - Rash Date Reviewed: 11/12/2023 Reviewed by: Briana Santos MA - Fully Assessed Reason for Visit: Results [95] Prescriptions as of 11/12/2023 - tamsulosin (FLOMAX) 0.4 mg Take 1 capsule by mouth daily at bedtime. - docusate sodium (COLACE) 100 mg capsule Take 1 capsule by mouth two times a day. - acetaminophen (TYLENOL EXTRA STRENGTH) 500 mg tablet Take 2 tablets by mouth every 6 hours as needed for pain. - trospium (SANCTURA) 20 mg tablet Take 1 tablet by mouth two times a day as needed (Bladder spasms). Stop at least 24 hours before your catheter is removed - MEDICATION, NON-DATABASE Take by mouth two times a day. 07/22 Delta 8 CBD gummy am and pm - cholecalciferol (VITAMIN D-3) 50 mcg (2,000 unit) tablet Take 1 tablet by mouth once daily. - Ascorbic Acid (VITAMIN C) 1,000 mg tablet Take 1 tablet by mouth once daily. - Iron 18 mg tab Take 1 tablet by mouth every other day. - amLODIPine (NORVASC) 10 mg tablet Take 1 tablet by mouth every afternoon. - carvedilol (COREG) 12.5 mg tablet TAKE 1/2 (ONE-HALF) OF A TABLET BY MOUTH TWICE DAILY - citalopram (CELEXA) 20 mg tablet Take 10 mg by mouth every morning. - pantoprazole DR (PROTONIX) 40 mg tablet Take 1 tablet by mouth every 12 hours. 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 Epididymitis [N45.1] 01/07/2014 Hypertension [I10] 01/07/2014 Former smoker [Z87.891] 01/07/2014 Fluid overload [E87.70] 03/19/2014 Stress hyperglycemia [R73.9] 03/19/2014 Abdominal aortic aneurysm (HCC) [I71.40] 01/29/2021 Anemia [D64.9] 10/15/2023 Pulmonary fibrosis (HCC) [J84.10] 09/17/2023 Centrilobular emphysema (HCC) [J43.2] 09/17/2023 Bleeding ulcer [K28.4] 10/15/2023 Encounter Status:Closed by LASHAUN CHENEY on 11/12/23 [facility] CNPN Telephone (URFMOB) -- JEMAL ZEPEDA ([id number]) 1950 M Date Time Provider Department 11/12/23 MARY SCHROEDER URJASSI During your visit today, we recorded the following information about you: Mary Schroeder APRN.RHEA 11/12/2023 2:51 PM Signed Spoke with the patient regarding his pathology results. Discussed that it did show bladder cancer at the sites of the partial cystectomy. Discussed that the margins are negative. Patient has a stent removal with Dr. Leggett on 11/20 to further discuss the follow up plan. Mary Schroeder APRN.[facility] Surgical pathology FINAL DIAGNOSIS A. Urinary bladder, neck of bladder diverticulum margin, excision: - Benign fibromuscular tissue, negative for neoplasm. B. Urinary bladder, neck of bladder diverticulum margin, excision: - Benign urothelial mucosa. C. Lymph nodes, bilateral pelvic, excision: - Nine lymph nodes, negative for neoplasm (0/9). D. Urinary bladder, partial cystectomy: - Papillary urothelial carcinoma, high-grade, with foci of superficial lamina propria invasion. - Surgical margins are negative. - See synoptic report. Allergies As of Date: 11/12/2023 Noted Allergy Reaction ATORVASTATIN 05/06/2023 14 - Other: See Comments Comments: Joint swelling MELOXICAM 12/16/2022 2 - Rash Date Reviewed: 11/12/2023 Reviewed by: Briana Santos MA - Fully Assessed Reason for Visit: Results [95] Prescriptions as of 11/12/2023 - tamsulosin (FLOMAX) 0.4 mg Take 1 capsule by mouth daily at bedtime. - docusate sodium (COLACE) 100 mg capsule Take 1 capsule by mouth two times a day. - acetaminophen (TYLENOL EXTRA STRENGTH) 500 mg tablet Take 2 tablets by mouth every 6 hours as needed for pain. - trospium (SANCTURA) 20 mg tablet Take 1 tablet by mouth two times a day as needed (Bladder spasms). Stop at least 24 hours before your catheter is removed - MEDICATION, NON-DATABASE Take by mouth two times a day. 07/22 Delta 8 CBD gummy am and pm - cholecalciferol (VITAMIN D-3) 50 mcg (2,000 unit) tablet Take 1 tablet by mouth once daily. - Ascorbic Acid (VITAMIN C) 1,000 mg tablet Take 1 tablet by mouth once daily. - Iron 18 mg tab Take 1 tablet by mouth every other day. - amLODIPine (NORVASC) 10 mg tablet Take 1 tablet by mouth every afternoon. - carvedilol (COREG) 12.5 mg tablet TAKE 1/2 (ONE-HALF) OF A TABLET BY MOUTH TWICE DAILY - citalopram (CELEXA) 20 mg tablet Take 10 mg by mouth every morning. - pantoprazole DR (PROTONIX) 40 mg tablet Take 1 tablet by mouth every 12 hours. 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 Epididymitis [N45.1] 01/07/2014 Hypertension [I10] 01/07/2014 Former smoker [Z87.891] 01/07/2014 Fluid overload [E87.70] 03/19/2014 Stress hyperglycemia [R73.9] 03/19/2014 Abdominal aortic aneurysm (HCC) [I71.40] 01/29/2021 Anemia [D64.9] 10/15/2023 Pulmonary fibrosis (HCC) [J84.10] 09/17/2023 Centrilobular emphysema (HCC) [J43.2] 09/17/2023 Bleeding ulcer [K28.4] 10/15/2023 Encounter Status:Closed by MARY SCHROEDER on 11/12/23 [facility] Outside [facility] Correspo ndenceon 11-05-2023 Outside [facility] Correspondence [id number] [facility] Population [facility] 11-03-19 24 Population Health Case Information Case Priority: None Programs: -- Referral Source: Pest Control Service Sales Agent Referral Reason: Care coordination Case Type: Transition Care Management Risk Score: -- Case Status: Enrolled (November 03, 2023) Date Assigned: November 03, 2023 Assigned By: Checo Conley Date Enrolled: November 03, 2023 Assigned Primary Personnel: Chceo Conley Assigned Secondary Personnel: -- Case Physician: Elham Moon Problems Ongoing Acid reflux Aneurysm of ascending aorta Elevated PSA Emphysema, unspecified Epididymitis Essential hypertension Former smoker Low TSH level Moderate recurrent major depression Multiple nodules of lung Osteoarthritis of right knee joint Prostate enlargement Smoker Unexplained weight loss Historical No qualifying data Home Medications amLODIPine 10 mg Tab, 10 mg= 1 tab(s), Oral, Daily, 3 refills carvedilol 12.5 mg Tab, 6.25 mg= 0.5 tab(s), Oral, BID cholecalciferol 2000 intl units oral capsule citalopram 20 mg Tab citalopram 20 mg Tab, 20 mg= 1 tab(s), Oral, Daily lisinopril 20 mg Tab, 20 mg= 1 tab(s), Oral, Daily nystatin Top 100,000 units/g Crm 15 gram, 1 chantal, Topical, BID, 1 refills Pantop[address]ole [address] Tab, See Instructions Allergies Toprol-XL Social History Tobacco Former smoker, quit more than 30 days ago Tobacco Use:. Never Smokeless Tobacco Use:. Household tobacco concerns: No., 07/17/2023 Screenings and Assessments 11/03/23 10:35:00 Result Name Value Comment Phone Call Monitoring Consent Agreed to continue call Phone Verification Patient Information Full name, street address and date of verified CM Program Enrollment Provides verbal consent for enrollment Goals and Interventions Care Plan Progress Note Admit Date: 10/30/23 [facility] Date of Discharge: 10/31/23 Follow-up appointment scheduled? no Did you understand your discharge instructions? yes Are you able to follow them? yes Did you receive new medications? yes, tylenol 500 mg 2 tabs Q 6 hr PRN, cipro 500 mg 1 tab q 12 hr x 3 days, colace 100 mg 1 BID, oxycodone 5 mg 1 q 6 hr PRN, flomax 0.4 mg QHS, Trospium 20 mg BID PRN Have you filled the Rx's? yes Are you taking them as prescribed? yes Are you having difficulty eating or swallowing your pills? no Are you having any stomach upset, diarrhea or constipation? no, 'everything is working fine' How are you sleeping? 'good' Are you having any pain? 'not too much pain' Do you have everything you need at home to care for yourself? yes Do you have Home Health?no Spoke with patient for initial Transitional Care Management Program call. Readmission risk unavailable. Patient had little time to discuss follow up. Patient underwent partial robotic cystectomy with r pelvic lymphnode dissection, and cystoscopy and right uretal stent placement on 10/29. Patient denies any concerns with incisions. States Francisco is draining 'fine.' Patient states 'everything is going fine,' states he is not having too much pain. Patient was offered follow up with Saundra Damico and declined at this time. Patient states he would like to get in to discuss some 'other' things soon. Patient states he will call to arrange appointment. Patient has follow up with Urology on 11/11 to remove cath and then again in November to have stent removed. Patient denies any issues or concerns, states again everything is going fine.' Medications will need to be reconciled at OV. CN explained TCM program and gave CN contact number. Communication Events Date: November 03, 2023 Method: Phone call Type: Outbound Duration (min): 3 Outcome: Case discussion Contact Type: clinical administrative coordinator Contact Name: Checo Conley Notes: TCM#1- see tcm note. Created By: Checo Conley Normal [facility] Basic metabolic 2000 panelon 10-31-2023 Anion gap [Moles/Vol] 8 mmol/L Low 9-18 [facility] Comment on above: Order Comment: Speci men Type: BLOOD SPECIMENOrdering Facility: [facility] Address: [address] [place] [address] Performed By: #### 2 4321-2 ####[facility] LABORATORYCLIA [id number] [place] [address] [place] Calcium [Mass/Vol] 8.8 mg/dL Normal 8.5-10.2 [facility] Comment on above: Order Comment: Speci men Type: BLOOD SPECIMENOrdering Facility: [facility] Address: [address] [place] [address] Performed By: #### 2 4321-2 ####[facility] LABORATORYCLIA [id number] [place] [id number] [place] Chloride [Moles/Vol] 96 mmol/L Low 97-105 [facility] Comment on above: Order Comment: Speci men Type: BLOOD SPECIMENOrdering Facility: [facility] Address: [address] [place] [address] Performed By: #### 2 4321-2 ####[facility] LABORATORYCLIA [id number] [place] [id number] [place] CO2 [Moles/Vol] 26 mmol/L Normal 22-30 [facility] Comment on above: Order Comment: Speci men Type: BLOOD SPECIMENOrdering Facility: [facility] Address: [address] [place] [address] Performed By: #### 2 4321-2 ####[facility] LABORATORYCLIA [id number] [place] [id number] [place] Creatinine [Mass/Vol] 0.77 mg/dL Normal 0.73-1.22 [facility] Comment on above: Order Comment: Speci men Type: BLOOD SPECIMENOrdering Facility: [facility] Address: [address] [place] [address] Performed By: #### 2 4321-2 ####[facility] LABORATORYCLIA [id number] [place] [id number] [facility] [place] Creatinine and Glomerular filtration rate.predicted panel (S/P/Bld) 96 mL/min/1.73m??? Normal >=60 [facility] Comment on above: Order Comment: Speci men Type: BLOOD SPECIMENOrdering Facility: [facility] Address: [address] [place] [address] Result Comment: Janis mated Glomerular Filtration Rate (eGFR) is calculated using the 2020 CKD-EPI creatinine equation. This equation utilizes serum creatinine, sex, and age as parameters. The creatinine assay has traceable calibration to isotope dilution-mass spectrometry. Refer to KDIGO guidelines for clinical interpretation. In patients with unstable renal function, e.g. those with acute kidney injury, the eGFR may not accurately reflect actual GFR. Performed By: #### 2 4321-2 ####CHRISTIAN[facility] LABORATORYCLIA [id number] [place] [id number] [place] Glucose [Mass/Vol] 111 mg/dL High 74-99 [facility] Comment on above: Order Comment: Emmie novoa Type: BLOOD SPECIMENOrdering Facility: [facility] Address: [address] [place] [address] Result Comment: The Citizen Of [place] Diabetes Association (ADA) provides guidance for cutoff [...] Standards of Medical Care in Diabetes 2016, Citizen [place] Diabetes Association. Diabetes Care. 2016.39(Suppl 1). Performed By: #### 2 4321-2 ####CHRISTIAN[facility] LABORATORYCLIA [id number] [place] [id number] [place] Potassium [Moles/Vol] 3.9 mmol/L Normal 3.7-5.1 [facility] Comment on above: Order Comment: Emmie novoa Type: BLOOD SPECIMENOrdering Facility: [facility] Address: [address] [place] [address] Performed By: #### 2 4321-2 ####[facility]IAN[facility] LABORATORYCLIA [id number] [place] [id number] [place] Sodium [Moles/Vol] 130 mmol/L Low 136-144 [facility] Comment on above: Order Comment: Emmie novoa Type: BLOOD SPECIMENOrdering Facility: [facility] Address: [address] [place] [id number] Performed By: #### 2 4321-2 ####CHRISTIAN[facility] LABORATORYCLIA [id number] [place] [address] [place] Urea nitrogen [Mass/Vol] 13 mg/dL Normal 9-24 [facility] Comment on above: Order Comment: Speci men Type: BLOOD SPECIMENOrdering Facility: [facility] Address: [address] [place] [address] Performed By: #### 2 4321-2 ####CHRISTIAN[facility] LABORATORYCLIA [id number] [place] [id number] [place] CBC panel Auto (Bld)on 10-30 Erythrocyte distribution width (RBC) [Ratio] 18.9 % High 11.5-15.0 [facility] Comment on above: Order Comment: Speci men Type: BLOOD SPECIMENOrdering Facility: [facility] Address: [address] [place] [address] Performed By: #### 5 8410-2 ####CHRISTIAN[facility] LABORATORYCLIA [id number] [address] [place] Hematocrit (Bld) [Volume fraction] 33.4 % Low 39.0-51.0 [facility] Comment on above: Order Comment: Speci men Type: BLOOD SPECIMENOrdering Facility: [facility] Address: [address] [place] [address] Performed By: #### 5 8410-2 ####[facility] LABORATORYCLIA [id number] [address] [place] Hemoglobin (Bld) [Mass/Vol] 10.7 g/dL Low 13.0-17.0 [facility] Comment on above: Order Comment: Speci men Type: BLOOD SPECIMENOrdering Facility: [facility] Address: [address] [place] [address] Performed By: #### 5 8410-2 ####CHRISTIAN[facility] LABORATORYCLIA [id number] [address] [place] MCH (RBC) [Entitic mass] 23.5 pg Low 26.0-34.0 [facility] Comment on above: Order Comment: Speci men Type: BLOOD SPECIMENOrdering Facility: [facility] Address: [address] [place] [address] Performed By: #### 5 8410-2 ####[facility] LABORATORYCLIA [id number] [place] [id number] [place] MCHC (RBC) [Mass/Vol] 32.0 g/dL Normal 30.5-36.0 [facility] Comment on above: Order Comment: Speci men Type: BLOOD SPECIMENOrdering Facility: [facility] Address: [address] [place] [address] Performed By: #### 5 8410-2 ####[facility] LABORATORYCLIA [id number] [place] [id number] [place] MCV (RBC) [Entitic vol] 73.2 fL Low 80.0-100.0 [facility] Comment on above: Order Comment: Speci men Type: BLOOD SPECIMENOrdering Facility: [facility] Address: [address] [place] [address] Performed By: #### 5 8410-2 ####[facility] LABORATORYCLIA [id number] [place] [address] [place] Nucleated RBC (Bld) [#/Vol] 10*3/uL Normal <0.01 [facility] Comment on above: Order Comment: Speci men Type: BLOOD SPECIMENOrdering Facility: [facility] Address: [address] [place] [address] Performed By: #### 5 8410-2 ####[facility] LABORATORYCLIA [id number] [place] [address] [place] Platelet mean volume (Bld) [Entitic vol] 9.8 fL Normal 9.0-12.7 [facility] Comment on above: Order Comment: Speci men Type: BLOOD SPECIMENOrdering Facility: [facility] Address: [address] [place] [address] Performed By: #### 5 8410-2 ####[facility] LABORATORYCLIA [id number] [place] [address] [place] Platelets (Bld) [#/Vol] 296 10*3/uL Normal 150-400 [facility] Comment on above: Order Comment: Speci men Type: BLOOD SPECIMENOrdering Facility: [facility] Address: [address] [place] [address] Performed By: #### 5 8410-2 ####[facility]ORATORYCLIA [id number] [place] [id number] [place] RBC (Bld) [#/Vol] 4.56 10*6/uL Normal 4.20-6.00 [facility] Comment on above: Order Comment: Speci men Type: BLOOD SPECIMENOrdering Facility: [facility] Address: [address] [place] [address] Performed By: #### 5 8410-2 ####[facility]ORATORYCLIA [id number] [place] [id number] [place] WBC (Bld) [#/Vol] 11.64 10*3/uL High 3.70-11.00 [facility] Comment on above: Order Comment: Speci men Type: BLOOD SPECIMENOrdering Facility: [facility] Address: [address] [place] [address] Performed By: #### 5 8410-2 ####[facility] LABORATORYCLIA [id number] [place] [id number] [facility] [place] NURSING PROGon 10-31-2023 NURSING PROG HNO ID: [id number] Author: SHERMAN SMITH RN Service: Nursing Author Type: Registered Nurse Type: Nursing Progress Note Filed: 10/31/2023 14:49 Note Text: Daily Note: 1400: IV heplocks removed. Discharge instructions reviewed with patient and spouse, states understanding. Leg Bag applied and teaching provided to patient and spouse, states understanding. 1450: Discharge off PK3 via wheelchair with belongings. Normal [facility] ANES POSTPROC EVALon 024 ANES POSTPROC EVAL HNO ID: [id number] Author: ZOË RODRÍGUEZ MD Service: Anesthesiology Author Type: Anesthesiologist Type: Anesthesia Postprocedure Evaluation Filed: 10/30/2023 11:42 Note Text: POST ANESTHESIA EVALUATION NOTE : 1950 Procedure Summary Date: 10/30/23 Room / Location: OR01A / [facility] OR Anesthesia Start: 733 Anesthesia Stop: 1133 Procedures: ROBOTIC DIVERTICULECTOMY BLADDER (Abdomen quadrant lower) CYSTOSCOPY, INSERTION STENT URETERAL J (Right: Bladder) Diagnosis: Malignant neoplasm of overlapping sites of bladder (HCC) (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]) Surgeons: Brenda Leggett MD Responsible Provider: Zoë Rodríguez MD Anesthesia Type: general ASA Status: 3 Anesthesia Type: general Airway Type: ETT Last Vitals Vitals Value Taken Time BP 176/78 10/30/23 1131 Temp 36.6 ?C (97.9 ?F) 10/30/23 1130 Pulse 96 10/30/23 1142 Resp 29 10/30/23 1142 SpO2 94 % 10/30/23 1142 Vitals shown include unfiled device data. Post Anesthesia Patient Status Patient Evaluation: PACU. PACU/ICU Patient Condition: stable. Anticipated Disposition: phase 2 then home. Neurological Status: aware and responsive. Pulmonary Status: breathing comfortably on room air Airway Control: returned to baseline unsupported. Cardiovascular Status: stable. Pain Management: clinically adequate Postoperative Hydration: acceptable. Intraoperative Events: no significant anesthesia events Recommendation: continue current plan of care. Anesthesia Observations No Documentation SIGNATURE: Zoë Rodríguez MD PATIENT NAME: Jemal Zepeda DATE: October 30, 2023 TIME: 11:42 AM CSN: [id number] [facility] ANES PRE-OPon 10-30-2023 ANES PRE-OP HNO ID: [id number] Author: ZOË RODRÍGUEZ MD Service: Anesthesiology Author Type: Anesthesiologist Type: Anesthesia Preprocedure Evaluation Filed: 10/30/2023 07:19 Note Text: ANESTHESIOLOGY DAY OF SURGERY NOTE : 1950 Procedure Information Date/Time: 10/30/2330 Procedures: ROBOTIC DIVERTICULECTOMY BLADDER (Abdomen quadrant lower) - robotic partial cystectomy w/prior cystoscopy CYSTOSCOPY, INSERTION STENT URETERAL J (Right: Bladder) Location: OR01A / [facility] OR Surgeons: Brenad Leggett MD Estimated body mass index is 27.37 kg/m? as calculated from the following: Height as of 10/15/23: 180.3 cm (5' 11 ). Weight as of 10/15/23: 89 kg (196 lb 3.4 oz). Most recent hematocrit and potassium results: Hematocrit 40.2 10/15/2023 Potassium 4.6 10/15/2023 Relevant Problems CARDIO (+) Abdominal aortic aneurysm (HCC) (+) Celiac artery aneurysm (HCC) (+) Hypertension PULMONARY (+) Centrilobular emphysema (HCC) I - PHYSICAL EVALUATION AIRWAY Patient intubated: No. Tracheostomy tube not present Mallampati: II. TM distance: >3 FB. Neck ROM: full ROM without neurological symptoms. Mouth opening: adequate. Short neck: no. Thick neck: no DENTAL Normal dental observations. Dental findings: teeth intact. Additional exam findings: yes. CARDIOVASCULAR Normal cardiovascular observations. Rhythm: regular Rate: normal PULMONARY Normal pulmonary observations. Breath sounds clear to auscultation. II - ANESTHESIA PLAN ASA Score: 3 Anesthetic Plan: general Airway type: ETT The patient is not a current smoker. NPO Status: adequate Beta Sanna Monitoring Plan Monitoring plan: standard ASA. Post Procedure Analgesic Plan Postoperative analgesic plan: multimodal analgesia. Informed Consent Anesthetic risks, benefits, alternatives, personnel and consent discussed: yes. Patient / Responsible Libertarian agrees to proceed: yes Patient / Surrogate agrees to blood products: yes Significant changes in the patient condition since the History and Physical, not otherwise documented in primary service progress note: no. Potential Anesthesia issues that may suggest increased risk of complications or contraindication to planned procedure: none. Vitals Value Taken Time BP 146/76 10/30/23 0712 Pulse 83 10/30/23 07 Resp 18 10/30/23 0712 Temp 36.4 ?C (97.5 ?F) 10/30/23 0712 SpO2 95 % 10/30/23 0712 Facility-Administered Medications as of 10/30/2023 Medication Dose Route Frequency - lidocaine (PF) 10 mg/mL (1 %) 1-2 mg injection (XYLOCAINE) 0.1-0.2 mL INTRADERMAL PRN - lactated ringers iv infusion 5-30 mL/hr INTRAVENOUS CONTINUOUS - NaCl 0.9% iv flush bag 20 mL INTRAVENOUS PRN - heparin 5,000 Units injection 5,000 Units SUBCUTANEOUS ONCE - ceFAZolin iv piggyback 2 g in D5W (iso-osmotic) 100 mL (ANCEF) 2 g INTRAVENOUS Pre-Op Once - acetaminophen 1,000 mg tab(s) (TYLENOL) 1,000 mg ORAL Pre-Op Once - promethazine 12.5 mg tab(s) (PHENERGAN) 12.5 mg ORAL Pre-Op Once - lactated ringers iv infusion 30 mL/hr INTRAVENOUS CONTINUOUS Outpatient Medications as of 10/30/2023 Medication Sig - amLODIPine (NORVASC) 10 mg tablet Take 1 tablet by mouth every afternoon. - carvedilol (COREG) 12.5 mg tablet TAKE 1/2 (ONE-HALF) OF A TABLET BY MOUTH TWICE DAILY - citalopram (CELEXA) 20 mg tablet Take 10 mg by mouth every morning. - pantoprazole DR (PROTONIX) 40 mg tablet Take 1 tablet by mouth every 12 hours. - lisinopril (ZESTRIL) 40 mg tablet TAKE 1/2 (ONE-HALF) OF A TABLET BY MOUTH DAILY I have interviewed and examined the patient. I have reviewed the medical record and/or the pre-anesthesia evaluation, pertinent labs, and test results. This contains updated information obtained within 48 hours of Surgery/Procedure. SIGNATURE: Zoë Rodríguez MD PATIENT NAME: Jemal Zepeda DATE: October 30, 2023 TIME: 7:18 AM CSN: [id number] Normal [facility] Basic metabolic 2000 panelon 10-30-2023 Anion gap [Moles/Vol] 9 mmol/L Normal 9-18 [facility] Comment on above: Order Comment: Emmie novoa Type: BLOOD SPECIMENOrdering Facility: [facility] Address: [address] [place] [address] Performed By: #### 2 4321-2 ####[facility]ORYCL[facility] [id number] [place] [address] [place] Calcium [Mass/Vol] 8.7 mg/dL Normal 8.5-10.2 [facility] Comment on above: Order Comment: Emmie novoa Type: BLOOD SPECIMENOrdering Facility: [facility] Address: [address] [place] [address] Performed By: #### 2 4321-2 ####[facility]ORYCLIA [id number] [place] [address] [place] Chloride [Moles/Vol] 97 mmol/L Normal 97-105 [facility] Comment on above: Order Comment: Speci men Type: BLOOD SPECIMENOrdering Facility: [facility] Address: [address] [place] [address] Performed By: #### 2 4321-2 ####[facility]ORATORYCLIA [id number] [place] [id number] [place] CO2 [Moles/Vol] 26 mmol/L Normal 22-30 [facility] Comment on above: Order Comment: Speci men Type: BLOOD SPECIMENOrdering Facility: [facility] Address: [address] [place] [address] Performed By: #### 2 4321-2 ####[facility] LABORATORYCLIA [id number] [place] [address] [place] Creatinine [Mass/Vol] 0.83 mg/dL Normal 0.73-1.22 [facility] Comment on above: Order Comment: Speci men Type: BLOOD SPECIMENOrdering Facility: [facility] Address: [address] [place] [address] Performed By: #### 2 4321-2 ####[facility]ORYCLIA [id number] [address] Creatinine and Glomerular filtration rate.predicted panel (S/P/Bld) 94 mL/min/1.73m??? Normal >=60 [facility] Comment on above: Order Comment: Speci men Type: BLOOD SPECIMENOrdering Facility: [facility] Address: [address] [place] [address] Result Comment: Janis mated Glomerular Filtration Rate (eGFR) is calculated using the 2020 CKD-EPI creatinine equation. This equation utilizes serum creatinine, sex, and age as parameters. The creatinine assay has traceable calibration to isotope dilution-mass spectrometry. Refer to KDIGO guidelines for clinical interpretation. In patients with unstable renal function, e.g. those with acute kidney injury, the eGFR may not accurately reflect actual GFR. Performed By: #### 2 4321-2 ####[facility]ORYCLIA [id number] [place] [address] [place] Glucose [Mass/Vol] 168 mg/dL High 74-99 [facility] Comment on above: Order Comment: Emmie novoa Type: BLOOD SPECIMENOrdering Facility: [facility] Address: [address] [place] [address] Result Comment: The Citizen Of [place] Diabetes Association (ADA) provides guidance for cutoff [...] Standards of Medical Care in Diabetes 2016, Citizen Of [place] Diabetes Association. Diabetes Care. 2016.39(Suppl 1). Performed By: #### 2 4321-2 ####[facility]ORYCL[facility] [id number] [place] [address] [place] Potassium [Moles/Vol] 4.3 mmol/L Normal 3.7-5.1 [facility] Comment on above: Order Comment: Emmie novoa Type: BLOOD SPECIMENOrdering Facility: [facility] Address: [address] [place] [address] Performed By: #### 2 4321-2 ####[facility]ORYCLIA [id number] [place] [id number] [place] Sodium [Moles/Vol] 132 mmol/L Low 136-144 [facility] Comment on above: Order Comment: Emmie novoa Type: BLOOD SPECIMENOrdering Facility: [facility] Address: [address] [place] [address] Performed By: #### 2 4321-2 ####[facility]ORYCLIA [id number] [place] [address] [place] Urea nitrogen [Mass/Vol] 15 mg/dL Normal 9-24 [facility] Comment on above: Order Comment: Speci men Type: BLOOD SPECIMENOrdering Facility: [facility] Address: [address] [place] [address] Performed By: #### 2 4321-2 ####[facility]ORYCLIA [id number] [place] [address] [place] CBC panel Auto (Bld)on 10-29 Erythrocyte distribution width (RBC) [Ratio] 19.1 % High 11.5-15.0 [facility] Comment on above: Order Comment: Speci men Type: BLOOD SPECIMENOrdering Facility: [facility] Address: [address] [place] [address] Performed By: #### 5 8410-2 ####[facility]ORYCLIA [id number] [address] [place] Hematocrit (Bld) [Volume fraction] 37.2 % Low 39.0-51.0 [facility] Comment on above: Order Comment: Speci men Type: BLOOD SPECIMENOrdering Facility: [facility] Address: [address] [place] [address] Performed By: #### 5 8410-2 ####[facility]ATORYCLIA [id number] [place] [address] [place] Hemoglobin (Bld) [Mass/Vol] 11.7 g/dL Low 13.0-17.0 [facility] Comment on above: Order Comment: Speci men Type: BLOOD SPECIMENOrdering Facility: [facility] Address: [address] [place] [address] Performed By: #### 5 8410-2 ####[facility]ORYCLIA [id number] [place] [address] [place] MCH (RBC) [Entitic mass] 23.4 pg Low 26.0-34.0 [facility] Comment on above: Order Comment: Speci men Type: BLOOD SPECIMENOrdering Facility: [facility] Address: [address] [place] [address] Performed By: #### 5 8410-2 ####[facility]ORYCLIA [id number] [place] [address] [place] MCHC (RBC) [Mass/Vol] 31.5 g/dL Normal 30.5-36.0 [facility] Comment on above: Order Comment: Speci men Type: BLOOD SPECIMENOrdering Facility: [facility] Address: [address] [place] [address] Performed By: #### 5 8410-2 ####[facility] LABORATORYCLIA [id number] [place] [address] [place] MCV (RBC) [Entitic vol] 74.3 fL Low 80.0-100.0 [facility] Comment on above: Order Comment: Speci men Type: BLOOD SPECIMENOrdering Facility: [facility] Address: [address] [place] [address] Performed By: #### 5 8410-2 ####[facility] LABORATORYCLIA [id number] [place] [address] [place] Nucleated RBC (Bld) [#/Vol] 10*3/uL Normal <0.01 [facility] Comment on above: Order Comment: Speci men Type: BLOOD SPECIMENOrdering Facility: [facility] Address: [address] [place] [address] Performed By: #### 5 8410-2 ####[facility] LABORATORYCLIA [id number] [place] [address] [place] Platelet mean volume (Bld) [Entitic vol] 9.2 fL Normal 9.0-12.7 [facility] Comment on above: Order Comment: Speci men Type: BLOOD SPECIMENOrdering Facility: [facility] Address: [address] [place] [address] Performed By: #### 5 8410-2 ####[facility] LABORATORYCLIA [id number] [place] [address] [place] Platelets (Bld) [#/Vol] 334 10*3/uL Normal 150-400 [facility] Comment on above: Order Comment: Speci men Type: BLOOD SPECIMENOrdering Facility: [facility] Address: [address] [place] [address] Performed By: #### 5 8410-2 ####[facility]ATORYCLIA [id number] [place] [id number] [place] RBC (Bld) [#/Vol] 5.01 10*6/uL Normal 4.20-6.00 [facility] Comment on above: Order Comment: Speci men Type: BLOOD SPECIMENOrdering Facility: [facility] Address: [address] [place] [address] Performed By: #### 5 8410-2 ####[facility]ORYCLIA [id number] [place] [id number] [place] WBC (Bld) [#/Vol] 10.94 10*3/uL Normal 3.70-11.00 [facility] Comment on above: Order Comment: Speci men Type: BLOOD SPECIMENOrdering Facility: [facility] Address: [address] [place] [address] Performed By: #### 5 8410-2 ####[facility]ORYCLIA [id number] [address] OF [facility] CNPNon 10-30-2023 CNPN Telephone (URR) -- JEMLA ZEPEDA ([id number]) 1950 Date Time Provider Department 10/30/23 [facility] your visit today, we recorded the following information about you: Keyanna Alexander RN 10/30/2023 1:49 PM Signed Pt had surgery today 10/30/[address] Leggett 1) cystoscopy and right retrograde pyelogram and right double-J stent placement 2) robotic bladder diverticulectomy/partial cystectomy [complicated] 3) robotic right pelvic lymph node dissection Per Dr. Leggett, Patient needs nurse visit TOV on 11/12/2023 And Cysto stent removal in 3-4 weeks. Currently inpatient Will call once discharged for post operative assessment Keyanna Alexander RN 11/03/2023 9:36 AM Signed November 03, 2023 9:32 AM Patient called for post op follow up assessment. Reports he is doing well. Pain: Patient rates pain 2-3 on a scale of 0-10. 0 being no pain and 10 being worst pain imaginable. Patient states pain is tolerable. Using tylenol. Diet: Patient is able tolerate fluids and normal diet. Denies n/v Bowel Movement: Patient is able to pass gas and has had a bowel movement. Continues to use stool softeners Voiding: Patient states urine is rust colored Incisions: well healed per patient Medication: Denies questions or concerns about medication. Post op restrictions reviewed with patient Patient verbalized understanding and denies further questions at this time. Understands to call the office with further concerns/questions. Follow up: 11/12/23 TOV at [facility]; 11/20 stent removal at [facility] Keyanna Alexander RN Allergies As of Date: 10/30/2023 Noted Allergy Reaction ATORVASTATIN 05/06/2023 14 - Other: See Comments Comments: Joint swelling MELOXICAM 12/16/2022 2 - Rash Date Reviewed: 10/30/2023 Reviewed by: Briana Spicer RN - Fully Assessed Reason for Visit: Post Op [174] Prescriptions as of 11/03/2023 - tamsulosin (FLOMAX) 0.4 mg Take 1 capsule by mouth daily at bedtime. - docusate sodium (COLACE) 100 mg capsule Take 1 capsule by mouth two times a day. - acetaminophen (TYLENOL EXTRA STRENGTH) 500 mg tablet Take 2 tablets by mouth every 6 hours as needed for pain. - trospium (SANCTURA) 20 mg tablet Take 1 tablet by mouth two times a day as needed (Bladder spasms). Stop at least 24 hours before your catheter is removed - MEDICATION, NON-DATABASE Take by mouth two times a day. 07/22 Delta 8 CBD gummy am and pm - cholecalciferol (VITAMIN D-3) 50 mcg (2,000 unit) tablet Take 1 tablet by mouth once daily. - Ascorbic Acid (VITAMIN C) 1,000 mg tablet Take 1 tablet by mouth once daily. - Iron 18 mg tab Take 1 tablet by mouth every other day. - amLODIPine (NORVASC) 10 mg tablet Take 1 tablet by mouth every afternoon. - carvedilol (COREG) 12.5 mg tablet TAKE 1/2 (ONE-HALF) OF A TABLET BY MOUTH TWICE DAILY - citalopram (CELEXA) 20 mg tablet Take 10 mg by mouth every morning. - pantoprazole DR (PROTONIX) 40 mg tablet Take 1 tablet by mouth every 12 hours. 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 Epididymitis [N45.1] 01/07/2014 Hypertension [I10] 01/07/2014 Former smoker [Z87.891] 01/07/2014 Fluid overload [E87.70] 03/19/2014 Stress hyperglycemia [R73.9] 03/19/2014 Abdominal aortic aneurysm (HCC) [I71.40] 01/29/2021 Anemia [D64.9] 10/15/2023 Pulmonary fibrosis (HCC) [J84.10] 09/17/2023 Centrilobular emphysema (HCC) [J43.2] 09/17/2023 Bleeding ulcer [K28.4] 10/15/2023 Encounter Status:Closed by KEYANNA ALEXANDER on 10/30/23 [facility] NURSING PROGon 10-30-2023 NURSING PROG HNO ID: [id number] Author: BRIANA SPICER RN Service: Nursing Author Type: Registered Nurse Type: Nursing Progress Note Filed: 10/30/2023 18:31 Note Text: Transfer Note: PATIENT NAME: Jemal Zepeda Patient Location: [place] [id number] Room: [place] [address] Patient transferred into room/unit [id number] in stable condition. Actions taken: No futher actions taken at this time. Will continue to monitor and check with patient. [facility] NURSING PROG HNO ID: [id number] Author: BIBI DURAN RN Service: Nursing Author Type: Registered Nurse Type: Nursing Progress Note Filed: 10/30/2023 07:01 Note Text: READINESS TO LEARN COGNITIVE ABILITY: Alert and oriented MOTIVATION TO LEARN: Eager Interested FAMILY SUPPORT: None - Unavailable/disinterested INSTRUCTION PROVIDED TO: Patient PATIENT LEARNS BEST BY: Verbal Instruction FACTORS AFFECTING LEARNING: None PHYSICAL LIMITATIONS AFFECTING LEARNING: None LEARNING RESPONSE DIAGNOSIS: ADULT: Well Adult PATIENT/FAMILY RESPONSE: Verbalizes understanding of: PRE-OPERATIVE INSTRUCTIONS-Correct action to take to follow pre-operative instructions PRE-PROCEDURE INSTRUCTIONS-Correct action to take to follow pre-procedure instructions METHOD OF INSTRUCTION: Verbal instruction FOLLOW-UP PLAN: Patient instructed to call with any further issues INSTRUCTIONAL AIDS USED: NA SUPPLEMENTAL MATERIAL PROVIDED TO PATIENT: None REFERRAL (RECOMMENDATION): None Electronically Signed By: Bibi Duran [facility] OPERATIVE NOon 10-30-2023 OPERATIVE NO HNO ID: [id number] Author: BRENDA LEGGETT MD Service: Urology Author Type: Physician Type: Operative Report Filed: 10/30/2023 11:12 Note Text: OPERATIVE/PROCEDURE REPORT LOG ID: [id number] Surgery/Procedure Date: 10/30/2023 Incision/Procedure Start Time: 8:01 AM Incision Close/Procedure End Time: 11:10 AM Surgeon(s)/Proceduralist(s ) and Manager Long Term Care(s): Surgeon(s) and Role: * Brenda Leggett MD - Primary * Trey Lemus MD - Resident - Assisting Physician Manager Long Term Care: Rex Sanchez PA-C; Yolie Acosta PA-C Procedure(s): 1) cystoscopy and right retrograde pyelogram and right double-J stent placement 2) robotic bladder diverticulectomy/partial cystectomy [complicated] 3) robotic right pelvic lymph node dissection Anesthesia: General Indications: 73 year old male with history of urothelial carcinoma and a bladder diverticulum. After discussion of risks, benefits, complications, and alternatives, patient elected to proceed with robotic partial cystectomy. Operative Findings: No evidence of tumor in any other portion of the bladder. Bladder tumor was seen within the diverticulum close to the neck of the diverticulum. Retrograde pyelogram showed no hydronephrosis with a normal course of the ureter. No filling defects. Diverticulum excised robotically with grossly negative margins. Frozen section of the neck of the diverticulum margin was negative. Watertight closure of the bladder. Grossly enlarged right pelvic lymph nodes. Therefore we cleaned out all the lymph nodes in the obturator external iliac and common iliac areas. Excellent hemostasis at conclusion the case. Procedure Details: Patient was brought to the operating room, and multidisciplinary surgical huddle confirmed the correct patient, operative plan, perioperative antibiotics, pertinent medical history, drug allergies, and necessary equipment. General anesthesia was induced and perioperative antibiotics Ancef 2 g IV were administered. Patient was placed in lithotomy position, prepped, and draped in the usual sterile fashion. A a 21 Mauritian cystoscope was advanced through the urethra into the bladder. Bladder was inspected thoroughly. 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 It was probably 10-12 Mauritian in caliber. There was mild trabeculation of the bladder and there appeared to be a diverticulum with the mouth approximately 1-1/2 cm in diameter approximately 3 cm from the right ureteral orifice. We then performed cystoscopy with the 70 and 30 degree lenses and there were no evidence of lesions or tumors within the urothelium in the bladder. We then inspected the diverticulum and identified at least 1 area of abnormality in the medial aspect of the diverticulum near the neck of the diverticulum. The neck of the diverticulum within the bladder did not appear to have any mucosal abnormalities or tumors. We then advanced an open-ended catheter into the distal ureter and injected contrast for retrograde pyelogram. Findings of the retrograde pyelogram are given above. We then advanced a wire and then placed a 6 x 26 cm double-J stent under fluoroscopic and cystoscopic guidance. The wire was removed and there was a good curl in the renal pelvis and bladder. We then placed a 20 Mauritian coude catheter with 10 cc in the balloon and reposition the patient in the supine position. We then reprepped and draped him and proceeded with the robotic portion. We made a 8 mm incision in the skin between the ASIS and the umbilicus. Veress needle was then inserted and we were able to insufflate the peritoneal space without difficulty. Once we are fully insufflated the Veress needle was removed and a 8 mm robotic port was placed. Inspection with the camera revealed no injury to any structures during insufflation. The patient had a previous midline incision and we inspected the underlying adhesions. There was a small amount of omentum just above the umbilicus but were able to place all the ports inferior to the adhesions without having to mobilize or lyse any of the adhesions. We placed a 8 mm camera port just to the left of the umbilicus. We placed a left arm robotic port approximately 7 cm lateral to the camera port. Approximately 7 cm lateral to the left arm port a fourth arm robotic port was placed. Finally 4 fingerbreadths lateral and superior to the initial access port we placed a 12 mm therapeutic assistant port. The patient was then placed in steep Trendelenburg position and the robot was docked. We then identified the right ureter and proceeded to dissected off of the bladder and the diverticulum distally. We then mobilized the bladder off of the pelvic sidewall and posteriorly allowing us to identify what appears to be the bulge of the diverticulum. We then filled the bladder with 150 cc of saline and more clearly defined the separation o (more content not included)... Normal [facility] SURGICAL PATHOLOGYon 024 BLOCK FOR ADDITIONAL BIOMARKERS/MOLECULAR STUDIES D2 [facility] Comment on above: Order Comment: Speci men Type: TISSUE SPECIMEN [facility] Address: [address] [place] [address] Performed By: #### S #### [facility] CLIA [id number] [address] [place], [place] [address] [address] LABORATORY CLIA [id number] [address] [place] [address] OF [facility] CASE REPORT Normal [facility] Comment on above: Order Comment: Speci men Type: TISSUE SPECIMEN [facility] Address: [address] [place] [address] Result Comment: Surg [facility] Pathology Report Case: [id number] Authorizing Provider: Brenda Leggett MD Collected: 10/30/2023 10:05 AM Ordering Location: [facility] Received: 10/30/2023 10:14 AM Operating Room Pathologist: Harley Stone MD Intraop: Isabel Tao MD Specimens: A) - Margin, Excision, neck of bladder diverticulum margin B) - Margin, Excision, neck of bladder diverticulum margin C) - Lymph Node, bilateral lymph nodes D) - Bladder, Cystectomy, partial cystectomy Performed By: #### S #### [facility] CLIA [id number] [address] [place] [address] LABORATORY CLIA [id number] [address] [place] [address] CLINICAL HISTORY Normal [facility] Comment on above: Order Comment: Speci men Type: TISSUE SPECIMEN [facility] Address: [address] [place] [address] Result Comment: robo tic partial cystectomy w/prior cystoscopy Pre-op diagnosis: 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] Performed By: #### S #### [facility] CLIA [id number] [address] [place] [address] LABORATORY CLIA [id number] [address] [place] [address] DIAGNOSIS COMMENT Normal [facility] Comment on above: Order Comment: Speci men Type: TISSUE SPECIMEN [facility] Address: [address] [place] [address] Result Comment: Immu nohistochemical documentation: Immunohistochemistry was used in the evaluation of lymph nodes (block C2), utilizing antibodies CD3, CD20, CD5, CD21, cyclin D1, Bcl-2, CD10, and Ki-67. CD3, CD20, CD5, CD21, cyclin D1, Bcl-2, and CD10 show a normal architectural distribution of B and T cells. Ki-67 shows a very low proliferation rate. This supports a benign lymph node. Dr. Miley Flores, from the section of Hematopathology, has reviewed slide A2 and the accompanying immunohistochemical stains, and concurs. Performed By: #### S #### [facility] CLIA [id number] [address] [place] [address] LABORATORY CLIA [id number] [address] [place] [address] FINAL DIAGNOSIS Normal [facility] Comment on above: Order Comment: Speci men Type: TISSUE SPECIMEN Ordering Facility: [facility] Address: [address] [place] [address] Result Comment: A. U rinary bladder, neck of bladder diverticulum margin, excision: - Benign fibromuscular tissue, negative for neoplasm. B. Urinary bladder, neck of bladder diverticulum margin, excision: - Benign urothelial mucosa. C. Lymph nodes, bilateral pelvic, excision: - Nine lymph nodes, negative for neoplasm (0/9). D. Urinary bladder, partial cystectomy: - Papillary urothelial carcinoma, high-grade, with foci of superficial lamina propria invasion. - Surgical margins are negative. - See synoptic report. JKM 11/11/2023 Performed By: #### S #### [facility] CLIA [id number] [address] [place] [address] LABORATORY CLIA [id number] [address] [place] [address] OF [facility] FINAL PERFORMING LAB Normal [facility] Comment on above: Order Comment: Speci men Type: TISSUE SPECIMEN Ordering Facility: [facility] Address: [address] [place] [address] Result Comment: Diag nostic interpretation performed at [facility], [address] [place] [address] CLIA# [id number] Lead Nurse: Mj Camp M.D. Performed By: #### S #### [facility] CLIA [id number] [address] [place] [address] LABORATORY CLIA [id number] [address] [place] [address] GROSS DESCRIPTION Normal [facility] Comment on above: Order Comment: Speci men Type: TISSUE SPECIMEN Ordering Facility: [facility] Address: [address] [place] [address] Result Comment: A. M argin, Excision Received fresh for frozen section designated neck of bladder diverticulum margin is a pink-esparza ragged firm soft tissue that measures 0.5 x 0.4 x 0.2 cm. The specimen is entirely submitted for intraoperative consultation. WE October 30, 2023 1:00 PM Gross examination performed at [facility], [address] [place] [address] B. Margin, Excision Received in formalin designated neck of bladder diverticulum margin is a pink-esparza ragged fragment of soft tissue that measures 1.2 x 0.4 x 0.4 cm. The specimen is entirely submitted in 1 cassette. WE October 30, 2023 1:01 PM Gross examination performed at [facility], [address] [place] [address] C. Lymph Node Received in formalin designated bilateral lymph nodes are multiple esparza-yellow rubbery and lobulated fragments fibrofatty tissue that aggregate to 6 x 4.8 x 2.2 cm. Upon palpation are multiple pink rubbery lymph nodes that range in size from 0.6 to 4.1 cm in greatest dimension. The lymph nodes are entirely submitted as follows: C1-C5. Single serially sectioned lymph node C6-C7. Single serially sectioned lymph node C8-C9. Single serially sectioned lymph node C10-C11. Single serially sectioned lymph node C12. Single serially sectioned lymph node C13. Single serially sectioned lymph node C14. Single serially sectioned lymph node C15. Single serially sectioned lymph node C16. Single serially sectioned lymph node WE October 30, 2023 12:58 PM Gross examination performed at [facility], [address] [place] [address] D. Bladder, Cystectomy Received in formalin designated partial cystectomy is an outpouching of bladder that measures 5 x 4.8 x 3.1 cm and weighs 51 g. The outer surface of the outpouching of the bladder is covered by adipose tissue. A bladder resection margin is identified. The bladder is opened to reveal 2 esparza exophytic lesions. Lesion #1 measures 1.1 x 0.9 x 0.4 cm. This lesion is located 0.8 cm from the resection margin and 1.2 cm from the inked outer surface. Lesion #2 measures 1.6 x 1.4 x 0.7 cm. This lesion is located 2.2 cm from the resection margin and 0.9 cm from the inked outer surface. Sectioning through each lesion reveals that it does not extend beyond the muscularis. The remaining bladder wall is pink-esparza, distended and smooth with a wall thickness of 0.2 cm. Warehouse Assistant sections are submitted as follows: D1. Bladder resection margin shaved. D2-D3. Entire lesion #1. D4-D7. Entire lesion #2. D8. Uninvolved bladder full-thickness. WE October 31, 2023 10:33 AM Gross examination performed at [facility], [address] [place] [address] Performed By: #### S #### [facility] CLIA [id number] [address] [place] [address] LABORATORY CLIA [id number] [address] [place] [address] INTRAOPERATIVE DIAGNOSIS Normal [facility] Comment on above: Order Comment: Speci men Type: TISSUE SPECIMEN Ordering Facility: [facility] Address: [address] [place] [address] Result Comment: A. M chantelle, Excision FSA 1: Negative for carcinoma (Dr. Tao) October 30, 2023 1:00 PM Intraoperative diagnosis performed at [facility], [address] [place] [address] Performed By: #### S #### [facility] CLIA [id number] [address] [place] [address] LABORATORY CLIA [id number] [address] [place] [address] SYNOPTIC REPORT Normal [facility] Comment on above: Order Comment: Speci men Type: TISSUE SPECIMEN Ordering Facility: [facility] Address: [address] [place] [address] Result Comment: GUICHO URBANO BLADDER: Cystectomy, Anterior Exenteration URINARY BLADDER: RESECTION - All Specimens 8th Edition - Protocol posted: 04/09/2023 SPECIMEN Procedure: Partial cystectomy TUMOR Tumor Site: Diverticulum Histologic Type: Urothelial carcinoma, invasive (conventional) Histologic Grade: High-grade Tumor Size: Greatest Dimension (Centimeters): 1.6 cm Tumor Extent: Invades lamina propria (subepithelial connective tissue) Lymphatic and / or Vascular Invasion: Not identified Tumor Configuration: Papillary Treatment Effect Post Neoadjuvant Chemotherapy: No known presurgical neoadjuvant therapy MARGINS Margin Status for Invasive Tumor: All margins negative for invasive tumor Margin Status for Carcinoma in Situ / Noninvasive Papillary Urothelial Carcinoma: All margins negative for carcinoma in situ / noninvasive papillary urothelial carcinoma REGIONAL LYMPH NODES Regional Lymph Node Status: : All regional lymph nodes negative for tumor Number of Lymph Nodes Examined: 9 pTNM CLASSIFICATION (AJCC 8th Edition) Reporting of pT, pN, and (when applicable) pM categories is based on information available to the pathologist at the time the report is issued. As per the AJCC (Chapter 1, 8th Ed.) it is the managing physician???s responsibility to establish the final pathologic stage based upon all pertinent information, including but potentially not limited to this pathology report. pT Category: pT1 pN Category: pN0 ADDITIONAL FINDINGS Associated Epithelial Lesions: None identified Performed By: #### S #### [facility] CLIA [id number] [address] [facility] [address] LABORATORY CLIA [id number] TYPE + SCREENon 10-30-2023 ABO O [facility] Comment on above: Order Comment: Speci men Type: BLOOD SPECIMENOrdering Facility: [facility] Address: [address] [place] [address] Performed By: #### T SCR ####[place] [facility] [id number] [address] HISTORICAL AB SCR STATUS Negative [facility] Comment on above: Order Comment: Speci men Type: BLOOD SPECIMENOrdering Facility: [facility] Address: [address] [place] [address] Performed By: #### T SCR ####[place] [facility] [id number] [address] Rh Nom (Bld) Positive [facility] Comment on above: Order Comment: Speci men Type: BLOOD SPECIMENOrdering Facility: [facility] Address: [address] [place] [address] Performed By: #### T SCR ####[place] [facility] [id number] [address] TYPE AND SCREEN EXPIRATION 11/02/2023 23:59 [facility] Comment on above: Order Comment: Speci men Type: BLOOD SPECIMENOrdering Facility: [facility] Address: [address] [place] [address] Performed By: #### T SCR ####[place] [facility]CLIA [id number] [address] [place] CNPNon 10-21-2023 [facility] Tele[facility] JEMAL ZEPEDA ([id number]) 1950 M Date Time Provider Department 10/21/23 LASHAUN CHENEY [facility] During your visit today, we recorded the following information about you: Lashaun Cheney RN 10/21/2023 9:57 AM Signed Procedure: Primary Urology Procedure: ROBOTIC DIVERTICULECTOMY BLADDER Physician: Dr. Brenda Leggett Location: [facility]: [phone] Date AND Time: 10/30/23 MEDICAL CLEARANCE: No CARDIAC CLEARANCE: No PRE ADMISSION TESTIN10/15/23 AT: [facility] ([facility]): [phone] THE FOLLOWING WAS EVALUATED Motivation To Learn: Interested Family/Significant Other Support: Unable to assess - Family not present Cognitive Ability: Alert and oriented Patient Learns Best By: Individual Instruction Written Instruction - Hand-outs Verbal Instruction The Following Influencing Factors Were Barriers To This Education Session: None The Following Physical Limitations Were Barriers To This Education Session: None Instruction Provided To: Patient MEDICATION INFORMATION ASPIRIN and ADVIL can make you more prone to bleeding after surgery. Please STOP taking these medications at least (5) days before and for (3) days after surgery or procedure. Some common medications that contain ASPIRIN or act like Aspirin are TO BE AVOIDED: This is a list of the medications you should avoid: Advill Celebrex Motrin Aggrenox Clinoril Naprosyn(naproxen) Agrylin NSAIDS Pepto-Bismol Aleve Ecotrin Persantine [place] Excedrin Plaquenil Anacin Heparin Plavix Ascriptin Herbals Pletal Aspergum Ibuprofen Ticlid Wayne Indocin Trental Bextra Midol [place]ish Bufferin Gingko Biloba Vitamin E (MVI) MEDICATIONS YOU MAY SUBSTITUTE Anacin 3 Fioricet * Tylenol with codeine * Darvocet N 100 * Plenadol Percocet * Datril Sine-Aide Tylenol Excedrin PM (*Denotes prescription needed to obtain these medications) Learning Topic: Pre/post op information Instructions reviewed for arrival time, parking and admission. Specific topics reviewed and discussed with all surgical patients include: No eating, drinking, or smoking after midnight prior to surgery. Medications as prescribed by anesthesia or the physician. Bowel Prep as indicated. None needed Review of information contained in surgical packet Pre-operative and intra-operative general activities were reviewed including: Holding Area, assessments, surgical positioning, and Family Waiting Area. Written post-operative instructions were given to the patient regarding post-op activity, pain control, symptoms to report. Post-operative instructions provided and reviewed with patient/family: ACTIVITY - No heavy lifting (>5-10 lbs), no pushing/pulling, OK to climb stairs DRIVING - No driving while taking prescription pain medication, or within 24 hours of anesthesia, OK to ride in a car. DIET - Advance diet as tolerated and as ordered by MD, drink 8 glasses of water a day, eat a diet high in protein and fiber unless otherwise directed by MD. CATHETER - Will be inserted during surgery, you may go home with a catheter. If you go home with a catheter you will have to come back to the office for a voiding trial, UTI symptoms reviewed and patient instructed to notify MD of any of these symptoms. INCISION CARE - Keep incision clean and dry, julita to be removed 7-10 days after surgery, steristrips do not need to be removed by MD BATHING - OK to shower after surgery unless otherwise directed by MD, no tub baths. PAIN MEDICATION - IV pain medication after surgery, IV QUANTITATIVE ANALYST MARKETING if ordered by MD, discharged home with a prescription for PO pain medication, pain management after surgery, side effects of pain medication (including constipation, dizziness, drowsiness, and medication interactions). DVT PROPHYLAXIS - Early ambulation, SCDs, injectable anticoagulants (heparin, lovenox, etc) RESPIRATORY - Incentive spirometer, coughing/deep breathing exercises, ambulation. RETURN TO WORK - As directed by physician, please send any FMLA papers to physician's pig machine supervisor. SYMPTOMS TO NOTIFY MD - Fever, chills, nausea, vomiting, increased or severe pain, heavy bleeding, foul smelling drainage, pain or swelling in extremities. URGENT SYMPTOMS - Call 911 or go to ER if any shortness of breath, difficulty breathing, or chest pain. HOW TO CONTACT PHYSICIAN - Physician's office phone number given to patient, if after hours patient instructed to call hydroelectric plant operator and ask for the doctor customer records division supervisor. Patient and family have phone number to call 24 hours/day. Patient Evaluation: Verbalizes understanding Patient and/or family express understanding of upcoming surgery and the operative process. Questions answered. Follow Up Plan: Follow up as needed Supplemental Material Given: Pre-operative teaching packet provided to the patient: INPATIENT/O (more content not included)... Normal [facility] Bacteria Ur Culton 4 Bacteria identified Cx Nom (U) ORGANISM ID: 1 <10,000 CFU/ml Normal urogenital susan Normal [facility] Comment on above: Performed By: #### 2 4323-8 #### [facility] CLIA [id number] [address] [place] [address] [place] CBC W Auto Differential pane l (Bld)on 10-15-2023 Basophils (Bld) [#/Vol] 0.07 10*3/uL Normal <0.11 [facility] Comment on above: Order Comment: Speci men Type: BLOOD SPECIMEN Ordering Facility: [facility] Address: [address] [place] [address] Performed By: #### 5 7021-8 #### [facility] CLIA [id number] [address] [place] [address] [place] Basophils/100 WBC (Bld) 0.6 % Normal [facility] Comment on above: Order Comment: Speci men Type: BLOOD SPECIMEN Ordering Facility: [facility] Address: [address] [place] [address] Performed By: #### 5 7021-8 #### [facility] CLIA [id number] [address] [place] [address] [place] Differential cell count method Nom (Bld) Auto Normal [facility] Comment on above: Order Comment: Speci men Type: BLOOD SPECIMEN Ordering Facility: [facility] Address: [address] [place] [address] Performed By: #### 5 7021-8 #### [facility] CLIA [id number] [address] [place] [address] [place] Eosinophils (Bld) [#/Vol] 0.28 10*3/uL Normal <0.46 [facility] Comment on above: Order Comment: Speci men Type: BLOOD SPECIMEN Ordering Facility: [facility] Address: [address] [place] [address] Performed By: #### 5 7021-8 #### [facility] CLIA [id number] [address] [place] [address] [place] Eosinophils/100 WBC (Bld) 2.5 % Normal [facility] Comment on above: Order Comment: Speci men Type: BLOOD SPECIMEN Ordering Facility: [facility] Address: [address] [place] [address] Performed By: #### 5 7021-8 #### [facility] CLIA [id number] [address] [place] [address] [place] Erythrocyte distribution width (RBC) [Ratio] 17.9 % High 11.5-15.0 [facility] Comment on above: Order Comment: Speci men Type: BLOOD SPECIMEN Ordering Facility: [facility] Address: [address] [place] [address] Performed By: #### 5 7021-8 #### [facility] CLIA [id number] [address] [place] [address] [place] Hematocrit (Bld) [Volume fraction] 40.2 % Normal 39.0-51.0 [facility] Comment on above: Order Comment: Speci men Type: BLOOD SPECIMEN Ordering Facility: [facility] Address: [address] [place] [address] Performed By: #### 5 7021-8 #### [facility] CLIA [id number] [address] [place] [address] [place] Hemoglobin (Bld) [Mass/Vol] 11.9 g/dL Low 13.0-17.0 [facility] Comment on above: Order Comment: Speci men Type: BLOOD SPECIMEN Ordering Facility: [facility] Address: [address] [place] [address] Performed By: #### 5 7021-8 #### [facility] CLIA [id number] [address] [place] [address] [place] Immature granulocytes (Bld) [#/Vol] 0.05 10*3/uL Normal <0.10 [facility] Comment on above: Order Comment: Speci men Type: BLOOD SPECIMEN Ordering Facility: [facility] Address: [address] [place] [address] Performed By: #### 5 7021-8 #### [facility] CLIA [id number] [address] [place] [address] [place] Immature granulocytes/100 WBC (Bld) 0.5 % Normal [facility] Comment on above: Order Comment: Speci men Type: BLOOD SPECIMEN Ordering Facility: [facility] Address: [address] [place] [address] Performed By: #### 5 7021-8 #### [facility] CLIA [id number] [address] [place] [address] [place] Lymphocytes (Bld) [#/Vol] 1.86 10*3/uL Normal 1.00-4.00 [facility] Comment on above: Order Comment: Speci men Type: BLOOD SPECIMEN Ordering Facility: [facility] Address: [address] [place] [address] Performed By: #### 5 7021-8 #### [facility] CLIA [id number] [address] [place] [address] [place] Lymphocytes/100 WBC (Bld) 16.9 % Normal [facility] Comment on above: Order Comment: Speci men Type: BLOOD SPECIMEN Ordering Facility: [facility] Address: [address] [place] [address] Performed By: #### 5 7021-8 #### [facility] CLIA [id number] [address] [place] [address] [place] MCH (RBC) [Entitic mass] 22.7 pg Low 26.0-34.0 [facility] Comment on above: Order Comment: Speci men Type: BLOOD SPECIMEN Ordering Facility: [facility] Address: [address] [place] [address] Performed By: #### 5 7021-8 #### [facility] CLIA [id number] [address] [place] [address] [place] MCHC (RBC) [Mass/Vol] 29.6 g/dL Low 30.5-36.0 [facility] Comment on above: Order Comment: Speci men Type: BLOOD SPECIMEN Ordering Facility: [facility] Address: [address] [place] [address] Performed By: #### 5 7021-8 #### [facility] CLIA [id number] [address] [place] [address] [place] MCV (RBC) [Entitic vol] 76.7 fL Low 80.0-100.0 [facility] Comment on above: Order Comment: Speci men Type: BLOOD SPECIMEN Ordering Facility: [facility] Address: [address] [place] [address] Performed By: #### 5 7021-8 #### [facility] CLIA [id number] [address] [place] [address] [place] Monocytes (Bld) [#/Vol] 0.86 10*3/uL Normal <0.87 [facility] Comment on above: Order Comment: Speci men Type: BLOOD SPECIMEN Ordering Facility: [facility] Address: [address] [place] [address] Performed By: #### 5 7021-8 #### [facility] CLIA [id number] [address] [place] [address] [place] Monocytes/100 WBC (Bld) 7.8 % Normal [facility] Comment on above: Order Comment: Speci men Type: BLOOD SPECIMEN Ordering Facility: [facility] Address: [address] [place] [address] Performed By: #### 5 7021-8 #### [facility] CLIA [id number] [address] [place] [address] [place] Neutrophils (Bld) [#/Vol] 7.91 10*3/uL High 1.45-7.50 [facility] Comment on above: Order Comment: Speci men Type: BLOOD SPECIMEN Ordering Facility: [facility] Address: [address] [place] [address] Performed By: #### 5 7021-8 #### [facility] CLIA [id number] [address] [place] [address] [place] Neutrophils/100 WBC (Bld) 71.7 % Normal [facility] Comment on above: Order Comment: Speci men Type: BLOOD SPECIMEN Ordering Facility: [facility] Address: [address] [place] [address] Performed By: #### 5 7021-8 #### [facility] CLIA [id number] [address] [place] [address] [place] Nucleated RBC (Bld) [#/Vol] 10*3/uL Normal <0.01 [facility] Comment on above: Order Comment: Speci men Type: BLOOD SPECIMEN Ordering Facility: [facility] Address: [address] [place] [address] Performed By: #### 5 7021-8 #### [facility] CLIA [id number] [address] [place] [address] [place] Nucleated RBC/100 WBC (Bld) [Ratio] 0.0 /100 WBC Normal [facility] Comment on above: Order Comment: Speci men Type: BLOOD SPECIMEN Ordering Facility: [facility] Address: [address] [place] [address] Performed By: #### 5 7021-8 #### [facility] CLIA [id number] [address] [place] [address] [place] Platelet mean volume (Bld) [Entitic vol] 9.6 fL Normal 9.0-12.7 [facility] Comment on above: Order Comment: Speci men Type: BLOOD SPECIMEN Ordering Facility: [facility] Address: [address] [place] [address] Performed By: #### 5 7021-8 #### [facility] CLIA [id number] [address] [place] [address] [place] Platelets (Bld) [#/Vol] 419 10*3/uL High 150-400 [facility] Comment on above: Order Comment: Speci men Type: BLOOD SPECIMEN Ordering Facility: [facility] Address: [address] [place] [address] Performed By: #### 5 7021-8 #### [facility] CLIA [id number] [address] [place] [address] [place] RBC (Bld) [#/Vol] 5.24 10*6/uL Normal 4.20-6.00 [facility] Comment on above: Order Comment: Speci men Type: BLOOD SPECIMEN Ordering Facility: [facility] Address: [address] [place] [address] Performed By: #### 5 7021-8 #### [facility] CLIA [id number] [address] [place] [address] [place] WBC (Bld) [#/Vol] 11.03 10*3/uL High 3.70-11.00 [facility] Comment on above: Order Comment: Speci men Type: BLOOD SPECIMEN Ordering Facility: [facility] Address: [address] [place] [address] Performed By: #### 5 7021-8 #### [facility] CLIA [id number] [address] [place] [address] [place] Comprehensive metabolic 2000 panelon 10-15-2023 Albumin [Mass/Vol] 3.5 g/dL Low 3.9-4.9 [facility] Comment on above: Order Comment: Speci men Type: BLOOD SPECIMEN Ordering Facility: [facility] Address: [address] [place] [address] Performed By: #### 2 4323-8 #### [facility] CLIA [id number] [address] [place] [address] [place] ALP [Catalytic activity/Vol] 90 U/L Normal 38-113 [facility] Comment on above: Order Comment: Speci men Type: BLOOD SPECIMEN Ordering Facility: [facility] Address: [address] [place] [address] Performed By: #### 2 4323-8 #### [facility] CLIA [id number] [address] [place] [address] [place] ALT [Catalytic activity/Vol] 15 U/L Normal 10-54 [facility] Comment on above: Order Comment: Speci men Type: BLOOD SPECIMEN Ordering Facility: [facility] Address: [address] [place] [address] Performed By: #### 2 4323-8 #### [facility] CLIA [id number] [address] [place] [address] [place] Anion gap [Moles/Vol] 10 mmol/L Normal 9-18 [facility] Comment on above: Order Comment: Speci men Type: BLOOD SPECIMEN Ordering Facility: [facility] Address: [address] [id number] Performed By: #### 2 4323-8 #### [facility] CLIA [id number] [address] [place] [address] [place] AST [Catalytic activity/Vol] 25 U/L Normal 14-40 [facility] Comment on above: Order Comment: Speci men Type: BLOOD SPECIMEN Ordering Facility: [facility] Address: [address] [place] [address] Performed By: #### 2 4323-8 #### [facility] CLIA [id number] [address] [place] [address] [place] Bilirubin [Mass/Vol] 0.3 mg/dL Normal 0.2-1.3 [facility] Comment on above: Order Comment: Speci men Type: BLOOD SPECIMEN Ordering Facility: [facility] Address: [address] [place] [address] Performed By: #### 2 4323-8 #### [facility] CLIA [id number] [address] [place] [address] [place] Calcium [Mass/Vol] 9.5 mg/dL Normal 8.5-10.2 [facility] Comment on above: Order Comment: Speci men Type: BLOOD SPECIMEN Ordering Facility: [facility] Address: [address] [place] [address] Performed By: #### 2 4323-8 #### [facility] CLIA [id number] [address] [place] [address] [place] Chloride [Moles/Vol] 97 mmol/L Normal 97-105 [facility] Comment on above: Order Comment: Speci men Type: BLOOD SPECIMEN Ordering Facility: [facility] Address: [address] [place], [place] [address] Performed By: #### 2 4323-8 #### [facility] CLIA [id number] [address] [place] [address] [place] CO2 [Moles/Vol] 27 mmol/L Normal 22-30 [facility] Comment on above: Order Comment: Speci men Type: BLOOD SPECIMEN Ordering Facility: [facility] Address: [address] [place] [address] Performed By: #### 2 4323-8 #### [facility] CLIA [id number] [address] [place] [address] [place] Creatinine [Mass/Vol] 0.79 mg/dL Normal 0.73-1.22 [facility] Comment on above: Order Comment: Speci men Type: BLOOD SPECIMEN Ordering Facility: [facility] Address: [address] [place] [address] Performed By: #### 2 4323-8 #### [facility] CLIA [id number] [address] [place] [address] [place] [facility] Creatinine and Glomerular filtration rate.predicted panel (S/P/Bld) 95 mL/min/1.73m??? Normal >=60 [facility] Comment on above: Order Comment: Speci men Type: BLOOD SPECIMEN Ordering Facility: [facility] Address: [address] [place] [address] Result Comment: Janis mated Glomerular Filtration Rate (eGFR) is calculated using the 2020 CKD-EPI creatinine equation. This equation utilizes serum creatinine, sex, and age as parameters. The creatinine assay has traceable calibration to isotope dilution-mass spectrometry. Refer to KDIGO guidelines for clinical interpretation. In patients with unstable renal function, e.g. those with acute kidney injury, the eGFR may not accurately reflect actual GFR. Performed By: #### 2 4323-8 #### [facility] CLIA [id number] [address] [place] [address] [place] Glucose [Mass/Vol] 104 mg/dL High 74-99 [facility] Comment on above: Order Comment: Speci men Type: BLOOD SPECIMEN Ordering Facility: [facility] Address: [address] [place] [address] Result Comment: The [place] Diabetes Association (ADA) provides guidance for cutoff [...] Standards of Medical Care in Diabetes 2016, [place] Diabetes Association. Diabetes Care. 2016.39(Suppl 1). Performed By: #### 2 4323-8 #### [facility] CLIA [id number] [address] [place] [address] [place] Potassium [Moles/Vol] 4.6 mmol/L Normal 3.7-5.1 [facility] Comment on above: Order Comment: Speci men Type: BLOOD SPECIMEN Ordering Facility: [facility] Address: [address] [place] [address] Performed By: #### 2 4323-8 #### [facility] CLIA [id number] [address] [place] [address] [place] Protein [Mass/Vol] 8.2 g/dL High 6.3-8.0 [facility] Comment on above: Order Comment: Speci men Type: BLOOD SPECIMEN Ordering Facility: [facility] Address: [address] [place] [address] Performed By: #### 2 4323-8 #### [facility] CLIA [id number] [address] [place] [address] [place] Sodium [Moles/Vol] 134 mmol/L Low 136-144 [facility] Comment on above: Order Comment: Speci men Type: BLOOD SPECIMEN Ordering Facility: [facility] Address: [address] [place] [address] Performed By: #### 2 4323-8 #### [facility] CLIA [id number] [address] [place] [address] [place] Urea nitrogen [Mass/Vol] 15 mg/dL Normal 9-24 [facility] Comment on above: Order Comment: Speci men Type: BLOOD SPECIMEN Ordering Facility: [facility] Address: [address] [place] [address] Performed By: #### 2 4323-8 #### [facility] CLIA [id number] [address] [place] [address] [place] ECG COMPLETEon 10-15-2023 ECG COMPLETE Ventricular Rate : 7 4 BPM Atrial Rate : 74 BPM P-R Interval : 162 ms QRS Duration : 94 ms Q-T Interval : 382 ms QTC Calculation(Bazett) : 424 ms Calculated P Arimo : 69 degrees Calculated R Arimo : 57 degrees Calculated T Arimo : 63 degrees NORMAL SINUS RHYTHM POSSIBLE LEFT ATRIAL ENLARGEMENT BORDERLINE ECG Confirmed by YOLANDA GUZMAN MD ([id number]) on 10/16/2023 8:48:38 AM NAME : JEMAL ZEPEDA PID : [id number] : 1950 Gender : Male Race : ORD : [id number] Procedure Date : Oct 15 2023 11:08:34 Edit Date : Oct 16 2023 08:48:45 Diagnosis: NORMAL SINUS RHYTHM POSSIBLE LEFT ATRIAL ENLARGEMENT BORDERLINE ECG Confirmed by YOLANDA GUZMAN MD ([id number]) on 10/16/2023 8:48:38 AM Test Reason : Z01.818 Pre-op evaluation Location : 145 : [facility] Overread By : YOLANDA GUZMAN MD Edited By : OYLANDA GUZMAN MD Referred By : BRENDA LEGGETT Acquired by : am, Normal [facility] HISTORY PHYSICALon HISTORY PHYSICAL HNO ID: [id number] Author: ALISSA MORRIS APRN.RHEA Service: ? Author Type: Nurse Practitioner Type: H&P Filed: 10/16/2023 12:08 Note Text: HISTORY AND PHYSICAL EXAMINATION SERVICE DATE: 10/15/2023 SERVICE TIME: 10:48 AM PRIMARY CARE PHYSICIAN: No primary care provider on file. REASON FOR VISIT: Jemal Zepeda is a 73 year old male who is scheduled for Procedure(s) (LRB): ROBOTIC DIVERTICULECTOMY BLADDER (N/A) CYSTOSCOPY, INSERTION STENT URETERAL J (Right) at the request of Dr. Brenda Leggett for consultation. My final recommendation will be communicated back to the requesting physician by way of shared medical record or letter. Assessment/Plan Abdominal aortic aneurysm (HCC) Assessment: Per CT scans ( In care everywhere) CT (05/02) shows an AAA of 2.89 cm and ascending thoracic aneurysm measuring 4.74 cm with no dissection Following with vascular, Dr. 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 Mcfadden at [facility] Last OV 08/05/2023- fibrosis seems to be stable when I compare the imaging between 07/03/2023 and 08/31/2021. I suggested ordering a HRCT in 1 year, which is more specific than a standard CT or CTA for interstitial lung disease Centrilobular emphysema (HCC) Assessment: Follows with Dr. Mcfadden at [facility]. Last OV 08/05/2023... Moderate upper lobe predominant [...] PFT can be ordered at that time. Hypertension Assessment: Stable and compliant with medications Followed by PCP and cardiology Denies chest pain or headaches Last 2 Encounter BP Readings: Date: BP: 10/15/2023 132/71 08/27/2023 160/74 Former smoker Assessment: Quit 2013, 40 pack year Anemia Assessment: + anemia related to bleeding ulcer. Required 4 units PRBCs Had EGD with clipping 06/2023 CBC stable CBC with diff: WBC 11.03 10/15/2023 RBC 5.24 10/15/2023 Hemoglobin 11.9 10/15/2023 Hematocrit 40.2 10/15/2023 MCV 76.7 10/15/2023 MCH 22.7 10/15/2023 MCHC 29.6 10/15/2023 RDW-CV 17.9 10/15/2023 Platelet Count 419 10/15/2023 Bleeding ulcer Assessment: required EGD with 4 clips 06/2023 Denies abdominal pain, hematochezia or N/V On Pantoprazole METS: Climb a flight of stairs or walk up a hill (5.50 METs) Patient denies any chest pain or undue shortness of breath with the above physical activity. ANESTHESIA FINDINGS: Intubation History: No history of difficult intubation Significant Anesthesia Considerations: None Airway Exam: General: Normal appearance Mallampati Score is CLASS II ULBT: Class I - Lower incisors can bite the upper lip above the joselyn line Neck: Distance from hyoid to mentum during neck extension is at least 3 finger breaths, Limited movement extension Mouth: Normal tongue size Dentition: Intact Airway History: No abnormal airway history STOP BANG Score: Criteria: Snoring Hypertension Age over 50 (73 year old) Male gender Score = 4 The patient has the following: ACTIVE PROBLEM LIST Celiac Artery Aneurysm (Hcc) Epididymitis Hypertension Former Smoker Fluid Overload Stress Hyperglycemia Abdominal Aortic Aneurysm (Hcc) Anemia Pulmonary Fibrosis (Hcc) Centrilobular Emphysema (Hcc) Bleeding Ulcer Subjective CHIEF COMPLAINT: Bladder mass HPI: 73 year old year old male who was recently found to have a bladder mass. 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 Has elected for above surgery. PAST MEDICAL HISTORY Diagnosis Date Abdominal aortic aneurysm (HCC) 01/29/2021 Celiac artery aneurysm (HCC) Centrilobular emphysema (HCC) 09/17/2023 HTN (hypertension) Hydrocele Pulmonary fibrosis (HCC) 09/17/2023 Sleep apnea Smoker PAST SURGICAL HISTORY Procedure Laterality Date CYSTOSCOPY EGD + ulcer HERNIA REPAIR W/MESH 07/21/2001 bilateral open inguinal herniorrhaphy with mesh PAST SURGICAL HISTORY OF 03/18/2014 celiac artery aneurysm repair TOTAL KNEE REPLACEMENT Right 2023 FAMILY HISTORY Problem Relation Age of Onset other (CVA after surgery for SBO, Breast cancer [Other]) Mother age 83 other (more content not included)... Normal [facility] PT panel Coag (PPP)on 2023 INR Coag (PPP) [Relative time] 1.1 {INR} Normal 0.9-1.3 [facility] Comment on above: Order Comment: Emmie novoa Type: BLOOD SPECIMEN Ordering Facility: [facility] Address: [address] [place] [address] Result Comment: Kristine min K Antagonist (VKA) Therapeutic Range: INR 2 to 3 (Target INR of 2.5) Note: For patients treated with VKA drugs, such as warfarin, the [place] College of Chest Physicians 2012 Guideline recommends a therapeutic INR range of 2 to 3 (target INR of 2.5). This recommendation includes high-risk patients with antiphospholipid syndrome with previous arterial or venous thromboembolism, current-generation mechanical or bioprosthetic aortic heart valve replacement. Note: Patients with mechanical aortic valve replacement and additional risk factors for thromboembolic events (atrial fibrillation, previous thromboembolism, LV dysfunction, hypercoagulable conditions) or an older generation mechanical AVR (i.e., ball in-Cage) or any mechanical MVR should have a INR therapeutic range of 2.5 to 3.5 (target INR of 3). Curt GH, et al. Chest 2012, 141:7S-47S Jono RA et al. [facility] 2017, 70: 252-289 Performed By: #### 1 4979-9, 01665-9 #### [facility] CLIA [id number] [address] [place] [address] [place] PT Coag (PPP) [Time] 11.3 s Normal 9.7-13.0 [facility] Comment on above: Order Comment: Emmie novoa Type: BLOOD SPECIMEN Ordering Facility: [facility] Address: [address] [place] [address] Performed By: #### 1 4979-9, 26264-0 #### [facility] CLIA [id number] [address] [place] [address] [place] aPTT PPPon 10-15-2023 aPTT Coag (PPP) [Time] 31.4 s Normal 23.0-32.4 Cl [facility] Comment on above: Order Comment: Speci men Type: BLOOD SPECIMEN Ordering Facility: [facility] Address: [address] [place] [address] Performed By: #### 1 4979-9, 54599-8 #### [facility] CLIA [id number] [address] [place] [id number] OF [facility] Office Visiton 09-17-2023 Follow-up visit [id number] Sherice Zepeda 1950 M Date Provider Department Center 09/17/2023 [address] [facility] Family History Problem Relation Age of Onset Heart attack Father Stroke Father Family Status - Relation Status Age at Father Level of Service:51307 NM OFFICE/OUTPATIENT ESTABLISHED MOD MDM 30 MIN Reason for Visit and Comments: Follow-up [451157] Normal [facility] Physician Orderon 09-04-2023 Physician Order [id number]#1.00TIFF [facility] ED Note-Physicianon 09-01-19 ED Note-Physician [id number]#1.00TIFF [facility] Consultation Noteon 08-29-19 Consultation Note [id number]#1.00TIFF [facility] CNPNon 08-28-2023 CNPN Telephone (URR) -- JEMAL ZEPEDA ([id number]) 1950 M Date Time Provider Department 08/28/23 BRENDA LEGGETT During your visit today, we recorded the following information about you: Rut Myers 08/28/2023 11:40 AM Signed Office visit consults notes on 08/27/[address] Leggett faxed to Dr. Rex Burgos Allergies As of Date: 08/28/2023 (No Known Allergies) Date Reviewed: 08/27/2023 Reviewed by: Randall Yepez Ma Patito - Fully Assessed Reason for Visit: Follow Up [171] Prescriptions as of 08/28/2023 - amLODIPine (NORVASC) 10 mg tablet Take 1 tablet by mouth every afternoon. - carvedilol (COREG) 12.5 mg tablet TAKE 1/2 (ONE-HALF) OF A TABLET BY MOUTH TWICE DAILY - citalopram (CELEXA) 20 mg tablet Take 10 mg by mouth every morning. - pantoprazole DR (PROTONIX) 40 mg tablet Take 1 tablet by mouth every 12 hours. - lisinopril (ZESTRIL) 40 mg tablet TAKE 1/2 (ONE-HALF) OF A TABLET BY MOUTH DAILY - aspirin 325 mg tablet Take 325 mg by mouth once daily. 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] 01/06/2014 Epididymitis [N45.1] 01/07/2014 Hypertension [I10] 01/07/2014 Smoker [F17.200] 01/07/2014 Fluid overload [E87.70] 03/19/2014 Stress hyperglycemia [R73.9] 03/19/2014 Encounter Status:Closed by RUT MYERS on 08/28/23 [facility] CNOVon 08-27-2023 CNOV Office Visit (URR) -- JEMAL ZEPEDA ([id number]) 1950 M Date Time Provider Department 08/27/23 1:10 PM BRENDA LEGGETT URShamar During your visit today, we recorded the following information about you: Temperature Pulse Blood pressure Weight 97.9 degrees 66/minute 160/74 88.1 kg Brenda Leggett MD 08/27/2023 1:43 PM Signed [facility] NEW PATIENT HISTORY AND PHYSICAL EXAM PATIENT INFO: Jemal Zepeda 73 year old REFERRING M.D.: No referring provider defined for this encounter. CHIEF COMPLAINT: Bladder mass, elevated PSA HISTORY: Jemal Zepeda is a 73 yr old male with a hx of AAA, emphysema, epididymitis, HTH, former smoker, low TSH, BPH, lung nodules, and OA presenting for a bladder mass and elevated PSA. Most recent PSA was 4.57 on 07/14/2023. CT A/P 07/11/2023: large bladder diverticulum extending posteriorly on the right. There is dependent density that could be debris, stones, or a sessile mass. There is a slight mass effect at the bladder trigone related to a prominent prostate containing calcifications. There are no enlarged lymph nodes or pelvic ascites. There are mild degenerative changes at the hips and SI joints Cysto 08/18/[address] Burgos: 2-3 cm bladder neoplasm located within a right posteriorly located bladder diverticulum, very little to no bladder serosa around the bladder diverticulum raising the risk of perforation LABS No results found for: PSA Creatinine (mg/dL) Date Value 03/24/2014 0.95 03/23/2014 0.81 03/22/2014 0.74 03/21/2014 1.00 03/20/2014 1.18 PAST MEDICAL HISTORY Diagnosis Date Celiac artery aneurysm (HCC) HTN (hypertension) Hydrocele Sleep apnea Smoker PAST SURGICAL HISTORY Procedure Laterality Date HERNIA REPAIR W/MESH 2001 bilateral open inguinal herniorrhaphy with mesh PAST SURGICAL HISTORY OF 03/18/2014 celiac artery aneurysm repair Social History Tobacco Use Smoking status: Former Packs/day: 1.00 Years: 40.00 Additional pack years: 0.00 Total pack years: 40.00 Types: Cigarettes Smokeless tobacco: Former Types: Snuff Tobacco comments: occasionally has a cigarette Substance Use Topics Alcohol use: No Drug use: No REVIEW OF SYSTEMS: (positive in bold) GENERAL: Recent weight gain/loss, fatigue, weakness, fever, night sweats MUSCLE/JOINTS/BONE: Back pain, joint pain, joint swelling CARDIOVASCULAR: Chest pain, heart attack GASTROINTESTINAL: Abdominal pain, fecal incontinence HEAD AND NECK: Blurry vision, double vision, cataracts, loss of vision, dryness NEUROLOGIC: Numbness, tingling SKIN: Redness, rash, nodules/bumps, hair loss, color change in hands or feet RESPIRATORY: Cough, shortness of breath ENDOCRINE: Diabetes, thyroid problems THROAT: Frequent sore throats, hoarseness PHYSICAL EXAM: Constitutional: Well-nourished, No physical deformities. Normally developed. Good grooming. Neck: Neck symmetrical, not swollen, Normal tracheal position. Eyes: Normal conjunctivae, normal eyelids. Ears, Nose, Mouth, and Throat: Left ear no scars, no lesions, no masses. Right ear no scars, no lesions, no masses. Nose no scars, no lesions, no laurie. Normal hearing. Normal lips. Respiratory: NL effort, no retraction or pursed-lip breathing Cardiovascular: Normal temperature, normal extremity pulses, no swelling, no varicosities. Skin: No paleness, no jaundice, no cyanosis. No lesion, no ulcer, no rash Lymphatic: No enlargement of neck, axillae, groin. Neurologic/Psychiatric: Oriented to time, oriented to place, oriented to person. No depression, no anxiety, no agitation. Musculosckeletal: Normal gait and station of head and neck Extremities: Extremities normal, no deformities, edema, clubbing or skin discoloration Abdomen: Normal abdominal exam, Abdomen soft, non-tender. Bowel sounds normal. No masses, organomegaly IMPRESSION: Jemal Zepeda is a 73 yr old male with a hx of AAA, emphysema, epididymitis, HTH, former smoker, low TSH, BPH, lung nodules, and OA presenting for a bladder mass and elevated PSA. Most recent PSA was 4.57 on 07/14/2023. Will discuss case with Dr. Burgos to ensure that his disease is only within the diverticulum. Pt has a hx of AAA repair. He has a midline incision from the xiphoid to just to under the umbilicus. B/l inguinal hernia incisions from prior repair. Discussed the potential for robotic bladder diverticulectomy. Reviewed the procedure in detail and discussed all risks and benefits. Addressed all questions and concerns. The risks, benefits and alternatives of a robotic bladder diverticulectomy were discussed with the patient. These include, but are not limited to bleeding, infection, injury to adjacent structures (such as the rectum, bowel, or major blood vessels). There can also be wound infections, hernias and rarely chronic neuropathic pain or nu (more content not included)... [facility] 08-27-2023 CNPN Telephone (URR) -- JEMAL ZEPEDA ([id number]) 1950 M Date Time Provider Department 08/27/23 BRENDA LEGGETT [facility] During your visit today, we recorded the following information about you: Za Remy 08/27/2023 1:48 PM Signed Patient seen in office on 08/26/2023 confirmed surgery for : 10/30/[address] LEGGETT Patient scheduled for PACC on 10/15/2023 dung [place] Packet Allergies As of Date: 08/27/2023 (No Known Allergies) Date Reviewed: 08/27/2023 Reviewed by: Randall Yepez Ma, [facility] - Fully Assessed Reason for Visit: Surgery and Pacc dates [Other] Prescriptions as of 08/27/2023 - amLODIPine (NORVASC) 10 mg tablet Take 1 tablet by mouth every afternoon. - carvedilol (COREG) 12.5 mg tablet TAKE 1/2 (ONE-HALF) OF A TABLET BY MOUTH TWICE DAILY - citalopram (CELEXA) 20 mg tablet Take 10 mg by mouth every morning. - pantoprazole DR (PROTONIX) 40 mg tablet Take 1 tablet by mouth every 12 hours. - lisinopril (ZESTRIL) 40 mg tablet TAKE 1/2 (ONE-HALF) OF A TABLET BY MOUTH DAILY - aspirin 325 mg tablet Take 325 mg by mouth once daily. 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 Results: Date Result Name Ind Value Ref Range 08/18/2023 10:44 WBC 8.9 E9/L (4.0 - 11.0) 08/18/2023 10:44 RBC ((L)) 4.1 E12/L (4.3 - 5.9) 08/18/2023 10:44 HGB ((L)) 10.3 gm/dL (13.5 - 17.5) 08/18/2023 10:44 Hct ((L)) 33.0 % (37.7 - 49.0) 08/18/2023 10:44 MCV 80.9 fL (80.0 - 100.0) 08/18/2023 10:44 MCH ((L)) 25.1 pg (27.0 - 34.0) 08/18/2023 10:44 MCHC ((L)) 31.0 gm/dL (31.4 - 36.0) 08/18/2023 10:44 RDW ((H)) 17.7 % (10.9 - 14.2) 08/18/2023 10:44 Platelet 405.0 E9/L (150.0 - 500.0) 08/18/2023 10:44 MPV 7.5 fL (6.4 - 10.8) 08/18/2023 10:44 Neutro Auto 72.2 % (36.0 - 75.0) 08/18/2023 10:44 Lymph Auto 14.9 % (14.0 - 50.0) 08/18/2023 10:44 Merced Auto 9.0 % (4.0 - 14.0) 08/18/2023 10:44 Eos Auto 3.1 % (0.0 - 8.0) 08/18/2023 10:44 Basophil Auto 0.8 % (0.0 - 2.0) 08/18/2023 10:44 Neutro Absolute 6.4 E9/L (2.0 - 7.5) 08/18/2023 10:44 Lymph Absolute 1.3 E9/L (1.0 - 4.0) 08/18/2023 10:44 Merced Absolute 0.8 E9/L (0.2 - 1.0) 08/18/2023 10:44 Eos Absolute 0.3 E9/L (0.0 - 0.5) 08/18/2023 10:44 Basophil Absolute 0.1 E9/L (0.0 - 0.2) notified patient of message below Normal [facility] CBC w/ Auto Diffon 4 Basophil Absolute 0.1 E9/L Normal 0.0-0.2 [facility] Comment on above: Performed By: #### 2 [id number] ####[address] [address] Basophils/100 WBC (Bld) 0.8 % Normal 0.0-2.0 [facility] Comment on above: Performed By: #### 2 [id number] ####[address] [address] Eos Absolute 0.3 E9/L Normal 0.0-0.5 [facility] Comment on above: Performed By: #### 2 [id number] ####[address] [address] Eosinophils/100 WBC (Bld) 3.1 % Normal 0.0-8.0 [facility] Comment on above: Performed By: #### 2 829221 ####[address] [address] Erythrocyte distribution width (RBC) [Ratio] 17.7 % High 10.9-14.2 [facility] Comment on above: Performed By: #### 2 874344 ####[address] [place] [address] Hematocrit (Bld) [Volume fraction] 33.0 % Low 37.7-49.0 [facility] Comment on above: Performed By: #### 2 815503 ####[address] [address] Hemoglobin (Bld) [Mass/Vol] 10.3 g/dL Low 13.5-17.5 [facility] Comment on above: Performed By: #### 2 [id number] ####[address] [address] Lymph Absolute 1.3 E9/L Normal 1.0-4.0 [facility] Comment on above: Performed By: #### 2 393247 ####[address] [address] Lymphocytes/100 WBC (Bld) 14.9 % Normal 14.0-50.0 [facility] Comment on above: Performed By: #### 2 210581 ####[address] [address] MCH (RBC) [Entitic mass] 25.1 pg Low 27.0-34.0 [facility] Comment on above: Performed By: #### 2 298663 ####[address] [address] MCHC (RBC) [Mass/Vol] 31.0 g/dL Low 31.4-36.0 [facility] Comment on above: Performed By: #### 2 818056 ####[facility] [address] [place] [address] MCV (RBC) [Entitic vol] 80.9 fL Normal 80.0-100.0 [facility] Comment on above: Performed By: #### 2 267083 ####[address] [place] [address] Merced Absolute 0.8 E9/L Normal 0.2-1.0 [facility] Comment on above: Performed By: #### 2 680465 ####[address] [address] Monocytes/100 WBC (Bld) 9.0 % Normal 4.0-14.0 [facility] Comment on above: Performed By: #### 2 463379 ####[address] [address] Neutro Absolute 6.4 E9/L Normal 2.0-7.5 [facility] Comment on above: Performed By: #### 2 662534 ####[address] [address] Neutro Auto 72.2 % Normal 36.0-75.0 [facility] Comment on above: Performed By: #### 2 466784 ####[address] [address] Platelet 405.0 E9/L Normal 150.0-500. 0 [facility] Comment on above: Performed By: #### 2 496878 ####[address] [address] Platelet mean volume (Bld) [Entitic vol] 7.5 fL Normal 6.4-10.8 [facility] Comment on above: Performed By: #### 2 788992 ####[address] [address] RBC 4.1 E12/L Low 4.3-5.9 [facility] Comment on above: Performed By: #### 2 717305 ####[address] [address] WBC 8.9 E9/L Normal 4.0-11.0 [facility] Comment on above: Performed By: #### 2 600568 ####[address] [address] Consent for Procedure/Surger yon 08-18-2023 Consent for Procedure/Surgery [id number] Normal [facility] Consent for Treatmenton 07-22 Consent for Treatment [id number]#[id number] Normal [facility] HEMATOLOGYOrdered By: SYSTEM SYSTEM on 08-18-2023 Basophil Absolute 0.1 E9/L Normal 0.0 - 0.2 E9/L Remisol Heme Basophils/100 WBC (Bld) 0.8 % Normal 0.0 - 2.0 % Remisol Heme Eos Absolute 0.3 E9/L Normal 0.0 - 0.5 E9/L Remisol Heme Eosinophils/100 WBC (Bld) 3.1 % Normal 0.0 - 8.0 % Remisol Heme Erythrocyte distribution width (RBC) [Ratio] 17.7 % High 10.9 - 14.2 % Remisol Heme Hematocrit (Bld) [Volume fraction] 33.0 % Low 37.7 - 49.0 % Remisol Heme Hemoglobin (Bld) [Mass/Vol] 10.3 g/dL Low 13.5 - 17.5 gm/dL Remisol Heme Lymph Absolute 1.3 E9/L Normal 1.0 - 4.0 E9/L Remisol Heme Lymphocytes/100 WBC (Bld) 14.9 % Normal 14.0 - 50.0 % Remisol Heme MCH (RBC) [Entitic mass] 25.1 pg Low 27.0 - 34.0 pg Remisol Heme MCHC (RBC) [Mass/Vol] 31.0 g/dL Low 31.4 - 36.0 gm/dL Remisol Heme MCV (RBC) [Entitic vol] 80.9 fL Normal 80.0 - 100.0 fL Remisol Heme Merced Absolute 0.8 E9/L Normal 0.2 - 1.0 E9/L Remisol Heme Monocytes/100 WBC (Bld) 9.0 % Normal 4.0 - 14.0 % Remisol Heme Neutro Absolute 6.4 E9/L Normal 2.0 - 7.5 E9/L Remisol Heme Neutro Auto 72.2 % Normal 36.0 - 75.0 % Remisol Heme Platelet 405.0 E9/L Normal 150.0 - 500.0 E9/L Remisol Heme Platelet mean volume (Bld) [Entitic vol] 7.5 fL Normal 6.4 - 10.8 fL Remisol Heme RBC 4.1 E12/L Low 4.3 - 5.9 E12/L Remisol Heme WBC 8.9 E9/L Normal 4.0 - 11.0 E9/L Remisol Heme Inpatient Patient Summaryon 08-18-2023 Inpatient Patient Summary [address] [address] Clinical Summary Person Information Name: JEMAL ZEPEDA Age: 73 Years : 1950 Sex: Male PCP: Elham Moon Marital Status: Race: White Ethnicity: Non- or Language: Ecuadorean MRN: Visit Id: Visit Reason: BLADDER MASS AND OR BLADDER STONE Speciality: Acuity: Enc Type: Outpatient Med Service: Surgery Arrival: 08/18/2023 13:09:43 Discharge: Dispo Type: Address: [address] [place] [address] [address] [place] [id number] Provider Notes: Diagnosis: Problems Active Prostate enlargement Former smoker Emphysema, unspecified Multiple nodules of lung Low TSH level Moderate recurrent major depression Elevated PSA Unexplained weight loss Acid reflux Smoker (01/07/2014) Osteoarthritis of right knee joint (08/28/2022) Essential hypertension (07/02/2022) Epididymitis (01/07/2014) Aneurysm of ascending aorta (07/02/2022) Smoking Status: Functional Status: Sensory Deficits: History of Falls: Mobility Assistance Prior to Admission: ADLs: Current Level of Assistance for Self-Care/Mobility: Cognitive Status: Allergies Toprol-XL Laboratory or Other Results This Visit (last charted value for your 08/18/2023 visit) No Laboratory or Other Results This Visit Measurements: Height: Weight: Blood Pressure: Not Valued / Not Valued BMI: Procedures No Procedures Documented Immunizations No Immunizations Documented This Visit Final Med List: amlodipine (amLODIPine 10 mg Tab) 1 Tablets By Mouth every day. Refills: 3. carvedilol (carvedilol 12.5 mg Tab) 0.5 Tablets By Mouth 2 times a day. 180 EA, 0 Refill(s), TAKE 1 TABLET BY MOUTH TWICE DAILY (WITH BREAKFAST and WITH evening meal). cholecalciferol (cholecalciferol 2000 intl units oral capsule) 2000 Unknown, oral, 0 Refill(s), Take 1 capsule (2,000 Units total) by mouth in the morning.. citalopram (citalopram 20 mg Tab) 1 Tablets By Mouth every day. 90 EA, 0 Refill(s), TAKE 1 TABLET BY MOUTH EVERY MORNING. Refills: 0. citalopram (citalopram 20 mg Tab) 90 EA, 0 Refill(s), TAKE 1 TABLET BY MOUTH EVERY MORNING. lisinopril (lisinopril 20 mg Tab) 1 Tablets By Mouth every day. nystatin topical (nystatin Top 100,000 units/g Crm 15 gram) 1 Application Topical 2 times a day. Refills: 1. pantoprazole (Pantoprazole [address] Tab) Take 1 tablet twice a day for 2 weeks then 1 tablet daily. Care Team Members: Attending Physician: Rex BURGOS MD Consulting Physician: Referring Physician: Rex BURGOS MD Follow up: With: Address: When: Rex BURGOS [address] [place] [address], [address], [place] [address] Business (1) Comments: As we discussed 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 I will tentatively set you up for a scope and removal of that bladder tumor under anesthesia. The other option is to get another opinion at the [facility]. I may be speaking with one of my colleagues there and then getting back with you. Please finish your antibiotics today. Patient Education Information: EU - Cystoscopy Discharge Instructions (Custom) Normal [facility] IntraOperative Documentson 0 08-18-2023 IntraOperative Documents [id number] Normal [facility] Main OR Intraoperative Recor don 08-18-2023 Main OR Intraoperative Record IntraOp Document Type FTURO Summary Primary Physician: Rex BURGOS MD Finalized Date/Time: 08/18/23 14:31:18 Pt. Name: JEMAL ZEPEDA /Sex: 1950 Male Med Rec #: [id number] Physician: Rex BURGOS MD Financial #: [id number] Pt. Type: O Room/Bed: / Admit/Disch: 08/18/23 13:09:43 - Institution: Case Times FTURO Entry 1 Patient Times In Room 08/18/23 14:07:00 Out Room 08/18/23 14:27:00 Procedure Times Start 08/18/23 14:13:00 Stop 08/18/23 14:22:00 Anesthesia Times Last Modified By: Shiv MAKI, RAMIROOR, Leila 08/18/23 14:20:34 Case Attendance FTURO Entry 1 Entry 2 Entry 3 Case Attendee Rex BURGOS MD RN, CNOR, Lima ADLER, Mya Dee Role Performed Surgeon - Primary Grinder Set Up Operator Gear Tool - Primary Scrub - Primary Time In 08/18/23 14:07:00 08/18/23 14:07:00 08/18/23 14:07:00 Time Out 08/18/23 14:27:00 08/18/23 14:27:00 08/18/23 14:27:00 Procedure CYSTOSCOPY LOCAL(., .) CYSTOSCOPY LOCAL(., .) CYSTOSCOPY LOCAL(., .) Comments Last Modified By: Shiv MAKI, CNOR, Shiv MAKI, CNOR, Shiv RN, RAMIROOR, Leila 08/18/23 Leila 08/18/23 Leila 08/18/23 14:20:35 14:20:35 14:20:35 Surgical Procedures FTURO Entry 1 Procedure Description Procedure CYSTOSCOPY LOCAL Modifiers ., . Surgeon Description CYSTO Primary Procedure Yes Primary Surgeon Rex BURGOS MD Start 08/18/23 14:13:00 Stop 08/18/23 14:22:00 Anesthesia Type Local Surgical Service Urology Wound Class 2 - Clean-Contaminated Last Modified By: Shiv MAKI, RAMIROOR, Leila 08/18/23 14:20:36 General Case Data FTURO Pre-Care Text: Classifies surgical wound, implements aseptic technique, initiates traffic control Entry 1 Case Information OR URO 1 FT Case Level None Wound Class 2 - Clean-Contaminated Specialty Urology Preop Diagnosis BLADDER MASS AND OR Postop Same As Preop No BLADDER STONE Postop Diagnosis urethral scarring, Outcomes Met? Yes bladder diverticulum, bladder tumor Last Modified By: LEYDI Chaney RN, Ruthann 08/18/23 14:19:44 Post-Care Text: The patient is free from signs and symptoms of infection EU IntraOp - FTURO Pre-Care Text: Implements protective measures prior to operative or invasive procedure, confirms identity before the operative or invasive procedure, verifies operative procedure, surgical site, and laterality Entry 1 EU Perioperative Protocols Procedure(s) CYSTOSCOPY LOCAL(., .) Patient Identity Birthday, ID Band Verified (select at Check, Patient least 2): Participation Consents / H and P HandP, Surgery/Procedure Operative Site N/A Verified Consent Marking Verified Surgical Site Yes Laterality Verified n/a Verified Procedure Verified Yes Correct Patient Yes Position Verified Availability Equipment, Implant, Time Out Rex BURGOS MD, Verified (If Medication Participants LEYDI Chaney RN, Applicable) Lima Dee CST, Kimberly A Time Out Complete 08/18/23 14:12:00 Allergies Reviewed? Yes Allergies Reviewed Self/Patient With Body Position Supine Prep Area penis Prep Agents Betadine Solution Skin. Condition Red Additional None Specimens Collected Vitals - EU Blood Pressure 147/69 Pulse 61 bpm Respirations SPO2 EBL 0 IandO - EU Total Intake 0 Total Output 0 Outcomes Met? Yes Last Modified By: LEYDI Chaney RN, Ruthann 08/18/23 14:18:15 Post-Care Text: The patient is free from signs and symptoms of injury caused by extraneous objects Sign Out FTURO Entry 1 Before Patient Leaves OR Nurse verbally Yes Nurse verbally n/a confirms with the confirms with the team the name of team that the procedure(s) instrument, sponge, recorded and needle counts are correct (or N/A) Nurse verbally n/a Nurse verbally n/a confirms with the confirms with the team how the team whether there specimen is labeled are any equipment (including patient problems to be name), if applicable addressed Sign Out Complete 08/18/23 14:24:00 Last Modified By: LEYDI Chaney RN, Ruthann 08/18/23 14:20:46 Case Comments Finalized By: LEYDI Chaney RN, Ruthann Document Signatures Signed By: LEYDI Chaney RN, Ruthann 08/18/23 14:20 LEYDI Chaney RN, Ruthann 08/18/23 14:25 LEYDI Chaney RN, Ruthann 08/18/23 14:31 Normal [facility] Main OR Preoperative Recordo n 08-18-2023 Main OR Preoperative Record Holding Area Document Type FTURO Summary Primary Physician: Rex BURGOS MD Finalized Date/Time: 08/18/23 13:18:30 Pt. Name: JEMAL ZEPEDA Byron Humphries/Sex: 1950 Male Med Rec #: [id number] Physician: Rex BURGOS MD Financial #: [id number] Pt. Type: O Room/Bed: / Admit/Disch: 08/18/23 13:09:43 - Institution: Case Times Holding FTURO Pre-Care Text: Verifies consent for planned procedure, identifies individual values and wishes concerning care, includes family members in perioperative teaching Secures patient's records' belongings, and valuables, maintains patient's dignity and privacy, and maintains patient confidentiality Entry 1 In Holding 08/18/23 13:16:00 Outcomes Met? Yes Last Modified By: LEYDI Chaney RN, Ruthann 08/18/23 13:16:38 Post-Care Text: The patient participates in decisions affecting his or her perioperative plan of care The patient's right to privacy is maintained Surgery Checklist FTURO Entry 1 Patient Birthday, ID Band Procedure History and Physical, Identification: Check, Patient Verification: Surgical Consent, With Participation Patient NPO after Midnight: n/a Personal Items: Glasses Personal Items clothes Limitations: none Comment: Complaints of Pain: No Skin Integrity Unable to Visualize Vitals - EU Blood Pressure 147/69 Pulse 61 bpm Respirations 14 br/min SPO2 97 % Additional None RN Reviewed Yes Specimens Collected Last Modified By: LEYDI Chaney RN, Ruthann 08/18/23 13:18:28 Finalized By: LEYDI Chaney RN, Ruthann Document Signatures Signed By: LEYDI Chaney RN, Ruthann 08/18/23 13:18 [facility] Operative Reporton Operative Report Patient: TORIE ZEPEDA Age: 73 years Sex: Male : 1950 Associated Diagnoses: None Author: Rex BURGOS MD Procedure Operative Information Details: Date/ Time: 08/18/2023 14:26:00. Pre-Op Dx: Bladder Mass - D41.4, BPH w/ LUTS - N40.1, Bladder diverticulum. Post-Op Dx: Same. Anesthesia Type: Local. Procedure: Local Cystoscopy. Complications: None. Risks/Benefits/Informed Consent: Surgical risks, benefits, details of the procedure have been explained to the patient, Full informed consent has been obtained. Intraoperative Information Prepped: Patient is brought back to the endoscopy suite, Patient is placed in supine position, Patient prepped in the usual fashion with Betadine solution, 2% Xylocaine Jelly is placed per Urethra, After waiting several minutes the Cystoscope is introduced. The Urethra is: He has at least 2 areas in the bulbous urethra with a stricture. I was able to negotiate the scope through these areas into the prostatic urethra.. The Prostatic Urethra is: Obstructed, Moderate Hypertrophy, 4 cm long gland with mainly lateral lobe hypertrophy and a moderately high riding bladder neck without a median lobe. The Bladder is: Abnormal, Trabeculated Moderate (2), There is about a 2 cm entry into a large right-sided posterior bladder diverticulum. Located within it anteriorly is a bladder neoplasm measuring about 2 to 3 cm across. There appears to be microcalcifications embedded onto the surface of this papillary lesion.. The ureteral orifices: Show efflux of clear urine. Devices Implanted: None. Removal: Cystoscope is removed, The patient tolerated it well. Postoperative Information Discharge: Patient is discharged home with antibiotic coverage, Follow up arranged, The patient will need resection of this tumor located within a bladder diverticulum. Please see the [facility] progress note. This carries high risk of bladder perforation due to its location within the bladder diverticulum.. Normal [facility] Comment on above: Result Comment: Elec tronically Signed By: Rex BURGOS MD\.br\Date and Time Signed: 08/18/23 14:31 EST Outpatient Surgery Discharge Instructionon 08-18-2023 Outpatient Surgery Discharge Instruction [address] [address] Patient Discharge Instructions PERSON INFORMATION Name: JEMAL ZEPEDA Date of : 1950 Current Date: 08/18/2023 14:26:12 PHYSICIANS Admitting Physician: Rex BURGOS MD Comment: Discharge Diagnosis: JEMAL ZEPEDA has been given the following list of follow-up instructions, prescriptions, and patient education materials: IF UNABLE TO CONTACT YOUR PHYSICIAN AND YOU FEEL IT IS AN EMERGENCY, GO TO THE NEAREST EMERGENCY ROOM OR CALL 911 Follow up: With: Address: When: Rex BURGOS [address] [place] [address] AVE, [address], [address] [address] Business (1) Comments: As we discussed 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 I will tentatively set you up for a scope and removal of that bladder tumor under anesthesia. The other option is to get another opinion at the [facility]. I may be speaking with one of my colleagues there and then getting back with you. Please finish your antibiotics today. Comment: PATIENT EDUCATION INFORMATION Instructions: Cystoscopy ? Voiding after the procedure: there may be some pain, burning, urgency, frequency and blood tinged urine following the procedure. These symptoms usually resolve within 2-5 days. Drink the amount of fluid it takes to keep the urine pink to yellow or clear in color. Drinking enough water and fluids will help to ease any discomfort after your procedure. ? If you are having problems that seem out of the ordinary, please call. ? If unable to contact your physician and you feel it is an emergency, go to the nearest emergency room or call 911 ? Diet ? you may resume your normal diet. ? Activity ? you may resume your normal activities ? Call if you have a fever over 100 degrees. I, JEMAL ZEPEDA, have received the attached patient education materials/instructions and have verbalized understanding: May we do a follow up call? Yes No I was present when discharge instructions were given Patient Signature _ Date Clinican/Nurse Signature Date You may receive a survey from Maribel Lazaro asking you to rate your care experience. Your feedback is important and will help us understand what we do well and how we can improve the quality of care we provide to you, your loved ones and our community. It?s an honor to serve you. Thank you for choosing [facility] Normal [facility] Progress Note-Physicianon Progress Note-Physician Patient: JEMAL ZEPEDA Age: 73 years Sex: Male : 1950 Associated Diagnoses: None Author: LAUREN DAMON, Rex Merrill Subjective ROS & PFSH Reviewed I have reviewed the ROS and PFSH from the procedural information filed today with no changes (or with the following changes).. Health Status Allergies: Allergic Reactions (Selected) Severity Not Documented Toprol-XL- No reactions were documented., Allergies (1) Active Reaction Toprol-XL None Documented Current medications: Home Medications (8) Active amLODIPine 10 mg Tab 10 mg = 1 tab(s), Oral, Daily carvedilol 12.5 mg Tab 6.25 mg = 0.5 tab(s), Oral, BID cholecalciferol 2000 intl units oral capsule citalopram 20 mg Tab citalopram 20 mg Tab 20 mg = 1 tab(s), Oral, Daily lisinopril 20 mg Tab 20 mg = 1 tab(s), Oral, Daily nystatin Top 100,000 units/g Crm 15 gram 1 chantal, Topical, BID Pantoprazole [address] Tab See Instructions Problem list: All Problems Aneurysm of ascending aorta / SNOMED CT 6628497773 / Confirmed Epididymitis / SNOMED CT 41879901 / Confirmed Outside Source Comment: Overview: Invalid Interpretation Code On Doxy, Cipro at OSH. Urine cx @ OSH showed E.coli, S = Cipro. [facility] Comment on above: Result Comment: Elec tronically Signed By: LAUREN DAMON, Rex Merrill\.br\Date and Time Signed: 08/18/23 14:34 EST [facility] 08-15-19 [facility] Case Information Case Priority: None Programs: -- Referral Source: Pest Control Service Sales Agent Referral Reason: Care coordination Case Type: Transition Care Management Risk Score: -- Case Status: Enrolled (July 16, 2023) Date Assigned: July 16, 2023 Assigned By: Jennifer Grossman RN Date Enrolled: July 16, 2023 Assigned Primary Personnel: Checo Conley Assigned Secondary Personnel: -- Case Physician: Elham Moon Problems Ongoing Acid reflux Aneurysm of ascending aorta Elevated PSA Emphysema, unspecified Epididymitis Essential hypertension Former smoker Low TSH level Moderate recurrent major depression Multiple nodules of lung Osteoarthritis of right knee joint Prostate enlargement Smoker Unexplained weight loss Historical No qualifying data Home Medications amLODIPine 10 mg Tab, 10 mg= 1 tab(s), Oral, Daily, 3 refills carvedilol 12.5 mg Tab, 6.25 mg= 0.5 tab(s), Oral, BID cholecalciferol 2000 intl units oral capsule citalopram 20 mg Tab citalopram 20 mg Tab, 20 mg= 1 tab(s), Oral, Daily lisinopril 20 mg Tab, 20 mg= 1 tab(s), Oral, Daily nystatin Top 100,000 units/g Crm 15 gram, 1 chantal, Topical, BID, 1 refills Pantoprazole [address] Tab, See Instructions Allergies Toprol-XL Social History Tobacco Former smoker, quit more than 30 days ago Tobacco Use:. Never Smokeless Tobacco Use:. Household tobacco concerns: No., 07/17/2023 Screenings and Assessments 07/16/23 09:37:00 Result Name Value Comment Phone Call Monitoring Consent Agreed to continue call Phone Verification Patient Information Full name, street address and date of verified CM Program Enrollment Provides verbal consent for enrollment Goals and Interventions Care Plan Progress Note TCM#5- Patient states he is 'doing really good.' Patient was cleared by Dr. Al for another year, unless issues arise. Patient denies any bowel issues or GI symptoms. Patient states he is avoiding spicy foods. Notes he is able to lay flat without indigestion and is sleepy well. Patient also notes that Dr. Mcfadden has cleared him for another year, unless issues arise. Patient is scheduled for follow up CBC, 08/18/23 at 1040. Patient is aware of final TCM program call. Patient denies any further issues or concerns. Communication Events Date: August 15, 2023 Method: Phone call Type: Outbound Duration (min): 4 Outcome: Case discussion Contact Type: clinical administrative coordinator Contact Name: Checo Conley Notes: TCM#5- Spoke with patient for tcm, see ft summary note. Created By: Checo Conley Date: August 14, 2023 Method: Phone call Type: Outbound Duration (min): 2 Outcome: Left message-person Contact Type: clinical administrative coordinator Contact Name: Checo Conley Notes: TCM#5- Spoke with spouse Tangela, states patient still sleeping, CN will call patient 08/15 for tcm follow up. Created By: Checo Conley Date: August 07, 2023 Method: Phone call Type: Outbound Duration (min): 1 Outcome: Left message-voicemail Contact Type: clinical administrative coordinator Contact Name: Checo Conley Notes: TCM#4- attempted to reach pt for tcm status update, no answer, left for return call. Created By: Checo Conley Date: July 31, 2023 Method: Phone call Type: Outbound Duration (min): 7 Outcome: Case discussion Contact Type: clinical administrative coordinator Contact Name: Checo Conley Notes: TCM#4- Spoke with patient for tcm,, see ft summary note. Created By: Checo Conley Date: July 22, 2023 Method: Phone call Type: Inbound Duration (min): 5 Outcome: Case discussion Contact Type: Patient Contact Name: JEMAL ZEPEDA Notes: TCM#2, see ft summary note. Created By: Checo Conley Date: July 22, 2023 Method: Phone call Type: Outbound Duration (min): 2 Outcome: Left message-person Contact Type: Spouse Contact Name: Naa Notes: TCM#2- message left with spouse, Naa, for return call. Created By: Checo Conley Date: July 16, 2023 Method: Phone call Type: Outbound Duration (min): 14 Outcome: Case discussion Contact Type: clinical administrative coordinator Contact Name: Jennifer Grossman RN Notes: TCM #1, see FT summary note. Created By: Jennifer Grossman RN [facility] Consultation Noteon 08-14-19 Consultation Note [id number] [facility] Consultation Note [id number] [facility] Population Healthon 07-31-19 [facility] Case Information Case Priority: None Programs: -- Referral Source: Pest Control Service Sales Agent Referral Reason: Care coordination Case Type: Transition Care Management Risk Score: -- Case Status: Enrolled (July 16, 2023) Date Assigned: July 16, 2023 Assigned By: Jennifer Grossman RN Date Enrolled: July 16, 2023 Assigned Primary Personnel: Checo Conley Assigned Secondary Personnel: -- Case Physician: Elham Moon Problems Ongoing Acid reflux Aneurysm of ascending aorta Elevated PSA Emphysema, unspecified Epididymitis Essential hypertension Former smoker Low TSH level Moderate recurrent major depression Multiple nodules of lung Osteoarthritis of right knee joint Prostate enlargement Smoker Unexplained weight loss Historical No qualifying data Home Medications amLODIPine 10 mg Tab, 10 mg= 1 tab(s), Oral, Daily, 3 refills carvedilol 12.5 mg Tab, 6.25 mg= 0.5 tab(s), Oral, BID cholecalciferol 2000 intl units oral capsule citalopram 20 mg Tab lisinopril 20 mg Tab, 20 mg= 1 tab(s), Oral, Daily nystatin Top 100,000 units/g Crm 15 gram, 1 chantal, Topical, BID, 1 refills Pantoprazole [address] Giovani, See Instructions Allergies Toprol-XL Social History Tobacco Former smoker, quit more than 30 days ago Tobacco Use:. Never Smokeless Tobacco Use:. Household tobacco concerns: No., 07/17/2023 Screenings and Assessments 07/16/23 09:37:00 Result Name Value Comment Phone Call Monitoring Consent Agreed to continue call Phone Verification Patient Information Full name, street address and date of verified CM Program Enrollment Provides verbal consent for enrollment Goals and Interventions Care Plan Progress Note TCM#3- Spoke with patient states he is doing really good. Notes he is still a bit sluggish at times. Notes he continues to wake up 1-2 nights a week soaking wet, denies any other associated symptoms (PCP is investigating this.) Patient states he is eating and drinking good. Patient denies any bowel issues. Patient denies any visible blood in stool. States he has had zero indigestion. Denies urinary system issues. Patient is requesting refills on citalopram (proposal to PCP.) Recent CBC results discussed, will inquire with PCP when to repeat? Patient denies any further questions or concerns. Communication Events Date: July 31, 2023 Method: Phone call Type: Outbound Duration (min): 7 Outcome: Case discussion Contact Type: Patient Contact Name: JEMAL ZEPEDA Notes: FRANCHESCA#4- Spoke with patient for tcm,, see ft summary note. Created By: Checo Conley Date: July 22, 2023 Method: Phone call Type: Inbound Duration (min): 5 Outcome: Case discussion Contact Type: Patient Contact Name: JEMAL ZEPEDA Notes: FRANCHESCA#2, see ft summary note. Created By: Checo Conley Date: July 22, 2023 Method: Phone call Type: Outbound Duration (min): 2 Outcome: Left message-person Contact Type: Spouse Contact Name: Naa Notes: FRANCHESCA#2- message left with spouse, Naa, for return call. Created By: Checo Conley Date: July 16, 2023 Method: Phone call Type: Outbound Duration (min): 14 Outcome: Case discussion Contact Type: clinical administrative coordinator Contact Name: Jennifer Grossman RN Notes: FRANCHESCA #1, see FT summary note. Created By: Jennifer Grossman RN Normal [facility] Auto Diffon 07-23-2023 Basophils/100 WBC (Bld) 1.1 % Normal 0.0-2.0 [facility] Comment on above: Order Comment: Order Added by Discern Expert. Performed By: #### 2 [id number], [id number] ####[address] [address] Basophils/Leukocytes Auto (Bld) [Pure # fraction] 0.1 E9/L Normal 0.0-0.2 [facility] Comment on above: Order Comment: Order Added by Discern Expert. Performed By: #### 2 [id number], [id number] ####[address] [address] Eosinophils/100 WBC (Bld) 3.4 % Normal 0.0-8.0 [facility] Comment on above: Order Comment: Order Added by Berry Expert. Performed By: #### 2 [id number], [id number] ####[address] [address] Eosinophils/Leukocytes Auto (Bld) [Pure # fraction] 0.3 E9/L Normal 0.0-0.5 [facility] Comment on above: Order Comment: Order Added by Discern Expert. Performed By: #### 2 [id number], [id number] ####[address] [address] Lymphocytes/100 WBC (Bld) 11.9 % Low 14.0-50.0 [facility] Comment on above: Order Comment: Order Added by Discern Expert. Performed By: #### 2 238034, [id number] ####[address] [address] Lymphocytes/Leukocytes Auto (Bld) [Pure # fraction] 1.1 E9/L Normal 1.0-4.0 [facility] Comment on above: Order Comment: Order Added by Berry Expert. Performed By: #### 2 293108, [id number] ####[address] [address] Monocytes/100 WBC (Bld) 9.8 % Normal 4.0-14.0 [facility] Comment on above: Order Comment: Order Added by Discern Expert. Performed By: #### 2 769724, 0873960 ####[address] [address] Monocytes/Leukocytes Auto (Bld) [Pure # fraction] 0.9 E9/L Normal 0.2-1.0 [facility] Comment on above: Order Comment: Order Added by Discern Expert. Performed By: #### 2 558144, [id number] ####[address] [address] Neutrophils/100 WBC (Bld) 73.8 % Normal 36.0-75.0 [facility] Comment on above: Order Comment: Order Added by Discern Expert. Performed By: #### 2 756018, 6483299 ####[address] [address] Neutrophils/Leukocytes Auto (Bld) [Pure # fraction] 6.6 E9/L Normal 2.0-7.5 [facility] Comment on above: Order Comment: Order Added by Discern Expert. Performed By: #### 2 100240, [id number] ####[address] [address] CBC w/ Auto Diffon 4 Erythrocyte distribution width (RBC) [Ratio] 18.2 % High 10.9-14.2 [facility] Comment on above: Performed By: #### 2 830141, [id number] ####[address] [address] Hematocrit (Bld) [Volume fraction] 30.6 % Low 37.7-49.0 [facility] Comment on above: Performed By: #### 2 659225, 9464530 ####[address] [address] Hemoglobin (Bld) [Mass/Vol] 9.9 g/dL Low 13.5-17.5 [facility] Comment on above: Performed By: #### 2 392076, 9690275 ####[address] [address] MCH (RBC) [Entitic mass] 27.2 pg Normal 27.0-34.0 [facility] Comment on above: Performed By: #### 2 411984, [id number] ####[address] [address] MCHC (RBC) [Mass/Vol] 32.5 g/dL Normal 31.4-36.0 [facility] Comment on above: Performed By: #### 2 721512, 2332657 ####[place] [address] MCV (RBC) [Entitic vol] 83.9 fL Normal 80.0-100.0 [facility] Comment on above: Performed By: #### 2 302968, 0840535 ####[place] [address] Platelet mean volume (Bld) [Entitic vol] 7.3 fL Normal 6.4-10.8 [facility] Comment on above: Performed By: #### 2 635844, 8224929 ####[address] [address] Platelets (Bld) [#/Vol] 432.0 E9/L Normal 150.0-500. 0 [facility] Comment on above: Performed By: #### 2 128273, 7579049 ####[address] [address] RBC (Bld) [#/Vol] 3.6 E12/L Low 4.3-5.9 [facility] Comment on above: Performed By: #### 2 241526, 2877531 ####[address] [address] WBC corrected for nucl RBC Auto (Bld) [#/Vol] 8.9 E9/L Normal 4.0-11.0 [facility] Comment on above: Performed By: #### 2 394252, [id number] ####[place] [facility] [address] [place] [address] HEMATOLOGYOrdered By: SYSTEM SYSTEM on 07-23-2023 Basophils/100 WBC (Bld) 1.1 % Normal 0.0 - 2.0 % [facility] Basophils/Leukocytes Auto (Bld) [Pure # fraction] 0.1 E9/L Normal 0.0 - 0.2 E9/L [facility] Eosinophils/100 WBC (Bld) 3.4 % Normal 0.0 - 8.0 % [facility] Eosinophils/Leukocytes Auto (Bld) [Pure # fraction] 0.3 E9/L Normal 0.0 - 0.5 E9/L [facility] Lymphocytes/100 WBC (Bld) 11.9 % Low 14.0 - 50.0 % [facility] Lymphocytes/Leukocytes Auto (Bld) [Pure # fraction] 1.1 E9/L Normal 1.0 - 4.0 E9/L [facility] Monocytes/100 WBC (Bld) 9.8 % Normal 4.0 - 14.0 % [facility] Monocytes/Leukocytes Auto (Bld) [Pure # fraction] 0.9 E9/L Normal 0.2 - 1.0 E9/L [facility] Neutrophils/100 WBC (Bld) 73.8 % Normal 36.0 - 75.0 % [facility] Neutrophils/Leukocytes Auto (Bld) [Pure # fraction] 6.6 E9/L Normal 2.0 - 7.5 E9/L [facility] HEMATOLOGYOrdered By: Yasmine Osborne on 07-23-2023 Erythrocyte distribution width (RBC) [Ratio] 18.2 % High 10.9 - 14.2 % [facility] Hematocrit (Bld) [Volume fraction] 30.6 % Low 37.7 - 49.0 % [facility] Hemoglobin (Bld) [Mass/Vol] 9.9 g/dL Low 13.5 - 17.5 gm/dL [facility] MCH (RBC) [Entitic mass] 27.2 pg Normal 27.0 - 34.0 pg [facility] MCHC (RBC) [Mass/Vol] 32.5 g/dL Normal 31.4 - 36.0 gm/dL [facility] MCV (RBC) [Entitic vol] 83.9 fL Normal 80.0 - 100.0 fL [facility] Platelet mean volume (Bld) [Entitic vol] 7.3 fL Normal 6.4 - 10.8 fL [facility] Platelets (Bld) [#/Vol] 432.0 E9/L Normal 150.0 - 500.0 E9/L [facility] RBC (Bld) [#/Vol] 3.6 E12/L Low 4.3 - 5.9 E12/L [facility] WBC corrected for nucl RBC Auto (Bld) [#/Vol] 8.9 E9/L Normal 4.0 - 11.0 E9/L [facility] 07-22-19 [facility] Case Information Case Priority: None Programs: -- Referral Source: Pest Control Service Sales Agent Referral Reason: Care coordination Case Type: Transition Care Management Risk Score: -- Case Status: Enrolled (July 16, 2023) Date Assigned: July 16, 2023 Assigned By: Jennifer Grossman RN Date Enrolled: July 16, 2023 Assigned Primary Personnel: Checo Conley Assigned Secondary Personnel: -- Case Physician: Elham Moon Problems Ongoing Acid reflux Aneurysm of ascending aorta Elevated PSA Emphysema, unspecified Epididymitis Essential hypertension Former smoker Low TSH level Moderate recurrent major depression Multiple nodules of lung Osteoarthritis of right knee joint Prostate enlargement Smoker Unexplained weight loss Historical No qualifying data Home Medications amLODIPine 10 mg Tab, 10 mg= 1 tab(s), Oral, Daily, 3 refills carvedilol 12.5 mg Tab, 6.25 mg= 0.5 tab(s), Oral, BID cholecalciferol 2000 intl units oral capsule citalopram 20 mg Tab lisinopril 20 mg Tab, 20 mg= 1 tab(s), Oral, Daily nystatin Top 100,000 units/g Crm 15 gram, 1 chantal, Topical, BID, 1 refills Pantoprazole [address] Tab, See Instructions Allergies Toprol-XL Social History Tobacco Former smoker, quit more than 30 days ago Tobacco Use:. Never Smokeless Tobacco Use:. Household tobacco concerns: No., 07/17/2023 Screenings and Assessments 07/16/23 09:37:00 Result Name Value Comment Phone Call Monitoring Consent Agreed to continue call Phone Verification Patient Information Full name, street address and date of verified CM Program Enrollment Provides verbal consent for enrollment Goals and Interventions Care Plan Progress Note TCM#2- spoke with patient, states he is doing very well. Notes GERD symptoms have resolved. He sleeps comfortably in his bed, usually on his side, without symptoms. Patient is eating and drinking well. No bowel or urinary system issues noted. Patient has not had f/u CBC completed at this time, appointment made for 07/23/23 at 0920 for CBC per hospital d/c instructions. Patient denies any further questions or concerns. Communication Events Date: July 22, 2023 Method: Phone call Type: Inbound Duration (min): 5 Outcome: Case discussion Contact Type: Patient Contact Name: JEMAL ZEPEDA Notes: TCM#2, see ft summary note. Created By: Checo Conley Date: July 22, 2023 Method: Phone call Type: Outbound Duration (min): 2 Outcome: Left message-person Contact Type: Spouse Contact Name: Naa Notes: TCM#2- message left with spouse, Naa, for return call. Created By: Checo Conley Date: July 16, 2023 Method: Phone call Type: Outbound Duration (min): 14 Outcome: Case discussion Contact Type: clinical administrative coordinator Contact Name: Jennifer Grossman RN Notes: TCM #1, see FT summary note. Created By: Jennifer Grossman RN [facility] Ambulatory Visit Summaryon 1 09-17-2022 Ambulatory Visit Summary JEMAL ZEPEDA :1950 Visit Date:07/17/2023 Ambulatory Visit Instructions Your Diagnosis BMI 26.0-26.9,adult Former smoker Bleeding ulcer Your Care Team Attending Physician - Elham Moon Primary Care Physician - Elham Moon This Is Your Medications List amlodipine (amLODIPine 10 mg Tab) carvedilol (carvedilol 12.5 mg Tab) cholecalciferol (cholecalciferol 2000 intl units oral capsule) citalopram (citalopram 20 mg Tab) lisinopril (lisinopril 20 mg Tab) nystatin topical (nystatin Top 100,000 units/g Crm 15 gram) pantoprazole (Pantoprazole [address] Tab) Discharge Vitals Heart Rate (Peripheral) 86 Respiratory Rate 18 Blood Pressure 136/74 Height 176.5 cm Height 69 in Weight 81.8 kg Weight 179.96 lb BMI 26.26 What to do next Scheduled Follow-Up Appointments Friday 10:00 AM EST With: ALLIE DAMON, Martha Ibanez Where: [facility] Family Medicine Office/Clini c Noteon 07-17-2023 Family Medicine Office/Clinic Note HPI Staff Jemal is a 73 year old male presenting for hospital follow up Hospital: [facility] Admission date: 07/11/23 Discharge date: 07/15/23 Symptoms the patient presented with: tarry stools, found to have peptic ulcer, GI bleed New medication: Pantoprazole Current concerns: pt states he was suppose to have a paper from printed circuit boards stripper etcher on food he could eat and foods he should avoid but he was never given that. pt states has appointment with urology, pulmonology and has US set up for thyroid flu: UTD History of Present Illness pt presents today for TCM follow up. pt was hospitalized for GI ulcer bleed Review of Systems PHQ Score Initial Depression Screen Score: 0 SCORE ROS - Provider Constitutional: no fever, no chills, no sweats, no fatigue Respiratory: no shortness of breath, no cough, no orthopnea, no wheezing. Cardiovascular: no chest pain, no palpitations, no edema. Neurologic: no headache, no dizziness, no numbness, no weakness. Physical Exam Vitals & Measurements HR: 86(Peripheral) RR: 18 BP: 136/74 SpO2: 98% HT: 69 in HT: 176.5 cm WT: 81.8 kg WT: 179.96 lb BMI: 26.26 General: alert, no acute distress ENMT: oral mucosa moist, no pharyngeal erythema or exudate Cardiovascular: regular rate and rhythm, normal peripheral perfusion Respiratory: Lungs CTA, respirations non labored Extremities: no deformity, no trauma Neurological: oriented x 4, LOC appropriate for age, CN II-XII intact, motor strength equal & normal bilaterally, speech normal Assessment/Plan 1. Bleeding ulcer (K28.4: Chronic or unspecified gastrojejunal ulcer with hemorrhage) pt presents today for TCM follow up. all hospital notes reviewed. pt denies need for refills. has follow up appointments with urology, pulmonology and GI. pt is feeling much better. appetite is back and he has more energy. all questions answered. RTC as needed Ordered: TCM Trans care mgmt 7 day disch [id number] 2. BMI 26.0-26.9,adult (Z68.26: Body mass index [BMI] 26.0-26.9, adult) BMI education completer 3. Former smoker (Z87.891: Personal history of nicotine dependence) continue not smoking Follow-up No qualifying data available Problem List/Past Medical History Ongoing Acid reflux Aneurysm of ascending aorta Elevated PSA Emphysema, unspecified Epididymitis Essential hypertension Former smoker Low TSH level Moderate recurrent major depression Multiple nodules of lung Osteoarthritis of right knee joint Prostate enlargement Smoker Unexplained weight loss Historical No qualifying data Medications amLODIPine 10 mg Tab, 10 mg= 1 tab(s), Oral, Daily, 3 refills carvedilol 12.5 mg Tab, 6.25 mg= 0.5 tab(s), Oral, BID cholecalciferol 2000 intl units oral capsule citalopram 20 mg Tab lisinopril 20 mg Tab, 20 mg= 1 tab(s), Oral, Daily nystatin Top 100,000 units/g Crm 15 gram, 1 chantal, Topical, BID, 1 refills Pantoprazole [address] Tab, See Instructions Allergies Toprol-XL Social History Tobacco Former smoker, quit more than 30 days ago Tobacco Use:. Never Smokeless Tobacco Use:. Household tobacco concerns: No., 07/17/2023 Immunizations Vaccine Date Status Comments influenza virus vaccine, inactivated - Not Given Patient Refuses [facility] Comment on above: Result Comment: Elec tronically Signed By: Elham Moon\.vickey\Date and Time Signed: 07/17/23 15:23 EST Lab Reportson 07-17-2023 Lab Reports [id number] [facility] RAD - CT Reporton 07-17-2023 RAD - CT Report [id number]#[id number] [facility] Case Information Case Priority: None Programs: -- Referral Source: Pest Control Service Sales Agent Referral Reason: Care coordination Case Type: Transition Care Management Risk Score: -- Case Status: Enrolled (July 16, 2023) Date Assigned: July 16, 2023 Assigned By: Jennifer Grossman RN Date Enrolled: July 16, 2023 Assigned Primary Personnel: Checo Conley Assigned Secondary Personnel: Jennifer Grossman RN Case Physician: Elham Moon Problems Ongoing Acid reflux Aneurysm of ascending aorta Elevated PSA Emphysema, unspecified Epididymitis Essential hypertension Former smoker Low TSH level Moderate recurrent major depression Multiple nodules of lung Osteoarthritis of right knee joint Prostate enlargement Smoker Unexplained weight loss Historical No qualifying data Home Medications amLODIPine 10 mg Tab, 10 mg= 1 tab(s), Oral, Daily, 3 refills carvedilol 12.5 mg Tab, 6.25 mg= 0.5 tab(s), Oral, BID cholecalciferol 2000 intl units oral capsule citalopram 20 mg Tab lisinopril 20 mg Tab, 20 mg= 1 tab(s), Oral, Daily nystatin Top 100,000 units/g Crm 15 gram, 1 chantal, Topical, BID, 1 refills Allergies Toprol-XL Social History Tobacco Former smoker, quit more than 30 days ago Tobacco Use:. Never Smokeless Tobacco Use:. Household tobacco concerns: No., 07/09/2023 Screenings and Assessments 07/16/23 09:37:00 Result Name Value Comment Phone Call Monitoring Consent Agreed to continue call Phone Verification Patient Information Full name, street address and date of verified CM Program Enrollment Provides verbal consent for enrollment Goals and Interventions Care Plan Progress Note Admit Date: 07/11/23 [facility] Date of Discharge: 07/15/23 Follow-up appointment scheduled? yes, 07/17/23 at 1420 with Saundra Damico Did you understand your discharge instructions? yes Are you able to follow them? yes Did you receive new medications? yes, Protonix 40 mg BID, decrease Coreg 6.25 mg BID and decrease Lisinopril 20 mg daily Have you filled the Rx's? yes Are you taking them as prescribed? picking up today Are you having difficulty eating or swallowing your pills? no Are you having any stomach upset, diarrhea or constipation? yes constipation and vomited this morning How are you sleeping? okay Are you having any pain? no Do you have everything you need at home to care for yourself? yes Do you have Home Health? no Called patient for Transitional Care Management following hospitalization [place] [facility] for anemia, GI bleed from gastric ulcer and weakness. 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 Reviewed discharge instructions and medications reconciled with patient, discharge summary and EHR. Reviewed purpose and side effects of new medications with verbalized understanding from patient, and daughter who is nurse. Patient complains of headache, constipation and vomited bile this morning. Patient took Tylenol for headache and was advised to try OTC stool softener, prune juice and increase in fluids for constipation. Patient states he received IV Iron and feels that has caused constipation. Patient BP this morning 113/62. Patient supposed to have repeat CBC in 1 week, schedule follow-up with Dr. Burgos, phone number given to and has follow-up with Dr. Brown 08/06/23. Patient states [facility] office called today to schedule and he will call them back, states he is planning to put thyroid issues on hold at this time. Patient scheduled for 07/17/23 at 1420 with exra time. TCM services explained and direct phone number given. Communication Events Date: July 16, 2023 Method: Phone call Type: Outbound Duration (min): 14 Outcome: Case discussion Contact Type: clinical administrative coordinator Contact Name: Jennifer Grossman RN Notes: TCM #1, see FT summary note. Created By: Jennifer Grossman RN [facility] ED Note-Physicianon 07-15-20 ED Note-Physician [id number]#[id number] Normal [facility] Hematocrit Auto (Bld) [Volum e fraction]Ordered By: Tia Hernandes on 07-15-2023 Hematocrit (Bld) [Volume fraction] 22.4 % 38.8-50.0 [facility] Hemoglobin [Mass/volume] in BloodOrdered By: Tia Hernandes on 07-15-2023 Hemoglobin (Bld) [Mass/Vol] 7.5 g/dL 13.0-17.0 [facility] Hemoglobin and Hematocriton 07-15-2023 Hematocrit (Bld) [Volume fraction] 22.4 % Low 38.8-50.0 [facility] Comment on above: Result Comment: PERF ORMED BY: [place] [address] PATHOLOGIST CASEWORK SPECIALIST IZA THURMAN M.D. Performed By: #### C BC, BMP #### [address] Hemoglobin (Bld) [Mass/Vol] 7.5 g/dL Low 13.0-17.0 [facility] Comment on above: Performed By: #### C BC, BMP #### [address] Hematocrit (Bld) [Volume fraction] 22.2 % Low 38.8-50.0 [facility] Comment on above: Result Comment: PERF ORMED BY: [place] [address] PATHOLOGIST CASEWORK SPECIALIST IZA THURMAN M.D. Performed By: #### C BC, BMP #### [facility] [address] [place] [address] Hemoglobin (Bld) [Mass/Vol] 7.5 g/dL Low 13.0-17.0 [facility] Comment on above: Performed By: #### C BC, BMP #### [place] [address] [place] LeukoReduced RBCon 3 LeukoReduced RBC TRANSFUSED 07/15/23 1325 Normal [facility] Operative Reporton 3 Operative Report [id number] Normal [facility] Outside Hospital Correspo ndenceon 07-15-2023 Outside [facility] Correspondence [id number]#[id number] Normal [facility] Type and Screenon 07-15-2023 ABO and Rh group Nom (Bld) Blood group O Rh(D) positive Normal [facility] Comment on above: Order Comment: NEEDS NEW TS Result Comment: PERF ORMED BY: [place] [address] PATHOLOGIST CASEWORK SPECIALIST IZA THURMAN M.D. Automated basophil %Ordered By: Yuri Lucero on 07-14-2023 Basophils/100 WBC (Bld) 0.8 % Normal . [facility] Comment on above: Performed By: #### V [id number], CBC #### [facility] [address] [place] [address] Automated basophil countOrde red By: Yuri Lucero on 07-14-2023 Basophils (Bld) [#/Vol] 0.0 10*3/uL Normal 0.0-0.2 [facility] Comment on above: Result Comment: PERF ORMED BY: [place] [address] PATHOLOGIST CASEWORK SPECIALIST IZA THURMAN M.D. Performed By: #### V [id number], CBC #### [address] Automated blood monocyte cou ntOrdered By: Yuri Lucero on 07-14-2023 Monocytes (Bld) [#/Vol] 0.4 10*3/uL Normal 0.0-0.8 [facility] Comment on above: Performed By: #### V [id number], CBC #### [facility] [address] [place] [address] Automated eosinophil %Ordere d By: Yuri Lucero on 07-14-2023 Eosinophils/100 WBC (Bld) 5.2 % Normal . [facility] Comment on above: Performed By: #### V [id number], CBC #### [address] Automated eosinophil countOr dered By: Yuri Lucero on 07-14-2023 Eosinophils (Bld) [#/Vol] 0.3 10*3/uL Normal 0.0-0.45 [facility] Comment on above: Performed By: #### V [id number], CBC #### [address] Automated erythrocytes count in urine sediment (number/area)Ordered By: Yuri Lucero on 07-14-2023 RBC Auto (Urine sed) [#/Area] 1-2 [HPF] 0-4 [facility] Automated leukocytes count i n urine sediment (number/area)Ordered By: Yuri Lucero on 07-14-2023 WBC Auto (Urine sed) [#/Area] 5-9 [HPF] 0-4 [facility] [facility] monocyte %Ordered By: Yuri Lucero on 07-14-2023 Monocytes/100 WBC (Bld) 8.7 % Normal . [facility] Comment on above: Performed By: #### V [id number], CBC #### [address] Automated neutrophil %Ordere d By: Yuri Lucero on 07-14-2023 Neutrophils/100 WBC (Bld) 72.6 % Normal . [facility] Comment on above: Performed By: #### V [id number], CBC #### [address] Bilirubin Test strip Ql (U)O rdered By: Yuri Lucero on 07-14-2023 Bilirubin Ql (U) Negative Negative [facility] Color Auto (U)Ordered By: Miriam Lucero on 07-14-2023 Color (U) Yellow Yellow [facility] Complete Blood Count Auto Di ffon 07-14-2023 Hematocrit (Bld) [Volume fraction] 28.0 % Low 38.8-50.0 [facility] Comment on above: Performed By: #### V [id number], CBC #### [address] Hemoglobin (Bld) [Mass/Vol] 9.4 g/dL Low 13.0-17.0 [facility] Comment on above: Performed By: #### V [id number], CBC #### [address] Mean Corpuscular HGB Conc 33.8 g/dL Normal 32.5-35.6 [facility] Comment on above: Performed By: #### V [id number], CBC #### [facility] [address] [place] [address] [place] NRBC% 0.1 /100{WBC} Normal 0-0.5 [facility] Comment on above: Performed By: #### V [id number], CBC #### [facility] [address] [place] [address] [place] Dipstick and Microscopicon 1 09-14-2022 Appearance (U) Cloudy Critically abnormal Clear [facility] Comment on above: Order Comment: Name Collection Type:: Clean-Voided Midstream Performed By: #### C BC, BMP #### [facility] [address] [place] [address] Bacteria,Urine None Seen Normal None Seen [facility] Comment on above: Order Comment: Name Collection Type:: Clean-Voided Midstream Performed By: #### C BC, BMP #### [facility] [address] [place] [address] Bilirubin,Urine Negative Normal Negative [facility] Comment on above: Order Comment: Name Collection Type:: Clean-Voided Midstream Performed By: #### C BC, BMP #### [facility] [address] [place] [address] [place] Color (U) Yellow Normal Yellow [facility] Comment on above: Order Comment: Name Collection Type:: Clean-Voided Midstream Performed By: #### C BC, BMP #### [facility] [address] [place] [address] [place] Glucose Ql (U) Normal Normal Normal [facility] Comment on above: Order Comment: Name Collection Type:: Clean-Voided Midstream Performed By: #### C BC, BMP #### [facility] [address] [place] [address] [place] Hyaline Casts,Urine 0-8 Normal 0-8 [facility] Comment on above: Order Comment: Name Collection Type:: Clean-Voided Midstream Performed By: #### C BC, BMP #### [facility] [address] [place] [address] [place] Ketones Ql (U) Negative Normal Negative [facility] Comment on above: Order Comment: Name Collection Type:: Clean-Voided Midstream Performed By: #### C BC, BMP #### [address] Leukocyte esterase Test strip Ql (U) 2+ High Negative [facility] Comment on above: Order Comment: Name Collection Type:: Clean-Voided Midstream Performed By: #### C BC, BMP #### [place] [address] [place] Nitrite,Urine Negative Normal Negative [facility] Comment on above: Order Comment: Name Collection Type:: Clean-Voided Midstream Performed By: #### C BC, BMP #### [place] [address] [place] Occult Blood,Urine Trace High Negative [facility] Comment on above: Order Comment: Name Collection Type:: Clean-Voided Midstream Result Comment: PERF ORMED BY: [place] [address] PATHOLOGIST CASEWORK SPECIALIST IZA THURMAN M.D. Performed By: #### C BC, BMP #### [place] [address] [place] pH (U) 5.5 [pH] Normal 5.0-9.0 [facility] Comment on above: Order Comment: Name Collection Type:: Clean-Voided Midstream Performed By: #### C BC, BMP #### [place] [address] [place] Protein,Urine Trace High Negative [facility] Comment on above: Order Comment: Name Collection Type:: Clean-Voided Midstream Performed By: #### C BC, BMP #### [place] [address] [place] RBC,Urine 1-2 Normal 0-4 [facility] Comment on above: Order Comment: Name Collection Type:: Clean-Voided Midstream Performed By: #### C BC, BMP #### [address] Specificy [place],Urine 1.023 Normal 1.001-1.03 0 [facility] Comment on above: Order Comment: Name Collection Type:: Clean-Voided Midstream Performed By: #### C BC, BMP #### [address] Squamous Epithelial Cell,Urine 0-1 Normal 0-2 [facility] Comment on above: Order Comment: Name Collection Type:: Clean-Voided Midstream Performed By: #### C BC, BMP #### [address] Urobilinogen,Urine Normal Normal Normal [facility] Comment on above: Order Comment: Name Collection Type:: Clean-Voided Midstream Performed By: #### C BC, BMP #### [address] WBC,Urine 5-9 High 0-4 [facility] Comment on above: Order Comment: Name Collection Type:: Clean-Voided Midstream Performed By: #### C BC, BMP #### [address] Yeast,Urine None Seen Normal None Seen [facility] Comment on above: Order Comment: Name Collection Type:: Clean-Voided Midstream Result Comment: PERF ORMED BY: [place] [address] PATHOLOGIST CASEWORK SPECIALIST IZA THURMAN M.D. Performed By: #### C BC, BMP #### [address] Erythrocyte distribution wid th [Ratio] by Automated countOrdered By: Yuri Lucero on 07-14-2023 Erythrocyte distribution width (RBC) [Ratio] 16.4 % High 12.0-14.8 [facility] Comment on above: Performed By: #### V [id number], CBC #### [address] Erythrocytes [#/volume] in B lood by Automated countOrdered By: Yuri Lucero on 07-14-2023 RBC (Bld) [#/Vol] 3.46 10*6/uL Low 3.90-5.60 [facility] Comment on above: Performed By: #### V [id number], CBC #### [facility] [address] [place] [address] Folate [Mass/volume] in Seru m or PlasmaOrdered By: Yuri Lucero on 07-14-2023 Folate [Mass/Vol] 10.6 ng/mL >5.9 [facility] Comment on above: Folate reference ran ge: >5.9 ng/mlThe WHO technical consultation on folate and vitamin [id number] has determined that folate concentrations lessthan 4 ng/ml are considered deficient. Hemoglobin and Hematocriton 07-14-2023 Hematocrit (Bld) [Volume fraction] 23.7 % Low 38.8-50.0 [facility] Comment on above: Result Comment: PERF ORMED BY: [place] [address] PATHOLOGIST CASEWORK SPECIALIST IZA THURMAN M.D. Performed By: #### C SHYAM, BMP #### [address] Hemoglobin (Bld) [Mass/Vol] 8.0 g/dL Low 13.0-17.0 [facility] Comment on above: Performed By: #### C SHYAM, BMP #### [address] Ketones Auto test strip (U) [Mass/Vol]Ordered By: Yuri Lucero on 07-14-2023 Ketones (U) [Mass/Vol] Negative Negative [facility] - UrinalysisOrder ed By: Yuri Lucero on 07-14-2023 Hyaline casts LM Ql (Urine sed) 0-8 [LPF] 0-8 [facility] Leukocytes [#/volume] correc christina for nucleated erythrocytes in Blood by Automated counOrdered By: Yuri Lucero on 07-14-2023 WBC corrected for nucl RBC Auto (Bld) [#/Vol] 5.1 10*3/uL 4.1-10.5 [facility] Leukocytes [#/volume] in Blo od by Automated countOrdered By: Yuri Lucero on 07-14-2023 WBC (Bld) [#/Vol] 5.1 10*3/uL Normal 4.1-10.5 [facility] Comment on above: Performed By: #### V [id number], CBC #### [facility] [address] Lymphocytes [#/volume] in Bl ood by Automated countOrdered By: Yuri Lucero on 07-14-2023 Lymphocytes (Bld) [#/Vol] 0.6 10*3/uL Low 1.00-4.8 [facility] Comment on above: Performed By: #### V [id number], CBC #### [facility] [address] [place] [address] Lymphocytes/100 leukocytes i n Blood by Automated countOrdered By: Yuri Lucero on 07-14-2023 Lymphocytes/100 WBC (Bld) 12.7 % Normal . [facility] Comment on above: Performed By: #### V [id number], CBC #### [facility] [address] [place] [address] MCH [Entitic mass] by Automa christina countOrdered By: Yuri Lucero on 07-14-2023 MCH (RBC) [Entitic mass] 27.3 pg Low 27.5-35.2 [facility] Comment on above: Performed By: #### V [id number], CBC #### [facility] [address] [place] [address] MCHC Auto (RBC) [Mass/Vol]Or dered By: Yuri Lucero on 07-14-2023 MCHC (RBC) [Mass/Vol] 33.8 g/dL 32.5-35.6 [facility] MCV [Entitic volume] by Auto mated countOrdered By: Yuri Lucero on 07-14-2023 MCV (RBC) [Entitic vol] 80.9 fL Low 83.5-101 [facility] Comment on above: Performed By: #### V [id number], CBC #### [address] Neutrophils [#/volume] in Bl ood by Automated countOrdered By: Yuri Lucero on 07-14-2023 Neutrophils (Bld) [#/Vol] 3.7 10*3/uL Normal 1.8-7.7 [facility] Comment on above: Performed By: #### V [id number], CBC #### [facility] [address] Nitrite Test strip Ql (U)Ord ered By: Yuri Lucero on 07-14-2023 Nitrite Ql (U) Negative Negative [facility] Nucleated erythrocytes [Pres ence] in Blood by Automated countOrdered By: Yuri Lucero on 07-14-2023 Nucleated RBC Auto Ql (Bld) 0.1 /100{WBC} 0-0.5 [facility] PSA Diagnostic (Total Free)o n 07-14-2023 Prostate Spec Ag, Free 0.600 ng/mL Normal [facility] Comment on above: Performed By: #### C BC, BMP #### [address] PSA Total (Not a Screen) 4.570 ng/mL High 0.000-4.00 0 [facility] Comment on above: Result Comment: Seri al tumor marker results determined by assays using different manufacturers or methods may not be comparable. [facility] algorithm developer and method: Ease [employer] DXI, CHEMILUMINESCENT IMMUNOASSAY. Performed By: #### C BC, BMP #### [address] PSA,FREE% 13.1 % Normal [facility] Comment on above: Result Comment: Base d on the work of Maddie louie al.ARMAAN. 279(19):1542:47.1998 the percent free PSA may be used to determine the relative risk of prostate cancer in individual men.The percent probability of prostate cancer by patient age for men with non-suspicious NANCI results and total PSa between 4 and 10 ng/ml is as follows: % Free PSA 50 - 64 yrs. 65 - 75 yrs. 0 - 10 56% 55% 10 - 15 24% 35% 15 - 20 17% 23% 20 - 25 10% 20% >25 5% 9% PERFORMED BY: [place] [address] PATHOLOGIST CASEWORK SPECIALIST IZA THURMAN M.D. Performed By: #### C BC, BMP #### [facility] [address] [place] [address] Platelet mean volume [Entiti c volume] in Blood by Automated countOrdered By: Yuri Lucero on 07-14-2023 Platelet mean volume (Bld) [Entitic vol] 7.4 fL Normal 6.6-10.1 [facility] Comment on above: Performed By: #### V [id number], CBC #### [address] Platelets [#/volume] in Bloo d by Automated countOrdered By: Yuri Lucero on 07-14-2023 Platelets (Bld) [#/Vol] 211 10*3/uL Normal 150-450 [facility] Comment on above: Performed By: #### V [id number], CBC #### [address] Prostate Specific Ag Free [M ass/volume] in Serum or PlasmaOrdered By: Yuri Lucero on 07-14-2023 Free PSA [Mass/Vol] 0.600 ng/mL [facility] Prostate specific Ag [Mass/v olume] in Serum or PlasmaOrdered By: Yuri Lucero on 07-14-2023 Prostate specific Ag [Mass/Vol] 4.570 ng/mL 0.000-4.00 0 [facility] Comment on above: Serial tumor marker results determined by assays using different manufacturers or methods may not be comparable.[facility] algorithm developer and method:[employer] DXI, CHEMILUMINESCENT IMMUNOASSAY. Protein Auto test strip (U) [Mass/Vol]Ordered By: Yuri Lucero on 07-14-2023 Protein (U) [Mass/Vol] Trace mg/dL Negative [facility] Serum or plasma free prostat e specific antigen (PSA)/total PSA ratioOrdered By: Yuri Lucero on 07-14-2023 Free PSA/Total PSA [Mass fraction] 13.1 % [facility] Comment on above: Based on the work of Maddie et al.ARMAAN. 27919):1542:47.1998 the percent free PSA may be used to determine the relative risk of prostate cancer in individual men.The percent probability of prostate cancer by patient age for men with non-suspicious NANCI results and total PSa between 4 and 10 ng/ml is as follows:% Free PSA 50 - 64 yrs. 65 - 75 yrs. 0 - 10 56% 55% 10 - 15 24% 35% 15 - 20 17% 23% 20 - 25 10% 20% >25 5% 9% Specific gravity Auto test s trip (U) [Rel density]Ordered By: Yuri Lucero on 07-14-2023 Specific gravity (U) [Rel density] 1.023 1.001-1.03 0 [facility] Squamous epithelial cells de tection in urine sediment by light microscopyOrdered By: Yuri Lucero on 07-14-2023 Epithelial cells.squamous LM Ql (Urine sed) 0-1 [HPF] 0-2 [facility] Urine Cultureon 07-14-2023 Bacteria identified Cx Nom (U) <9,000 colonies/ml mixed bacterial skin contaminants 2 Days PERFORMED BY: [place] [address] PATHOLOGIST CASEWORK SPECIALIST IZA THURMAN M.D. [facility] Comment on above: Performed By: #### C BC, BMP #### [address] Urine bacteria detection by automated methodOrdered By: Yuri Lucero on 07-14-2023 Bacteria Auto Ql (U) None seen None Seen [facility] Urine clarity by refractomet ry automatedOrdered By: Yuri Lucero on 07-14-2023 Clarity Refractometry automated (U) Cloudy Clear [facility] Urine glucose measurement by automated test strip (mass/volume)Ordered By: Yuri Lucero on 07-14-2023 Glucose Auto test strip (U) [Mass/Vol] Normal mg/dL Normal [facility] Urine hemoglobin detection b y automated test stripOrdered By: Yuri Lucero on 07-14-2023 Hemoglobin Auto test strip Ql (U) Trace Negative [facility] Urine leukocyte esterase det ection by automated test stripOrdered By: Yuri Lucero on 07-14-2023 Leukocyte esterase Auto test strip Ql (U) 2+ Negative [facility] Urobilinogen Auto test strip (U) [Mass/Vol]Ordered By: Yuri Lucero on 07-14-2023 Urobilinogen (U) [Mass/Vol] Normal mg/dL Normal [facility] Vit. B12/Folate Profileon Folate 10.6 ng/mL Normal >5.9 [facility] Comment on above: Result Comment: Page te reference range: >5.9 ng/ml The WHO technical consultation on folate and vitamin b12 deficiencies has determined that folate concentrations less than 4 ng/ml are considered deficient. PERFORMED BY: [place] [address] PATHOLOGIST CASEWORK SPECIALIST IZA THURMAN M.D. Performed By: #### V [id number], CBC #### [facility] [address] [place] [address] Vitamin B12 ser/plasOrdered By: Yuri Lucero on 07-14-2023 Cobalamin (Vitamin B12) [Mass/Vol] 459 pg/mL Normal 180-914 [facility] Comment on above: Performed By: #### V [id number], CBC #### [facility] [address] [place] [address] Yeast detection in urine sed iment by light microscopyOrdered By: Yuri Lucero on 07-14-2023 Yeast LM Ql (Urine sed) None seen [HPF] None Seen [facility] pH Auto test strip (U)Ordere d By: Yuri Lucero on 07-14-2023 pH (U) 5.5 [pH] 5.0-9.0 [facility] Basic Metabolic Panelon 06-21 Anion gap [Moles/Vol] 8.8 mmol/L Normal 6.0-15.0 [facility] Comment on above: Performed By: #### B MP, CBC #### [facility] [address] [place] [address] [place] Calcium [Mass/Vol] 8.0 mg/dL Low 8.6-10.3 [facility] Comment on above: Performed By: #### B MP, CBC #### [facility] [address] [place] [address] [place] Chloride [Moles/Vol] 105 mmol/L Normal 98-107 [facility] Comment on above: Performed By: #### B MP, CBC #### [facility] [address] [place] [address] [place] CO2 [Moles/Vol] 24.9 mmol/L Normal 21.0-31.0 [facility] Comment on above: Performed By: #### B MP, CBC #### [facility] [address] [place] [address] [place] Creatinine [Mass/Vol] 0.70 mg/dL Normal 0.70-1.30 [facility] Comment on above: Performed By: #### B MP, CBC #### [facility] [address] [place] [address] [place] Creatinine Clr Calc Pharmacy 90.20 [facility] Comment on above: Result Comment: PERF ORMED BY: [place] [address] PATHOLOGIST CASEWORK SPECIALIST IZA THURMAN M.D. Performed By: #### B MP, CBC #### [facility] [address] [place] [address] [place] GFR/1.73 sq M.predicted MDRD (S/P/Bld) [Vol rate/Area] mL/min/{1.73_m2} [facility] Comment on above: Performed By: #### B MP, CBC #### [facility] [address] [place] [address] [place] Glucose [Mass/Vol] 103 mg/dL High 70-100 [facility] Comment on above: Result Comment: [place] Glucose Reference Range is dependent on time and content of last meal. Glucose of more than 200 mg/dL in a nonstressed, ambulatory subject supports the diagnosis of Diabetes Mellitus. ADA recommended reference range Performed By: #### B MP, CBC #### [facility] [address] Potassium [Moles/Vol] 3.7 mmol/L Normal 3.5-5.1 [facility] Comment on above: Performed By: #### B MP, CBC #### [facility] [address] Sodium [Moles/Vol] 135 mmol/L Low 136-145 [facility] Comment on above: Performed By: #### B MP, CBC #### [facility] [address] Urea nitrogen [Mass/Vol] 22 mg/dL Significant change down 02-11 [facility] Comment on above: Performed By: #### B MP, CBC #### [facility] [address] Calcium [Mass/volume] in Ser um or PlasmaOrdered By: Tia Hernandes on 07-13-2023 Calcium [Mass/Vol] 8.0 mg/dL 8.6-10.3 [facility] Carbon dioxide, total [Moles /volume] in Serum or PlasmaOrdered By: Tia Hernandes on 07-13-2023 CO2 [Moles/Vol] 24.9 mmol/L 21.0-31.0 [facility] Chloride [Moles/volume] in S aureliano or PlasmaOrdered By: Tia Hernandes on 07-13-2023 Chloride [Moles/Vol] 105 mmol/L 98-107 [facility] Complete Blood Count Auto Di ffon 07-13-2023 Basophils (Bld) [#/Vol] 0.1 10*3/uL Normal 0.0-0.2 [facility] Comment on above: Result Comment: PERF ORMED BY: [place] [address] PATHOLOGIST CASEWORK SPECIALIST IZA THURMAN M.D. Performed By: #### B MP, CBC #### [facility] [address] Basophils/100 WBC (Bld) 1.2 % Normal . [facility] Comment on above: Performed By: #### B MP, CBC #### [facility] [address] Eosinophils (Bld) [#/Vol] 0.2 10*3/uL Normal 0.0-0.45 [facility] Comment on above: Performed By: #### B MP, CBC #### [address] Eosinophils/100 WBC (Bld) 3.5 % Normal . [facility] Comment on above: Performed By: #### B MP, CBC #### [address] Erythrocyte distribution width (RBC) [Ratio] 15.9 % High 12.0-14.8 [facility] Comment on above: Performed By: #### B MP, CBC #### [address] Hematocrit (Bld) [Volume fraction] 22.0 % Low 38.8-50.0 [facility] Comment on above: Performed By: #### B MP, CBC #### [address] Hemoglobin (Bld) [Mass/Vol] 7.6 g/dL Low 13.0-17.0 [facility] Comment on above: Performed By: #### B MP, CBC #### [address] Lymphocytes (Bld) [#/Vol] 1.0 10*3/uL Normal 1.00-4.8 [facility] Comment on above: Performed By: #### B MP, CBC #### [address] Lymphocytes/100 WBC (Bld) 14.7 % Normal . [facility] Comment on above: Performed By: #### B MP, CBC #### [address] MCH (RBC) [Entitic mass] 27.6 pg Normal 27.5-35.2 [facility] Comment on above: Performed By: #### B MP, CBC #### [address] MCV (RBC) [Entitic vol] 80.1 fL Low 83.5-101 [facility] Comment on above: Performed By: #### B MP, CBC #### [address] Mean Corpuscular HGB Conc 34.4 g/dL Normal 32.5-35.6 [facility] Comment on above: Performed By: #### B MP, CBC #### [address] Monocytes (Bld) [#/Vol] 0.6 10*3/uL Normal 0.0-0.8 [facility] Comment on above: Performed By: #### B MP, CBC #### [address] Monocytes/100 WBC (Bld) 9.3 % Normal . [facility] Comment on above: Performed By: #### B MP, CBC #### [address] Neutrophils (Bld) [#/Vol] 4.8 10*3/uL Normal 1.8-7.7 [facility] Comment on above: Performed By: #### B MP, CBC #### [address] Neutrophils/100 WBC (Bld) 71.3 % Normal . [facility] Comment on above: Performed By: #### B MP, CBC #### [address] NRBC% 0.1 /100{WBC} Normal 0-0.5 [facility] Comment on above: Performed By: #### B MP, CBC #### [address] Platelet mean volume (Bld) [Entitic vol] 7.6 fL Normal 6.6-10.1 [facility] Comment on above: Performed By: #### B MP, CBC #### [facility] [address] Platelets (Bld) [#/Vol] 234 10*3/uL Normal 150-450 [facility] Comment on above: Performed By: #### B MP, CBC #### [facility] [address] RBC (Bld) [#/Vol] 2.74 10*6/uL Low 3.90-5.60 [facility] Comment on above: Performed By: #### B MP, CBC #### [facility] [address] WBC (Bld) [#/Vol] 6.7 10*3/uL Normal 4.1-10.5 [facility] Comment on above: Performed By: #### B MP, CBC #### [address] Creatinine [Mass/volume] in Serum or PlasmaOrdered By: Tia Hernandes on 07-13-2023 Creatinine [Mass/Vol] 0.70 mg/dL 0.70-1.30 [facility] Glucose [Mass/volume] in Ser um or PlasmaOrdered By: Tia Hernandes on 07-13-2023 Glucose [Mass/Vol] 103 mg/dL 70-100 [facility] Comment on above: ADA recommended refe rence rangeRandom Glucose Reference Range is dependent on time and content of last meal. Glucose of more than 200 mg/dL in a nonstressed, ambulatory subject supports the diagnosis of Diabetes Mellitus. Hemoglobin and Hematocriton 07-13-2023 Hematocrit (Bld) [Volume fraction] 22.9 % Low 38.8-50.0 [facility] Comment on above: Result Comment: PERF ORMED BY: [place] [address] PATHOLOGIST CASEWORK SPECIALIST IZA THURMAN M.D. Performed By: #### C BC, BMP #### [address] Hemoglobin (Bld) [Mass/Vol] 7.9 g/dL Low 13.0-17.0 [facility] Comment on above: Performed By: #### C BC, BMP #### [address] Hemogram CBC Without Diffon 07-13-2023 Erythrocyte distribution width (RBC) [Ratio] 16.1 % High 12.0-14.8 [facility] Comment on above: Performed By: #### C BC, BMP #### [address] Hematocrit (Bld) [Volume fraction] 22.9 % Low 38.8-50.0 [facility] Comment on above: Performed By: #### C BC, BMP #### [address] Hemoglobin (Bld) [Mass/Vol] 7.8 g/dL Low 13.0-17.0 [facility] Comment on above: Performed By: #### C BC, BMP #### [address] MCH (RBC) [Entitic mass] 27.4 pg Low 27.5-35.2 [facility] Comment on above: Performed By: #### C BC, BMP #### [address] MCV (RBC) [Entitic vol] 80.6 fL Low 83.5-101 [facility] Comment on above: Performed By: #### C BC, BMP #### [address] Mean Corpuscular HGB Conc 33.9 g/dL Normal 32.5-35.6 [facility] Comment on above: Performed By: #### C BC, BMP #### [address] Platelet mean volume (Bld) [Entitic vol] 7.3 fL Normal 6.6-10.1 [facility] Comment on above: Result Comment: PERF ORMED BY: [place] [address] PATHOLOGIST CASEWORK SPECIALIST IZA THURMAN M.D. Performed By: #### C BC, BMP #### [facility] [address] Platelets (Bld) [#/Vol] 227 10*3/uL Normal 150-450 [facility] Comment on above: Performed By: #### C BC, BMP #### [facility] [address] RBC (Bld) [#/Vol] 2.84 10*6/uL Low 3.90-5.60 [facility] Comment on above: Performed By: #### C BC, BMP #### [address] WBC (Bld) [#/Vol] 6.2 10*3/uL Normal 4.1-10.5 [facility] Comment on above: Performed By: #### C BC, BMP #### [facility] [address] [place] [address] No Panel InformationOrdered By: Tia Hernandes on 07-13-2023 Estimated GFR (CKD-EPI) > 60.0 mL/Min [facility] Creatinine Clearance (Chem 90.20 [facility] Potassium [Moles/volume] in Serum or PlasmaOrdered By: Tia Hernandes on 07-13-2023 Potassium [Moles/Vol] 3.7 mmol/L 3.5-5.1 [facility] [facility] Serum or plasma anion gap de terminationOrdered By: Tia Hernandes on 07-13-2023 Anion gap [Moles/Vol] 8.8 mmol/L 6.0-15.0 [facility] Sodium [Moles/volume] in Ser um or PlasmaOrdered By: Tia Hernandes on 07-13-2023 Sodium [Moles/Vol] 135 mmol/L 136-145 [facility] Urea nitrogen [Mass/volume] in Serum or PlasmaOrdered By: Tia Hernandes on 07-13-2023 Urea nitrogen [Mass/Vol] 22 mg/dL 02-11 [facility] Comment on above: Delta: 52 on ABO/Rh Retypeon 07-12-2023 ABO/RH Recheck Result Positive Normal [facility] Comment on above: Result Comment: PERF ORMED BY: [place] [address] PATHOLOGIST CASEWORK SPECIALIST IZA THURMAN M.D. Basic Metabolic Panelon 06-21 Anion gap [Moles/Vol] 6.8 mmol/L Normal 6.0-15.0 [facility] Comment on above: Performed By: #### C BC, BMP #### [facility] [address] Calcium [Mass/Vol] 7.9 mg/dL Low 8.6-10.3 [facility] Comment on above: Performed By: #### C BC, BMP #### [facility] [address] Chloride [Moles/Vol] 105 mmol/L Normal 98-107 [facility] Comment on above: Performed By: #### C BC, BMP #### [facility] [address] CO2 [Moles/Vol] 23.1 mmol/L Normal 21.0-31.0 [facility] Comment on above: Performed By: #### C BC, BMP #### [facility] [address] [place] [id number] [place] Creatinine [Mass/Vol] 0.79 mg/dL Normal 0.70-1.30 [facility] Comment on above: Performed By: #### C BC, BMP #### [facility] [address] [place] [address] [place] Creatinine Clr Calc Pharmacy 90.20 Normal [facility] Comment on above: Result Comment: PERF ORMED BY: [place] [address] PATHOLOGIST CASEWORK SPECIALIST IZA THURMAN M.D. Performed By: #### C BC, BMP #### [facility] [address] [place] [address] [place] GFR/1.73 sq M.predicted MDRD (S/P/Bld) [Vol rate/Area] mL/min/{1.73_m2} Normal [facility] Comment on above: Performed By: #### C BC, BMP #### [facility] [address] [place] [address] [place] Glucose [Mass/Vol] 109 mg/dL High 70-100 [facility] Comment on above: Result Comment: [place] Glucose Reference Range is dependent on time and content of last meal. Glucose of more than 200 mg/dL in a nonstressed, ambulatory subject supports the diagnosis of Diabetes Mellitus. ADA recommended reference range Performed By: #### C BC, BMP #### [facility] [address] [place] [address] [place] Potassium [Moles/Vol] 3.9 mmol/L Normal 3.5-5.1 [facility] Comment on above: Performed By: #### C BC, BMP #### [facility] [address] [place] [address] [place] Sodium [Moles/Vol] 131 mmol/L Low 136-145 [facility] Comment on above: Performed By: #### C BC, BMP #### [facility] [address] [place] [address] [place] Urea nitrogen [Mass/Vol] 52 mg/dL High 7-25 [facility] Comment on above: Performed By: #### C BC, BMP #### [facility] [address] angio abdomen pelvison CT angio abdomen pelvis [facility] [place] [address] [place] [address] CT Scan Report Signed Patient: Jemal Zepeda MR#: [id number] 18 : 1950 Acct:[id number] Age/Sex: 73 / M ADM Date: 07/11/23 Loc: Room: [address] [place] [address] Type: ADM IN Attending Dr: Tia Hernandes MD Copies to: Tia Hernandes MD Ordering Provider: Tia Hernandes MD Date of Service: 07/11/23 CT/CT angio abdomen pelvis: GI bleed/ho mesenteric and celiac artery surgery CTA OF THE ABDOMEN AND PELVIS WITH CONTRAST CLINICAL DATA: Lightheadedness, dizziness and nausea. Blood tarry stools. COMPARISON: None Spiral images were obtained through the abdomen pelvis following 90 mL of Isovue-370. Sagittal coronal MIP as well as 3-D volume rendered reconstructions of the aorta and its branches were reviewed. This CT exam was performed using one or more following dose reduction techniques: Automated exposure control, adjustment of the mA and/or kV according to patient size, or use of iterative reconstruction technique. Limited cuts through the lung bases show minor interstitial changes with possible scarring or atelectasis. There is no consolidation or pleural effusion. The heart is borderline prominent. There is coronary artery disease and a trace amount pericardial fluid. The ascending aorta shows aneurysmal dilatation with diameter 4.7 cm. The descending aorta is also mildly ectatic There is mild atherosclerotic plaque involving the aorta and iliac arteries. The suprarenal aorta is ectatic with diameter of 3.5 cm. There is also slight fusiform dilatation distally with diameter of approximately 3 cm. There is no evidence of dissection. The celiac and superior mesenteric arteries are patient. There are postoperative changes involving the celiac artery. There are multiple renal arteries which appear to be patent. There is also normal opacification of the inferior mesenteric artery. The common iliac arteries measure up to 1.9 cm in diameter and there is atherosclerotic plaque that extends down to the femoral arteries. There may be a small saccular aneurysm at the left common femoral artery measuring 9 mm in size. There is no periaortic fluid. There is a left hepatic cyst measuring 19 mm in size. No calcified gallstones are identified. Calcified splenic granulomas. There is bilateral adrenal limb thickening. No pancreatic abnormalities are seen. There are symmetric renal nephrograms, without hydronephrosis. Renal cysts are present. There are small lymph nodes. No ascites is seen. There is a supraumbilical and tiny umbilical hernia containing fat. There is fluid within the stomach. The small bowel loops are not disproportionately distended. There is mild stool along the colon. There is subtle dextroscoliotic curvature and degenerative changes at the spine. Images through the pelvis show no appendiceal inflammation though there is appendicolith. The small bowel loops are not dilated. There is minimal distal colonic stool. There are sigmoid diverticula, without associated active inflammation. There is a large bladder diverticulum extending posteriorly on the right. There is dependent density that could be debris, stones or a sessile mass. There is slight mass effect at the bladder trigone related to a prominent prostate containing calcifications. There are no enlarged lymph nodes or pelvic ascites. There are mild degenerative changes at the hips and SI joints. CT/CT angio abdomen pelvis IMPRESSION: Interstitial changes. Ascending aortic aneurysm as well as ectatic supra and infrarenal abdominal aorta and common iliac arteries. Possible tiny saccular aneurysm at the left common femoral artery. Hepatic and renal cysts. No bowel or urinary tract obstruction. Diverticulosis. Prostate hypertrophy. Right bladder diverticulum with possible bladder stone and/or mass. Impression dictated by: Anabel Gould M.D.07/12/2023 9:38 AM Dictation Location: [place] [address] Transcribed By: PAWAN 07/12/23937 Dictated By: Anabel Gould MD 07/12/2315 Signed By: 07/12/23937 Normal [facility] Complete Blood Count Auto Di ffon 07-12-2023 Basophils (Bld) [#/Vol] 0.1 10*3/uL Normal 0.0-0.2 [facility] Comment on above: Result Comment: PERF ORMED BY: [place] [address] PATHOLOGIST CASEWORK SPECIALIST IZA THURMAN M.D. Performed By: #### C SHYAM, BMP #### [address] Basophils/100 WBC (Bld) 1.1 % Normal . [facility] Comment on above: Performed By: #### C SHYAM, BMP #### [address] Eosinophils (Bld) [#/Vol] 0.2 10*3/uL Normal 0.0-0.45 [facility] Comment on above: Performed By: #### C SHYAM, BMP #### [facility] [address] Eosinophils/100 WBC (Bld) 1.8 % Normal . [facility] Comment on above: Performed By: #### C BC, BMP #### [facility] [address] Erythrocyte distribution width (RBC) [Ratio] 15.6 % High 12.0-14.8 [facility] Comment on above: Performed By: #### C BC, BMP #### [facility] [address] Hematocrit (Bld) [Volume fraction] 22.3 % Low 38.8-50.0 [facility] Comment on above: Performed By: #### C BC, BMP #### [address] Hemoglobin (Bld) [Mass/Vol] 7.5 g/dL Low 13.0-17.0 [facility] Comment on above: Performed By: #### C BC, BMP #### [address] Lymphocytes (Bld) [#/Vol] 1.4 10*3/uL Normal 1.00-4.8 [facility] Comment on above: Performed By: #### C BC, BMP #### [address] Lymphocytes/100 WBC (Bld) 16.8 % Normal . [facility] Comment on above: Performed By: #### C BC, BMP #### [place] [address] [place] MCH (RBC) [Entitic mass] 26.8 pg Low 27.5-35.2 [facility] Comment on above: Performed By: #### C BC, BMP #### [address] MCV (RBC) [Entitic vol] 79.5 fL Low 83.5-101 [facility] Comment on above: Performed By: #### C BC, BMP #### [place] [address] Mean Corpuscular HGB Conc 33.7 g/dL Normal 32.5-35.6 [facility] Comment on above: Performed By: #### C BC, BMP #### [address] Monocytes (Bld) [#/Vol] 0.6 10*3/uL Normal 0.0-0.8 [facility] Comment on above: Performed By: #### C BC, BMP #### [address] Monocytes/100 WBC (Bld) 7.1 % Normal . [facility] Comment on above: Performed By: #### C SHYAM, BMP #### [address] Neutrophils (Bld) [#/Vol] 6.3 10*3/uL Normal 1.8-7.7 [facility] Comment on above: Performed By: #### C BC, BMP #### [address] Neutrophils/100 WBC (Bld) 73.2 % Normal . [facility] Comment on above: Performed By: #### C BC, BMP #### [address] NRBC% 0.0 /100{WBC} Normal 0-0.5 [facility] Comment on above: Performed By: #### C BC, BMP #### [address] Platelet mean volume (Bld) [Entitic vol] 7.5 fL Normal 6.6-10.1 [facility] Comment on above: Performed By: #### C BC, BMP #### [place] [address] [place] Platelets (Bld) [#/Vol] 283 10*3/uL Normal 150-450 [facility] Comment on above: Performed By: #### C BC, BMP #### [place] [address] [place] RBC (Bld) [#/Vol] 2.80 10*6/uL Low 3.90-5.60 [facility] Comment on above: Performed By: #### C BC, BMP #### [address] WBC (Bld) [#/Vol] 8.6 10*3/uL Normal 4.1-10.5 [facility] Comment on above: Performed By: #### C BC, BMP #### [address] Hemoglobin and Hematocriton 07-12-2023 Hematocrit (Bld) [Volume fraction] 23.2 % Low 38.8-50.0 [facility] Comment on above: Result Comment: PERF ORMED BY: [place] [address] PATHOLOGIST CASEWORK SPECIALIST IZA THURMAN M.D. Performed By: #### H H #### [address] Hemoglobin (Bld) [Mass/Vol] 7.9 g/dL Low 13.0-17.0 [facility] Comment on above: Performed By: #### H H #### [address] Hematocrit (Bld) [Volume fraction] 22.4 % Low 38.8-50.0 [facility] Comment on above: Result Comment: PERF ORMED BY: [place] [address] PATHOLOGIST CASEWORK SPECIALIST IZA THURMAN M.D. Performed By: #### C BC, BMP #### [address] Hemoglobin (Bld) [Mass/Vol] 7.7 g/dL Low 13.0-17.0 [facility] Comment on above: Performed By: #### C BC, BMP #### [place] [address] [place] Alejandro 07-12-2023 L ------ Specimen: [id number] Received: 07/15/23 Status: PENELOPE Verdugo Num: [id number] Spec Type: Surgical Subm Dr: Arvin Al MD Tissues: A GASTRIC FOR HP (GASTRIC HP) Procedures: HE/2, Gross/Micro L4, H PYLORI, IHC First AB Age/ Patient Sex Location Account Attending Physician Jemal Zepeda/M P [id number] Tia Hernandes MD SPEC NUM: [id number] RECD: 07/15/23 STATUS: PENELOPE VERDUGO NUM: [id number] LINDA: 07/12/23- SUBM DR: Arvin Al MD ENTERED: 07/15/23 [facility] DR: SPEC TYPE: Surgical DEPT: S ORDERED: HE/2, Gross/Micro L4, H PYLORI, IHC First AB ORDERED: HE/2, Gross/Micro L4, H PYLORI, IHC First AB Pathological Diagnosis Stomach, Biopsy: Chronic Inactive Gastritis. - H. Pylori Immunostain Is Negative For H. Pylori Organisms. Clinical Information Black stools, rule out H. pylori Gross Description Received in formalin labeled with the patient's name, date of and gastric biopsy are two esparza tissues averaging 0.3 x 0.2 x 0.2 cm. Entirely submitted in one cassette labeled A1. Microscopic Description Two H E slides reviewed. The microscopic examination confirms the diagnosis. CPT Codes 96845 Specimen: [id number] Received: 07/15/23 Status: PENELOPE Verdugo Num: [id number] Spec Type: Surgical Subm Dr: Arvin Al MD Tissues: A GASTRIC FOR HP (GASTRIC HP) Procedures: HE/2, Gross/Micro L4, H PYLORI, IHC First AB Patient: Jemal Zepeda [id number] (Continued) Signed (signature on file) Brian Centeno MD 07/17/23 1834 Normal [facility] XR chest 1V portableon 07-12 XR chest 1V portable [facility] [address] XRay Report Signed Patient: Jemal Zepeda MR#: [id number] 18 : 1950 Acct:[id number] Age/Sex: 73 / M ADM Date: 07/11/23 Loc: Room: [address] [place] [address] Type: ADM IN Attending Dr: Tia Hernandes MD Copies to: DO Tia Miller MD Ordering Provider: Martha Aldana DO Date of Service: 07/11/23 XR/XR chest 1V portable: verify IJ line PORTABLE AP ERECT CHEST 2145 hours CLINICAL HISTORY: Central line placement. COMPARISON: 04/01/2014 A right IJ central line is present with tip at the cavoatrial junction. There is slight elevation of the right hemidiaphragm. There is continued minor interstitial change and possible minimal groundglass density. There is no focal consolidation, sizable effusion or pneumothorax. The heart is not significantly enlarged. The aorta is mildly ectatic. The bony structures are intact. XR/XR chest 1V portable IMPRESSION: CENTRAL LINE PLACEMENT, DESCRIBED. NO POSTPROCEDURE PNEUMOTHORAX. MINOR PARENCHYMAL CHANGES. Impression dictated by: Anabel Gould M.D.07/12/2023 9:10 AM Dictation Location: [place] [address] Transcribed By: PAWAN 07/12/23909 Dictated By: Anabel Gould MD 07/12/23907 Signed By: 07/12/23909 Normal [facility] Activated partial thrombopla stin time (aPTT) in platelet poor plasma by coagulation aOrdered By: Timo Santamaria on 07-11-2023 aPTT Coag (PPP) [Time] 31.5 s 25.1-36.5 [facility] Comment on above: A hematocrit value g reater than 55% may lead to inaccurate results in coagulation testing. Patients having hematocrit values >55% require a special collection tube for coagulation studies. Please contact the laboratory at [phone] for redraw instructions. Alanine aminotransferase [En zymatic activity/volume] in Serum or PlasmaOrdered By: Timo Santamaria on 07-11-2023 ALT [Catalytic activity/Vol] 9 U/L 7-52 [facility] Albumin [Mass/volume] in Ser um or Plasma by Bromocresol green (BCG) dye binding methoOrdered By: Timo Santamaria on 07-11-2023 Albumin BCG dye [Mass/Vol] 3.4 g/dL 3.5-5.7 [facility] Alkaline phosphatase [Enzyma tic activity/volume] in Serum or PlasmaOrdered By: Timo Santamaria on 07-11-2023 ALP [Catalytic activity/Vol] 53 U/L 34-104 [facility] Aspartate aminotransferase [ Enzymatic activity/volume] in Serum or PlasmaOrdered By: Timo Santamaria on 07-11-2023 AST [Catalytic activity/Vol] 13 U/L 13-39 [facility] Basophils Auto (Bld) [#/Vol] Ordered By: Timo Santamaria on 07-11-2023 Basophils (Bld) [#/Vol] 0.1 10*3/uL 0.0-0.2 [facility] Basophils/100 WBC Auto (Bld) Ordered By: Timo Santamaria on 07-11-2023 Basophils/100 WBC (Bld) 0.7 % . [facility] Bilirubin.total [Mass/volume ] in Serum or PlasmaOrdered By: Timo Santamaria on 07-11-2023 Bilirubin [Mass/Vol] 0.3 mg/dL 0.3-1.0 [facility] Calcium [Mass/volume] in Ser um or PlasmaOrdered By: Timo Santamaria on 07-11-2023 Calcium [Mass/Vol] 9.3 mg/dL 8.6-10.3 [facility] Carbon dioxide, total [Moles /volume] in Serum or PlasmaOrdered By: Timo Santamaria on 07-11-2023 CO2 [Moles/Vol] 24.2 mmol/L 21.0-31.0 [facility] Chloride [Moles/volume] in S aureliano or PlasmaOrdered By: Timo Santamaria on 07-11-2023 Chloride [Moles/Vol] 99 mmol/L 98-107 [facility] Complete Blood Count Auto Di ffon 07-11-2023 Basophils (Bld) [#/Vol] 0.1 10*3/uL Normal 0.0-0.2 [facility] Comment on above: Result Comment: PERF ORMED BY: [place] [address] PATHOLOGIST CASEWORK SPECIALIST IZA THURMAN M.D. Performed By: #### P T, TIBC, PTT, CECIL, CMP, CBC, FE #### [facility] [address] [place] [address] Basophils/100 WBC (Bld) 0.7 % Normal . [facility] Comment on above: Performed By: #### P T, TIBC, PTT, CECIL, CMP, CBC, FE #### [facility] [address] [place] [address] [place] Eosinophils (Bld) [#/Vol] 0.2 10*3/uL Normal 0.0-0.45 [facility] Comment on above: Performed By: #### P T, TIBC, PTT, CECIL, CMP, CBC, FE #### [facility] [address] [place] [address] [place] Eosinophils/100 WBC (Bld) 1.6 % Normal . [facility] Comment on above: Performed By: #### P T, TIBC, PTT, CECIL, CMP, CBC, FE #### [address] Erythrocyte distribution width (RBC) [Ratio] 15.2 % High 12.0-14.8 [facility] Comment on above: Performed By: #### P T, TIBC, PTT, CECIL, CMP, CBC, FE #### [address] Hematocrit (Bld) [Volume fraction] 27.1 % Low 38.8-50.0 [facility] Comment on above: Performed By: #### P T, TIBC, PTT, CECIL, CMP, CBC, FE #### [address] Hemoglobin (Bld) [Mass/Vol] 9.0 g/dL Low 13.0-17.0 [facility] Comment on above: Performed By: #### P T, TIBC, PTT, CECIL, CMP, CBC, FE #### [address] Lymphocytes (Bld) [#/Vol] 1.5 10*3/uL Normal 1.00-4.8 [facility] Comment on above: Performed By: #### P T, TIBC, PTT, CECIL, CMP, CBC, FE #### [address] Lymphocytes/100 WBC (Bld) 14.2 % Normal . [facility] Comment on above: Performed By: #### P T, TIBC, PTT, CECIL, CMP, CBC, FE #### [address] MCH (RBC) [Entitic mass] 25.9 pg Low 27.5-35.2 [facility] Comment on above: Performed By: #### P T, TIBC, PTT, CECIL, CMP, CBC, FE #### [address] MCV (RBC) [Entitic vol] 78.1 fL Low 83.5-101 [facility] Comment on above: Performed By: #### P T, TIBC, PTT, CECIL, CMP, CBC, FE #### [address] Mean Corpuscular HGB Conc 33.2 g/dL Normal 32.5-35.6 [facility] Comment on above: Performed By: #### P T, TIBC, PTT, CECIL, CMP, CBC, FE #### [place] [address] [place] Monocytes (Bld) [#/Vol] 0.7 10*3/uL Normal 0.0-0.8 [facility] Comment on above: Performed By: #### P T, TIBC, PTT, CECIL, CMP, CBC, FE #### [address] Monocytes/100 WBC (Bld) 17.97 % Normal 0.00-20.00 [facility] Comment on above: Performed By: #### P T, TIBC, PTT, CECIL, CMP, CBC, FE #### [address] Monocytes/100 WBC (Bld) 6.7 % Normal . [facility] Comment on above: Performed By: #### P T, TIBC, PTT, CECIL, CMP, CBC, FE #### [address] Neutrophils (Bld) [#/Vol] 8.1 10*3/uL High 1.8-7.7 [facility] Comment on above: Performed By: #### P T, TIBC, PTT, CECIL, CMP, CBC, FE #### [place] [address] [place] Neutrophils/100 WBC (Bld) 76.8 % Normal . [facility] Comment on above: Performed By: #### P T, TIBC, PTT, CECIL, CMP, CBC, FE #### [address] NRBC% 0.1 /100{WBC} Normal 0-0.5 [facility] Comment on above: Performed By: #### P T, TIBC, PTT, CECIL, CMP, CBC, FE #### [facility] [address] Platelet mean volume (Bld) [Entitic vol] 7.7 fL Normal 6.6-10.1 [facility] Comment on above: Performed By: #### P T, TIBC, PTT, CECIL, CMP, CBC, FE #### [facility] [address] Platelets (Bld) [#/Vol] 392 10*3/uL Normal 150-450 [facility] Comment on above: Performed By: #### P T, TIBC, PTT, CECIL, CMP, CBC, FE #### [address] RBC (Bld) [#/Vol] 3.48 10*6/uL Low 3.90-5.60 [facility] Comment on above: Performed By: #### P T, TIBC, PTT, CECIL, CMP, CBC, FE #### [address] WBC (Bld) [#/Vol] 10.5 10*3/uL Normal 4.1-10.5 [facility] Comment on above: Performed By: #### P T, TIBC, PTT, CECIL, CMP, CBC, FE #### [address] Comprehensive Metabolic Pane alejandro 07-11-2023 Albumin [Mass/Vol] 3.4 g/dL Low 3.5-5.7 [facility] Comment on above: Performed By: #### C BC, BMP #### [address] Albumin/Globulin [Mass ratio] 0.9 {ratio} Normal [facility] Comment on above: Performed By: #### C BC, BMP #### [address] ALP [Catalytic activity/Vol] 53 U/L Normal 34-104 [facility] Comment on above: Performed By: #### C BC, BMP #### [facility] [address] [place] [id number] [place] ALT [Catalytic activity/Vol] 9 U/L Normal 7-52 [facility] Comment on above: Performed By: #### C BC, BMP #### [facility] [address] [place] [address] [place] Anion gap [Moles/Vol] 11.0 mmol/L Normal 6.0-15.0 [facility] Comment on above: Performed By: #### C BC, BMP #### [facility] [address] [place] [id number] [place] AST [Catalytic activity/Vol] 13 U/L Normal 13-39 [facility] Comment on above: Performed By: #### C BC, BMP #### [facility] [address] Bilirubin [Mass/Vol] 0.3 mg/dL Normal 0.3-1.0 [facility] Comment on above: Performed By: #### C BC, BMP #### [facility] [address] [place] [phone] [place] Calcium [Mass/Vol] 9.3 mg/dL Normal 8.6-10.3 [facility] Comment on above: Performed By: #### C BC, BMP #### [facility] [address] [place] [phone] [place] Chloride [Moles/Vol] 99 mmol/L Normal 98-107 [facility] Comment on above: Performed By: #### C BC, BMP #### [facility] [address] [place] [phone] [place] CO2 [Moles/Vol] 24.2 mmol/L Normal 21.0-31.0 [facility] Comment on above: Performed By: #### C BC, BMP #### [facility] [address] [place] [id number] [place] Creatinine [Mass/Vol] 0.99 mg/dL Normal 0.70-1.30 [facility] Comment on above: Performed By: #### C BC, BMP #### [address] Creatinine Clr Calc Pharmacy 72.89 [facility] Comment on above: Result Comment: PERF ORMED BY: [place] [address] PATHOLOGIST CASEWORK SPECIALIST IZA THURMAN M.D. Performed By: #### C BC, BMP #### [address] GFR/1.73 sq M.predicted MDRD (S/P/Bld) [Vol rate/Area] mL/min/{1.73_m2} [facility] Comment on above: Performed By: #### C BC, BMP #### [address] Globulin (S) [Mass/Vol] 3.9 g/dL [facility] Comment on above: Performed By: #### C BC, BMP #### [address] Glucose [Mass/Vol] 102 mg/dL High 70-100 [facility] Comment on above: Result Comment: [facility] Glucose Reference Range is dependent on time and content of last meal. Glucose of more than 200 mg/dL in a nonstressed, ambulatory subject supports the diagnosis of Diabetes Mellitus. ADA recommended reference range Performed By: #### C BC, BMP #### [address] Potassium [Moles/Vol] 4.2 mmol/L Normal 3.5-5.1 [facility] Comment on above: Performed By: #### C BC, BMP #### [address] Protein [Mass/Vol] 7.3 g/dL Normal 6.4-8.9 [facility] Comment on above: Performed By: #### C BC, BMP #### [address] Sodium [Moles/Vol] 130 mmol/L Low 136-145 [facility] Comment on above: Performed By: #### C SHYAM, BMP #### [facility] [address] Urea nitrogen [Mass/Vol] 60 mg/dL High 02-11 [facility] Comment on above: Performed By: #### C BC, BMP #### [facility] [address] Creatinine [Mass/volume] in Serum or PlasmaOrdered By: Timo Santamaria on 07-11-2023 Creatinine [Mass/Vol] 0.99 mg/dL 0.70-1.30 [facility] ECG 12 lead ECGon 07-11-2023 ECG 12 lead ECG [facility] [place] [address] [place] [address] Electrocardiograph Report Signed Patient: Jemal Zepeda MR#: [id number] : 1950 Acct:[id number] Age/Sex: 73 / M ADM Date: 07/11/23 Loc: Room: [address] [place] [address] Type: ADM IN Attending Dr: Tia Hernandes MD Ordering Provider: Timo Santamaria PA-C Date of Service: 07/11/23 ECG/ECG 12 lead ECG: GI BLEED Copies to: Test Reason : Blood Pressure : 115/057 mmHG Vent. Rate : 090 BPM Atrial Rate : 090 BPM P-R Int : 140 ms QRS Dur : 096 ms QT Int : 354 ms P-R-T Axes : 070 069 071 degrees QTc Int : 433 ms Normal sinus rhythm Normal ECG When compared with ECG of 07-APR-2017 09:35, Vent. rate has increased BY 33 BPM Confirmed by MARTHA ALDANA DO ([id number]) on 07/11/2023 11:35:37 PM Referred By: Electronically Signed By:MARTHA ALDANA DO Transcribed By: MUS Signed By Martha Aldana DO [address] [facility] Eosinophils Auto (Bld) [#/Vo l]Ordered By: Timo Santamaria on 07-11-2023 Eosinophils (Bld) [#/Vol] 0.2 10*3/uL 0.0-0.45 [facility] Eosinophils/100 WBC Auto (Bl d)Ordered By: Timo Santamaria on 07-11-2023 Eosinophils/100 WBC (Bld) 1.6 % . [facility] Erythrocyte distribution wid th Auto (RBC) [Ratio]Ordered By: Timo Santamaria on 07-11-2023 Erythrocyte distribution width (RBC) [Ratio] 15.2 % 12.0-14.8 [facility] Ferritinon 07-11-2023 Ferritin [Mass/Vol] 60.8 ng/mL Normal 23.9-336.2 [facility] Comment on above: Result Comment: PERF ORMED BY: [place] [address] PATHOLOGIST CASEWORK SPECIALIST IZA THURMAN M.D. Performed By: #### C BC, BMP #### [address] Ferritin [Mass/volume] in Se rum or PlasmaOrdered By: Timo Santamaria on 07-11-2023 Ferritin [Mass/Vol] 60.8 ng/mL 23.9-336.2 [facility] Globulin Calc (S) [Mass/Vol] Ordered By: Timo Santamraia on 07-11-2023 Globulin (S) [Mass/Vol] 3.9 g/dL [facility] Glucose [Mass/volume] in Ser um or PlasmaOrdered By: Timo Santamaria on 07-11-2023 Glucose [Mass/Vol] 102 mg/dL 70-100 [facility] Comment on above: ADA recommended refe rence rangeRandom Glucose Reference Range is dependent on time and content of last meal. Glucose of more than 200 mg/dL in a nonstressed, ambulatory subject supports the diagnosis of Diabetes Mellitus. Hematocrit Auto (Bld) [Volum e fraction]Ordered By: Timo Santamaria on 07-11-2023 Hematocrit (Bld) [Volume fraction] 27.1 % 38.8-50.0 [facility] Hemoglobin [Mass/volume] in BloodOrdered By: Timo Santamaria on 07-11-2023 Hemoglobin (Bld) [Mass/Vol] 9.0 g/dL 13.0-17.0 [facility] INR in Platelet poor plasma by Coagulation assayOrdered By: Timo Santamaria on 07-11-2023 INR Coag (PPP) [Relative time] 1.2 {INR} [facility] Comment on above: INR Therapeutic Rang e A) Pre- and Peroperative OAT started two weeks before surgery. NOT HIP SURGERY: 1.5 - 2.5 HIP SURGERY: 2 - 3B) Primary and secondary prevention of venous THROMBOSIS: 2 - 3C) Active venous thrombosis, pulmonary embolismand prevention of recurrent venous thrombosis: 2 - 3D) Prevention of arterial thromboembolismincluding patients with mechanical heart valves: 3 - 4.5 Ironon 07-11-2023 Iron [Mass/Vol] 45 ug/dL Low 50-212 [facility] Comment on above: Result Comment: PERF ORMED BY: [place] [address] PATHOLOGIST CASEWORK SPECIALIST IZA THURMAN M.D. Performed By: #### C BC, BMP #### [address] Iron [Mass/volume] in Serum or PlasmaOrdered By: Timo Santamaria on 07-11-2023 Iron [Mass/Vol] 45 ug/dL 50-212 [facility] Iron binding capacity [Mass/ volume] in Serum or PlasmaOrdered By: Timo Santamaria on 07-11-2023 Iron binding capacity [Mass/Vol] 265 ug/dL 255-450 [facility] Leukocytes [#/volume] correc christina for nucleated erythrocytes in Blood by Automated counOrdered By: Timo Santamaria on 07-11-2023 WBC corrected for nucl RBC Auto (Bld) [#/Vol] 10.5 10*3/uL 4.1-10.5 [facility] Lymphocytes Auto (Bld) [#/Vo l]Ordered By: Timo Santamaria on 07-11-2023 Lymphocytes (Bld) [#/Vol] 1.5 10*3/uL 1.00-4.8 [facility] Lymphocytes/100 WBC Auto (Bl d)Ordered By: Timo Santamaria on 07-11-2023 Lymphocytes/100 WBC (Bld) 14.2 % . [facility] MCH Auto (RBC) [Entitic mass ]Ordered By: Timo Santamaria on 07-11-2023 MCH (RBC) [Entitic mass] 25.9 pg 27.5-35.2 [facility] MCHC Auto (RBC) [Mass/Vol]Or dered By: Timo Santamaria on 07-11-2023 MCHC (RBC) [Mass/Vol] 33.2 g/dL 32.5-35.6 [facility] MCV Auto (RBC) [Entitic vol] Ordered By: Timo Santamaria on 07-11-2023 MCV (RBC) [Entitic vol] 78.1 fL 83.5-101 [facility] Monocyte distribution width [Entitic volume] in Blood by AutomatedOrdered By: Timo Santamaria on 07-11-2023 Monocyte distribution width Auto (Bld) [Entitic vol] 17.97 % 0.00-20.00 [facility] Monocytes Auto (Bld) [#/Vol] Ordered By: Timo Santamaria on 07-11-2023 Monocytes (Bld) [#/Vol] 0.7 10*3/uL 0.0-0.8 [facility] Monocytes/100 WBC Auto (Bld) Ordered By: Timo Santamaria on 07-11-2023 Monocytes/100 WBC (Bld) 6.7 % . [facility] Neutrophils Auto (Bld) [#/Vo l]Ordered By: Timo Santamaria on 07-11-2023 Neutrophils (Bld) [#/Vol] 8.1 10*3/uL 1.8-7.7 [facility] Neutrophils/100 WBC Auto (Bl d)Ordered By: Timo Santamaria on 07-11-2023 Neutrophils/100 WBC (Bld) 76.8 % . [facility] No Panel InformationOrdered By: Timo Santamaria on 07-11-2023 Estimated GFR (CKD-EPI) > 60.0 mL/Min [facility] Creatinine Clearance (Chem 72.89 [facility] Nucleated erythrocytes [Pres ence] in Blood by Automated countOrdered By: Timo Santamaria on 07-11-2023 Nucleated RBC Auto Ql (Bld) 0.1 /100{WBC} 0-0.5 [facility] Partial Thromboplastin Timeo n 07-11-2023 aPTT Coag (Bld) [Time] 31.5 s Normal 25.1-36.5 [facility] Comment on above: Result Comment: A he matocrit value greater than 55% may lead to inaccurate results in coagulation testing. Patients having hematocrit values >55% require a special collection tube for coagulation studies. Please contact the laboratory at [phone] for redraw instructions. PERFORMED BY: [place] [address] PATHOLOGIST CASEWORK SPECIALIST IZA THURMAN M.D. Performed By: #### C BC, BMP #### [facility] [address] [place] [address] Platelet mean volume Auto (B ld) [Entitic vol]Ordered By: Timo Santamaria on 07-11-2023 Platelet mean volume (Bld) [Entitic vol] 7.7 fL 6.6-10.1 [facility] Platelets Auto (Bld) [#/Vol] Ordered By: Timo Santamaria on 07-11-2023 Platelets (Bld) [#/Vol] 392 10*3/uL 150-450 [facility] Potassium [Moles/volume] in Serum or PlasmaOrdered By: Timo Santamaria on 07-11-2023 Potassium [Moles/Vol] 4.2 mmol/L 3.5-5.1 [facility] Protein [Mass/volume] in Ser um or PlasmaOrdered By: Timo Santamaria on 07-11-2023 Protein [Mass/Vol] 7.3 g/dL 6.4-8.9 [facility] Prothrombin Time INRon 07-11 INR Coag (PPP) [Relative time] 1.2 {INR} Normal [facility] Comment on above: Result Comment: INR Therapeutic Range A) Pre- and Peroperative OAT started two weeks before surgery. NOT HIP SURGERY: 1.5 - 2.5 HIP SURGERY: 2 - 3 B) Primary and secondary prevention of venous THROMBOSIS: 2 - 3 C) Active venous thrombosis, pulmonary embolism and prevention of recurrent venous thrombosis: 2 - 3 D) Prevention of arterial thromboembolism including patients with mechanical heart valves: 3 - 4.5 Performed By: #### C BC, BMP #### [facility] [address] [place] [address], [place] [address] [facility] PT Coag (PPP) [Time] 14.4 s High 9.0-12.9 [facility] Comment on above: Result Comment: A he matocrit value greater than 55% may lead to inaccurate results in coagulation testing. Patients having hematocrit values >55% require a special collection tube for coagulation studies. Please contact the laboratory at [phone] for redraw instructions. Performed By: #### C BC, BMP #### [facility] [address] [place] [address] [facility] Prothrombin time (PT)Ordered By: Timo Santamaria on 07-11-2023 PT Coag (PPP) [Time] 14.4 s 9.0-12.9 [facility] Comment on above: A hematocrit value g reater than 55% may lead to inaccurate results in coagulation testing. Patients having hematocrit values >55% require a special collection tube for coagulation studies. Please contact the laboratory at [phone] for redraw instructions. RBC Auto (Bld) [#/Vol]Ordere d By: Timo Santamaria on 07-11-2023 RBC (Bld) [#/Vol] 3.48 10*6/uL 3.90-5.60 [facility] Reminderson 07-11-2023 Reminders - From: Elham Moon To: [facility] - Clinical; Sent: 07/11/2023 10:46:26 EST Show up: 07/11/2023 10:46:00 EST Subject: Ambulatory Reminder Due Date/Time: 07/12/2023 10:45:00 EST Thyroid labs are all normal, testosterone is also normal. slightly anemic. but over all labs are much better this time Results: Date Result Name Ind Value Ref Range 07/09/2023 11:42 WBC 8.7 E9/L (4.0 - 11.0) 07/09/2023 11:42 RBC 4.6 E12/L (4.3 - 5.9) 07/09/2023 11:42 HGB ((L)) 11.9 gm/dL (13.5 - 17.5) 07/09/2023 11:42 Hct ((L)) 36.3 % (37.7 - 49.0) 07/09/2023 11:42 MCV ((L)) 79.3 fL (80.0 - 100.0) 07/09/2023 11:42 MCH ((L)) 26.0 pg (27.0 - 34.0) 07/09/2023 11:42 MCHC 32.8 gm/dL (31.4 - 36.0) 07/09/2023 11:42 RDW ((H)) 15.6 % (10.9 - 14.2) 07/09/2023 11:42 Platelet 358.0 E9/L (150.0 - 500.0) 07/09/2023 11:42 MPV 8.0 fL (6.4 - 10.8) 07/09/2023 11:42 Neutro Auto 73.6 % (36.0 - 75.0) 07/09/2023 11:42 Lymph Auto ((L)) 13.5 % (14.0 - 50.0) 07/09/2023 11:42 [place] Auto 8.4 % (4.0 - 14.0) 07/09/2023 11:42 Eos Auto 3.7 % (0.0 - 8.0) 07/09/2023 11:42 Basophil Auto 0.8 % (0.0 - 2.0) 07/09/2023 11:42 Neutro Absolute 6.4 E9/L (2.0 - 7.5) 07/09/2023 11:42 Lymph Absolute 1.2 E9/L (1.0 - 4.0) 07/09/2023 11:42 [place] Absolute 0.7 E9/L (0.2 - 1.0) 07/09/2023 11:42 Eos Absolute 0.3 E9/L (0.0 - 0.5) 07/09/2023 11:42 Basophil Absolute 0.1 E9/L (0.0 - 0.2) 07/09/2023 11:42 Glucose Lvl 105 mg/dL (55 - 199) 07/09/2023 11:42 BUN 11 mg/dL (5 - 21) 07/09/2023 11:42 Creatinine 0.8 mg/dL (0.5 - 1.3) 07/09/2023 11:42 eGFR >60 mL/min/1.73 m2 (>=59 - ) 07/09/2023 11:42 BUN/Creat Ratio 14 (10 - 20) 07/09/2023 11:42 Sodium Lvl ((L)) 132 mmol/L (135 - 145) 07/09/2023 11:42 Potassium Lvl 4.4 mmol/L (3.5 - 5.3) 07/09/2023 11:42 Chloride ((L)) 97 mmol/L (101 - 111) 07/09/2023 11:42 CO2 31 mmol/L (21 - 31) 07/09/2023 11:42 AGAP 8 mEq/L (6 - 16) 07/09/2023 11:42 Calcium Lvl 9.0 mg/dL (8.9 - 11.1) 07/09/2023 11:42 Alk Phos 65 Int._Unit/L (21 - 98) 07/09/2023 11:42 ALT 10 Int._Unit/L (6 - 46) 07/09/2023 11:42 AST 14 Int._Unit/L (5 - 43) 07/09/2023 11:42 Total Protein 7.2 gm/dL (6.0 - 7.8) 07/09/2023 11:42 Albumin Lvl ((L)) 3.2 gm/dL (3.3 - 5.0) 07/09/2023 11:42 Globulin 4.0 gm/dL (1.4 - 4.0) 07/09/2023 11:42 A/G Ratio ((L)) 0.8 (1.1 - 2.2) 07/09/2023 11:42 Bili Total 0.5 mg/dL (0.0 - 1.1) 07/09/2023 11:42 TSH 1.66 mcIU/mL (0.34 - 5.60) 07/09/2023 11:42 T4 Free 0.97 ng/dL (0.58 - 1.64) 07/09/2023 11:42 T3 Free 2.2 pg/mL (2.0-4.4 - ) 07/09/2023 11:42 Testoster Tot 333 ng/dL (264-916 - ) pt notified Normal [facility] Serum or plasma albumin/glob ulin mass ratioOrdered By: Timo Santamaria on 07-11-2023 Albumin/Globulin [Mass ratio] 0.9 {ratio} [facility] Serum or plasma anion gap de terminationOrdered By: Timo Santamaria on 07-11-2023 Anion gap [Moles/Vol] 11.0 mmol/L 6.0-15.0 [facility] Sodium [Moles/volume] in Ser um or PlasmaOrdered By: Timo Santamaria on 07-11-2023 Sodium [Moles/Vol] 130 mmol/L 136-145 [facility] T3 Freeon 07-11-2023 Free T3 [Mass/Vol] 2.2 pg/mL Invalid Interpretation Code 2.0-4.4 [facility] Comment on above: Result Comment: Perf ormed at: [facility] [address] [id number] PhD Connor Hutchinson Performed By: #### 2 383976, 7397034, 4334844, 2721513, 42986520, 3243640, 1311591, 2319013 ####[facility] [address] [place] [address] Testost Totalon 07-11-2023 Testosterone [Mass/Vol] 333 ng/dL Invalid Interpretation Code 627-762 [facility] Comment on above: Result Comment: Adul t male reference interval is based on a population of healthy nonobese males (BMI <30) between 19 and 39 years old. liban Garcia.al. JCEM 2017,102;1437-6684. PMID: 27225618. Performed at: [facility] [place] [address] [place], [place] [id number] PhD Connor Hutchinson Performed By: #### 2 132295, 3370123, 9537371, 5374679, 87929772, 8370586, 9138925, 3013282 ####[facility] [address] [place] [address] Total Iron Binding Capacityo n 07-11-2023 Total Iron Binding Capacity 265 ug/dL Normal 255-450 [facility] Comment on above: Performed By: #### C BC, BMP #### [facility] [address] [place] [address] [place] Transferrin [Mass/Vol] 189 mg/dL Low 203-362 [facility] Comment on above: Performed By: #### C BC, BMP #### [facility] [address] [place] [address] [facility] Transferrin [Mass/volume] in Serum or PlasmaOrdered By: Timo Santamaria on 07-11-2023 Transferrin [Mass/Vol] 189 mg/dL 203-362 [facility] Urea nitrogen [Mass/volume] in Serum or PlasmaOrdered By: Timo Santamaria on 07-11-2023 Urea nitrogen [Mass/Vol] 60 mg/dL 7-25 [facility] WBC Auto (Bld) [#/Vol]Ordere d By: Timo Santamaria on 07-11-2023 WBC (Bld) [#/Vol] 10.5 10*3/uL 4.1-10.5 [facility] Physician Referralon 023 Physician Referral [id number] Normal [facility] Ambulatory Visit Summaryon 1 09-09-2022 Ambulatory Visit Summary JEMAL ZEPEDA :1950 Visit Date:07/09/2023 Ambulatory Visit Instructions Your Diagnosis Moderate recurrent major depression BMI 29.0-29.9,adult Smoker Your Care Team Attending Physician - Elham Moon Primary Care Physician - Elham Moon This Is Your Medications List amlodipine (amLODIPine 10 mg Tab) carvedilol (carvedilol 12.5 mg Tab) cholecalciferol (cholecalciferol 2000 intl units oral capsule) citalopram (citalopram 20 mg Tab) lisinopril (lisinopril 40 mg Tab) nystatin topical (nystatin Top 100,000 units/g Crm 15 gram) omeprazole (omeprazole 40 mg Cap-DR) Discharge Vitals Heart Rate (Peripheral) 70 Respiratory Rate 14 Blood Pressure 140/84 Height 176.5 cm Height 69 in Weight 90.90 kg Weight 199.98 lb BMI 29.18 What to do next Scheduled Follow-Up Appointments Friday 10:00 AM EST With: ALLIE DAMON, Martha Ibanez Where: [facility] Giovani Normal [facility] Auto Diffon 07-09-2023 Basophils/100 WBC (Bld) 0.8 % Normal 0.0-2.0 [facility] Comment on above: Order Comment: Order Added by Discern Expert. Performed By: #### 2 285649, 4428821, 5342360, 1521939, 57825535, 7854518, 9681772, 0869091 ####[facility] [address] [place] [address] Basophils/Leukocytes Auto (Bld) [Pure # fraction] 0.1 E9/L Normal 0.0-0.2 [facility] Comment on above: Order Comment: Order Added by Discern Expert. Performed By: #### 2 456650, 5841820, 9389164, 4355307, 00825194, 3389715, 0454218, 3874534 ####[facility] [address] [place] [address] Eosinophils/100 WBC (Bld) 3.7 % Normal 0.0-8.0 [facility] Comment on above: Order Comment: Order Added by Discern Expert. Performed By: #### 2 833884, 5686656, 6390288, 0024112, 64297891, 0199510, 2823225, 7631550 ####[facility] [address] [place] [address] Eosinophils/Leukocytes Auto (Bld) [Pure # fraction] 0.3 E9/L Normal 0.0-0.5 [facility] Comment on above: Order Comment: Order Added by Discern Expert. Performed By: #### 2 137052, 4148061, 1441872, 7797430, 21029313, 2479414, 5871979, 3533774 ####[facility] [address] [place] [address] Lymphocytes/100 WBC (Bld) 13.5 % Low 14.0-50.0 [facility] Comment on above: Order Comment: Order Added by Discern Expert. Performed By: #### 2 700602, 2417023, 0950926, 4516183, 72491962, 4113371, 1838120, 1557806 ####[facility] [address] [place] [address] Lymphocytes/Leukocytes Auto (Bld) [Pure # fraction] 1.2 E9/L Normal 1.0-4.0 [facility] Comment on above: Order Comment: Order Added by Berry Expert. Performed By: #### 2 614874, 4745068, 1007043, 8277026, 71062542, 8838161, 5461436, 8646744 ####[facility] [address] [place] [address] Monocytes/100 WBC (Bld) 8.4 % Normal 4.0-14.0 [facility] Comment on above: Order Comment: Order Added by Berry Expert. Performed By: #### 2 477469, 6546497, 3498423, 9830134, 71745076, 2614381, 1964976, 4607390 ####[facility] [address] [place] [address] Monocytes/Leukocytes Auto (Bld) [Pure # fraction] 0.7 E9/L Normal 0.2-1.0 [facility] Comment on above: Order Comment: Order Added by Berry Expert. Performed By: #### 2 846590, 2937187, 8607289, 1812815, 72623294, 2231584, 7075648, 7522814 ####[facility] [address] [place] [address] Neutrophils/100 WBC (Bld) 73.6 % Normal 36.0-75.0 [facility] Comment on above: Order Comment: Order Added by Berry Expert. Performed By: #### 2 357176, 0543716, 1694527, 9046173, 90509756, 4121278, 3219573, 2934474 ####[facility] [address] [place] [address] Neutrophils/Leukocytes Auto (Bld) [Pure # fraction] 6.4 E9/L Normal 2.0-7.5 [facility] Comment on above: Order Comment: Order Added by Discern Expert. Performed By: #### 2 804833, 4811903, 6590565, 8924510, 43327999, 8845549, 2112204, 3682567 ####[place] [address] [place] [address] CBC w/ Auto Diffon Erythrocyte distribution width (RBC) [Ratio] 15.6 % High 10.9-14.2 [facility] Comment on above: Performed By: #### 2 980352, 1349449, 9467154, 9431708, 11481313, 9662996, 0127881, 0979590 ####[address] [place] [address] Hematocrit (Bld) [Volume fraction] 36.3 % Low 37.7-49.0 [facility] Comment on above: Performed By: #### 2 386094, 0007771, 8356039, 2923094, 55845264, 8594441, 1466279, 9424376 ####[address] [place] [address] Hemoglobin (Bld) [Mass/Vol] 11.9 g/dL Low 13.5-17.5 [facility] Comment on above: Performed By: #### 2 293970, 8628679, 7106650, 0699020, 04186411, 2789037, 4765074, 1517300 ####[address] [place] [address] MCH (RBC) [Entitic mass] 26.0 pg Low 27.0-34.0 [facility] Comment on above: Performed By: #### 2 713877, 9279927, 5733289, 1515452, 07728616, 7199750, 6649358, 1060366 ####[facility] [place] [address] MCHC (RBC) [Mass/Vol] 32.8 g/dL Normal 31.4-36.0 [facility] Comment on above: Performed By: #### 2 151931, 1819648, 7039570, 8815348, 24935324, 8785821, 9427946, 3721648 ####[place] [address] MCV (RBC) [Entitic vol] 79.3 fL Low 80.0-100.0 [facility] Comment on above: Performed By: #### 2 957561, 4038916, 3748798, 3083147, 59279724, 8147955, 2339670, 6567352 ####[place] [address] Platelet mean volume (Bld) [Entitic vol] 8.0 fL Normal 6.4-10.8 [facility] Comment on above: Performed By: #### 2 675406, 7575526, 8744140, 6138511, 77965175, 4507931, 5787956, 0722434 ####[address] [address] Platelets (Bld) [#/Vol] 358.0 E9/L Normal 150.0-500. 0 [facility] Comment on above: Performed By: #### 2 702097, 6995705, 5354725, 8325325, 39400799, 4030432, 4546196, 3187044 ####[address] [address] RBC (Bld) [#/Vol] 4.6 E12/L Normal 4.3-5.9 [facility] Comment on above: Performed By: #### 2 756284, 4270509, 2798294, 4940939, 18801800, 1056525, 1449362, 8298131 ####[place] [address] WBC corrected for nucl RBC Auto (Bld) [#/Vol] 8.7 E9/L Normal 4.0-11.0 [facility] Comment on above: Performed By: #### 2 806041, 2580288, 3897170, 8581511, 93682454, 1571604, 8844417, 9813560 ####[facility] [address] [place] [address] CHEMISTRYOrdered By: SYSTEM SYSTEM on 07-09-2023 Albumin [Mass/Vol] 3.2 g/dL Low 3.3 - 5.0 gm/dL Remisol Chem Albumin/Globulin [Mass ratio] 0.8 {ratio} Low 1.1 - 2.2 [facility] Alk Phos 65 [iU]/d Normal 21 - 98 Int._Unit/ L Remisol Chem ALT 10 [iU]/d Normal 6 - 46 Int._Unit/ L [facility] Anion gap [Moles/Vol] 8 mmol/L Normal 6 - 16 mEq/L [facility] Chem AST 14 [iU]/d Normal 5 - 43 Int._Unit/ L [facility] Chem Bili Total 0.5 mg/dL Normal 0.0 - 1.1 mg/dL [facility] Calcium [Mass/Vol] 9.0 mg/dL Normal 8.9 - 11. 1 mg/dL [facility] Chloride [Moles/Vol] 97 mmol/L Low 101 - 1 11 mmol/L Rem[facility] Chem CO2 [Moles/Vol] 31 mmol/L Normal 21 - 31 mmol/L [facility] Chem Creatinine [Mass/Vol] 0.8 mg/dL Normal 0.5 - 1.3 mg/dL [facility] Chem eGFR mL/min/1.73 m2 Normal >=59mL/min /1.73 m2 Remisol Chem Free T4 [Mass/Vol] 0.97 ng/dL Normal 0.58 - 1.64 ng/dL [facility] Globulin (S) [Mass/Vol] 4.0 g/dL Normal 1.4 - 4.0 gm/dL [facility] Glucose [Mass/Vol] 105 mg/dL Normal 55 - 199 mg/dL [facility] Potassium [Moles/Vol] 4.4 mmol/L Normal 3.5 - 5.3 mmol/L [facility] Chem Protein [Mass/Vol] 7.2 g/dL Normal 6.0 - 7.8 gm/dL [facility] Sodium [Moles/Vol] 132 mmol/L Low 135 - 145 mmol/L Remisol Chem TSH Qn 1.66 m[IU]/L Normal 0.34 - 5.60 mcIU/mL [facility] Urea nitrogen [Mass/Vol] 11 mg/dL Normal 5 - 21 mg/dL [facility] Urea nitrogen/Creatinine [Mass ratio] 14 mg/mg Normal 10 - 20 Remisol Chem CMPon 07-09-2023 Albumin [Mass/Vol] 3.2 g/dL Low 3.3-5.0 [facility] Comment on above: Performed By: #### 2 877759, 1640543, 9434140, 9572272, 53043103, 8459909, 5666062, 9288492 ####[facility] [address] [place] [address] Albumin/Globulin [Mass ratio] 0.8 {ratio} Low 1.1-2.2 [facility] Comment on above: Performed By: #### 2 508451, 0123113, 6142442, 0307476, 90264484, 6919609, 6325591, 8635924 ####[facility] [address] [place] [address] Alk Phos 65 Int._Unit/L Normal 21-98 [facility] Comment on above: Performed By: #### 2 531002, 2868592, 5764109, 0081632, 87568212, 6251607, 2861253, 5797887 ####[facility] [address] [place] [address] ALT 10 Int._Unit/L Normal 6-46 [facility] Comment on above: Performed By: #### 2 237325, 2183656, 2556863, 2326510, 01973168, 1625688, 1586775, 1903121 ####[facility] [address] [place] [address] Anion gap [Moles/Vol] 8 mmol/L Normal 6-16 [facility] Comment on above: Performed By: #### 2 990430, 7762697, 5746731, 9488904, 94589118, 0280090, 4010822, 0384464 ####[facility] [address] [place] [address] AST 14 Int._Unit/L Normal 5-43 [facility] Comment on above: Performed By: #### 2 538855, 5041508, 7923831, 8805997, 14834429, 3756311, 5573888, 4666667 ####[facility] [address] [place] [address] Bili Total 0.5 mg/dL Normal 0.0-1.1 [facility] Comment on above: Performed By: #### 2 964334, 5080086, 7416814, 2918239, 32772334, 0731700, 5791456, 1490443 ####[facility] [address] [place] [address] BUN/Creat Ratio 14 No Units Normal 10-20 [facility] Comment on above: Performed By: #### 2 010874, 0257398, 4874441, 8352056, 02254085, 2279872, 1518910, 3923219 ####[facility] [address] [place] [address] Calcium [Mass/Vol] 9.0 mg/dL Normal 8.9-11.1 [facility] Comment on above: Performed By: #### 2 509578, 1608241, 4456525, 2187608, 05767362, 1230609, 8424189, 3352108 ####[facility] [address] [place] [address] Chloride [Moles/Vol] 97 mmol/L Low 101-111 [facility] Comment on above: Performed By: #### 2 244732, 8359709, 3138102, 2817493, 10558975, 9980145, 0942445, 5698119 ####[facility] [address] [place] [address] CO2 [Moles/Vol] 31 mmol/L Normal 21-31 [facility] Comment on above: Performed By: #### 2 632695, 6923313, 0302982, 4036351, 40793109, 7130660, 0319140, 4222539 ####[facility] [address] [place] [address] Creatinine [Mass/Vol] 0.8 mg/dL Normal 0.5-1.3 [facility] Comment on above: Performed By: #### 2 147163, 9400310, 5153981, 6776089, 17088882, 3881857, 9386644, 6010215 ####[facility] [address] [place] [address] Globulin (S) [Mass/Vol] 4.0 g/dL Normal 1.4-4.0 [facility] Comment on above: Performed By: #### 2 239423, 6485886, 0951973, 4727686, 51520375, 2180534, 9561913, 2449873 ####[facility] [address] [place] [address] Glucose [Mass/Vol] 105 mg/dL Normal 55-199 [facility] Comment on above: Performed By: #### 2 504314, 8891881, 1523284, 8058716, 39450238, 2438998, 3335789, 5944355 ####[facility] [address] [place] [address] Potassium [Moles/Vol] 4.4 mmol/L Normal 3.5-5.3 [facility] Comment on above: Performed By: #### 2 075662, 0057311, 4046431, 0399949, 02665453, 8466967, 6469145, 7406081 ####[facility] [address] [place] [address] Protein [Mass/Vol] 7.2 g/dL Normal 6.0-7.8 [facility] Comment on above: Performed By: #### 2 837884, 9283687, 2993407, 8700961, 50201010, 8177609, 7234959, 0168195 ####[facility] [address] [place] [address] Sodium [Moles/Vol] 132 mmol/L Low 135-145 [facility] Comment on above: Performed By: #### 2 367744, 0575345, 8465909, 6073279, 93224466, 8571988, 2032199, 8614923 ####[facility] [address] [place] [address] Urea nitrogen [Mass/Vol] 11 mg/dL Normal 5-21 [facility] Comment on above: Performed By: #### 2 865152, 5438845, 5938739, 7653136, 98507621, 0041772, 5516491, 7682252 ####[facility] [address] [place] [address] Family Medicine Office/Clini c Noteon 07-09-2023 Family Medicine Office/Clinic Note HPI Staff Jemal is a 73 year old male presenting to discuss CT results Pt here today to go over CT scans done on 07/03/23 History of Present Illness pt presents today to go over CT results Review of Systems PHQ Score Initial Depression Screen Score: 0 SCORE ROS - Provider Constitutional: no fever, no chills, no sweats, yes fatigue, night sweats, weight loss Respiratory: no shortness of breath, no cough, no orthopnea, no wheezing. Cardiovascular: no chest pain, no palpitations, no edema. Neurologic: no headache, no dizziness, no numbness, no weakness. Physical Exam Vitals & Measurements HR: 70(Peripheral) RR: 14 BP: 140/84 SpO2: 97% HT: 69 in HT: 176.5 cm WT: 90.90 kg WT: 199.98 lb BMI: 29.18 General: alert, no acute distress ENMT: oral mucosa moist, no pharyngeal erythema or exudate Cardiovascular: regular rate and rhythm, normal peripheral perfusion Respiratory: Lungs CTA, respirations non labored Extremities: no deformity, no trauma Neurological: oriented x 4, LOC appropriate for age, CN II-XII intact, motor strength equal & normal bilaterally, speech normal Assessment/Plan 1. Unexplained weight loss (R63.4: Abnormal weight loss) pt continues to lose weight. he has appointment with GI in July. pt states he just can't eat much. he just feels full as soon as he starts to eat anything. we started omeprazole at last visit. but it has not helped with symptoms at all. labs repeated in office today Ordered: [facility] External Ambulatory Referral 2. Low TSH level (R79.89: Other specified abnormal findings of blood chemistry) will repeat TSH today and check Free T3 and Free T4. u/s of thryoid ordered as well. will have that done at [facility]. 3. Multiple nodules of lung (R91.8: Other nonspecific abnormal finding of lung field) CT scan showed nodules on both lungs. 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 will refer to DR. Mcfadden for further evaluation. Ordered: [facility] External Ambulatory Referral 4. Emphysema, unspecified (J43.9: Emphysema, unspecified) newly diagnosed with CT of chest Ordered: [facility] External Ambulatory Referral 5. Moderate recurrent major depression (F33.1: Major depressive disorder, recurrent, moderate) taking citalopram Ordered: CBC w/ Auto Diff Comprehensive Metabolic Panel Free T4 Lab Specimen Collect 43138 T3 Free Testosterone Level Total Thyroid Stimulating Hormone 6. Prostate enlargement (N40.0: Benign prostatic hyperplasia without lower urinary tract symptoms) pt is scheduled with urology August 06. PSA is also elevated 7. BMI 29.0-29.9,adult (Z68.29: Body mass index [BMI] 29.0-29.9, adult) BMI education complete Ordered: CBC w/ Auto Diff Comprehensive Metabolic Panel Free T4 Lab Specimen Collect 07781 T3 Free Testosterone Level Total Thyroid Stimulating Hormone 8. Former smoker (Z87.891: Personal history of nicotine dependence) continue not smoking Follow-up No qualifying data available Problem List/Past Medical History Ongoing Acid reflux Aneurysm of ascending aorta Elevated PSA Emphysema, unspecified Epididymitis Essential hypertension Former smoker Low TSH level Moderate recurrent major depression Multiple nodules of lung Osteoarthritis of right knee joint Prostate enlargement Smoker Unexplained weight loss Historical No qualifying data Medications amLODIPine 10 mg Tab, 10 mg= 1 tab(s), Oral, Daily, 3 refills carvedilol 12.5 mg Tab cholecalciferol 2000 intl units oral capsule citalopram 20 mg Tab lisinopril 40 mg Tab nystatin Top 100,000 units/g Crm 15 gram, 1 chantal, Topical, BID, 1 refills omeprazole 40 mg Cap-DR, 40 mg= 1 cap(s), Oral, Daily, 3 refills Allergies Toprol-XL Social History Tobacco Never (less than 100 in lifetime) Tobacco Use:. Never Smokeless Tobacco Use:. Household tobacco concerns: No., 07/09/2023 Immunizations Vaccine Date Status Comments influenza virus vaccine, inactivated - Not Given Patient Refuses Normal [facility] Comment on above: Result Comment: Elec tronically Signed By: Mookie MONTERO, Elham Crowley\.br\Date and Time Signed: 07/09/23 12:59 EST Free T4on 07-09-2023 Free T4 [Mass/Vol] 0.97 ng/dL Normal 0.58-1.64 [facility] Comment on above: Performed By: #### 2 179334, 6351181, 4603565, 4794215, 87646653, 7566445, 8044733, 9314106 ####[facility] [address] [place] [address] HEMATOLOGYOrdered By: SYSTEM SYSTEM on 07-09-2023 Basophils/100 WBC (Bld) 0.8 % Normal 0.0 - 2.0 % [facility] Basophils/Leukocytes Auto (Bld) [Pure # fraction] 0.1 E9/L Normal 0.0 - 0.2 E9/L [facility] Eosinophils/100 WBC (Bld) 3.7 % Normal 0.0 - 8.0 % [facility] Eosinophils/Leukocytes Auto (Bld) [Pure # fraction] 0.3 E9/L Normal 0.0 - 0.5 E9/L [facility] Lymphocytes/100 WBC (Bld) 13.5 % Low 14.0 - 50.0 % [facility] Lymphocytes/Leukocytes Auto (Bld) [Pure # fraction] 1.2 E9/L Normal 1.0 - 4.0 E9/L [facility] Monocytes/100 WBC (Bld) 8.4 % Normal 4.0 - 14.0 % [facility] Monocytes/Leukocytes Auto (Bld) [Pure # fraction] 0.7 E9/L Normal 0.2 - 1.0 E9/L [facility] Neutrophils/100 WBC (Bld) 73.6 % Normal 36.0 - 75.0 % [facility] Neutrophils/Leukocytes Auto (Bld) [Pure # fraction] 6.4 E9/L Normal 2.0 - 7.5 E9/L [facility] HEMATOLOGYOrdered By: Carlee Alvarenga on 07-09-2023 Erythrocyte distribution width (RBC) [Ratio] 15.6 % High 10.9 - 14.2 % [facility] Hematocrit (Bld) [Volume fraction] 36.3 % Low 37.7 - 49.0 % [facility] Hemoglobin (Bld) [Mass/Vol] 11.9 g/dL Low 13.5 - 17.5 gm/dL [facility] MCH (RBC) [Entitic mass] 26.0 pg Low 27.0 - 34.0 pg [facility] MCHC (RBC) [Mass/Vol] 32.8 g/dL Normal 31.4 - 36.0 gm/dL [facility] MCV (RBC) [Entitic vol] 79.3 fL Low 80.0 - 100.0 fL [facility] Platelet mean volume (Bld) [Entitic vol] 8.0 fL Normal 6.4 - 10.8 fL [facility] Platelets (Bld) [#/Vol] 358.0 E9/L Normal 150.0 - 500.0 E9/L [facility] RBC (Bld) [#/Vol] 4.6 E12/L Normal 4.3 - 5.9 E12/L [facility] WBC corrected for nucl RBC Auto (Bld) [#/Vol] 8.7 E9/L Normal 4.0 - 11.0 E9/L [facility] Physician Orderon 07-09-2023 Physician Order [id number] Normal [facility] TSHon 07-09-2023 TSH Qn 1.66 m[IU]/L Normal 0.34-5.60 [facility] Comment on above: Performed By: #### 2 900479, 4533836, 7065695, 7273390, 41140648, 4449674, 3563803, 0734607 ####[facility] [address] [place] [address] eGFRon 07-09-2023 GFR/1.73 sq M.predicted among non-blacks MDRD (S/P/Bld) [Vol rate/Area] mL/min/{1.73_m2} Normal >=59 [facility] Comment on above: Order Comment: Order added by Discern Expert. Performed By: #### 2 246241, 1863281, 5757841, 9488530, 36845462, 7194357, 0371292, 4382637 ####[facility] [address] [place] [address] Pre-Visit Planningon 023 Pre-Visit Planning - From: Dinah Awad To: Elham Moon; Sent: 07/08/2023 07:57:12 EST Subject: Pre-Visit Planning Due Date/Time: 07/08/2023 07:57:00 EST Caller Name: JEMAL ZEPEDA; Caller Number: Ramiro , Brittany [facility] Elham. During a pre-visit planning chart review, I noted the following medication documented in the medical record: citalopram 20 mg every morning. Based on your medical judgement, can you please indicate what conditions indicate the necessity of the medication? I can update the Chronic Problem List with your response if you would like. -Additional comments: -Will determine during Office Visit In responding to this request, please exercise your independent professional judgement. The fact that a question is asked does not imply that any particular answer is desired or expected. If you have any questions, please feel free to contact me at extension [phone]. Thank you! Dinah Awad LPN From: Elham Moon To: Dinah Awad; Sent: 07/08/2023 08:49:05 EST Subject: RE: Pre-Visit Planning Caller Name: JEMAL ZEPEDA; Caller Number: Ramiro , M depression recurrent moderate Normal [address] [facility] CT Abdomen/Pelvis w/ Contras ton 07-04-2023 CT Abdomen/Pelvis w/ Contrast Exam Date/Time: 07/03/2023 15:23 EST Reason for Exam: Weight loss, unintended;Other (please specify) Report Please review report CT chest for report of CT abdomen pelvis Ordering Provider: Elham Damico FINAL REPORT Dictated: 07/04/2023 9:02 am Rock Blanco MD Signed (Electronic Signature): 07/04/2023 9:02 am Signed by: Rock Blanco MD Transcribed by: DP Technologist: WOODY Technical Comments GFR (mL/min/1/73m2) na Contrast: Isovue 300 Contrast amount in ml's: 100 Rectal Contrast Given? No Oral contrast amount in ml's: 900 Normal [facility] [address] Chest w/ Contraston 07-04 CT Chest w/ Contrast Exam Date/Time: 07/03/2023 15:23 EST Reason for Exam: Weight loss, unintended;Other (please specify) Report IMPRESSION: ANEURYSM, ASCENDING THORACIC AORTA, MEASURING 5.0 X 5.3 CM. ANEURYSM, INFRARENAL ABDOMINAL AORTA AT BIFURCATION, MEASURING 3.1 X 2.8 CM. SURGICAL CHANGES AT OSTIA SUPERIOR MESENTERIC ARTERY AND CELIAC ARTERY. BILATERAL LUNG NODULES MEASURING UP TO 4.8 MM. RECOMMENDATIONS BELOW. EMPHYSEMA. RECOMMEND PATIENT BE EVALUATED FOR LOW-DOSE CANCER SCREENING PROTOCOL. INTERSTITIAL LUNG DISEASE. PROSTATIC ENLARGEMENT. URINARY BLADDER DIVERTICULUM. OTHER FINDINGS DISCUSSED. CT OF THE CHEST, ABDOMEN, AND PELVIS WITH INTRAVENOUS CONTRAST MEDIUM. HISTORY: Weight loss, unintended TECHNICAL FACTORS: CT imaging of the chest, abdomen, and pelvis, was obtained and formatted as 5 mm contiguous axial images from the thoracic inlet through the symphysis pubis. Sagittal and coronal reconstructions obtained during postprocessing. Intravenous contrast medium: 100 ml of Isovue-300. Oral contrast medium: Barium sulfate, 900 mL Comparison: None CT OF THE CHEST WITH INTRAVENOUS CONTRAST MEDIUM. FINDINGS: Right lun.8 mm noncalcified nodule pleural-based nodule, posterior right upper lobe (series 2, image 24). No consolidation, pleural effusion, pneumothorax. Emphysema, greatest in upper lobe. Subsegmental atelectatic change dependent right lower lobe. Reticular change, greatest in right upper lobe. Left lung: Pleural-based noncalcified 3 mm nodule posterior left upper lobe (series 2, image 30). No consolidation, pleural effusion, pneumothorax. Emphysema, greatest in upper lobe. Reticular change, greatest in left upper lobe. Lymph nodes: No hilar, mediastinal, or axillary lymph node enlargement. Report Thoracic aorta: AP and transverse dimension of the ascending thoracic aorta measures 5.0 x 5.3 cm. Cardiac: Size normal. No pericardial effusion. Coronary artery calcification identified. Musculoskeletal:No osteoblastic, and no osteolytic lesions. CT OF THE ABDOMEN AND PELVIS WITH INTRAVENOUS CONTRAST MEDIUM. FINDINGS: Liver: Normal in size, and shape. Mildly lobulated 1.7 x 1.7 cm cyst anterior margin left hepatic lobe. Several smaller cysts also identified in both left hepatic and right hepatic lobes. Punctate calcification identified in the liver. Bile Ducts: Normal in caliber. Gallbladder: No stones or wall thickening. Pancreas: Normal without masses, cysts, ductal dilatation or calcification. Spleen: Normal in size without masses. Punctate calcification identified spleen. No splenules. Kidneys: Normal in size and enhancement. No hydronephrosis, or stones. 1.8 cm simple cyst posterior mid pole right kidney. 3.2 cm cortical cyst posterior upper pole left kidney.. Adrenals: Normal. Small bowel: Normal in caliber. Appendix: Normal. Colon: Normal in caliber. Peritoneum: No ascites, free air, or fluid collections. Vessels: Aorta with intermittent atherosclerotic change. AP and transverse dimension, infrarenal abdominal aorta at the aortic bifurcation measures 3.1 x 2.8 cm. Postsurgical changes at ostia of celiac artery and superior mesenteric artery. Portal vein, splenic vein, superior mesenteric vein are patent. Lymph nodes: Retroperitoneal: No enlarged retroperitoneal lymph nodes. Mesenteric: No enlarged mesenteric lymph nodes. Pelvic: No enlarged pelvic lymph nodes. Ureters: Normal in course and caliber. No calcifications. Bladder: No wall thickening. Bladder diverticulum, right lateral wall, measuring approximately 5.3 x 3.2 cm. Prostate: Enlarged with transverse diameter 5.4 cm. Calcification identified centrally within prostate. Abdominal Wall: 5.4 mm fat-containing periumbilical anterior abdominal wall defect. No diastasis of rectus musculature. No edema or masses. Report Bones: No bone lesions. Used to space narrowing L4-L5 and L5-S1 with posterior disc space narrowing remainder of lumbar spine. Small anterior osteophytes L3-L5. No post operative changes. Fleischner Society 2017 Guidelines for Management of Incidentally Detected Pulmonary Nodules in Adults A: Solid Nodules* Single Low risk <6 mm No routine follow-up 6-[address] at 6-12 months, then consider CT at 18-24 months >[address] at 3 months, PET/CT, or tissue sampling Nodules <6 mm do not require routine follow-up, but certain patients at high risk with suspicious nodule morphology, upper lobe location, or both may warrant 12-month follow-up (recommendation 1A). High risk <[address] at 12 months 6-[address] at 6-12 months, then CT at 18-24 months >[address] at 3 months, PET/CT, or tissue sampling Nodules <6 mm do not require routine follow-up, but certain patients at high risk with suspicious nodule morphology, upper lobe location, or both may warrant 12-month follow-up (fazal (more content not included)... Normal [facility] Consent for Treatmenton 06-20 Consent for Treatment [id number]#[id number] [facility] Physician Referralon 023 Physician Referral [id number]#1.00TIFF [facility] Physician Referralon 023 Physician Referral [id number]#[id number] [facility] TSHon 11-15-2023 TSH Qn 0.29 m[IU]/L Low 0.34-5.60 [facility] Comment on above: Performed By: #### 2 261584, 7078858, 91581765, 1672333, 85315821, 2222756, 601207475, 2144452 ####[facility] [address] [place] [address] Vitamin D 25 Hydroxyon 06-04 25-hydroxyvitamin D3 [Mass/Vol] 37.6 ng/mL Normal 30.0-100.0 [facility] Comment on above: Result Comment: Vit h[place] D deficiency has been defined as a level of serum 25-OH vitamin D less than 20 ng/mL (1,2) by the Stephenson of Medicine and an Endocrine Society practice guideline. The Endocrine Society further defined vitamin D insufficiency as a level between 21 and 29 ng/mL (2). 1. IOM ([employer] of Medicine). 2010. Dietary reference intakes for calcium and D. Read [place]: The National Academies Press. 2. Hanh MF, Verónica NC, Jamie BARKSDALE, et al. Evaluation, treatment, and prevention of vitamin D deficiency: an Endocrine Society clinical practice guideline. JCEM. 2010; 96 (7):1911-30. Performed By: #### 2 468899, 8071920, 10882708, 1907798, 54115779, 0121202, [id number], 2287214 ####[facility] [address] [place] [address] Ambulatory Visit Summaryon 1 08-03-2022 Ambulatory Visit Summary JEMAL ZEPEDA :1950 Visit Date:06/03/2023 Ambulatory Visit Instructions Your Diagnosis BMI 29.0-29.9,adult Smoker Fatigue Prostate cancer screening Weight loss Essential hypertension Your Care Team Attending Physician - Elham Moon Primary Care Physician - Elham Moon This Is Your Medications List amlodipine (amLODIPine 10 mg Tab) carvedilol (carvedilol 12.5 mg Tab) cholecalciferol (cholecalciferol 2000 intl units oral capsule) citalopram (citalopram 20 mg Tab) lisinopril (lisinopril 40 mg Tab) rosuvastatin (rosuvastatin 20 mg Tab) Discharge Vitals Heart Rate (Peripheral) 68 Respiratory Rate 18 Blood Pressure 130/74 Height 176.5 cm Height 69 in Weight 91.6 kg Weight 201.52 lb BMI 29.4 Medications What How Much When Instructions Unchanged amlodipine (amLODIPine 10 mg Tab) 1 Tablets By Mouth Every day Unchanged carvedilol (carvedilol 12.5 mg Tab) 180 EA, 0 Refill(s), TAKE 1 TABLET BY MOUTH TWICE DAILY (WITH BREAKFAST and WITH evening meal) Unchanged cholecalciferol (cholecalciferol 2000 intl units oral capsule) 2000 Unknown, oral, 0 Refill(s), Take 1 capsule (2,000 Units total) by mouth in the morning. Unchanged citalopram (citalopram 20 mg Tab) 90 EA, 0 Refill(s), TAKE 1 TABLET BY MOUTH EVERY MORNING Unchanged lisinopril (lisinopril 40 mg Tab) 90 EA, 0 Refill(s), TAKE 1 TABLET BY MOUTH EVERY MORNING Unchanged rosuvastatin (rosuvastatin 20 mg Tab) 30 EA, 0 Refill(s), TAKE 1 TABLET BY MOUTH IN THE MORNING Allergies Toprol-XL Problems Ongoing - Any problem that you are currently receiving treatment for. Aneurysm of ascending aorta Epididymitis Essential hypertension Osteoarthritis of right knee joint Smoker Patient Survey You may receive a survey via text or e-mail asking about your office visit. Please share your experience with us by completing your survey. We appreciate your feedback and thank you for choosing us for your care. [facility] Ambulatory Visit Summary JEMAL ZEPEDA Byron :1950 Visit Date:06/03/2023 Ambulatory Visit Instructions Your Diagnosis BMI 29.0-29.9,adult Smoker Fatigue Prostate cancer screening Weight loss Essential hypertension Your Care Team Attending Physician - Elham Moon Primary Care Physician - Elham Moon This Is Your Medications List amlodipine (amLODIPine 10 mg Tab) carvedilol (carvedilol 12.5 mg Tab) cholecalciferol (cholecalciferol 2000 intl units oral capsule) citalopram (citalopram 20 mg Tab) lisinopril (lisinopril 40 mg Tab) rosuvastatin (rosuvastatin 20 mg Tab) Discharge Vitals Heart Rate (Peripheral) 68 Respiratory Rate 18 Blood Pressure 130/74 Height 176.5 cm Height 69 in Weight 91.6 kg Weight 201.52 lb BMI 29.4 Medications What How Much When Instructions Unchanged amlodipine (amLODIPine 10 mg Tab) 1 Tablets By Mouth Every day Unchanged carvedilol (carvedilol 12.5 mg Tab) 180 EA, 0 Refill(s), TAKE 1 TABLET BY MOUTH TWICE DAILY (WITH BREAKFAST and WITH evening meal) Unchanged cholecalciferol (cholecalciferol 2000 intl units oral capsule) 2000 Unknown, oral, 0 Refill(s), Take 1 capsule (2,000 Units total) by mouth in the morning. Unchanged citalopram (citalopram 20 mg Tab) 90 EA, 0 Refill(s), TAKE 1 TABLET BY MOUTH EVERY MORNING Unchanged lisinopril (lisinopril 40 mg Tab) 90 EA, 0 Refill(s), TAKE 1 TABLET BY MOUTH EVERY MORNING Unchanged rosuvastatin (rosuvastatin 20 mg Tab) 30 EA, 0 Refill(s), TAKE 1 TABLET BY MOUTH IN THE MORNING Allergies Toprol-XL Problems Ongoing - Any problem that you are currently receiving treatment for. Aneurysm of ascending aorta Epididymitis Essential hypertension Osteoarthritis of right knee joint Smoker Patient Survey You may receive a survey via text or e-mail asking about your office visit. Please share your experience with us by completing your survey. We appreciate your feedback and thank you for choosing us for your care. Normal [facility] Auto Diffon 06-03-2023 Basophils/100 WBC (Bld) 0.6 % Normal 0.0-2.0 [facility] Comment on above: Order Comment: Order Added by Discern Expert. Performed By: #### 2 133553, 2224827, 12350951, 8947894, 64030403, 0876843, [id number], 7889956 #### [facility] [address] [place] [address] Basophils/Leukocytes Auto (Bld) [Pure # fraction] 0.0 E9/L Normal 0.0-0.2 [facility] Comment on above: Order Comment: Order Added by Discern Expert. Performed By: #### 2 603822, 4996219, 43134935, 0020264, 01210638, 3800320, 049069086, 0625814 #### [facility] [address] [place] [address] Eosinophils/100 WBC (Bld) 3.7 % Normal 0.0-8.0 [facility] Comment on above: Order Comment: Order Added by Discern Expert. Performed By: #### 2 790861, 4998058, 03312440, 3192615, 20803218, 7882066, 035489655, 2598479 #### [facility] [address] [place] [address] Eosinophils/Leukocytes Auto (Bld) [Pure # fraction] 0.3 E9/L Normal 0.0-0.5 [facility] Comment on above: Order Comment: Order Added by Berry Expert. Performed By: #### 2 457652, 2400460, 76980868, 5435997, 94230017, 4556272, 242550731, 7355563 #### [facility] [address] [place] [address] Lymphocytes/100 WBC (Bld) 13.8 % Low 14.0-50.0 [facility] Comment on above: Order Comment: Order Added by Berry Expert. Performed By: #### 2 091455, 7882505, 25597202, 1265582, 74094852, 6418499, 475313584, 6209339 #### [facility] [address] [place] [address] Lymphocytes/Leukocytes Auto (Bld) [Pure # fraction] 1.1 E9/L Normal 1.0-4.0 [facility] Comment on above: Order Comment: Order Added by Berry Expert. Performed By: #### 2 659927, 8414127, 84378353, 0316162, 26834692, 9132952, 958004333, 7190186 #### [facility] [address] [place] [address] [place] [address] Monocytes/100 WBC (Bld) 9.9 % Normal 4.0-14.0 [facility] Comment on above: Order Comment: Order Added by Discern Expert. Performed By: #### 2 436364, 4385449, 59287235, 2878588, 30883546, 2291198, 650842481, 6442463 #### [facility] [address] [place] [address] Monocytes/Leukocytes Auto (Bld) [Pure # fraction] 0.8 E9/L Normal 0.2-1.0 [facility] Comment on above: Order Comment: Order Added by Discern Expert. Performed By: #### 2 090049, 3697232, 76902062, 7310480, 00335491, 1732974, 037303376, 8243200 #### [facility] [address] [place] [address] Neutrophils/100 WBC (Bld) 72.0 % Normal 36.0-75.0 [facility] Comment on above: Order Comment: Order Added by Discern Expert. Performed By: #### 2 922779, 4198715, 25732531, 3277789, 15295632, 3314651, 274394597, 4137738 #### [facility] [address] [place] [address] Neutrophils/Leukocytes Auto (Bld) [Pure # fraction] 5.6 E9/L Normal 2.0-7.5 [facility] Comment on above: Order Comment: Order Added by Discern Expert. Performed By: #### 2 759424, 9390967, 84823552, 7863064, 28973108, 4924778, 512497670, 0595457 #### [facility] [address] [place] [address] CBC w/ Auto Diffon 3 Erythrocyte distribution width (RBC) [Ratio] 15.1 % High 10.9-14.2 [facility] Comment on above: Performed By: #### 2 118657, 5427577, 36354941, 2327497, 31230539, 0543796, 654550614, 1064224 #### [facility] [facility] [address] [place] [address] Hematocrit (Bld) [Volume fraction] 37.0 % Low 37.7-49.0 [facility] Comment on above: Performed By: #### 2 945775, 9516535, 15429161, 0080846, 84779671, 4183592, 001791920, 5368916 #### [facility] [address] [id number] Hemoglobin (Bld) [Mass/Vol] 12.0 g/dL Low 13.5-17.5 [facility] Comment on above: Performed By: #### 2 290485, 5622490, 83304392, 3263086, 45972835, 5561748, 397918599, 1545732 #### [facility] [address] [place], [place] [address] MCH (RBC) [Entitic mass] 25.9 pg Low 27.0-34.0 [facility] Comment on above: Performed By: #### 2 608943, 7456351, 85772270, 8716548, 25788854, 9988699, 250335554, 1028477 #### [facility] [address] [place] [address] MCHC (RBC) [Mass/Vol] 32.4 g/dL Normal 31.4-36.0 [facility] Comment on above: Performed By: #### 2 073435, 9746669, 66113130, 8543338, 97785323, 0809039, 412497840, 6735670 #### [facility] [address] [place] [address] MCV (RBC) [Entitic vol] 79.9 fL Low 80.0-100.0 [facility] Comment on above: Performed By: #### 2 664162, 4485124, 80688604, 5146207, 84954745, 3814101, 647576330, 4910704 #### [facility] [address] [place] [address] Platelet mean volume (Bld) [Entitic vol] 8.6 fL Normal 6.4-10.8 [facility] Comment on above: Performed By: #### 2 367690, 4617180, 57009865, 6545190, 66440999, 4442831, 664056298, 1359873 #### [facility] [address] [place] [address] Platelets (Bld) [#/Vol] 337.0 E9/L Normal 150.0-500. 0 [facility] Comment on above: Performed By: #### 2 353759, 5577699, 57361417, 5839628, 18997040, 0573482, 093220816, 6071662 #### [facility] [address] [place] [address] RBC (Bld) [#/Vol] 4.6 E12/L Normal 4.3-5.9 [facility] Comment on above: Performed By: #### 2 814389, 3979270, 54690481, 6402624, 31937841, 2010129, 092231811, 3395576 #### [facility] [address] [place] [address] WBC corrected for nucl RBC Auto (Bld) [#/Vol] 7.7 E9/L Normal 4.0-11.0 [facility] Comment on above: Performed By: #### 2 338094, 4569317, 42027986, 7612056, 04404318, 1600298, 843862821, 5756509 #### [facility] [address] [place] [address] CHEMISTRYOrdered By: SYSTEM SYSTEM on 06-03-2023 25-hydroxyvitamin D3 [Mass/Vol] 37.6 ng/mL Normal 30.0 - 100.0 ng/mL [facility] Remisol Comment on above: Interpretive Data: Vitamin D deficiency has been defined as a level of serum 25-OH vitamin D less than 20 ng/mL (1,2) by the [employer] of Medicine and an Endocrine Society practice guideline. The Endocrine Society further defined vitamin D insufficiency as a level between 21 and 29 ng/mL (2). 1. IOM ([employer] of Medicine). 2010. Dietary reference intakes for calcium and D. Read [place]: The National AcademMarketocracy Press. 2. Hanh MF, Verónica MCNEIL, Jamie BARKSDALE, et al. Evaluation, treatment, and prevention of vitamin D deficiency: an Endocrine Society clinical practice guideline. JCEM. 2010; 96 (7):1911-30. Albumin [Mass/Vol] 3.0 g/dL Low 3.3 - 5.0 gm/dL [facility] Albumin/Globulin [Mass ratio] 0.7 {ratio} Low 1.1 - 2.2 [facility] ALP [Catalytic activity/Vol] 59 [iU]/d Normal 21 - 98 Int._Unit/ L [facility] ALT No additional P-5'-P [Catalytic activity/Vol] 14 [iU]/d Normal 6 - 46 Int._Unit/ L [facility] Anion gap [Moles/Vol] 13 mmol/L Normal 6 - 16 mEq/L [facility] AST [Catalytic activity/Vol] 20 [iU]/d Normal 5 - 43 Int._Unit/ L [facility] Bilirubin [Mass/Vol] 0.5 mg/dL Normal 0.0 - 1 .1 mg/dL [facility] Calcium [Mass/Vol] 8.7 mg/dL Low 8.9 - 11. 1 mg/dL [facility] Chloride [Moles/Vol] 97 mmol/L Low 101 - 1 11 mmol/L [facility] Cholesterol [Mass/Vol] 90 mg/dL Low 120 - 200 mg/dL [facility] Cholesterol in HDL [Mass/Vol] 31 mg/dL Invalid Interpretation Code [facility] Comment on above: Interpretive Data: H DL > or equal to 60 mg/dL: Low cardiovascular risk HDL < 40 mg/dL : High cardiovascular risk Cholesterol in LDL [Mass/Vol] 46 mg/dL Normal <=129mg/dL [facility] Cholesterol in VLDL [Mass/Vol] 11 mg/dL Normal 7 - 40 mg/dL [facility] CO2 [Moles/Vol] 27 mmol/L Normal 21 - 31 mmol/L [facility] Creatinine [Mass/Vol] 0.9 mg/dL Normal 0.5 - 1.3 mg/dL [facility] GFR/1.73 sq M.predicted among non-blacks MDRD (S/P/Bld) [Vol rate/Area] 92 mL/min/1.73 m2 Normal >=59mL/min /1.73 m2 [facility] Comment on above: Interpretive Data: C hronic kidney disease could be indicated at eGFR's of less than 60 mL/min/1.73m2. Kidney failure is indicated at less than 15 mL/min/1.73m2. Globulin (S) [Mass/Vol] 4.5 g/dL High 1.4 - 4.0 gm/dL [facility] Glucose [Mass/Vol] 123 mg/dL Normal 55 - 199 mg/dL [facility] Comment on above: Interpretive Data: I f this glucose result represents a fasting glucose, interpretation should refer to the following reference range: 55-99 mg/dL Potassium [Moles/Vol] 4.2 mmol/L Normal 3.5 - 5.3 mmol/L [facility] Prostate specific Ag [Mass/Vol] 4.4 ng/mL High 0.1 - 3.5 ng/mL [facility] Comment on above: Interpretive Data: T he concentration of PSA determined by different manufacturers can vary due to differences in assay methods and reagent specificity. Values obtained from different assay methods cannot be used interchangeably. The methodology used for this result was chemiluminescence using [employer]'s Access Hybritech PSA reagent. Protein [Mass/Vol] 7.5 g/dL Normal 6.0 - 7.8 gm/dL [facility] Sodium [Moles/Vol] 133 mmol/L Low 135 - 145 mmol/L [facility] Triglyceride [Mass/Vol] 57 mg/dL Normal <=149mg/dL [facility] TSH Qn 0.29 m[IU]/L Low 0.34 - 5.60 mcIU/mL [facility] Urea nitrogen [Mass/Vol] 12 mg/dL Normal 5 - 21 mg/dL [facility] Urea nitrogen/Creatinine [Mass ratio] 13 mg/mg Normal 10 - 20 [facility] Remisol CMPon 06-03-2023 Albumin [Mass/Vol] 3.0 g/dL Low 3.3-5.0 [facility] Comment on above: Performed By: #### 2 488249, 1134144, 41595894, 6993998, 08273620, 7257032, 090799641, 2150401 #### [facility] [address] [place] [address] Albumin/Globulin (S) [Mass conc ratio] 0.7 Low 1.1-2.2 [facility] Comment on above: Performed By: #### 2 538813, 5507808, 32909391, 5293854, 77541094, 5191867, 192480533, 8723612 #### [facility] [address] [place] [address] ALP [Catalytic activity/Vol] 59 Int._Unit/L Normal 21-98 [facility] Comment on above: Performed By: #### 2 189177, 3547000, 66787735, 9270730, 32136027, 4109955, 114284736, 8682312 #### [facility] [address] [place] [address] ALT No additional P-5'-P [Catalytic activity/Vol] 14 Int._Unit/L Normal 6-46 [facility] Comment on above: Performed By: #### 2 196770, 9675941, 58033025, 0805716, 81962776, 2959174, 935371683, 3508347 #### [facility] [address] [place] [address] Anion gap [Moles/Vol] 13 mmol/L Normal 6-16 [facility] Comment on above: Performed By: #### 2 466430, 5902074, 32798457, 9110101, 52597933, 0916702, 890104399, 1306330 #### [facility] [address] [place] [address] AST [Catalytic activity/Vol] 20 Int._Unit/L Normal 5-43 [facility] Comment on above: Performed By: #### 2 351763, 0315291, 53117472, 7617744, 51426738, 2734109, 093347871, 3998994 #### [facility] [address] [place] [address] Bilirubin [Mass/Vol] 0.5 mg/dL Normal 0.0-1.1 [facility] Comment on above: Performed By: #### 2 013472, 2440528, 37736683, 3577351, 05012439, 2122165, 229081120, 2609752 #### [facility] [address] [place] [address] Calcium [Mass/Vol] 8.7 mg/dL Low 8.9-11.1 [facility] Comment on above: Performed By: #### 2 919543, 1914898, 83634710, 1607911, 43749284, 4835607, 215600758, 0871062 #### [facility] [address] [place] [address] Chloride [Moles/Vol] 97 mmol/L Low 101-111 [facility] Comment on above: Performed By: #### 2 628390, 2590325, 64574580, 5577247, 73191690, 2578799, 383856196, 6659173 #### [facility] [address] [place] [address] CO2 [Moles/Vol] 27 mmol/L Normal 21-31 [facility] Comment on above: Performed By: #### 2 205044, 1247522, 15370991, 6266763, 38292010, 8175561, 156385187, 2690705 #### [facility] [address] [place] [address] Creatinine [Mass/Vol] 0.9 mg/dL Normal 0.5-1.3 [facility] Comment on above: Performed By: #### 2 519022, 4896532, 10918933, 9572535, 71082316, 0544127, 615903333, 3790796 #### [facility] [address] [place] [address] Globulin (S) [Mass/Vol] 4.5 g/dL High 1.4-4.0 [facility] Comment on above: Performed By: #### 2 078591, 1315688, 88300229, 2225938, 63233700, 2149196, 170976468, 9725753 #### [facility] [address] [place] [address] Glucose [Mass/Vol] 123 mg/dL Normal 55-199 [facility] Comment on above: Result Comment: If t his glucose result represents a fasting glucose, interpretation should refer to the following reference range: 55-99 mg/dL Performed By: #### 2 463617, 0352587, 17993177, 5406603, 64388313, 4907784, 766288593, 2609298 #### [facility] [address] [place] [address] Potassium [Moles/Vol] 4.2 mmol/L Normal 3.5-5.3 [facility] Comment on above: Performed By: #### 2 110159, 0470839, 20204707, 2214371, 16513858, 7444816, 403387802, 4047055 #### [facility] [address] [place] [address] Protein [Mass/Vol] 7.5 g/dL Normal 6.0-7.8 [facility] Comment on above: Performed By: #### 2 935211, 2707999, 65036460, 4915655, 79769001, 8524341, 714482743, 6522034 #### [facility] [address] [place] [address] Sodium [Moles/Vol] 133 mmol/L Low 135-145 [facility] Comment on above: Performed By: #### 2 086935, 7813718, 96223515, 3826246, 41143397, 0224724, 338968883, 6785472 #### [facility] [address] [place] [address] Urea nitrogen [Mass/Vol] 12 mg/dL Normal 5-21 [facility] Comment on above: Performed By: #### 2 746353, 4246677, 32945029, 1845398, 04563196, 5366338, 105082351, 1438298 #### [facility] [address] [place] [address] Urea nitrogen/Creatinine [Mass ratio] 13 No Units Normal 10-20 [facility] Comment on above: Performed By: #### 2 691967, 4196327, 17239497, 2318751, 03848647, 6432696, 596581725, 9652137 #### [facility] [address] [place] [address] Family Medicine Office/Clini c Noteon 06-03-2023 Family Medicine Office/Clinic Note HPI Staff Jemal is a 72 year old male presenting for acute visit Concerns: Umbilical hernia was noticed 1.[address] scan he has done checking aneurysm status. Pt states he has no pain or discomfort only with taking a shower he can feel it. Pt states since 08/2022 has noticed appetite is decreased only eating once a day in the evening sometimes will eat small half sandwich for lunch when he does swallow sometimes food feels like it sits there . Has lost 25-30 pounds. Feeling fatigued Intermittent sinus drainage 1.5 months will feel like his lymph nodes will be swelled Night sweats intermittently 2-3 months waking up 3am and will be soaked by 7am History of Present Illness pt presents today c/o weight loss, severe fatigue, muscle atrophy Review of Systems PHQ Score Initial Depression Screen Score: 0 SCORE ROS - Provider Constitutional: no fever, no chills, no sweats, yes fatigue weight loss Respiratory: no shortness of breath, no cough, no orthopnea, no wheezing. Cardiovascular: no chest pain, no palpitations, no edema. Neurologic: no headache, no dizziness, no numbness, no weakness. Physical Exam Vitals & Measurements HR: 68(Peripheral) RR: 18 BP: 130/74 SpO2: 93% HT: 69 in HT: 176.5 cm WT: 91.6 kg WT: 201.52 lb BMI: 29.4 General: alert, no acute distress ENMT: oral mucosa moist, no pharyngeal erythema or exudate Cardiovascular: regular rate and rhythm, normal peripheral perfusion Respiratory: Lungs CTA, respirations non labored Extremities: no deformity, no trauma Neurological: oriented x 4, LOC appropriate for age, CN II-XII intact, motor strength equal & normal bilaterally, speech normal Assessment/Plan 1. Unexplained weight loss (R63.4: Abnormal weight loss) pt c/o weight loss. he states he eats very little, gets nauseated after taking a few bites. has nights that he wakes up in the middle of the night and just vomits. but does feel better after he vomits. pt had colonoscopy a few years ago. but I will refer to GI in [place] per pt preference. pt will return in 3 weeks to go over labs and touch base on symptoms after starting omeprazole Ordered: nystatin topical, 1 chantal, Topical, BID, 30 gram, Refill(s) 1, [email or web address], 176.5, cm, 06/03/23 11:10:00 EST, Height/Length Dosing, 91.6, kg, 06/03/23 11:10:00 EST, Weight Dosing omeprazole, 40 mg = 1 cap(s), Oral, Daily, # 30 cap(s), Refills(s) 3, Pharmacy: [email or web address], 176.5, cm, 06/03/23 11:10:00 EST, Height/Length Dosing, 91.6, kg, 06/03/23 11:10:00 EST, Weight Dosing CBC w/ Auto Diff Comprehensive Metabolic Panel [facility] External Ambulatory Referral Lab Specimen Collect [id number] Lipid Panel PSA Screen, Total Thyroid Stimulating Hormone Vitamin D 25 Hydroxy 2. Acid reflux (K21.9: Gastro-esophageal reflux disease without esophagitis) omeprazole ordered Ordered: nystatin topical, 1 chantal, Topical, BID, 30 gram, Refill(s) 1, [email or web address], 176.5, cm, 06/03/23 11:10:00 EST, Height/Length Dosing, 91.6, kg, 06/03/23 11:10:00 EST, Weight Dosing omeprazole, 40 mg = 1 cap(s), Oral, Daily, # 30 cap(s), Refills(s) 3, Pharmacy: [email or web address], 176.5, cm, 06/03/23 11:10:00 EST, Height/Length Dosing, 91.6, kg, 06/03/23 11:10:00 EST, Weight Dosing [facility] External Ambulatory Referral 3. Fatigue (R53.83: Other fatigue) pt presents today c/o severe fatigue. will draw labs today. Ordered: nystatin topical, 1 chantal, Topical, BID, 30 gram, Refill(s) 1, [email or web address], 176.5, cm, 06/03/23 11:10:00 EST, Height/Length Dosing, 91.6, kg, 06/03/23 11:10:00 EST, Weight Dosing omeprazole, 40 mg = 1 cap(s), Oral, Daily, # 30 cap(s), Refills(s) 3, Pharmacy: [email or web address], 176.5, cm, 06/03/23 11:10:00 EST, Height/Length Dosing, 91.6, kg, 06/03/23 11:10:00 EST, Weight Dosing CBC w/ Auto Diff Comprehensive Metabolic Panel [facility] External Ambulatory Referral Lab Specimen Collect [id number] Lipid Panel PSA Screen, Total Thyroid Stimulating Hormone Vitamin D 25 Hydroxy 4. Prostate cancer screening (Z12.5: Encounter for screening for malignant neoplasm of prostate) PSA drawn in office today Ordered: nystatin topical, 1 chantal, Topical, BID, 30 gram, Refill(s) 1, [email or web address], 176.5, cm, 06/03/23 11:10:00 EST, Height/Length Dosing, 91.6, kg, 06/03/23 11:10:00 EST, Weight Dosing omeprazole, 40 mg = 1 cap(s), Oral, Daily, # 30 cap(s), Refills(s) 3, Pharmacy: [email or web address], 176.5, cm, 06/03/23 11:10:00 EST, Height/Length Dosing, 91.6, kg, 06/03/23 11:10:00 EST, Weight Dosing CBC w/ Auto Diff Comprehensive Metabolic Panel [facility] External Ambulatory Referral Lab Specimen Collect [id number] Lipid Panel PSA Screen, Total Thyroid Stimulating Hormone Vitamin D 25 Hydroxy 5. Essential hypertension (I10: Essential (primary) hypertension) labs drawn in office today Ordered: nystatin topical, 1 chantal, Topical, BID, 30 gram, Refill(s) 1, [facility] 176.5, (more content not included)... Normal [facility] Comment on above: Result Comment: Elec tronically Signed By: Mookie MONTERO, Elham Crowley\.br\Date and Time Signed: 06/03/23 12:57 EST HEMATOLOGYOrdered By: SYSTEM SYSTEM on 06-03-2023 Basophils/100 WBC (Bld) 0.6 % Normal 0.0 - 2.0 % [facility] Basophils/Leukocytes Auto (Bld) [Pure # fraction] 0.0 E9/L Normal 0.0 - 0.2 E9/L [facility] Eosinophils/100 WBC (Bld) 3.7 % Normal 0.0 - 8.0 % [facility] Eosinophils/Leukocytes Auto (Bld) [Pure # fraction] 0.3 E9/L Normal 0.0 - 0.5 E9/L [facility] Lymphocytes/100 WBC (Bld) 13.8 % Low 14.0 - 50.0 % [facility] Lymphocytes/Leukocytes Auto (Bld) [Pure # fraction] 1.1 E9/L Normal 1.0 - 4.0 E9/L [facility] Monocytes/100 WBC (Bld) 9.9 % Normal 4.0 - 14.0 % [facility] Monocytes/Leukocytes Auto (Bld) [Pure # fraction] 0.8 E9/L Normal 0.2 - 1.0 E9/L [facility] Neutrophils/100 WBC (Bld) 72.0 % Normal 36.0 - 75.0 % [facility] Neutrophils/Leukocytes Auto (Bld) [Pure # fraction] 5.6 E9/L Normal 2.0 - 7.5 E9/L [facility] HEMATOLOGYOrdered By: Magaly Hastings on 06-03-2023 Erythrocyte distribution width (RBC) [Ratio] 15.1 % High 10.9 - 14.2 % [facility] Hematocrit (Bld) [Volume fraction] 37.0 % Low 37.7 - 49.0 % [facility] Hemoglobin (Bld) [Mass/Vol] 12.0 g/dL Low 13.5 - 17.5 gm/dL [facility] MCH (RBC) [Entitic mass] 25.9 pg Low 27.0 - 34.0 pg [facility] MCHC (RBC) [Mass/Vol] 32.4 g/dL Normal 31.4 - 36.0 gm/dL [facility] MCV (RBC) [Entitic vol] 79.9 fL Low 80.0 - 100.0 fL [facility] Platelet mean volume (Bld) [Entitic vol] 8.6 fL Normal 6.4 - 10.8 fL [facility] Platelets (Bld) [#/Vol] 337.0 E9/L Normal 150.0 - 500.0 E9/L [facility] RBC (Bld) [#/Vol] 4.6 E12/L Normal 4.3 - 5.9 E12/L [facility] WBC corrected for nucl RBC Auto (Bld) [#/Vol] 7.7 E9/L Normal 4.0 - 11.0 E9/L [facility] Lipid Panelon 06-03-2023 Cholesterol [Mass/Vol] 90 mg/dL Low 120-200 Fi [facility] Comment on above: Performed By: #### 2 219759, 1543341, 03114581, 7918674, 00336912, 4771300, 128238572, 3559528 ####[facility] [address] [place] [address] Cholesterol in HDL [Mass/Vol] 31 mg/dL Invalid Interpretation Code [facility] Comment on above: Result Comment: HDL > or equal to 60 mg/dL: Low cardiovascular risk HDL < 40 mg/dL : High cardiovascular risk Performed By: #### 2 839630, 6884446, 52653701, 9715525, 91441075, 0384316, 379951338, 5622031 ####[facility] [address] [place] [address] Cholesterol in LDL [Mass/Vol] 46 mg/dL Normal <=129 [facility] Comment on above: Performed By: #### 2 516852, 6084294, 22080328, 9891099, 02655388, 8472868, 686925431, 8565340 ####[facility] [address] [place] [address] Cholesterol in VLDL [Mass/Vol] 11 mg/dL Normal 7-40 [facility] Comment on above: Performed By: #### 2 880027, 9590669, 11135320, 2161004, 40045375, 7574774, 068781517, 7521800 ####[facility] [address] [place] [address] Triglyceride [Mass/Vol] 57 mg/dL Normal <=149 [facility] Comment on above: Performed By: #### 2 605095, 6174088, 99821077, 9572182, 38284460, 5607423, 919612103, 3630140 ####[facility] [address] [place] [address] PSA Screen, Totalon 06-03-20 23 Prostate specific Ag [Mass/Vol] 4.4 ng/mL High 0.1-3.5 [facility] Comment on above: Result Comment: The concentration of PSA determined by different manufacturers can vary due to differences in assay methods and reagent specificity. Values obtained from different assay methods cannot be used interchangeably. The methodology used for this result was chemiluminescence using [employer]'s Access Hybritech PSA reagent. Performed By: #### 2 096290, 6817078, 09570531, 8805193, 10505518, 2994993, 186711237, 8462645 #### [facility] [address] [place] [address] eGFRon 06-03-2023 GFR/1.73 sq M.predicted among non-blacks MDRD (S/P/Bld) [Vol rate/Area] 92 mL/min/1.73 m2 Normal >=59 [facility] Comment on above: Order Comment: Order added by Discern Expert. Result Comment: Senior Cost Accountant norah kidney disease could be indicated at eGFR's of less than 60 mL/min/1.73m2. Kidney failure is indicated at less than 15 mL/min/1.73m2. Performed By: #### 2 068619, 7293119, 83934916, 3283933, 18501301, 9986769, 251604512, 8742578 ####[facility] [address] [place] [address] RAD - Ultrasound Reporton RAD - Ultrasound Report [id number] Normal [facility] CTA CHEST W AND/OR WO IV CON TRASTon 05-06-2023 CTA CHEST W AND/OR WO IV CONTRAST CTA CHEST W AND/OR WO IV CONTRAST 05/06/2023 9:19 AM SIGNS AND SYMPTOMS: Abdominal aortic aneurysm TECHNOLOGIST COMMENTS: QUESTION FOR THE RADIOLOGIST: PROTOCOL: CTA of the chest conducted reformatted into standard images and three-dimensional maximal intensity projection images on a separate workstation. 100 mL Omnipaque 350 COMPARISON: August 31, 2021 FINDINGS: Thoracic inlet: Normal Mediastinum: No adenopathy Ana no adenopathy Vessels: Dilatation of the ascending thoracic aorta up to 4.7 cm please see snapshot image. Atherosclerotic changes in the thoracic aorta no dissection. HEART: Normal size. No pericardial effusion. Severe coronary artery calcification Airways: Normal LUNGS: Upper lobe centrilobular emphysema in addition to this there is peripheral irregular interstitial density likely representing some pulmonary fibrosis. No focal pneumonia. Pleura: No effusion CHEST WALL: Normal Upper abdomen: Cysts in the liver kidney Bones: Degenerative changes thoracic spine IMPRESSION: Aneurysmal dilatation of the ascending thoracic aorta up to 4.74 cm no dissection Upper lobe centrilobular emphysema superimposed on this is peripheral reticular coarse linear density consistent with some underlying pulmonary fibrosis . All CT scans at this facility use dose modulation iterative reconstruction and or weight balanced dosing when appropriate to reduce radiation dose to as low as reasonably achievable Electronically signed: Michael Tao. Normal [facility] Consulton 05-06-2023 Consult [id number] Sherice Zepeda 1950 [facility] Provider Department Center 05/06/2023 [id number] LOGAN HVCVASENDO AR HeartVAS Family History Problem Relation Age of Onset Heart attack Father Stroke Father Family Status - Relation Status Age at Father Level of Service:67444 NM OFFICE/OP CONSLTJ NEW/EST PT HIGH MDM 55 MINUTES Reason for Visit and Comments: New Patient [632] - Aneurysm if ascending thoracic aorta Normal [facility] Ambulatory Visit Summaryon 1 Ambulatory Visit Summary JEMAL ZEPEDA Byron :1950 Visit Date:05/01/2023 Ambulatory Visit Instructions Your Diagnosis BMI 31.0-31.9,adult Non-smoker Your Care Team Attending Physician - Elham Moon Primary Care Physician - Elham Moon This Is Your Medications List amlodipine (amLODIPine 10 mg Tab) amlodipine (amLODIPine 10 mg Tab) carvedilol (carvedilol 12.5 mg Tab) cholecalciferol (cholecalciferol 2000 intl units oral capsule) citalopram (citalopram 20 mg Tab) lisinopril (lisinopril 40 mg Tab) rosuvastatin (rosuvastatin 20 mg Tab) Discharge Vitals Heart Rate (Peripheral) 64 Respiratory Rate 18 Blood Pressure 138/88 Height 176.5 cm Height 69 in Weight 96.6 kg Weight 212.52 lb BMI 31.01 Medications What How Much When Instructions Unchanged amlodipine (amLODIPine 10 mg Tab) 90 EA, 0 Refill(s), TAKE 1 TABLET BY MOUTH EVERY DAY Unchanged amlodipine (amLODIPine 10 mg Tab) 1 Tablets By Mouth Every day Pickup at [facility] Unchanged carvedilol (carvedilol 12.5 mg Tab) 180 EA, 0 Refill(s), TAKE 1 TABLET BY MOUTH TWICE DAILY (WITH BREAKFAST and WITH evening meal) Unchanged cholecalciferol (cholecalciferol 2000 intl units oral capsule) 2000 Unknown, oral, 0 Refill(s), Take 1 capsule (2,000 Units total) by mouth in the morning. Unchanged citalopram (citalopram 20 mg Tab) 90 EA, 0 Refill(s), TAKE 1 TABLET BY MOUTH EVERY MORNING Unchanged lisinopril (lisinopril 40 mg Tab) 90 EA, 0 Refill(s), TAKE 1 TABLET BY MOUTH EVERY MORNING Unchanged rosuvastatin (rosuvastatin 20 mg Tab) 30 EA, 0 Refill(s), TAKE 1 TABLET BY MOUTH IN THE MORNING Pharmacy Information [id number]: [address] [place] [id number] [phone] Medications and Immunizations Administered Not Given influenza virus vaccine, inactivated, Patient Refuses Allergies Toprol-XL Problems Ongoing - Any problem that you are currently receiving treatment for. Aneurysm of ascending aorta Epididymitis Essential hypertension Osteoarthritis of right knee joint Smoker Normal [facility] Medicine Office/Clini c Noteon 05-01-2023 Family Medicine Office/Clinic Note HPI Staff Jemal is a 72 year old male presenting to establish care Establish Care: History: Any previous diagnosis: HTN, HLD, osteoarthritis, aneurysm of thoracic aorta History of seeing any specialist: finance lead Dr hurtado When was your last doctors visit: Last provider: Dr Clayton Any recent labs: recently [facility] Health Maintenance UTD: Colonoscopy: 02/28/2021 PSA: unsure when last time it was checked Flu: Refused Acute: Current issues/complaints: needs refill on amlodipine History of Present Illness pt presents today to establish care is in need of refills Review of Systems PHQ Score Initial Depression Screen Score: 0 ROS - Provider Constitutional: no fever, no chills, no sweats, no fatigue Respiratory: no shortness of breath, no cough, no orthopnea, no wheezing. Cardiovascular: no chest pain, no palpitations, no edema. Neurologic: no headache, no dizziness, no numbness, no weakness. arthritis pain in shoulders and back Physical Exam Vitals & Measurements HR: 64(Peripheral) RR: 18 BP: 138/88 SpO2: 98% HT: 69 in HT: 176.5 cm WT: 96.6 kg WT: 212.52 lb BMI: 31.01 General: alert, no acute distress ENMT: oral mucosa moist, no pharyngeal erythema or exudate Cardiovascular: regular rate and rhythm, normal peripheral perfusion Respiratory: Lungs CTA, respirations non labored Extremities: no deformity, no trauma Neurological: oriented x 4, LOC appropriate for age, CN II-XII intact, motor strength equal & normal bilaterally, speech normal Assessment/Plan 1. Essential hypertension (I10: Essential (primary) hypertension) Pt is in need of refills on amlodipine. BP at goal today. pt had labs recently at [facility]. all questions answered. RTC as needed 2. Aneurysm of ascending aorta (I71.21: Aneurysm of the ascending aorta, without rupture) pt scheduled for CT scan next week with finance lead 3. BMI 31.0-31.9,adult (Z68.31: Body mass index [BMI] 31.0-31.9, adult) BMI education complete 4. Non-smoker (Z78.9: Other specified health status) continue not smoking Orders: amlodipine, 10 mg = 1 tab(s), Oral, Daily, # 90 tab(s), Refills(s) 3, Pharmacy: [facility], 176.5, cm, 05/01/23 13:29:00 EDT, Height/Length Dosing, 96.6, kg, 05/01/23 13:29:00 EDT, Weight Dosing Follow-up No qualifying data available Problem List/Past Medical History Ongoing Aneurysm of ascending aorta Epididymitis Essential hypertension Osteoarthritis of right knee joint Smoker Historical No qualifying data Medications amLODIPine 10 mg Tab amLODIPine 10 mg Tab, 10 mg= 1 tab(s), Oral, Daily, 3 refills carvedilol 12.5 mg Tab cholecalciferol 2000 intl units oral capsule citalopram 20 mg Tab lisinopril 40 mg Tab rosuvastatin 20 mg Tab Allergies Toprol-XL Social History Tobacco Never (less than 100 in lifetime) Tobacco Use:. Never Smokeless Tobacco Use:. Household tobacco concerns: No., 05/01/2023 Immunizations Vaccine Date Status Comments influenza virus vaccine, inactivated - Not Given Patient Refuses Normal [facility] Comment on above: Result Comment: Elec tronically Signed By: Elham Moon\.br\Date and Time Signed: 05/01/23 13:43 EDT Consultation Noteon 02-25-20 Consultation Note [id number] Normal [facility] SYNOVIAL FLUID CELL COUNTon 12-04-2022 Clarity, Fluid Bloody. Abnormal Clear [facility] Comment on above: Performed By: #### S [facility] #### [facility] [address] [place] [address] Dr. Jorden Mazarigeos Color, Fluid Red Abnormal Yellow [facility] Comment on above: Performed By: #### S YNFCC #### [facility] [address] [place] [address] Dr. Jorden Mazariegos Comment: Normal [facility] Comment on above: Performed By: #### S YNFCC #### [facility] [address] [place] [address] Dr. Jorden Mazariegos Eosinophils, Fluid 3 % Normal Not Estab. The [facility] Comment on above: Performed By: #### S YNFCC #### [facility] [address] [place] [address] Dr. Jorden Mazariegos Lining Cells, Synovial Fluid Normal [facility] Comment on above: Performed By: #### S YNFCC #### [facility] [address] [place] [address] Dr. Jorden Mazariegos Lymphocytes, Fluid 21 % Normal Not Estab. The [facility] Comment on above: Performed By: #### S YNFCC #### [facility] [address] [place] [address] Dr. Jorden Mazariegos Macrophages 10 % Normal Not Estab. The [facility] Comment on above: Performed By: #### S YNFCC #### [facility] [address] [place] [address] Dr. Jorden Mazariegos Neut, Fluid 66 % Normal Not Estab. The [facility] Comment on above: Performed By: #### S YNFCC #### [facility] [address] [place] [address] Dr. Jorden Mazariegos Nucleated Cells, Synovial Fluid 1575 cells/uL Critically high 0-200 [facility] Comment on above: Performed By: #### S YNFCC #### [facility] [address] [place] [address] Dr. Jorden Mazariegos RBC, Fluid >[id number] Normal Not Estab. The [facility] Comment on above: Performed By: #### S YNFCC #### [facility] [address] [place] [address] Dr. Jorden Mazariegos CULTURE JOINT FLUIDon 2022 CULTURE JOINT FLUID Culture Observations : IN PROCESS. Normal [facility] Comment on above: Performed By: #### J NTFLCX #### [facility] [address] [place] [address] Dr. Jorden BUI STAINon 12-03-2022 COMMENTS NO ORGANISMS OBSERVED Normal [facility] Comment on above: Performed By: #### G STAIN #### [facility] [address] [address] [address] Jorden Mazariegos DIPHTHEROIDS [facility] Comment on above: Performed By: #### G STAIN #### [facility] [address] [address] [address] Jorden Mazariegos EPITHELIALS [facility] Comment on above: Performed By: #### G STAIN #### [facility] [address] [place] [address] Dr. Jorden Mazariegos FUNGAL ELEMENTS [facility] Comment on above: Performed By: #### G STAIN #### [facility] [address] [place] [address] Dr. Jorden Mazariegos GRAM NEG BACILLI [facility] Comment on above: Performed By: #### G STAIN #### [facility] [address] [place] [address] Dr. Jorden BUI NEG DIPPLOCOCCI Normal [facility] Comment on above: Performed By: #### G STAIN #### [facility] [address] [place] [address] Dr. Jorden Mazariegos GRAM POS BACILLI [facility] Comment on above: Performed By: #### G STAIN #### [facility] [address] [place] [address] Dr. Jorden Mazariegos GRAM POSITIVE COCCI Normal [facility] Comment on above: Performed By: #### G STAIN #### [facility] [address] [place] [address] Dr. Jorden Mazariegos GRAM STAIN SOURCE Rt Patella Bursa Normal [facility] Comment on above: Performed By: #### G STAIN #### [facility] [address] [address] [address] Jorden Mazariegos GS_DIPTH Normal [facility] Comment on above: Performed By: #### G STAIN #### [facility] [address] [address] [address] Jorden Mazariegos WBC RARE Normal [facility] Comment on above: Performed By: #### G STAIN #### [facility] [address] [address] [address] Jorden Mazariegos CRPon 11-22-2022 CRP 2.5 mg/dL Critically high <=1.0 [facility] Comment on above: Performed By: #### C RP #### [facility] [address] [address] [address] Jorden Mazariegos SED [facility] 2022 SED RATE 65 mm/hr Critically high <=20 [facility] Comment on above: Performed By: #### S EDR #### [facility] [address] [place] [address] Dr. Jorden Mazariegos LIPID PROFILEon 07-03-2022 CHOL-HDL RATIO NORM SEE BELOW Normal [facility] Comment on above: Result Comment: 3.3 - 4.4 LOW RISK 4.4 - 7.1 AVERAGE RISK 7.1 - 11.0 MODERATE RISK >11.0 HIGH RISK Performed By: #### L IVGRISELDA, LIPID #### [facility] [address] [address] [address] Jorden Mazariegos Cholesterol [Mass/Vol] 106 mg/dL Normal <=200 [facility] Comment on above: Performed By: #### L IVGRISELDA, LIPID #### [facility] [address] [address] [address] Jorden Mazariegos Cholesterol in HDL [Mass/Vol] 38 mg/dL Critically low 40-60 [facility] Comment on above: Performed By: #### L IVGRISELDA, LIPID #### [facility] [address] [address] [address] Jorden Mazariegos Cholesterol in LDL [Mass/Vol] 51.2 mg/dL Normal [facility] Comment on above: Performed By: #### L IVGRISELDA, LIPID #### [facility] [address] [address] [address] Jorden Mazariegos Cholesterol.total/Chol esterol in HDL [Mass ratio] 2.8 {ratio} Normal [facility] Comment on above: Performed By: #### L IVER, LIPID #### [facility] [address] [address] [address] Jorden Mazariegos HDL NORMAL > or = 60 mg/dl - LO W CARDIOVASCULAR RISK <40 mg/dl - HIGH CARDIOVASCULAR RISK Normal [facility] Comment on above: Performed By: #### L IVER, LIPID #### [facility] [address] [address] [address] Jorden Mazariegos LDL CALC NORMAL SEE BELOW Normal [facility] Comment on above: Result Comment: <100 mg/dl OPTIMAL 100 - 129 mg/dl NEAR OR ABOVE OPTIMAL 130 - 159 mg/dl BORDERLINE HIGH 160 - 189 mg/dl HIGH >190 mg/dl VERY HIGH Performed By: #### L IVGRISELDA, LIPID #### [facility] [address] [address] [address] Jorden Mazariegos Triglyceride [Mass/Vol] 84 mg/dL Normal <=150 [facility] Comment on above: Performed By: #### L IVGRISELDA LIPID #### [facility] [address] [place] [address] Dr. Jorden Mazariegos VLDL CALC 16.8 mg/dL Normal [facility] Comment on above: Performed By: #### L IVGRISELDA, LIPID #### [facility] [address] [address] [address] Jorden Mazariegos LIVER PROFILEon 07-03-2022 Albumin [Mass/Vol] 3.1 g/dL Critically low 3.4-5.0 Th e [facility] Comment on above: Performed By: #### L IVGRISELDA LIPID #### [facility] [address] [place] [address] Dr. Jorden Mazariegos Albumin/Globulin [Mass ratio] 0.6 {ratio} Normal [facility] Comment on above: Performed By: #### L IVER, LIPID #### [facility] [address] [place] [address] Dr. Jorden Mazariegos ALP [Catalytic activity/Vol] 90 U/L Normal 46-116 [facility] Comment on above: Performed By: #### L IVER, LIPID #### [facility] [address] [place] [address] Dr. Jorden Mazariegos ALT [Catalytic activity/Vol] 13 U/L Critically low 16-63 [facility] Comment on above: Performed By: #### L IVER, LIPID #### [facility] [address] [place] [address] Dr. Jorden Mazariegos AST [Catalytic activity/Vol] 15 U/L Normal 15-37 [facility] Comment on above: Performed By: #### L IVGRISELDA, LIPID #### [facility] [address] [place] [address] Dr. Jorden Mazariegos BILI, CONJUGATED 0.1 mg/dL Normal 0.0-0.2 [facility] Comment on above: Performed By: #### L IVGRISELDA, LIPID #### [facility] [address] [place] [address] Dr. Jorden Mazariegos Bilirubin [Mass/Vol] 0.4 mg/dL Normal 0.2-1.0 [facility] Comment on above: Performed By: #### L IVGRISELDA, LIPID #### [facility] [address] [place] [address] Dr. Jorden Mazariegos Globulin (S) [Mass/Vol] 5.0 g/dL Normal [facility] Comment on above: Performed By: #### L IVGRISELDA, LIPID #### [facility] [address] [place] [address] Dr. Jorden Mazariegos Protein [Mass/Vol] 8.1 g/dL Normal 6.4-8.2 [facility] Comment on above: Performed By: #### L IVGRISELDA, LIPID #### [facility] [address] [place] [address] Dr. Jorden Mazariegos XR FOREIGN BODY EYEon 2021 XR FOREIGN BODY EYE EXAM: XR FOREIGN BOD Y EYE HISTORY: Foreign body in eye COMPARISON: None. TECHNIQUE: AP and lateral radiographs of the orbits were acquired. FINDINGS: no radiopaque foreign body in the projection of the orbits. A few dental fillings are noted. No acute osseous abnormality. The paranasal sinuses appear to be well pneumatized. IMPRESSION: No orbital radiopaque foreign body. Electronically authenticated by: MIKY BARBOUR Date: 2022-02-25 16:15 Normal [facility] Vital Signs Date Time Vital Sign Value Performing Clinician Facility 02-18-2024 14:11-0400 Body mass index (BMI) [Ratio] 25.71 kg/m2 Brenda Leggett MD Work Phone: [facility] 02-18-2024 14:11-0400 Body temperature 97.81 [degF] Brenda Leggett MD Work Phone: [facility] 02-18-2024 14:11-0400 Body weight 83.6 kg Brenda Leggett MD Work Phone: [facility] 02-18-2024 14:11-0400 Diastolic blood pressure 75 mm[Hg] Brenda Leggett MD Work Phone: [facility] 02-18-2024 14:11-0400 Heart rate 79 /min Brenda Leggett MD Work Phone: [facility] 02-18-2024 14:11-0400 SaO2% (BldA) [Mass fraction] 100 % Brenda Leggett MD Work Phone: [facility] 02-18-2024 14:11-0400 Systolic blood pressure 164 mm[Hg] Brenda Leggett MD Work Phone: [facility] 12-03-2023 09:29-0400 Body temperature 97.7 [degF] Brenda Leggett MD Work Phone: [facility] 12-03-2023 09:29-0400 Diastolic blood pressure 75 mm[Hg] Brenda Leggett MD Work Phone: [facility] 12-03-2023 09:29-0400 Heart rate 75 /min Brenda Leggett MD Work Phone: [facility] 12-03-2023 09:29-0400 Respiratory rate 15 /min Brenda Leggett MD Work Phone: [facility] 12-03-2023 09:29-0400 Systolic blood pressure 135 mm[Hg] Brenda Leggett MD Work Phone: [facility] 11-26-2023 14:08-0400 Body temperature 97.39 [degF] Brenda Leggett MD Work Phone: [facility] 11-26-2023 14:08-0400 Diastolic blood pressure 76 mm[Hg] Brenda Leggett MD Work Phone: [facility] 11-26-2023 14:08-0400 Heart rate 67 /min Brenda Leggett MD Work Phone: [facility] 11-26-2023 14:08-0400 Systolic blood pressure 138 mm[Hg] Brenda Leggett MD Work Phone: [facility] 11-12-2023 09:59-0400 Body mass index (BMI) [Ratio] 28.17 kg/m2 Nurse [facility] 11-12-2023 09:59-0400 Body temperature 97.7 [degF] Nurse [facility] 11-12-2023 09:59-0400 Body weight 91.63 kg Nurse [facility] 11-12-2023 09:59-0400 Diastolic blood pressure 73 mm[Hg] Nurse [facility] 11-12-2023 09:59-0400 Heart rate 93 /min Nurse [facility] 11-12-2023 09:59-0400 Systolic blood pressure 153 mm[Hg] Nurse [facility] 08-27-2023 13:07-0500 Body temperature 97.9 [degF] Brenda Leggett MD Work Phone: [facility] 08-27-2023 13:07-0500 Body weight 88.09 kg Brenda Leggett MD Work Phone: [facility] 08-27-2023 13:07-0500 Diastolic blood pressure 74 mm[Hg] Brenda Leggett MD Work Phone: [facility] 08-27-2023 13:07-0500 Heart rate 66 /min Brenda Leggett MD Work Phone: [facility] 08-27-2023 13:07-0500 SaO2% (BldA) [Mass fraction] 99 % Brenda Leggett MD Work Phone: [facility] 08-27-2023 13:07-0500 Systolic blood pressure 160 mm[Hg] Brenda Leggett MD Work Phone: [facility] 08-06-2023 13:15-0500 Body height 180.34 cm Arvin Ditty Other [employer] Other 08-06-2023 13:15-0500 Body mass index (BMI) [Ratio] 27.19 kg/m2 Arvin Al Other [employer] Other 08-06-2023 13:15-0500 Body weight 88.45 kg Arvin lA Other [employer] Other 07-15-2023 16:38-0500 Body height 180.34 cm MARCELO-Byron Santamaria Work Phone: [facility] 07-15-2023 16:00-0500 Body temperature 98.1 [degF] MARCELO-Byron Santamaria Work Phone: [facility] 07-15-2023 16:00-0500 Diastolic blood pressure 70 mm[Hg] PA-Byron Santamaria Work Phone: [facility] 07-15-2023 16:00-0500 Heart rate 67 /min MARCELO-Byron Santamaria Work Phone: [facility] 07-15-2023 16:00-0500 Respiratory rate 18 /min MARCELO-Byron Santamaria Work Phone: [facility] 07-15-2023 16:00-0500 SaO2% (BldA) [Mass fraction] 98 % PA-C Timo Santamaria Work Phone: [facility] 07-15-2023 16:00-0500 Systolic blood pressure 148 mm[Hg] PA-C Timo Santamaria Work Phone: [facility] 07-15-2023 05:18-0500 Body weight 88.7 kg PA-C Timo Santamaria Work Phone: [facility] 07-12-2023 10:35-0500 Inhaled oxygen flow rate 8 L/min PA-C Timo Santamaria Work Phone: [facility] 07-11-2023 22:30-0500 Diastolic blood pressure 66 mm[Hg] PA-C Timo Santamaria Work Phone: [facility] 07-11-2023 22:30-0500 Heart rate 86 /min PA-C Timo Santamaria Work Phone: [facility] 07-11-2023 22:30-0500 Respiratory rate 18 /min PA-C Timozaheer Santamaria Work Phone: [facility] 07-11-2023 22:30-0500 SaO2% (BldA) [Mass fraction] 98 % PA-C Timo Santamaria Work Phone: [facility] 07-11-2023 22:30-0500 Systolic blood pressure 114 mm[Hg] PA-C Timozaheer Santamaria Work Phone: [facility] 07-11-2023 17:57-0500 Body height 180.34 cm PA-C Timo Santamaria Work Phone: [facility] 07-11-2023 17:57-0500 Body temperature 98 [degF] PA-C Timo Santamaria Work Phone: [facility] 07-11-2023 17:57-0500 Body weight 88.9 kg PA-C Timozaheer Santamaria Work Phone: [facility] Encounters Encounter Date Encounter Type Care Provider Facility Start: 05-17-2024 End: 05-17-2024 ambulatory Elham Damico [facility] Start: 04-21-2024 End: 04-21-2024 ambulatory BRENDA ABOUASSALY Facility:[facility] Start: 04-21-2024 End: 04-21-2024 Subsequent hospital visit by physician Arrival Time Radiology Work Phone: [facility] Comment on above: Malignant neoplasm o f overlapping sites of bladder (HCC) [C67.8] Start: 03-17-2024 End: 03-17-2024 Telephone encounter Brenda Leggett MD Work Phone: Hematology/Oncology Comment on above: Orders Start: 03-09-2024 End: 03-09-2024 ambulatory [facility] Start: 02-18-2024 End: 02-18-2024 Patient encounter procedure Brenda Leggett MD Work Phone: Urology Comment on above: Malignant neoplasm o f overlapping sites of bladder (HCC) (Primary Dx) Start: 02-18-2024 End: 02-18-2024 ambulatory BRENDA [facility]OUAFOX [facility] Facility:[facility] Start: 02-04-2024 End: 02-04-2024 [facility] Start: 02-04-2024 End: 02-04-2024 Subsequent hospital visit by physician Arrival Time Radiology Work Phone: Radiology [facility] Comment on above: Malignant neoplasm o f overlapping sites of bladder (HCC) [C67.8] Start: 01-07-2024 Telephone encounter Sangita Welsh RN Urology Comment on above: Patient Update Start: 01-05-2024 End: 01-05-2024 Lab Drop off Elham Damico [facility] Start: 01-05-2024 End: 01-05-2024 ambulatory Elham Damico Facility:[facility] Start: 12-16-2023 End: 12-16-2023 ambulatory JAYLENE LOGAN [facility] Start: 12-03-2023 End: 12-03-2023 Patient encounter procedure Brenda Leggett MD Work Phone: Urology Comment on above: Malignant neoplasm o f overlapping sites of bladder (HCC) (Primary Dx) Start: 12-03-2023 End: 12-03-2023 ambulatory BRENDA LEGGETT Facility:[facility] Start: 12-01-2023 Telephone encounter Kera Cormier RN Urology Comment on above: Results Start: 11-28-2023 Telephone encounter Sangita Welsh RN Urology Comment on above: Orders Dysuria (Primary Dx) Start: 11-28-2023 End: 11-28-2023 ambulatory ELHAM DAMICO Facility:[facility] Start: 11-26-2023 End: 11-26-2023 ambulatory BRENDA LEGGETT Facility:[facility] Start: 11-26-2023 End: 11-26-2023 Patient encounter procedure Brenda Leggett MD Work Phone: Urology Comment on above: Malignant neoplasm o f overlapping sites of bladder (HCC) (Primary Dx); Abnormal urine levels of substances chiefly nonmedicinal as to source Start: 11-21-2023 Telephone encounter Brenda akers MD Work Phone: Urology Comment on above: Appointment Start: 11-13-2023 Telephone encounter Brenda akers MD Work Phone: Urology Comment on above: Results Start: 11-12-2023 Telephone encounter Lashaun Cheney RN Ur ology Comment on above: Results Start: 11-12-2023 End: 11-12-2023 Nursing evaluation of patient and report Nurse Uma Montelongo Mc Urology Comment on above: Encounter for remova l of urinary catheter (Primary Dx); Post-operative state Start: 11-12-2023 End: 11-12-2023 ambulatory ELHAM MCGOVERN MOOKIE Facility:[facility] Start: 11-03-2023 End: 11-13-2023 ambulatory Elham L Mookie Facility:[id number] Start: 10-30-2023 Telephone encounter Keyanna Alexander RN Urology Comment on above: Post Op Start: 10-30-2023 End: 10-31-2023 ambulatory BRENDA LEGGETT Facility:[facility] Start: 10-21-2023 Telephone encounter Lashaun zavalaogy Comment on above: Pre-Op Teaching Start: 10-15-2023 End: 10-15-2023 ambulatory BRENDA LEGGETT Facility:[facility] Start: 10-15-2023 Encounter for other preprocedural examination BRENDA LEGGETT [facility] Start: 09-17-2023 End: 09-17-2023 ambulatory EHAB [facility] Start: 08-28-2023 Telephone encounter Brenda akers MD Work Phone: Urology Comment on above: Follow Up Start: 08-27-2023 End: 08-27-2023 ambulatory Brenda Leggett MD Work Phone: Urology Start: 08-27-2023 Telephone encounter Brenda akers MD Work Phone: Urology Comment on above: Surgery and Pacc cristina es Start: 08-27-2023 End: 08-27-2023 Patient encounter procedure Brenda Leggett MD Work Phone: Urology Comment on above: Malignant neoplasm o f urinary bladder, unspecified site (HCC) (Primary Dx) Start: 08-26-2023 End: 08-27-2023 ambulatory FRANCOIS CALLE Not Available Start: 08-18-2023 End: 09-19-2023 Pre-admission assessment Rex BURGOS [facility] Start: 08-18-2023 End: 08-18-2023 ambulatory Rex BURGOS Facility:[facility] Start: 08-18-2023 End: 08-18-2023 Patient encounter procedure Rex BURGOS [facility] Start: 08-18-2023 End: 08-18-2023 Lab Drop off Elham L Mookie [facility] Start: 08-18-2023 End: 08-18-2023 ambulatory Elham L Mookie Facility:[facility] Start: 08-06-2023 End: 08-06-2023 ambulatory Arvin Mikaela Other [facility] [employer] Other Start: 08-06-2023 Patient encounter procedure Arvin Al [facility] Gastroenterology Start: 08-04-2023 End: 08-04-2023 ambulatory Elham L Mookie Facility: [facility] Start: 08-04-2023 End: 08-04-2023 Patient encounter procedure Martha KELLEY [facility] Start: 07-23-2023 End: 07-23-2023 Lab Drop off Elham L Mookie [facility] Start: 07-23-2023 End: 07-23-2023 ambulatory Elham L Mookie Facility:[facility] Start: 07-17-2023 End: 07-17-2023 ambulatory Elham L Mookie Facility:[facility] Diana stanley Start: 07-16-2023 End: 08-18-2023 ambulatory Elham L Mookie Facility:CD:[id number] Start: 07-11-2023 End: 07-15-2023 Evaluation and management of inpatient Arvin Del Torobetzaida Facility:[facility] Start: 07-11-2023 End: 07-15-2023 Evaluation and management of inpatient PA-C Timo Santamaria Work Phone: [facility] Work Phone: Start: 07-09-2023 End: 07-09-2023 Lab Drop off Elham L Mookie [facility] Start: 07-09-2023 End: 07-09-2023 ambulatory Elham L Mookie Facility:[facility] Start: 07-03-2023 End: 07-03-2023 ambulatory Elham L Mookie Facility:[facility] Start: 07-03-2023 End: 07-03-2023 Patient encounter procedure Elham L Mookie [facility] Start: 06-10-2023 ambulatory Elham Mookie Facility:[facility] Start: 06-03-2023 End: 06-03-2023 Lab Drop off Elham L Mookie [facility] Start: 06-03-2023 End: 06-03-2023 ambulatory Elham L Mookie Facility:[facility] Start: 05-06-2023 ambulatory [facility] Start: 05-06-2023 End: 05-06-[address] [facility] Start: 05-06-2023 End: 05-06-[address] [facility] Start: 05-01-2023 End: 05-01-2023 ambulatory Elham L Mookie Facility:[facility] Diana stanley Start: 12-03-2022 End: 12-03-[address] Yasmin CALLE Facility:[facility] Start: 11-22-2022 End: 11-23-[address] DOCTOR YANG Facility:[facility] Start: 07-15-[address] DOCTOR YANG Facility :[facility] Start: 07-03-2022 End: 07-04-[address] NING DELANEY Facility:[facility] Start: 02-25-2022 End: 02-26-[address] TERE CLAYTON . Facility:[facility] Start: 01-17-[address] TERE CLAYTON . Facil ity:[facility] Procedures Date Procedure Procedure Detail Performing Clinician Start: 04-21-2024 Ct abdomen & pelvis w/o contrst 1/> body re Brenda Leggett MD Work Phone: Start: 04-21-2024 CREATININE BLD Mary Schroeder STAFFING CONSULTANT.SHOT MAN Work Phone: Start: 02-18-2024 Urnls dip stick/tablet rgnt auto w/o microscopy Brenda Leggett MD Work Phone: Start: 02-04-2024 Ct abdomen & pelvis w/o contrst 1/> body re Brenda Leggett MD Work Phone: Start: 02-04-2024 Basic metabolic panel calcium total Brenda Leggett MD Work Phone: Start: 12-03-2023 Urnls dip stick/tablet rgnt auto w/o microscopy Brenda Leggett MD Work Phone: Start: 11-26-2023 Urnls dip stick/tablet rgnt auto w/o microscopy Brenda Leggett MD Work Phone: Start: 10-30-2023 Antibody screen BRENDA LEGGETT Comment on above: Order Comment: Specimen Type: BLOOD SPEC IMENOrdering Facility: [facility] Address: [address] [place] [address] Performed By: #### T [facility] ####[place] [facility] [id number] [address] OF [place] Start: 07-15-2023 Antibody screen Arvin Al Comment on above: Order Comment: NEEDS NEW TS Result Comment: PERF ORMED BY: [facility] [address] [place] [address] PATHOLOGIST CASEWORK SPECIALIST IZA THURMAN M.D. Start: 07-12-2023 Esophagogastroduodenoscopy MAYNOR naranjo Work Phone: Start: 07-11-2023 Computed tomography angiography of abdominal and/or pelvic blood vessel MAYNOR Santamaria Work Phone: Start: 07-11-2023 Plain chest X-ray MAYNOR Santamaria Work Phone: Start: 01-06-2014 Lipid 1996 panel - Serum or Plasma Augusto Leggett MD Work Phone: Plan of Treatment Date Care Activity Detail Author Start: 02-03-2027 Diabetes Screening Diabetes Screenoh evi [facility] Start: 10-30-2026 Diabetes Screening Diabetes Screenin evi [facility] Start: 10-29-2026 Diabetes Screening Diabetes Screenin g [facility] Start: 10-14-2026 Diabetes Screening Diabetes Screenin g [facility] Start: 08-05-2025 [facility] Start: 05-20-2024 End: 03-19-2025 CT Kidney WO and W contrast IV CT UROGRAM WO/W IVCON Radiology Routine Malignant neoplasm of overlapping sites of bladder (HCC) Expected: 05/20/2024 (Approximate), Expires: 03/19/2025 [facility] Work Phone: Comment on above: Expected: 05/20/2024 (Approximate), Expires: 03/19/2025 Start: 04-28-2024 End: 04-28-2024 Patient encounter procedure 04/28/2024 1:50 PM EDT Office Visit Urology [address] [place] [address] Brenda Leggett MD [address] [place] [address] 3 month follow up ( no cysto) Urology Comment on above: 3 month follow up ( no cysto) Start: 04-21-2024 End: 07-21-2024 CREATININE BLD CREATININE BLD Lab Routine Malignant neoplasm of urinary bladder, unspecified site (HCC) Expected: 04/21/2024 (Approximate), Expires: 07/21/2024 [facility] Work Phone: Comment on above: Expected: 04/21/2024 (Approximate), Expires: 07/21/2024 Start: 04-21-2024 End: 04-21-2024 Patient encounter procedure 04/21/2024 10:15 AM EDT Appointment Radiology Pet CT [address] [place] [address] [place] [address] Ct [address]iology Pet CT Comment on above: Ct urogram Start: 03-21-2024 Covid-19 Vaccine ( season) Covid-19 Vaccine ( season) [facility] Start: 03-21-2024 Covid-19 Vaccine ( season) Covid-19 Vaccine ( season) [facility] Start: 03-21-2024 Influenza vaccination [facility] Start: 02-18-2024 End: 02-18-2024 Patient encounter procedure 02/18/2024 2:00 PM EDT Office Visit Urology [address] [place] [address] Brenda Leggett MD [address] [place], [place] [id number] STENT EXTRACTION Urology Comment on above: STENT EXTRACTION Start: 02-04-2024 End: 02-04-2024 Patient encounter procedure 02/04/2024 8:00 AM EDT Appointment Radiology Pet CT [address] [place] [address] [place] [address] Leggett Radiology Pet CT Comment on above: Ct Urogram Dr Julia lieberman Start: 02-02-2024 End: 05-03-2024 Basic metabolic 2000 panel - Serum or Plasma BASIC METABOLIC PANEL Lab Routine Malignant neoplasm of overlapping sites of bladder (HCC) Expected: 02/02/2024 (Approximate), Expires: 05/03/2024 [facility] Comment on above: Expected: 02/02/2024 (Approximate), Expires: 05/03/2024 Start: 02-02-2024 End: 01-01-2025 CT Kidney WO and W contrast IV CT UROGRAM WO/W IVCON Radiology Routine Malignant neoplasm of overlapping sites of bladder (HCC) Expected: 02/02/2024 (Approximate), Expires: 01/01/2025 [facility] Work Phone: Comment on above: Expected: 02/02/2024 (Approximate), Expires: 01/01/2025 Start: 12-03-2023 End: 12-03-2023 Patient encounter procedure 12/03/2023 9:30 AM EDT Office Visit Urology [address] [place] [address] Brenda Leggett MD [address] [place] [address] STENT EXTRACTION Urology Comment on above: STENT EXTRACTION Start: 11-28-2023 End: 02-27-2024 Bacteria identified in Urine by Culture [facility] Work Phone: Comment on above: Expected: 11/28/2023 , Expires: 02/27/2024 Start: 11-26-2023 End: 11-26-2023 Patient encounter procedure 11/26/2023 2:30 PM EDT Office Visit Urology [address] [place] [address] Brenda Leggett MD [address] [place] [address] STENT EXTRACTION Urology Comment on above: STENT EXTRACTION Start: 11-21-2023 End: 11-21-2023 Patient encounter procedure 11/21/2023 2:00 PM EDT Office Visit Urology [address] [place] [address] Brenda Leggett MD [address] [place] [address] STENT REMOVAL Urology Comment on above: STENT REMOVAL Start: 08-27-2023 End: 11-26-2023 aPTT in Platelet poor plasma by Coagulation assay ACTIVATED PTT Lab Routine Malignant neoplasm of overlapping sites of bladder (HCC) Abnormal coagulation profile Expected: 08/27/2023, Expires: 11/26/2023 [facility] Work Phone: Comment on above: Expected: 08/27/2023 , Expires: 11/26/2023 Start: 08-27-2023 End: 11-26-2023 Bacteria identified in Urine by Culture URINE CULTURE Microbiology Routine Malignant neoplasm of overlapping sites of bladder (HCC) Abnormal urine levels of substances chiefly nonmedicinal as to source Expected: 08/27/2023, Expires: 11/26/2023 [facility] Work Phone: Comment on above: Expected: 08/27/2023 , Expires: 11/26/2023 Start: 08-27-2023 End: 11-26-2023 CBC W Auto Differential panel - Blood CBC + DIFF Lab Routine Malignant neoplasm of overlapping sites of bladder (HCC) Expected: 08/27/2023, Expires: 11/26/2023 [facility] Work Phone: Comment on above: Expected: 08/27/2023 , Expires: 11/26/2023 Start: 08-27-2023 End: 11-26-2023 Comprehensive metabolic 2000 panel - Serum or Plasma COMP METABOLIC PANEL Lab Routine Malignant neoplasm of overlapping sites of bladder (HCC) Expected: 08/27/2023, Expires: 11/26/2023 [facility] Work Phone: Comment on above: Expected: 08/27/2023 , Expires: 11/26/2023 Start: 08-27-2023 End: 11-26-2023 PT panel - Platelet poor plasma by Coagulation assay PROTHROMBIN TIME/PT Lab Routine Malignant neoplasm of overlapping sites of bladder (HCC) Expected: 08/27/2023, Expires: 11/26/2023 [facility] Work Phone: Comment on above: Expected: 08/27/2023 , Expires: 11/26/2023 Start: 07-21-2023 Advance Directive Discussion A dvance Directive Discussion [facility] Start: 07-21-2023 Behavioral Health Screening Be havioral Health Screening [facility] Start: 07-21-2023 Depression Assessment Depression Ass essment [facility] Start: 07-15-2023 [facility] Start: 07-14-2023 Urine culture Urine Culture [facility] Start: 07-13-2023 Referral to urologist [facility] Start: 07-12-2023 Blood chemistry [facility] Start: 07-12-2023 End: 07-12-2023 [facility] Start: 07-11-2023 End: 07-11-2023 [facility] Start: 07-11-2023 Computed tomography angiography of abdominal and/or pelvic blood vessel CT angio abdomen pelvis [facility] Start: 07-11-2023 CTA Abdominal vessel s and Pelvis vessels W contrast IV [facility] Start: 07-11-2023 Plain chest X-ray XR chest 1V portab le [facility] Start: 07-11-2023 XR Chest Single view Fi [facility] Start: 07-11-2023 Referral to associate dean [facility] Start: 07-11-2023 Hospital admission [facility] Start: 07-11-2023 End: 07-12-2023 [facility] Start: 03-21-2023 Covid-19 Vaccine ( season) Covid-19 Vaccine ( season) [facility] Start: 03-21-2023 Influenza vaccination Influenz a Vaccine (#1) [facility] Start: 01-06-2019 Lipid panel Lipid Screening [facility] Start: 2017 Pneumococcal Vaccine : 65+ (1 of 1 - PCV) Pneumococcal Vaccine: 65+ (1 of 1 - PCV) [facility] Start: 2012 RSV Vaccine (1 - 1-d ose 60+ series) RSV Vaccine (1 - 1-dose 60+ series) [facility] Start: 2012 RSV Vaccine (1 - Ris k 60-74 years 1-dose series) RSV Vaccine (1 - Risk 60-74 years 1-dose series) [facility] Start: 2002 Shingrix Vaccine (1 of 2) Cid grix Vaccine (1 of 2) [facility] Start: 1997 Screening for malign ant neoplasm of colon [facility] Start: 1982 Zoledronic acid therapy Alpha- 1 Antitrypsin Deficiency Screening [facility] Start: 1971 Urine microalbumin profile DTa P,Tdap,Td Vaccine (1 - Tdap) [facility] Start: 1970 Annual PCP Team Senior Cost Accountant norah Disease Visit Annual PCP Team Chronic Disease Visit [facility] Start: 1970 Anxiety Screening Anxiety Screening [facility] Start: 1970 BP Controlled (<130/80) BP Con trolled (<130/80) [facility] Start: 1970 Depression Screening Depression Scre ening [facility] Start: 1970 Hepatitis C screening Hepatitis C Kareem koo [facility] Start: 1970 Spirometry Spirometry [facility] Start: 1958 Pneumococcal Vaccine : 65+ (1 of 2 - PCV) Pneumococcal Vaccine: 65+ (1 of 2 - PCV) [facility] Start: 1952 Covid-19 Vaccine (#1) Covid-19 Vacci ne (#1) [facility] Start: 1952 Abdominal aortic ane urysm screening Abdominal Aortic Aneurysm Screening [facility] Anion gap measurement [facility] Bacteria identified in Urine by Culture URINE CULTURE Microbiology Routine Malignant neoplasm of overlapping sites of bladder (HCC) Abnormal urine levels of substances chiefly nonmedicinal as to source Ordered: 11/26/2023 [facility] Work Phone: Comment on above: Ordered: 11/26/2023 Basophils [#/volume] in Blood by Automated count [facility] Basophils/100 leukoc ytes in Blood by Automated count [facility] CYTOLOGY NON-GRADUATE RECRUITER CYTOLOGY NON-GY N Lab Routine Malignant neoplasm of overlapping sites of bladder (HCC) 02/18/2024 2:51 PM EDT [facility] Eosinophils [#/volum e] in Blood [facility] Eosinophils/100 leuk ocytes in Blood by Automated count [facility] Erythrocyte distribu tion width [Ratio] by Automated count [facility] Erythrocytes [#/volu me] in Blood [facility] Hematocrit [Volume F raction] of Blood [facility] Hematocrit [Volume F raction] of Blood [facility] Hemoglobin [Mass/vol ume] in Blood [facility] Hemoglobin [Mass/vol ume] in Blood [facility] Leukocytes [#/volume ] corrected for nucleated erythrocytes in Blood by Automated coun [facility] Leukocytes [#/volume ] in Blood [facility] Lymphocytes [#/volum e] in Blood by Automated count [facility] Lymphocytes/100 leuk ocytes in Blood by Automated count [facility] MCH [Entitic mass] b y Automated count [facility] MCHC [Mass/volume] b y Automated count [facility] MCV [Entitic volume] by Automated count [facility] Monocytes [#/volume] in Blood by Automated count [facility] Monocytes/100 leukoc ytes in Blood by Automated count [facility] Neutrophils [#/volum e] in Blood by Automated count [facility] Neutrophils/100 leuk ocytes in Blood by Automated count [facility] Nucleated erythrocyt es [Presence] in Blood by Automated count [facility] Patient Education Gastric Ulcer (DC) [facility] Work Phone: Patient referral [facility] Work Phone: Platelet mean volume [Entitic volume] in Blood by Automated count [facility] Platelets [#/volume] in Blood [facility] Immunizations Immunization Date Immunization Notes Care Provider Fa cility NEGATED: Highlighted row has not occurred!05-01-2023 influenza virus vaccine, unspecified formulation Elham Damico [facility] Payers Date Payer Category Payer Self-pay [id number] 2020 Unknown [employer] SUPPLEMENT [id number] 2020-Present [phone] [address] [place] [address] Indemnity [id number] 2020 Unknown [id number] 2017 Medicare MEDICARE MEDICAR E A AND B [id number] 2017-Present [phone] [address] [address] [place] [address] Medicare [id number] 1959 Medicare [id number] 1959 Self-pay [id number] 1959 Unknown [id number] 1952 Unknown [id number] 2.16.840.1.650633.3.579. 2.593 1952 Unknown [id number] 2.16.840.1.353021.3.579. 2.593 1952 Unknown [id number] 2.16.840.1.807265.3.579. 2.593 1952 Unknown [id number] 2.16.840.1.746918.3.579. 2.593 1952 Unknown [id number] 2.16.840.1.308394.3.579. 2.593 1952 Unknown [id number] 2.16.840.1.728809.3.579. 2.593 1952 Unknown [id number] 2.16.840.1.062655.3.579. 2.1259 1952 Unknown [id number] 2.16.840.1.511279.3.579. 2.1259 1952 Unknown [id number] 2.16.840.1.274265.3.579. 2.727 1952 Unknown [id number] 2.16.840.1.941856.3.579. 2.727 1952 Unknown [id number] 2.16.840.1.474858.3.579. 2.727 1952 Unknown [id number] 2.16.840.1.993231.3.579. 2.727 1952 Unknown [id number] 2.16.840.1.429998.3.579. 2.727 1952 Unknown [id number] 2.16.840.1.415020.3.579. 2.727 1952 Unknown [id number] 2.16.840.1.131623.3.579. 2.727 1952 Unknown [id number] 2.16.840.1.727826.3.579. 2.727 1952 Unknown [id number] 2.16.840.1.988492.3.579. 2.727 1952 Unknown [id number] 2.16.840.1.782445.3.579. 2.727 1952 Unknown [id number] 2.16.840.1.450849.3.579. 2.727 1952 Unknown [id number] 2.16.840.1.598815.3.579. 2.727 1952 Unknown [id number] 2.16.840.1.767736.3.579. 2.727 1952 Unknown [id number] 2.16.840.1.849433.3.579. 2.727 1952 Unknown [id number] 2.16.840.1.505488.3.579. 2.727 1952 Unknown [id number] 2.16.840.1.040157.3.579. 2.727 1952 Unknown [id number] 2.16.840.1.971684.3.579. 2.727 1952 Unknown [id number] 2.16.840.1.006447.3.579. 2.727 Private Health Insurance [employer] [id number] Unknown [id number] 2.16.840.1.372679.3.579. 2.531 Social History Date Type Detail Facility Start: 06-03-2023 Tobacco smoking status Never s moked tobacco (finding) [facility] Tobacco smoking status Never Fishe [facility] Start: 08-27-2023 End: 02-18-2024 Sex Assigned At Male [facility] Start: 07-09-2023 End: 11-12-2023 Tobacco smoking status Ex-smoker (finding) [facility] Start: 1950 Sex Assigned At Male [facility] History of tobacco use Current smoker [facility] Work Phone: History of tobacco use Cigarette Smoker [facility] Work Phone: Start: 03-17-2014 End: 08-27-2023 Cigarettes smoked current (pack per day) - Reported 1 [facility] Start: 03-17-2014 End: 11-12-2023 Tobacco use and exposure Former smokeless tobacco user [facility] Work Phone: History of tobacco use Snuff User [facility] Work Phone: Start: 04-22-2016 End: 02-18-2024 Alcohol intake Current non-drinker of alcohol (finding) [facility] Start: 03-17-2014 Tobacco Comment 02/07/14- jose ent smokes 2-3 cigs a day.Using e-cigs [facility] Start: 1950 Sex Assigned At Not on file [facility] Start: 11-12-2023 Tobacco Comment occasionally h as a cigarette [facility] Medical Equipment Procedure Code Equipment Code Equipment Origin al Text Equipment Identifier Dates Graft Vasc 15cm 8mm [facility] G - [id number] Start: 03-18-2014 Stent Inlay Opti ma 6fr Taper [employer] Phreecoat 26cm Ureteral - [id number] Start: 10-30-2023 Goals Date Patient Goal Desired Activity /State Functional Status Date Assessment Result Facility 07-15-2023 Functional status Patient at Baseline [facility] Work Phone: Mental Status Date Assessment Result Facility 07-15-2023 Cognitive function Cognitive Sta tus Patient at Baseline [facility] Work Phone: Clinical Notes 02-25-2022 to 04-21-2024 Rut Baez RN - 04/21/2024 10:15 AM Zhanna Cochran RT(R) - 04/21/2024 10:15 AM EDTTelephone Encounter - Rut Baez RN - 03/17/2024 11:16 AM Lashaun Loya RN - 11/26/2023 2:26 PM EDT Note Date & Type Note Facility 04-21-2024 History of Presen t illness Narrative Radiology Service Progress Note DATE OF SERVICE: April 21, 2024 TIME: 10:32 AM PATIENT WEIGHT: 184LBS PATIENT IDENTITY VERIFICATION COMPLETED USING TWO (2) STANDARD IDENTIFIERS: Name and Date of confirmed by patient verbally. FALL SCREENING: Has the patient had 2 falls in the last year or 1 fall with injury or currently using an Ambulatory Assistive Device (Walker, Cane, Wheelchair, Crutches, etc.)? No PATIENT GENDER DATA: Male ALLERGIES: Reviewed and unchanged CONTRAST ALLERGY: No EXAM: CT -CONTRAST INDUCED NEPHROPATHY RISK FACTORS: Patient age > 60 years CREATININE: Creatinine Date Value Ref Range Status 04/21/2024 0.92 0.73 - 1.22 mg/dL Final 02/04/2024 0.92 0.73 - 1.22 mg/dL Final 10/31/2023 0.77 0.73 - 1.22 mg/dL Final Estimated Glomerular Filtration Rate Date Value Ref Range Status 04/21/2024 89 >=60 mL/min/1.73m Final Comment: Estimated Glomerular Filtration Rate (eGFR) is calculated using the 2020 CKD-EPI creatinine equation. This equation utilizes serum creatinine, sex, and age as parameters. The creatinine assay has traceable calibration to isotope dilution-mass spectrometry. Refer to KDIGO guidelines for clinical interpretation. In patients with unstable renal function, e.g. those with acute kidney injury, the eGFR may not accurately reflect actual GFR. eGFR- Date Value Ref Range Status 03/17/2014 >60 Final P.O.C.T. RESULTS: POC done: Yes, See Lab Tab April 21, 2024 TREATMENT: N/A IV SITE: Ambulatory: A peripheral IV was started in the Right antecubital site with a Angio cath: 20 gauge. IV SITE APPEARANCE: Clean,Dry and Intact SIGNATURE: Rut Baez RN PATIENT NAME: Jemal Zepeda DATE: April 21, 2024 TIME: 10:32 AM Radiology Service Progress Note PATIENT NAME: Jemal Zepeda DATE OF SERVICE: April 21, 2024 TIME: 11:27 AM PATIENT IDENTITY VERIFICATION COMPLETED USING TWO (2) IDENTIFIERS: Name and Date of confirmed by patient verbally. FALL SCREENING: Has the patient had 2 falls in the last year or 1 fall with injury or currently using an Ambulatory Assistive Device (Walker, Cane, Wheelchair, Crutches, etc.)? No PATIENT GENDER DATA: Male PATIENT RELEVANT IMPLANT DATA REVIEWED: Not Applicable PATIENT PRESENTS WITH AN IMPLANTABLE OR ATTACHED QUILL CLEANING MACHINE OPERATOR: No RADIOLOGY DEPARTMENT: CT; Exam(s) Completed: Urogram PERIPHERAL IV DATA: Site assessment: Clean,Dry and Intact, Site disposition Discontinued SIGNED BY: RT Jc(Shamar) April 21, 2024 11:27 AM documented in this encounter [facility] 04-21-2024 Note HNO ID: [id number] Author: ZHANNA MONTEZ RT(R) Service: ? Author Type: Technologist Type: Progress Notes Filed: 04/21/2024 11:28 Note Text: Radiology Service Progress Note PATIENT NAME: Jemal Zepeda DATE OF SERVICE: April 21, 2024 TIME: 11:27 AM PATIENT IDENTITY VERIFICATION COMPLETED USING TWO (2) IDENTIFIERS: Name and Date of confirmed by patient verbally. FALL SCREENING: Has the patient had 2 falls in the last year or 1 fall with injury or currently using an Ambulatory Assistive Device (Walker, Cane, Wheelchair, Crutches, etc.)? No PATIENT GENDER DATA: Male PATIENT RELEVANT IMPLANT DATA REVIEWED: Not Applicable PATIENT PRESENTS WITH AN IMPLANTABLE OR ATTACHED QUILL CLEANING MACHINE OPERATOR: No RADIOLOGY DEPARTMENT: CT; Exam(s) Completed: Urogram PERIPHERAL IV DATA: Site assessment: Clean,Dry and Intact, Site disposition Discontinued SIGNED BY: RT Jc(Shamar) April 21, 2024 11:27 AM [facility] 04-21-2024 Note HNO ID: [id number] Author: RUT BAEZ RN Service: ? Author Type: Registered Nurse Type: Progress Notes Filed: 04/21/2024 10:32 Note Text: Radiology Service Progress Note DATE OF SERVICE: April 21, 2024 TIME: 10:32 AM PATIENT WEIGHT: 184LBS PATIENT IDENTITY VERIFICATION COMPLETED USING TWO (2) STANDARD IDENTIFIERS: Name and Date of confirmed by patient verbally. FALL SCREENING: Has the patient had 2 falls in the last year or 1 fall with injury or currently using an Ambulatory Assistive Device (Walker, Cane, Wheelchair, Crutches, etc.)? No PATIENT GENDER DATA: Male ALLERGIES: Reviewed and unchanged CONTRAST ALLERGY: No EXAM: CT -CONTRAST INDUCED NEPHROPATHY RISK FACTORS: Patient age > 60 years CREATININE: Creatinine Date Value Ref Range Status 04/21/2024 0.92 0.73 - 1.22 mg/dL Final 02/04/2024 0.92 0.73 - 1.22 mg/dL Final 10/31/2023 0.77 0.73 - 1.22 mg/dL Final Estimated Glomerular Filtration Rate Date Value Ref Range Status 04/21/2024 89 >=60 mL/min/1.73m? Final Comment: Estimated Glomerular Filtration Rate (eGFR) is calculated using the 2020 CKD-EPI creatinine equation. This equation utilizes serum creatinine, sex, and age as parameters. The creatinine assay has traceable calibration to isotope dilution-mass spectrometry. Refer to KDIGO guidelines for clinical interpretation. In patients with unstable renal function, e.g. those with acute kidney injury, the eGFR may not accurately reflect actual GFR. eGFR- Date Value Ref Range Status 03/17/2014 >60 Final P.O.C.T. RESULTS: POC done: Yes, See Lab Tab April 21, 2024 TREATMENT: N/A IV SITE: Ambulatory: A peripheral IV was started in the Right antecubital site with a Angio cath: 20 gauge. IV SITE APPEARANCE: Clean,Dry and Intact SIGNATURE: Rut Baez RN PATIENT NAME: Jemal Zepeda DATE: April 21, 2024 TIME: 10:32 AM [facility] 03-17-2024 Telephone encounter Note Please sign pended Cre for upcoming Urogram Thank You! Rut Baez RN [facility] 03-17-2024 Miscellaneous Notes Please sign pended Cre for upcoming Urogram Thank You! Rut Baez RN documented in this encounter [facility] 02-18-2024 Nurse Note [facility] - DEPARTMENT OF UROLOGY AFTER YOUR CYSTOSCOPY Brenda Leggett MD Cysto post procedure instructions You have undergone a cystoscopy. Your doctor has inserted a telescope into your urinary bladder through your urethra to view the inside of your bladder. WHAT TO EXPECT: Possible burning during urination and/or blood-tinged urine. WHAT TO DO: Resume normal activity and medications. Drink 6-8 glasses of fluid each day for 3 days to help flush your urinary system. If a Biopsy was done, avoid Aspirin for 3 days. MEDICATIONS: You were given a preventative antibiotic, prior to the procedure. WHEN TO CALL THE DOCTOR: IF you have a fever over 100 degrees Fahrenheit. IF you are unable to urinate. IF blood clots form in your urine. IF your urine becomes very bloody and does not clear with drinking extra fluids. [facility] 02-18-2024 Nurse Note [facility] - DEPARTMENT OF UROLOGY AFTER YOUR CYSTOSCOPY Brenda Leggett MD Cysto post procedure instructions You have undergone a cystoscopy. Your doctor has inserted a telescope into your urinary bladder through your urethra to view the inside of your bladder. WHAT TO EXPECT: Possible burning during urination and/or blood-tinged urine. WHAT TO DO: Resume normal activity and medications. Drink 6-8 glasses of fluid each day for 3 days to help flush your urinary system. If a Biopsy was done, avoid Aspirin for 3 days. MEDICATIONS: You were given a preventative antibiotic, prior to the procedure. WHEN TO CALL THE DOCTOR: IF you have a fever over 100 degrees Fahrenheit. IF you are unable to urinate. IF blood clots form in your urine. IF your urine becomes very bloody and does not clear with drinking extra fluids. documented in this encounter [facility] 02-18-2024 History of Presen t illness Narrative Jemal Zepeda is a 73 year old male with history of urothelial carcinoma and a bladder diverticulum s/p robotic bladder diverticulectomy/partial cystectomy on 10/30/2023. Denies gross hematuria, UTIs or change in urinary symptoms. CTU 02/04/2024 IMPRESSION: 1. Borderline left pelvic lymphadenopathy, increased since 07/03/23. Consider interval follow-up. 2. Interval postoperative changes of the urinary bladder. 3. Mild infrarenal abdominal aortic aneurysm measuring 3.2 cm diameter, stable. No evidence of aneurysm rupture or leak. 4. Sigmoid colon diverticulosis without evidence of diverticulitis. Surgical Pathology: Robotic bladder diverticulectomy/partial cystectomy on 10/30/2023 FINAL DIAGNOSIS A. Urinary bladder, neck of bladder diverticulum margin, excision: - Benign fibromuscular tissue, negative for neoplasm. B. Urinary bladder, neck of bladder diverticulum margin, excision: - Benign urothelial mucosa. C. Lymph nodes, bilateral pelvic, excision: - Nine lymph nodes, negative for neoplasm (0/9). D. Urinary bladder, partial cystectomy: - Papillary urothelial carcinoma, high-grade, with foci of superficial lamina propria invasion. - Surgical margins are negative. - See synoptic report. Nicole's HOPS NOTE/ UNIVERSAL PROTOCOL/ SAFETY CHECKLIST Sign In History and Physical Exam reviewed and is unchanged. Primary Diagnosis: History of bladder cancer Sign in Communication: Completed. Time Out: Immediately prior to procedure, Team confirms the correct patient, correct procedure, cystoscopy, correct site and site marking, correct position (if applicable). Sign Out: Sign out discussion: Completed. Antibiotic(s) given immediately prior to procedure: Bactrim Details of procedure: as below Cystoscopy - Normal Urethra - Normal Prostate: Moderate lateral lobes VN: open Urothelium: Normal, no evidence of tumor, CIS stone, foreign body, diverticuli, etc. bladder scar right side of the bladder. Trabeculation: Moderate Inflammation: mild Ureteral Orifices: Normal, clear efflux bilaterally Trigone: Normal Preoperative diagnosis: History of bladder cancer cystoscopy today JOSE. Postoperative diagnosis: Same Procedure: Flexible cystoscopy Surgeon: Dr. Brenda Leggett Anesthesia: Lidocaine urojet Procedure: The patient was taken to the cystoscopy suite and placed in the spine position. He was then prepped and draped in the usual manner. Lidocaine gel was placed per urethra for local anesthesia. Cystoscopy was then performed using a flexible cystoscope. Sterile technique was maintained throughout. Please refer to above for specific findings during this part of the procedure. After carefully and atraumatically inspecting the urethra, prostate, VN, bladder, and UO's, the cystoscope was removed. The patient tolerated the procedure well and there were no complications. He was take for recovery in good condition. Findings: see above Complications: None EBL: None Disposition: Cystoscopy today is JOSE. Will send cytology today. Given the findings on the CT urogram recommend repeat CT urogram in 3 months. If lymph nodes continue to enlarge can consider biopsy. Given the fact that his disease was microscopically pT1 it is unlikely that this is related to his bladder cancer. Brenda Leggett MD documented in this encounter [facility] 02-18-2024 Note HNO ID: [id number] Author: BRENDA LEGGETT MD Service: ? Author Type: Physician Type: Progress Notes Filed: 02/18/2024 14:46 Note Text: Jemal Zepeda is a 73 year old male with history of urothelial carcinoma and a bladder diverticulum s/p robotic bladder diverticulectomy/partial cystectomy on 10/30/2023. Denies gross hematuria, UTIs or change in urinary symptoms. CTU 02/04/2024 IMPRESSION: 1. Borderline left pelvic lymphadenopathy, increased since 07/03/23. Consider interval follow-up. 2. Interval postoperative changes of the urinary bladder. 3. Mild infrarenal abdominal aortic aneurysm measuring 3.2 cm diameter, stable. No evidence of aneurysm rupture or leak. 4. Sigmoid colon diverticulosis without evidence of diverticulitis. Surgical Pathology: Robotic bladder diverticulectomy/partial cystectomy on 10/30/2023 FINAL DIAGNOSIS A. Urinary bladder, neck of bladder diverticulum margin, excision: - Benign fibromuscular tissue, negative for neoplasm. B. Urinary bladder, neck of bladder diverticulum margin, excision: - Benign urothelial mucosa. C. Lymph nodes, bilateral pelvic, excision: - Nine lymph nodes, negative for neoplasm (0/9). D. Urinary bladder, partial cystectomy: - Papillary urothelial carcinoma, high-grade, with foci of superficial lamina propria invasion. - Surgical margins are negative. - See synoptic report. Nicole's HOPS NOTE/ UNIVERSAL PROTOCOL/ SAFETY CHECKLIST Sign In History and Physical Exam reviewed and is unchanged. Primary Diagnosis: History of bladder cancer Sign in Communication: Completed. Time Out: Immediately prior to procedure, Team confirms the correct patient, correct procedure, cystoscopy, correct site and site marking, correct position (if applicable). Sign Out: Sign out discussion: Completed. Antibiotic(s) given immediately prior to procedure: Bactrim Details of procedure: as below Cystoscopy - Normal Urethra - Normal Prostate: Moderate lateral lobes VN: open Urothelium: Normal, no evidence of tumor, CIS stone, foreign body, diverticuli, etc. bladder scar right side of the bladder. Trabeculation: Moderate Inflammation: mild Ureteral Orifices: Normal, clear efflux bilaterally Trigone: Normal Preoperative diagnosis: History of bladder cancer cystoscopy today JOSE. Postoperative diagnosis: Same Procedure: Flexible cystoscopy Surgeon: Dr. Brenda Leggett Anesthesia: Lidocaine urojet Procedure: The patient was taken to the cystoscopy suite and placed in the spine position. He was then prepped and draped in the usual manner. Lidocaine gel was placed per urethra for local anesthesia. Cystoscopy was then performed using a flexible cystoscope. Sterile technique was maintained throughout. Please refer to above for specific findings during this part of the procedure. After carefully and atraumatically inspecting the urethra, prostate, VN, bladder, and UO's, the cystoscope was removed. The patient tolerated the procedure well and there were no complications. He was take for recovery in good condition. Findings: see above Complications: None EBL: None Disposition: Cystoscopy today is JOSE. Will send cytology today. Given the findings on the CT urogram recommend repeat CT urogram in 3 months. If lymph nodes continue to enlarge can consider biopsy. Given the fact that his disease was microscopically pT1 it is unlikely that this is related to his bladder cancer. Brenda Leggett MD [facility] 02-04-2024 History of Presen t illness Narrative Radiology Service Progress Note DATE OF SERVICE: February 04, 2024 TIME: 8:57 AM PATIENT WEIGHT: 178LBS PATIENT IDENTITY VERIFICATION COMPLETED USING TWO (2) STANDARD IDENTIFIERS: Name and Date of confirmed by patient verbally. FALL SCREENING: Has the patient had 2 falls in the last year or 1 fall with injury or currently using an Ambulatory Assistive Device (Walker, Cane, Wheelchair, Crutches, etc.)? No PATIENT GENDER DATA: Male ALLERGIES: Reviewed and unchanged CONTRAST ALLERGY: No EXAM: CT -CONTRAST INDUCED NEPHROPATHY RISK FACTORS: Patient age > 60 years CREATININE: Creatinine Date Value Ref Range Status 02/04/2024 0.92 0.73 - 1.22 mg/dL Final 10/31/2023 0.77 0.73 - 1.22 mg/dL Final 10/30/2023 0.83 0.73 - 1.22 mg/dL Final Estimated Glomerular Filtration Rate Date Value Ref Range Status 02/04/2024 89 >=60 mL/min/1.73m Final Comment: Estimated Glomerular Filtration Rate (eGFR) is calculated using the 2020 CKD-EPI creatinine equation. This equation utilizes serum creatinine, sex, and age as parameters. The creatinine assay has traceable calibration to isotope dilution-mass spectrometry. Refer to KDIGO guidelines for clinical interpretation. In patients with unstable renal function, e.g. those with acute kidney injury, the eGFR may not accurately reflect actual GFR. eGFR- Date Value Ref Range Status 03/17/2014 >60 Final P.O.C.T. RESULTS: POC done: Yes, See Lab Tab February 04, 2024 TREATMENT: N/A IV SITE: Ambulatory: A peripheral IV was started in the Left antecubital site with a Angio cath: 20 gauge. IV SITE APPEARANCE: Clean,Dry and Intact SIGNATURE: Rut Baez RN PATIENT NAME: Jemal Zepeda DATE: February 04, 2024 TIME: 8:57 AM Radiology Service Progress Note PATIENT NAME: Jemal Zepeda DATE OF SERVICE: February 04, 2024 TIME: 10:02 AM PATIENT IDENTITY VERIFICATION COMPLETED USING TWO (2) IDENTIFIERS: Name and Date of confirmed by patient verbally. FALL SCREENING: Has the patient had 2 falls in the last year or 1 fall with injury or currently using an Ambulatory Assistive Device (Walker, Cane, Wheelchair, Crutches, etc.)? No PATIENT GENDER DATA: Male PATIENT RELEVANT IMPLANT DATA REVIEWED: Not Applicable PATIENT PRESENTS WITH AN IMPLANTABLE OR ATTACHED QUILL CLEANING MACHINE OPERATOR: No RADIOLOGY DEPARTMENT: CT; Exam(s) Completed: Urogram PERIPHERAL IV DATA: Site assessment: Clean,Dry and Intact, Site disposition Discontinued SIGNED BY: RT Jc(R) February 04, 2024 10:02 AM documented in this encounter [facility] 02-04-2024 Note HNO ID: [id number] Author: RUT BAEZ RN Service: ? Author Type: Registered Nurse Type: Progress Notes Filed: 02/04/2024 08:58 Note Text: Radiology Service Progress Note DATE OF SERVICE: February 04, 2024 TIME: 8:57 AM PATIENT WEIGHT: 178LBS PATIENT IDENTITY VERIFICATION COMPLETED USING TWO (2) STANDARD IDENTIFIERS: Name and Date of confirmed by patient verbally. FALL SCREENING: Has the patient had 2 falls in the last year or 1 fall with injury or currently using an Ambulatory Assistive Device (Walker, Cane, Wheelchair, Crutches, etc.)? No PATIENT GENDER DATA: Male ALLERGIES: Reviewed and unchanged CONTRAST ALLERGY: No EXAM: CT -CONTRAST INDUCED NEPHROPATHY RISK FACTORS: Patient age > 60 years CREATININE: Creatinine Date Value Ref Range Status 02/04/2024 0.92 0.73 - 1.22 mg/dL Final 10/31/2023 0.77 0.73 - 1.22 mg/dL Final 10/30/2023 0.83 0.73 - 1.22 mg/dL Final Estimated Glomerular Filtration Rate Date Value Ref Range Status 02/04/2024 89 >=60 mL/min/1.73m? Final Comment: Estimated Glomerular Filtration Rate (eGFR) is calculated using the 2020 CKD-EPI creatinine equation. This equation utilizes serum creatinine, sex, and age as parameters. The creatinine assay has traceable calibration to isotope dilution-mass spectrometry. Refer to KDIGO guidelines for clinical interpretation. In patients with unstable renal function, e.g. those with acute kidney injury, the eGFR may not accurately reflect actual GFR. eGFR- Date Value Ref Range Status 03/17/2014 >60 Final P.O.C.T. RESULTS: POC done: Yes, See Lab Tab February 04, 2024 TREATMENT: N/A IV SITE: Ambulatory: A peripheral IV was started in the Left antecubital site with a Angio cath: 20 gauge. IV SITE APPEARANCE: Clean,Dry and Intact SIGNATURE: Rut Baez RN PATIENT NAME: Jemal Zepeda DATE: February 04, 2024 TIME: 8:57 AM [facility] 02-04-2024 Note HNO ID: [id number] Author: ZHANNA MONTEZ RT(Shamar) Service: ? Author Type: Technologist Type: Progress Notes Filed: 02/04/2024 10:02 Note Text: Radiology Service Progress Note PATIENT NAME: Jemal Zepeda DATE OF SERVICE: February 04, 2024 TIME: 10:02 AM PATIENT IDENTITY VERIFICATION COMPLETED USING TWO (2) IDENTIFIERS: Name and Date of confirmed by patient verbally. FALL SCREENING: Has the patient had 2 falls in the last year or 1 fall with injury or currently using an Ambulatory Assistive Device (Walker, Cane, Wheelchair, Crutches, etc.)? No PATIENT GENDER DATA: Male PATIENT RELEVANT IMPLANT DATA REVIEWED: Not Applicable PATIENT PRESENTS WITH AN IMPLANTABLE OR ATTACHED QUILL CLEANING MACHINE OPERATOR: No RADIOLOGY DEPARTMENT: CT; Exam(s) Completed: Urogram PERIPHERAL IV DATA: Site assessment: Clean,Dry and Intact, Site disposition Discontinued SIGNED BY: RT Jc(R) February 04, 2024 10:02 AM [facility] 01-07-2024 Telephone encounter Note Patient called to update that he saw PCP a couple days ago for UTI symptoms and was found to have + e-coli. He is currently on Bactrin BID x 10days. He wanted to update office. Next appointment 02/18/24. He will update if any worsening symptoms prior to appointment. [facility] 01-07-2024 Miscellaneous Notes Patient called to update that he saw PCP a couple days ago for UTI symptoms and was found to have + e-coli. He is currently on Bactrin BID x 10days. He wanted to update office. Next appointment 02/18/24. He will update if any worsening symptoms prior to appointment. documented in this encounter [facility] 01-05-2024 Evaluation + Plan note Diagnostic Tests PendingUrine Culture 01/05/24 [facility] 12-03-2023 Nurse Note [facility] - DEPARTMENT OF UROLOGY AFTER YOUR CYSTOSCOPY Brenda Leggett MD Cysto post procedure instructions You have undergone a cystoscopy. Your doctor has inserted a telescope into your urinary bladder through your urethra to view the inside of your bladder. WHAT TO EXPECT: Possible burning during urination and/or blood-tinged urine. WHAT TO DO: Resume normal activity and medications. Drink 6-8 glasses of fluid each day for 3 days to help flush your urinary system. MEDICATIONS: You were given Bactrim DS a preventative antibiotic, prior to the procedure. WHEN TO CALL THE DOCTOR: IF you have a fever over 100 degrees Fahrenheit. IF you are unable to urinate. IF blood clots form in your urine. IF your urine becomes very bloody and does not clear with drinking extra fluids. Please call the urology office with any questions you may have. Thank you, Kera Cormier RN [facility] 12-03-2023 Nurse Note [facility] - DEPARTMENT OF UROLOGY AFTER YOUR CYSTOSCOPY Brenda Leggett MD Cysto post procedure instructions You have undergone a cystoscopy. Your doctor has inserted a telescope into your urinary bladder through your urethra to view the inside of your bladder. WHAT TO EXPECT: Possible burning during urination and/or blood-tinged urine. WHAT TO DO: Resume normal activity and medications. Drink 6-8 glasses of fluid each day for 3 days to help flush your urinary system. MEDICATIONS: You were given Bactrim DS a preventative antibiotic, prior to the procedure. WHEN TO CALL THE DOCTOR: IF you have a fever over 100 degrees Fahrenheit. IF you are unable to urinate. IF blood clots form in your urine. IF your urine becomes very bloody and does not clear with drinking extra fluids. Please call the urology office with any questions you may have. Thank you, Kera Cormier RN documented in this encounter [facility] 12-03-2023 History of Presen t illness Narrative HISTORY: Jemal Zepeda is a 73 yr old male with history of urothelial carcinoma and a bladder diverticulum s/p robotic bladder diverticulectomy/partial cystectomy on 10/30/2023 presenting for stent removal today. Surgical Pathology: Robotic bladder diverticulectomy/partial cystectomy on 10/30/2023 FINAL DIAGNOSIS A. Urinary bladder, neck of bladder diverticulum margin, excision: - Benign fibromuscular tissue, negative for neoplasm. B. Urinary bladder, neck of bladder diverticulum margin, excision: - Benign urothelial mucosa. C. Lymph nodes, bilateral pelvic, excision: - Nine lymph nodes, negative for neoplasm (0/9). D. Urinary bladder, partial cystectomy: - Papillary urothelial carcinoma, high-grade, with foci of superficial lamina propria invasion. - Surgical margins are negative. - See synoptic report. M.DAyo[facility] HOPS NOTE/ UNIVERSAL PROTOCOL/ SAFETY CHECKLIST Sign In History and Physical Exam reviewed and is unchanged. Primary Diagnosis: Hx of bladder cancer Sign in Communication: Completed. Time Out: Immediately prior to procedure, Team confirms the correct patient, correct procedure, cystoscopy, correct site and site marking, correct position (if applicable). Sign Out: Sign out discussion: Completed. Antibiotic(s) given immediately prior to procedure: bactrim Details of procedure: as below Urethra - See below Prostate: Moderate lateral lobes VN: open Urothelium: Normal, no evidence of tumor, CIS stone, foreign body, diverticuli, etc. Trabeculation: mild Inflammation: mild Ureteral Orifices: Normal, clear efflux bilaterally Trigone: Normal Preoperative diagnosis: Hx of bladder cancer Postoperative diagnosis: Same Procedure: Flexible cystoscopy Surgeon: Dr. Brenda Travis Anesthesia: Lidocain urojet Procedure: The patient was taken to the cystoscopy suite and placed in the supine position. He was then prepped and draped in the usual manner. Lidocaine gel was placed per urethra for local anasthesia. Cystoscopy was then performed using a flexible cystoscope. Sterile technique was maintained throughout. Please refer to above for specific findings during this part of the procedure. After carefully and atraumatically inspecting the urethra, prostate, VN, bladder, and UO's. Right ureteral stent was grasped and removed without difficulty. The cystoscope was then removed. The patient tolerated the procedure well and there were no complications. He was take for recovery in good condition. Findings: see above Complications: None EBL: None Disposition: Standard removal of right double-J stent Cystoscopy in 2 months with CTU and BMP prior By signing my name below, I, Shanell Frye, attest that this documentation has been prepared under the direction and in the presence of Dr. Leggett Electronically signed, Stewart Campbell I agree with the Chief Complaint, ROS, and Past Histories independently gathered by the clinical sales support engineer and the remaining scribed note accurately describes my personal service to the patient. Dr. Brenda Leggett MD documented in this encounter [facility] 12-03-2023 Note HNO ID: [id number] Author: BRENDA LEGGETT MD Service: ? Author Type: Physician Type: Progress Notes Filed: 12/03/2023 11:35 Note Text: HISTORY: Jemal Zepeda is a 73 yr old male with history of urothelial carcinoma and a bladder diverticulum s/p robotic bladder diverticulectomy/partial cystectomy on 10/30/2023 presenting for stent removal today. Surgical Pathology: Robotic bladder diverticulectomy/partial cystectomy on 10/30/2023 FINAL DIAGNOSIS A. Urinary bladder, neck of bladder diverticulum margin, excision: - Benign fibromuscular tissue, negative for neoplasm. B. Urinary bladder, neck of bladder diverticulum margin, excision: - Benign urothelial mucosa. C. Lymph nodes, bilateral pelvic, excision: - Nine lymph nodes, negative for neoplasm (0/9). D. Urinary bladder, partial cystectomy: - Papillary urothelial carcinoma, high-grade, with foci of superficial lamina propria invasion. - Surgical margins are negative. - See synoptic report. Nicole's HOPS NOTE/ UNIVERSAL PROTOCOL/ SAFETY CHECKLIST Sign In History and Physical Exam reviewed and is unchanged. Primary Diagnosis: Hx of bladder cancer Sign in Communication: Completed. Time Out: Immediately prior to procedure, Team confirms the correct patient, correct procedure, cystoscopy, correct site and site marking, correct position (if applicable). Sign Out: Sign out discussion: Completed. Antibiotic(s) given immediately prior to procedure: bactrim Details of procedure: as below Urethra - See below Prostate: Moderate lateral lobes VN: open Urothelium: Normal, no evidence of tumor, CIS stone, foreign body, diverticuli, etc. Trabeculation: mild Inflammation: mild Ureteral Orifices: Normal, clear efflux bilaterally Trigone: Normal Preoperative diagnosis: Hx of bladder cancer Postoperative diagnosis: Same Procedure: Flexible cystoscopy Surgeon: Dr. Brenda Travis Anesthesia: Lidocain urojet Procedure: The patient was taken to the cystoscopy suite and placed in the supine position. He was then prepped and draped in the usual manner. Lidocaine gel was placed per urethra for local anasthesia. Cystoscopy was then performed using a flexible cystoscope. Sterile technique was maintained throughout. Please refer to above for specific findings during this part of the procedure. After carefully and atraumatically inspecting the urethra, prostate, VN, bladder, and UO's. Right ureteral stent was grasped and removed without difficulty. The cystoscope was then removed. The patient tolerated the procedure well and there were no complications. He was take for recovery in good condition. Findings: see above Complications: None EBL: None Disposition: Standard removal of right double-J stent Cystoscopy in 2 months with CTU and BMP prior By signing my name below, I, Shanell Frye, attest that this documentation has been prepared under the direction and in the presence of Dr. Leggett Electronically signed, Stewart Campbell I agree with the Chief Complaint, ROS, and Past Histories independently gathered by the clinical sales support engineer and the remaining scribed note accurately describes my personal service to the patient. Dr. Brenda Leggett MD [facility] 12-01-2023 Telephone encounter Note Pt LVM for results. Urine cx results 11/28/2023 >=100,000 CFU/ml Escherichia coli Abnormal [facility] 12-01-2023 Miscellaneous Notes Pt LVM for results. Urine cx results 11/28/2023 >=100,000 CFU/ml Escherichia coli Abnormal documented in this encounter [facility] 11-28-2023 Telephone encounter Note Patient submitted urine culture and is aware to start antibiotics and that they may change after culture resulted. Grateful for call. [facility] 11-28-2023 Miscellaneous Notes Patient submitted urine culture and is aware to start antibiotics and that they may change after culture resulted. Grateful for call. Patient order for urine culture placed. He will submit to local lab.. documented in this encounter [facility] 11-28-2023 Telephone encounter Note Patient order for urine culture placed. He will submit to local lab.. [facility] 11-26-2023 History of Presen t illness Narrative [facility] FOLLOW-UP PATIENT HISTORY AND PHYSICAL EXAM PATIENT INFO: Jemal Zepeda 73 year old REFERRING M.D.: No referring provider defined for this encounter. CHIEF COMPLAINT: UTI, hx of bladder cancer HISTORY: Jemal Zepeda is a 73 yr old male with history of urothelial carcinoma and a bladder diverticulum s/p robotic bladder diverticulectomy/partial cystectomy on 10/30/2023 presenting for stent removal today. Surgical Pathology: Robotic bladder diverticulectomy/partial cystectomy on 10/30/2023 FINAL DIAGNOSIS A. Urinary bladder, neck of bladder diverticulum margin, excision: - Benign fibromuscular tissue, negative for neoplasm. B. Urinary bladder, neck of bladder diverticulum margin, excision: - Benign urothelial mucosa. C. Lymph nodes, bilateral pelvic, excision: - Nine lymph nodes, negative for neoplasm (0/9). D. Urinary bladder, partial cystectomy: - Papillary urothelial carcinoma, high-grade, with foci of superficial lamina propria invasion. - Surgical margins are negative. - See synoptic report. LABS No results found for: PSA Creatinine (mg/dL) Date Value 10/31/2023 0.77 10/30/2023 0.83 10/15/2023 0.79 03/24/2014 0.95 03/23/2014 0.81 03/22/2014 0.74 03/21/2014 1.00 03/20/2014 1.18 PAST MEDICAL HISTORY Diagnosis Date Abdominal aortic aneurysm (HCC) 01/29/2021 Celiac artery aneurysm (HCC) Centrilobular emphysema (HCC) 09/17/2023 HTN (hypertension) Hydrocele Pulmonary fibrosis (HCC) 09/17/2023 Sleep apnea Smoker PAST SURGICAL HISTORY Procedure Laterality Date CYSTOSCOPY EGD + ulcer HERNIA REPAIR W/MESH 07/21/2001 bilateral open inguinal herniorrhaphy with mesh PAST SURGICAL HISTORY OF 03/18/2014 celiac artery aneurysm repair TOTAL KNEE REPLACEMENT Right 2022 Social History Tobacco Use Smoking status: Former Packs/day: 1.00 Years: 40.00 Additional pack years: 0.00 Total pack years: 40.00 Types: Cigarettes Smokeless tobacco: Former Types: Snuff Tobacco comments: occasionally has a cigarette Substance Use Topics Alcohol use: No Drug use: No REVIEW OF SYSTEMS: CONSTITUTIONAL: Patient reports no recent fever or weight loss EYES: Negative for redness, blurry vision, double vision or loss of vision CARDIOVASCULAR: Negative for chest pain. RESPIRATORY: Negative for cough, hemoptysis, wheezing, COPD, dyspnea or shortness of breath GI: No nausea, vomiting, or diarrhea MUSCULOSKELETAL: denies back pain or muscular weakness SKIN: Negative for lesions, rash, and itching PSYCH: Negative for sleep disturbance, mood disorder and recent psychosocial stressors. ALLERGY/IMMUNOLOGIC: Atorvastatin and Meloxicam All other reviewed and negative other than HPI. PHYSICAL EXAM: constitutional: appears healthy in no acute distress cardiovascular: appears well perfused, good color respiratory: normal respiratory motion gi: abdomen soft, non-tender without masses, hernia or organomegaly skin: no rashes or bruises noted. Extremities: Extremities normal. No deformities, edema, or skin discoloration. Neuro: Gait normal. Sensation grossly intact. IMPRESSION: Jemal Zepeda is a 73 yr old male with history of urothelial carcinoma and a bladder diverticulum s/p robotic bladder diverticulectomy/partial cystectomy on 10/30/2023 presenting for stent removal today. UA positive for nitrites today. Discussed the pros and cons of stent removal today. Mutually decided to reschedule stent extraction for a later date. Urine culture ordered today. PLAN: Urine culture ordered today Will reschedule stent extraction By signing my name below, Shanell Peña, attest that this documentation has been prepared under the direction and in the presence of Dr. Leggett Electronically signedShanell Scribe I agree with the Chief Complaint, ROS, and Past Histories independently gathered by the clinical sales support engineer and the remaining scribed note accurately describes my personal service to the patient. Dr. Brenda Leggett MD Provider Attestation: Brenda Peña MD, personally performed the services described in this documentation. All medical record entries made by the scribe were at my direction and in my presence. I have reviewed the chart and discharge instructions (if applicable) and agree that the record reflects my personal performance and is accurate and complete. Dr. Brenda Leggett MD November 26, 2023 2:25 PM r documented in this encounter [facility] 11-26-2023 Note HNO ID: [id number] Author: BRENDA LEGGETT MD Service: ? Author Type: Physician Type: Progress Notes Filed: 11/26/2023 14:25 Note Text: [facility]IENT HISTORY AND PHYSICAL EXAM PATIENT INFO: Jemal Zepeda 73 year old REFERRING M.D.: No referring provider defined for this encounter. CHIEF COMPLAINT: UTI, hx of bladder cancer HISTORY: Jemal Zepeda is a 73 yr old male with history of urothelial carcinoma and a bladder diverticulum s/p robotic bladder diverticulectomy/partial cystectomy on 10/30/2023 presenting for stent removal today. Surgical Pathology: Robotic bladder diverticulectomy/partial cystectomy on 10/30/2023 FINAL DIAGNOSIS A. Urinary bladder, neck of bladder diverticulum margin, excision: - Benign fibromuscular tissue, negative for neoplasm. B. Urinary bladder, neck of bladder diverticulum margin, excision: - Benign urothelial mucosa. C. Lymph nodes, bilateral pelvic, excision: - Nine lymph nodes, negative for neoplasm (0/9). D. Urinary bladder, partial cystectomy: - Papillary urothelial carcinoma, high-grade, with foci of superficial lamina propria invasion. - Surgical margins are negative. - See synoptic report. LABS No results found for: PSA Creatinine (mg/dL) Date Value 10/31/2023 0.77 10/30/2023 0.83 10/15/2023 0.79 03/24/2014 0.95 03/23/2014 0.81 03/22/2014 0.74 03/21/2014 1.00 03/20/2014 1.18 PAST MEDICAL HISTORY Diagnosis Date Abdominal aortic aneurysm (HCC) 01/29/2021 Celiac artery aneurysm (HCC) Centrilobular emphysema (HCC) 09/17/2023 HTN (hypertension) Hydrocele Pulmonary fibrosis (HCC) 09/17/2023 Sleep apnea Smoker PAST SURGICAL HISTORY Procedure Laterality Date CYSTOSCOPY EGD + ulcer HERNIA REPAIR W/MESH 07/21/2001 bilateral open inguinal herniorrhaphy with mesh PAST SURGICAL HISTORY OF 03/18/2014 celiac artery aneurysm repair TOTAL KNEE REPLACEMENT Right 2022 Social History Tobacco Use Smoking status: Former Packs/day: 1.00 Years: 40.00 Additional pack years: 0.00 Total pack years: 40.00 Types: Cigarettes Smokeless tobacco: Former Types: Snuff Tobacco comments: occasionally has a cigarette Substance Use Topics Alcohol use: No Drug use: No REVIEW OF SYSTEMS: CONSTITUTIONAL: Patient reports no recent fever or weight loss EYES: Negative for redness, blurry vision, double vision or loss of vision CARDIOVASCULAR: Negative for chest pain. RESPIRATORY: Negative for cough, hemoptysis, wheezing, COPD, dyspnea or shortness of breath GI: No nausea, vomiting, or diarrhea MUSCULOSKELETAL: denies back pain or muscular weakness SKIN: Negative for lesions, rash, and itching PSYCH: Negative for sleep disturbance, mood disorder and recent psychosocial stressors. ALLERGY/IMMUNOLOGIC: Atorvastatin and Meloxicam All other reviewed and negative other than HPI. PHYSICAL EXAM: constitutional: appears healthy in no acute distress cardiovascular: appears well perfused, good color respiratory: normal respiratory motion gi: abdomen soft, non-tender without masses, hernia or organomegaly skin: no rashes or bruises noted. Extremities: Extremities normal. No deformities, edema, or skin discoloration. Neuro: Gait normal. Sensation grossly intact. IMPRESSION: Jemal Zepeda is a 73 yr old male with history of urothelial carcinoma and a bladder diverticulum s/p robotic bladder diverticulectomy/partial cystectomy on 10/30/2023 presenting for stent removal today. UA positive for nitrites today. Discussed the pros and cons of stent removal today. Mutually decided to reschedule stent extraction for a later date. Urine culture ordered today. PLAN: Urine culture ordered today Will reschedule stent extraction By signing my name below, Shanell Peña, attest that this documentation has been prepared under the direction and in the presence of Dr. Leggett Electronically signed, Stewart Campbell I agree with the Chief Complaint, ROS, and Past Histories independently gathered by the clinical sales support engineer and the remaining scribed note accurately describes my personal service to the patient. Dr. Brenda Leggett MD Provider Attestation: IBrenda MD, personally performed the services described in this documentation. All medical record entries made by the scribe were at my direction and in my presence. I have reviewed the chart and discharge instructions (if applicable) and agree that the record reflects my personal performance and is accurate and complete. Dr. Brenda Leggett MD November 26, 2023 2:25 PM [facility] 11-26-2023 Nurse Note Cystoscopy cancelled due to Positive B/O urine sample. [facility] 11-26-2023 Nurse Note Cystoscopy cancelled due to Positive B/O urine sample. documented in this encounter [facility] 11-21-2023 Telephone encounter Note Jemal Gómez's , called and I was transferred her voicemail. She said he is not going to make it to his appointment today, he has flu like symptoms and does not want to make the trip. They would like to reschedule, I will call but I figure he will need triage because he has the stent in place. [facility] 11-21-2023 Miscellaneous Notes Jemal Gómez's , called and I was transferred her voicemail. She said he is not going to make it to his appointment today, he has flu like symptoms and does not want to make the trip. They would like to reschedule, I will call but I figure he will need triage because he has the stent in place. documented in this encounter [facility] 11-13-2023 Telephone encounter Note Called the patient and gave him the results of his pathology report. 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 We talked about the options of close surveillance versus BCG. Given that the tumor was not located within the bladder itself and his bladder appeared normal I told him it may be reasonable to forego the BCG this time and monitor closely with a cystoscopy in 3 months. He would prefer to do that locally. He is scheduled for stent removal next week and we will discuss further at that time. Brenda Leggett MD [facility] Work Phone: 11-13-2023 Miscellaneous Notes Called the patient and gave him the results of his pathology report. 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 We talked about the options of close surveillance versus BCG. Given that the tumor was not located within the bladder itself and his bladder appeared normal I told him it may be reasonable to forego the BCG this time and monitor closely with a cystoscopy in 3 months. He would prefer to do that locally. He is scheduled for stent removal next week and we will discuss further at that time. Brenda Leggett MD documented in this encounter [facility] 11-12-2023 Telephone encounter Note Spoke with the patient regarding his pathology results. Discussed that it did show bladder cancer at the sites of the partial cystectomy. Discussed that the margins are negative. Patient has a stent removal with Dr. Leggett on 11/20 to further discuss the follow up plan. Mary Schroeder APRN.CNP Surgical pathology FINAL DIAGNOSIS A. Urinary bladder, neck of bladder diverticulum margin, excision: - Benign fibromuscular tissue, negative for neoplasm. B. Urinary bladder, neck of bladder diverticulum margin, excision: - Benign urothelial mucosa. C. Lymph nodes, bilateral pelvic, excision: - Nine lymph nodes, negative for neoplasm (0/9). D. Urinary bladder, partial cystectomy: - Papillary urothelial carcinoma, high-grade, with foci of superficial lamina propria invasion. - Surgical margins are negative. - See synoptic report. [facility] Work Phone: 11-12-2023 Miscellaneous Notes Spoke with the patient regarding his pathology results. Discussed that it did show bladder cancer at the sites of the partial cystectomy. Discussed that the margins are negative. Patient has a stent removal with Dr. Leggett on 11/20 to further discuss the follow up plan. Mary Schroeder APRN.CNP Surgical pathology FINAL DIAGNOSIS A. Urinary bladder, neck of bladder diverticulum margin, excision: - Benign fibromuscular tissue, negative for neoplasm. B. Urinary bladder, neck of bladder diverticulum margin, excision: - Benign urothelial mucosa. C. Lymph nodes, bilateral pelvic, excision: - Nine lymph nodes, negative for neoplasm (0/9). D. Urinary bladder, partial cystectomy: - Papillary urothelial carcinoma, high-grade, with foci of superficial lamina propria invasion. - Surgical margins are negative. - See synoptic report. documented in this encounter [facility] 11-12-2023 Telephone encounter Note Patient LVM requesting pathology from 10/30/[address] Leggett. Will update medical team. [facility] 11-12-2023 Miscellaneous Notes Patient LVM requesting pathology from 10/30/[address] Leggett. Will update medical team. documented in this encounter [facility] 11-12-2023 Note HNO ID: [id number] Author: MARTINA MEHTA RN Service: ? Author Type: Registered Nurse Type: Progress Notes Filed: 11/12/2023 10:40 Note Text: Urology Trial Void CHIEF COMPLAINT: Catheter Removal HPI: This is a 73 year old male with a history of 1) cystoscopy and right retrograde pyelogram and right double-J stent placement 2) robotic bladder diverticulectomy/partial cystectomy [complicated] 3) robotic right pelvic lymph node dissection on (date) 10/30/2023. The patient is here today for francisco removal by trial - of - void. He presents with a # 20 F coude Indwelling Urethral catheter. The catheter is attached to a leg bag with yellow urine. Procedure: The patient's bladder was filled to a capacity of 150 ml. with sterile water. The indwelling francisco was removed without difficulty. The total voided amount was 125ml pink tinged. The patient tolerated the procedure well. Assessment: Successful voiding trial Plan: Patient provided with emergency contact phone numbers and advised to call the doctor with symptoms of fever over 100 degrees Fahrenheit, if unable to urinate, or if urine becomes very bloody and does not clear with drinking extra fluids. Follow-up Visit: 11/21/2023 for stent removal Martina Mehta RN [facility] 11-12-2023 History of Presen t illness Narrative Urology Trial Void CHIEF COMPLAINT: Catheter Removal HPI: This is a 73 year old male with a history of 1) cystoscopy and right retrograde pyelogram and right double-J stent placement 2) robotic bladder diverticulectomy/partial cystectomy [complicated] 3) robotic right pelvic lymph node dissection on (date) 10/30/2023. The patient is here today for francisco removal by trial - of - void. He presents with a # 20 F coude Indwelling Urethral catheter. The catheter is attached to a leg bag with yellow urine. Procedure: The patient's bladder was filled to a capacity of 150 ml. with sterile water. The indwelling francisco was removed without difficulty. The total voided amount was 125ml pink tinged. The patient tolerated the procedure well. Assessment: Successful voiding trial Plan: Patient provided with emergency contact phone numbers and advised to call the doctor with symptoms of fever over 100 degrees Fahrenheit, if unable to urinate, or if urine becomes very bloody and does not clear with drinking extra fluids. Follow-up Visit: 11/21/2023 for stent removal Martina Mehta RN documented in this encounter [facility] 10-31-2023 Note HNO ID: [id number] Author: BRENDA LEGGETT MD Service: Urology Author Type: Physician Type: Progress Notes Filed: 10/31/2023 07:26 Note Text: [facility] UROLOGY PROGRESS NOTE Name: Jemal Zepeda Bed: [id number] Date: October 31, 2023 ASSESSMENT AND PLAN POD#1 s/p robotic bladder diverticulectomy and LND Doing well Advance diet Ambulate home later today remove DAVIAN prior to discharge TO in 2 weeks - arranged Cysto stent removal in 3-4 weeks - arranged Will call with path Subjective - Feels well, no complaints -Pain: mild -CP/SOB: Denies -N/V:Denies -Bowel function: none -Ambulating: not yet Objective Vital Signs BP 147/82 Pulse 82 Temp 36.4 ?C (97.6 ?F) (Oral) Resp 20 Ht 180.3 cm (5' 11 ) Wt 86.6 kg (191 lb) SpO2 93% BMI 26.64 kg/m? Input and Output Intake/Output Summary (Last 24 hours) at 10/31/2023 0724 Last data filed at 10/31/2023 0516 Gross per 24 hour Intake 1700 ml Output 1540 ml Net 160 ml Drains: serosang Urine: old blood, draining well Physical Exam PHYSICAL EXAM General: WDWN pt in NAD HEENT: NCAT, sclera anicteric CV: RRR, well perfused Resp: breathing comfortably on NC GI: Abd soft, non distended, mildly tender, incisions CDI Neuro: Alert and Oriented Recent Labs 10/31/23 0420 10/30/23 1142 WBC 11.64* 10.94 HB 10.7* 11.7* HCT 33.4* 37.2* PLT 296 334 NA 130* 132* K 3.9 4.3 CHLOR 96* 97 CO2 26 26 BUN 13 15 CREAT 0.77 0.83 GLUC 111* 168* Imaging n/a Brenda Leggett MD [facility] 10-31-2023 Note HNO ID: [id number] Author: TREY LEMUS MD Service: Urology Author Type: Resident Type: Progress Notes Filed: 10/31/2023 10:05 Note Text: UROLOGY INPATIENT PROGRESS NOTE SERVICE DATE: 10/30/2023 SERVICE TIME: 11:19 AM PATIENT AGE: [age] year old DIAGNOSIS, ASSESSMENT AND PLAN Assessment: Jemal Zepeda is a 73 year old male with history of large bladder diverticulum with bladder mass now s/p robotic partial cystectomy and right extended pelvic lymph node dissection POD#: 1 Interval: - pain controlled, no n/v/sob/cp - VSS - Hb 10.7 < 11.7, Cr 0.8 (0.8) - UOP 1.3L - DAVIAN 40cc SS PLAN: - pain control PRN - IS, OOB - CLD. Colace. MIVF - Francisco for 2 weeks - Right internal stent, removal in 3-4 weeks - DAVIAN remove today - SQH TID, SCD - Periop ancef Discharge planning - POD1 plan - Secondary Dx and Complications - HTN POA - home meds, holding parameters on BHARATH I BPH POA - flomax, francisco GERD POA - home PPI Anxiety/depression POA - home celexa Bladder mass POA - follow up pathology Will d/w Dr. Betsey Lemus MD Urology Resident [phone] After 5pm or weekends: [id number] ([facility]), [id number] ([place]) OBJECTIVE BP 146/76 Pulse 83 Temp 36.4 ?C (97.5 ?F) (Temporal Artery) Resp 18 SpO2 95% INTAKE/OUTPUT: Intake/Output Summary (Last 24 hours) at 10/30/2023 1119 Last data filed at 10/30/2023 1118 Gross per 24 hour Intake 1700 ml Output 150 ml Net 1550 ml PHYSICAL EXAM: GENERAL: nad, wdwn PULM: unlabored on ra CV: rrr ABD: soft, appr tender, incisions c/d/I, DAVIAN ss : francisco draining clear yellow EXT: no swelling IP MEDICATIONS: Current Facility-Administered Medications Medication Dose Route Frequency albuterol 2.5 mg /3 mL (0.083 %) 2.5 mg (PROVENTIL) 2.5 mg INHALATION PRN lactated ringers iv infusion 75 mL/hr INTRAVENOUS CONTINUOUS fentaNYL 50 mcg/mL 50 mcg injection (SUBLIMAZE) 50 mcg INTRAVENOUS q 10 MIN PRN HYDROmorphone 0.2 mg injection (DILAUDID) 0.2 mg INTRAVENOUS q 5 MIN PRN ondansetron 4 mg tab(s) (ZOFRAN) 4 mg ORAL q 6 H PRN Or ondansetron (PF) 4 mg injection (ZOFRAN) 4 mg INTRAVENOUS q 6 H PRN meperidine (PF) 12.5 mg injection (DEMEROL) 12.5 mg INTRAVENOUS q 10 MIN PRN NaCl 0.9% irrigation solution X (OR/PROCEDURE) PRN NaCl 0.9% irrigation bag X (OR/PROCEDURE) PRN iothalamate meglumine 17.2 % solution (CYSTO-CONRAY II) X (OR/PROCEDURE) PRN Facility-Administered Medications Ordered in Other Encounters Medication Dose Route Frequency lactated ringers iv infusion INTRAVENOUS X (ONE-STEP ONLY) CONTINUOUS PRN fentaNYL 50 mcg/mL injection (SUBLIMAZE) INTRAVENOUS PRN lidocaine HCl (PF) 20 mg/mL (2 %) injection INTRAVENOUS PRN propofol injection (DIPRIVAN) INTRAVENOUS PRN rocuronium injection INTRAVENOUS PRN esmolol injection (BREVIBLOC) INTRAVENOUS PRN dexAMETHasone sodium phosphate injection (DECADRON) INTRAVENOUS PRN PHENYLephrine injection INTRAVENOUS PRN PHENYLephrine 10 mg in NaCl 0.9% 100 mL (TODD-SYNEPHRINE) INTRAVENOUS X (ONE-STEP ONLY) CONTINUOUS PRN lactated ringers iv infusion INTRAVENOUS X (ONE-STEP ONLY) CONTINUOUS PRN ondansetron (PF) injection (ZOFRAN) INTRAVENOUS PRN neostigmine injection (BLOXIVERZ) INTRAVENOUS PRN glycopyrrolate injection (ROBINUL) INTRAVENOUS PRN LABS: CBC, Coags, BMP, Mg, Phos Recent Labs 10/31/23 0420 10/30/23 1142 WBC 11.64* 10.94 HB 10.7* 11.7* HCT 33.4* 37.2* PLT 296 334 NA 130* 132* K 3.9 4.3 CHLOR 96* 97 CO2 26 26 BUN 13 15 CREAT 0.77 0.83 GLUC 111* 168* CA 8.8 8.7 [facility] 10-30-2023 Miscellaneous Notes Pt had surgery today 10/30/[address] Leggett 1) cystoscopy and right retrograde pyelogram and right double-J stent placement 2) robotic bladder diverticulectomy/partial cystectomy [complicated] 3) robotic right pelvic lymph node dissection Per Dr. Leggett, Patient needs nurse visit TOV on 11/12/2023 And Cysto stent removal in 3-4 weeks. Currently inpatient Will call once discharged for post operative assessment documented in this encounter [facility] 10-30-2023 Note HNO ID: [id number] Author: VINEET STACY APRN.PROFESSIONAL CASTER Service: Anesthesiology Author Type: Nurse Pipe And Test Supervisor Type: Anesthesia Procedure Notes Filed: 10/30/2023 08:04 Note Text: ANESTHESIOLOGY PROCEDURE NOTE Gastric Tube General Information Procedure Start Time/Medication Administration: 10/30/2023 7:55 AM Procedure End Time: 10/30/2023 7:56 AM Patient location during procedure: OR Timeout Performed Pre-procedure: timeout performed Consent Obtained: Yes 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, 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 Indication: gastric decompression Staffing PROFESSIONAL CASTER: Vineet Stacy APRN.PROFESSIONAL CASTER Performed by: JUAN ANTONIO Procedure Details Type: Orogastric tube Cortrak monitor used: No Size: 18 Fr cm Initial Auscultation Appears Confirmatory: Yes Successful Placement: yes Post-Procedure Details Patient tolerated the procedure well with no immediate complications SIGNATURE: Vineet Stayc APRN.CRNA PATIENT NAME: Jemal Zepeda DATE: October 30, 2023 TIME: 8:03 AM CSN: [id number] [facility] 10-30-2023 Note HNO ID: [id number] Author: VINEET STACY APRN.CRNA Service: Anesthesiology Author Type: Nurse Pipe And Test Supervisor Type: Anesthesia Procedure Notes Filed: 10/30/2023 08:03 Note Text: ANESTHESIOLOGY PROCEDURE NOTE PIV General Information Procedure Start Time/Medication Administration: 10/30/2023 7:50 AM Procedure End Time: 10/30/2023 7:51 AM Patient Location: OR Staffing Anesthesiologist: Zoë Rodríguez MD Performed by: anesthesiologist Preparation Sterility Preparation: hand hygiene performed prior to procedure, surgical cap used, mask used, skin prep agent completely dried prior to procedure Sterility Technique Not Completely Performed Due to Extreme Emergency: No Site Prep: chlorhexidine Procedure Details Indication: need for IV access Needle Size/Type: 16 gauge angiocath Orientation: Right Location: Hand Imaging Guidance Used: No SIGNATURE: Vineet Stacy APRN.CRNA PATIENT NAME: Jemal Zepeda DATE: October 30, 2023 TIME: 8:02 AM CSN: [id number] [facility] 10-30-2023 Note HNO ID: [id number] Author: VINEET STACY APRN.CRNA Service: Anesthesiology Author Type: Nurse Pipe And Test Supervisor Type: Anesthesia Procedure Notes Filed: 10/30/2023 08:02 Note Text: ANESTHESIOLOGY PROCEDURE NOTE Airway General Information Procedure Start Time/Medication Administration: 10/30/2023 7:48 AM Procedure End Time: 10/30/2023 7:50 AM Patient location during procedure: OR Timeout Performed Pre-procedure: timeout performed Consent Obtained: Yes 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, 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 Staffing PROFESSIONAL CASTER: Vineet Stacy APRN.PROFESSIONAL CASTER Performed by: JUAN ANTONIO Indications and Patient Condition Indications for airway management: anesthesia and airway protection Preoxygenated: yes anesthesia circuit Patient position: sniffing Method: asleep Cricoid Pressure: No Manual In-Line Stabilization: No Difficult Mask: No Airway Accessory: oral airway Final Airway Details Final airway type: endotracheal airway Final Endotracheal Airway: ETT Cuffed: yes Successful intubation technique: video laryngoscopy Devices used: Lindquist (small mouth opening.) Endotracheal tube insertion site: oral Blade: Kindra Blade size: #4 ETT size (mm): 7.5 Measured from: lips Measurement (cm): 23 Placement verified by: chest auscultation and capnometry Cormack-Lehane Classification: grade I - full view of glottis Number of attempts at approach: 1 Ventilation between attempts: none Failed airway: no Unrecognized esophageal intubation: no Airway not difficult SIGNATURE: Vineet Stacy APRN.PROFESSIONAL CASTER PATIENT NAME: Jemal Zepeda DATE: October 30, 2023 TIME: 8:01 AM CSN: [id number] [facility] 10-30-2023 Note HNO ID: [id number] Author: REX SANCHEZ PA-C Service: Urology Author Type: Physician Manager Long Term Care Type: Plan of Care Filed: 10/30/2023 07:18 Note Text: Patient is seen by me in the preoperative holding area and identified by name and date via wrist band. I introduced myself to the patient and confirmed that Jemal Zepeda is here for Robotic Diverticulectomy of the bladder with cystoscopy and stent placement with Dr. Leggett. Patient verbalized understanding and voiced no questions or concerns at this time. [facility] 10-21-2023 Miscellaneous Notes Procedure: Primary Urology Procedure: ROBOTIC DIVERTICULECTOMY BLADDER Physician: Dr. Brenda Leggett Location: [facility]: [phone] Date & Time: 10/30/23 MEDICAL CLEARANCE: No CARDIAC CLEARANCE: No PRE ADMISSION TESTIN10/15/23 AT: [facility] ([facility]): [phone] THE FOLLOWING WAS EVALUATED Motivation To Learn: Interested Family/Significant Other Support: Unable to assess - Family not present Cognitive Ability: Alert and oriented Patient Learns Best By: Individual Instruction Written Instruction - Hand-outs Verbal Instruction The Following Influencing Factors Were Barriers To This Education Session: None The Following Physical Limitations Were Barriers To This Education Session: None Instruction Provided To: Patient MEDICATION INFORMATION ASPIRIN and ADVIL can make you more prone to bleeding after surgery. Please STOP taking these medications at least (5) days before and for (3) days after surgery or procedure. Some common medications that contain ASPIRIN or act like Aspirin are TO BE AVOIDED: This is a list of the medications you should avoid: Advill Celebrex Motrin Aggrenox Clinoril Naprosyn(naproxen) Agrylin NSAIDS Pepto-Bismol Aleve Ecotrin Persantine Lily-[place] Excedrin Plaquenil Anacin Heparin Plavix Ascriptin Herbals Pletal Aspergum Ibuprofen Ticlid Wayne Indocin Trental Bextra Midol Vanquish Bufferin Gingko Biloba Vitamin E (MVI) MEDICATIONS YOU MAY SUBSTITUTE Anacin 3 Fioricet * Tylenol with codeine * Darvocet N 100 * Plenadol Percocet * Datril Sine-Aide Tylenol Excedrin PM (*Denotes prescription needed to obtain these medications) Learning Topic: Pre/post op information Instructions reviewed for arrival time, parking and admission. Specific topics reviewed and discussed with all surgical patients include: No eating, drinking, or smoking after midnight prior to surgery. Medications as prescribed by anesthesia or the physician. Bowel Prep as indicated. None needed Review of information contained in surgical packet Pre-operative and intra-operative general activities were reviewed including: Holding Area, assessments, surgical positioning, and Family Waiting Area. Written post-operative instructions were given to the patient regarding post-op activity, pain control, symptoms to report. Post-operative instructions provided and reviewed with patient/family: ACTIVITY - No heavy lifting (>5-10 lbs), no pushing/pulling, OK to climb stairs DRIVING - No driving while taking prescription pain medication, or within 24 hours of anesthesia, OK to ride in a car. DIET - Advance diet as tolerated and as ordered by MD, drink 8 glasses of water a day, eat a diet high in protein and fiber unless otherwise directed by MD. CATHETER - Will be inserted during surgery, you may go home with a catheter. If you go home with a catheter you will have to come back to the office for a voiding trial, UTI symptoms reviewed and patient instructed to notify MD of any of these symptoms. INCISION CARE - Keep incision clean and dry, julita to be removed 7-10 days after surgery, steristrips do not need to be removed by MD BATHING - OK to shower after surgery unless otherwise directed by MD, no tub baths. PAIN MEDICATION - IV pain medication after surgery, IV QUANTITATIVE ANALYST MARKETING if ordered by MD, discharged home with a prescription for PO pain medication, pain management after surgery, side effects of pain medication (including constipation, dizziness, drowsiness, and medication interactions). DVT PROPHYLAXIS - Early ambulation, SCDs, injectable anticoagulants (heparin, lovenox, etc) RESPIRATORY - Incentive spirometer, coughing/deep breathing exercises, ambulation. RETURN TO WORK - As directed by physician, please send any FMLA papers to physician's pig machine supervisor. SYMPTOMS TO NOTIFY MD - Fever, chills, nausea, vomiting, increased or severe pain, heavy bleeding, foul smelling drainage, pain or swelling in extremities. URGENT SYMPTOMS - Call 911 or go to ER if any shortness of breath, difficulty breathing, or chest pain. HOW TO CONTACT PHYSICIAN - Physician's office phone number given to patient, if after hours patient instructed to call hydroelectric plant operator and ask for the doctor customer records division supervisor. Patient and family have phone number to call 24 hours/day. Patient Evaluation: Verbalizes understanding Patient and/or family express understanding of upcoming surgery and the operative process. Questions answered. Follow Up Plan: Follow up as needed Supplemental Material Given: Pre-operative teaching packet provided to the patient: INPATIENT/OUTPATIENT printed instructions; Post-operative instruction sheet, bowel prep instruction sheet For questions contact: Dr. Brenda Leggett's office at [phone] Instructed By Lashaun Cheney RN documented in this encounter [facility] 09-17-2023 Note [facility] Cardiology Clinic Note Chief Complaint: Patient here for 6 mo follow up AAA and hypertension. He has lost 20# since last visit in Feb 2023. Says he's been treated for anemia and bleeding ulcer since then. He is not taking aspirin anymore. Routine labs were drawn in May 2023, and he's tolerating Crestor. Denies chest pain, SOB, palpitations, and lightheadedness/syncope. HPI: Jemal Zepeda is a 73 y.o. 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 He has arthritic discomfort in his joints. He could not tolerate his Lipitor due to muscle aches and pains. UPDATE 09/17/2023 I unfortunately had an eventful several months since I last saw him. Was diagnosed with blood loss anemia; felt to have a bleeding ulcer. Required EGD and clipping. In the process, due to significant abdominal discomfort and loss of appetite, he lost a significant amount of weight. Currently, he feels improved. He denies anginal chest pain. He has pain on deep breaths that is related to pulmonary parenchymal scarring per his gear nicker. No interscapular pain. No orthopnea, no paroxysmal external dyspnea, no lower extremity edema. Cardiology ROS: Review of Systems Constitutional: Positive for malaise/fatigue and weight loss (20# since Feb 2023). All other systems reviewed and are negative. Past Medical History He has a past medical history of Aneurysm ([facility]), Hyperlipidemia, Hypertension, and PVD (peripheral vascular disease) ([facility]). Surgical History He has a past surgical history that includes Abdominal aortic aneurysm repair; Hernia repair; and Replacement total knee oncologic. Social History He reports that he has been smoking cigarettes. He uses smokeless tobacco. He reports that he does not currently use alcohol. Drug use questions deferred to the physician. Family History Family History Problem Relation Name Age of Onset Heart attack Father Stroke Father Allergies Lipitor [atorvastatin] and Meloxicam Medications Current Outpatient Medications: amLODIPine (Norvasc) 10 mg tablet, 1 (one) time each day at the same time., Disp: , Rfl: aspirin 81 mg chewable tablet, Chew 1 tablet every day by oral route., Disp: , Rfl: atorvastatin (Lipitor) 40 mg tablet, Take 1 tablet (40 mg) by mouth in the morning. (Patient not taking: Reported on 03/10/2023), Disp: 90 tablet, Rfl: 3 carvedilol (Coreg) 12.5 mg tablet, Take 1 tablet (12.5 mg) by mouth with breakfast and with evening meal., Disp: 180 tablet, Rfl: 3 citalopram (CeleXA) 20 mg tablet, 1 (one) time each day at the same time., Disp: , Rfl: lisinopril 40 mg tablet, TAKE 1 TABLET BY MOUTH EVERY MORNING, Disp: 90 tablet, Rfl: 1 rosuvastatin (Crestor) 20 mg tablet, Take 1 tablet (20 mg) by mouth in the morning., Disp: 30 tablet, Rfl: 11 sildenafil (Viagra) 100 mg tablet, Take 1 tablet by mouth if needed each day., Disp: , Rfl: Last Recorded Vitals BP 110/68 (BP Location: Left arm, Patient Position: Sitting) Pulse 79 Ht 1.829 m (6') Wt 88.9 kg (196 lb) SpO2 93% BMI 26.58 kg/m??? Physical Examination: GENERAL: alert and oriented x3, well developed, in no acute distress. HEAD: atraumatic, normocephalic. EYES: KARENA, EOMI. NECK: trachea midline, no JVD present, no carotid bruits present. CARDIAC: S1, S2 present. RRR. No murmur, rubs, or gallops. RESPIRATORY: CTAB, no increased effort of breathing, no rales, rhonchi, or wheezing. ABDOMEN: soft, nontender, nondistended. EXTREMITIES: no lower extremity edema, peripheral pulses are 2+ bilaterally. No rash/skin discoloration present. NEURO: strength/sensation equal and symmetric in bilateral upper and lower extremities. PSYCH: appropriate mood, affect, and judgement. Echocardiogram 02/05/2021: Global left ventricular systolic function is normal. Mild left ventricular hypertrophy. Mild diastolic dysfunction. Moderately elevated right-sided pressures. No significant valvular dysfunction. Mildly dilated aortic root at 4.1 cm and moderately dilated ascending aorta 4.54 cm. EXAMINATION: CTA CHEST WO W CON, CTA ABD/PELVIS WO W CON HISTORY: Abdominal aortic aneurysm without rupture , follow-up COMPARISON: Ultrasound abdominal aorta 01/23/2021 TECHNIQUE: After obtaining the patient's consent, CT images of the chest, abdomen and pelvis were obtained with non-ionic intravenous contrast material. Axial, Coronal, and Sagittal images. Multi-planar reformatted/3-D images were created to optimize visualization of vascular anatomy. Dose reduction techniques were achieved by using automated exposure control and/or adjustment of mA and/or kV according to patient size and/or use of iterative reconstruction technique. FINDINGS: VASCULATURE: No pulmonary embolism or abnormal opacity. LUNGS: Moder (more content not included)... [facility] 08-28-2023 Miscellaneous Notes Office visit consults notes on 08/27/[address] Leggett faxed to Dr. Rex Burgos documented in this encounter [facility] 08-27-2023 Miscellaneous Notes Patient seen in office on 08/26/2023 confirmed surgery for : 10/30/[address] LEGGETT Patient scheduled for PACC on 10/15/2023 dung Durbin documented in this encounter [facility] 08-27-2023 History of Presen t illness Narrative [facility] NEW PATIENT HISTORY AND PHYSICAL EXAM PATIENT INFO: Jemal Zepeda 73 year old REFERRING M.D.: No referring provider defined for this encounter. CHIEF COMPLAINT: Bladder mass, elevated PSA HISTORY: Jemal Zepeda is a 73 yr old male with a hx of AAA, emphysema, epididymitis, HTH, former smoker, low TSH, BPH, lung nodules, and OA presenting for a bladder mass and elevated PSA. Most recent PSA was 4.57 on 07/14/2023. CT A/P 07/11/2023: large bladder diverticulum extending posteriorly on the right. There is dependent density that could be debris, stones, or a sessile mass. There is a slight mass effect at the bladder trigone related to a prominent prostate containing calcifications. There are no enlarged lymph nodes or pelvic ascites. There are mild degenerative changes at the hips and SI joints Cysto 08/18/[address] Burgos: 2-3 cm bladder neoplasm located within a right posteriorly located bladder diverticulum, very little to no bladder serosa around the bladder diverticulum raising the risk of perforation LABS No results found for: PSA Creatinine (mg/dL) Date Value 03/24/2014 0.95 03/23/2014 0.81 03/22/2014 0.74 03/21/2014 1.00 03/20/2014 1.18 PAST MEDICAL HISTORY Diagnosis Date Celiac artery aneurysm (HCC) HTN (hypertension) Hydrocele Sleep apnea Smoker PAST SURGICAL HISTORY Procedure Laterality Date HERNIA REPAIR W/MESH 2001 bilateral open inguinal herniorrhaphy with mesh PAST SURGICAL HISTORY OF 03/18/2014 celiac artery aneurysm repair Social History Tobacco Use Smoking status: Former Packs/day: 1.00 Years: 40.00 Additional pack years: 0.00 Total pack years: 40.00 Types: Cigarettes Smokeless tobacco: Former Types: Snuff Tobacco comments: occasionally has a cigarette Substance Use Topics Alcohol use: No Drug use: No REVIEW OF SYSTEMS: (positive in bold) GENERAL: Recent weight gain/loss, fatigue, weakness, fever, night sweats MUSCLE/JOINTS/BONE: Back pain, joint pain, joint swelling CARDIOVASCULAR: Chest pain, heart attack GASTROINTESTINAL: Abdominal pain, fecal incontinence HEAD & NECK: Blurry vision, double vision, cataracts, loss of vision, dryness NEUROLOGIC: Numbness, tingling SKIN: Redness, rash, nodules/bumps, hair loss, color change in hands or feet RESPIRATORY: Cough, shortness of breath ENDOCRINE: Diabetes, thyroid problems THROAT: Frequent sore throats, hoarseness PHYSICAL EXAM: Constitutional: Well-nourished, No physical deformities. Normally developed. Good grooming. Neck: Neck symmetrical, not swollen, Normal tracheal position. Eyes: Normal conjunctivae, normal eyelids. Ears, Nose, Mouth, and Throat: Left ear no scars, no lesions, no masses. Right ear no scars, no lesions, no masses. Nose no scars, no lesions, no laurie. Normal hearing. Normal lips. Respiratory: NL effort, no retraction or pursed-lip breathing Cardiovascular: Normal temperature, normal extremity pulses, no swelling, no varicosities. Skin: No paleness, no jaundice, no cyanosis. No lesion, no ulcer, no rash Lymphatic: No enlargement of neck, axillae, groin. Neurologic/Psychiatric: Oriented to time, oriented to place, oriented to person. No depression, no anxiety, no agitation. Musculosckeletal: Normal gait and station of head and neck Extremities: Extremities normal, no deformities, edema, clubbing or skin discoloration Abdomen: Normal abdominal exam, Abdomen soft, non-tender. Bowel sounds normal. No masses, organomegaly IMPRESSION: Jemal Zepeda is a 73 yr old male with a hx of AAA, emphysema, epididymitis, HTH, former smoker, low TSH, BPH, lung nodules, and OA presenting for a bladder mass and elevated PSA. Most recent PSA was 4.57 on 07/14/2023. Will discuss case with Dr. Burgos to ensure that his disease is only within the diverticulum. Pt has a hx of AAA repair. He has a midline incision from the xiphoid to just to under the umbilicus. B/l inguinal hernia incisions from prior repair. Discussed the potential for robotic bladder diverticulectomy. Reviewed the procedure in detail and discussed all risks and benefits. Addressed all questions and concerns. The risks, benefits and alternatives of a robotic bladder diverticulectomy were discussed with the patient. These include, but are not limited to bleeding, infection, injury to adjacent structures (such as the rectum, bowel, or major blood vessels). There can also be wound infections, hernias and rarely chronic neuropathic pain or numbness. We also talked about medical complications, such as cardiac (RI, etc), respiratory (pneumonia, etc), renal (Acute kidney injury, etc), Blood clots (DVTs, PEs, etc), as well as other complications. We also talked about possible bowel complications, including obstruction, bowel leak, fistula formation or ischemia requiring reoperation. Patient understood these risks, questions were answered and he agreed to proceed. In summary, we discussed the procedure, risks, potential benefits, and reasonable alternatives, and we also discussed the fact that if this patient elected surgical therapy, that we would operate as a team with involvement of myself as primary surgeon, with possible assistance of our residents, or potentially a colleague if needed, but that I would be there for critical portions of the procedure. We talked about the possible need for ureteral reimplantation. He does have a previous midline incision and therefore there may need to be a lysis of adhesions or possible conversion to open. He understands increased risk of bowel injury related to his previous abdominal surgery. PLAN: Will message Dr. Burgos to ensure cancer is confined to the diverticulum Will plan for robotic bladder diverticulectomy/partial cystectomy with prior cystoscopy right double-J stent to ensure no involvement of the bladder. By signing my name below, I, Shanell Frye, attest that this documentation has been prepared under the direction and in the presence of Dr. Leggett Electronically signed, Adilene Campbellibe I agree with the Chief Complaint, ROS, and Past Histories independently gathered by the clinical sales support engineer and the remaining scribed note accurately describes my personal service to the patient. Dr. Brenda Leggett MD This is a 73 year old male who is referred by Dr. Rex Burgos for a chief complaint of bladder tumor. Final recommendations will be communicated back to the requesting physician by way of the shared medical record, or letter to requesting physician via [place] mail. documented in this encounter [facility] 08-27-2023 Note HNO ID: [id number] Author: BRENDA LEGGETT MD Service: ? Author Type: Physician Type: Progress Notes Filed: 08/27/2023 13:43 Note Text[facility] H[facility]ORY AND PHYSICAL EXAM PATIENT INFO: Jemal Zepeda 73 year old REFERRING M.D.: No referring provider defined for this encounter. CHIEF COMPLAINT: Bladder mass, elevated PSA HISTORY: Jemal Zepeda is a 73 yr old male with a hx of AAA, emphysema, epididymitis, HTH, former smoker, low TSH, BPH, lung nodules, and OA presenting for a bladder mass and elevated PSA. Most recent PSA was 4.57 on 07/14/2023. CT A/P 07/11/2023: large bladder diverticulum extending posteriorly on the right. There is dependent density that could be debris, stones, or a sessile mass. There is a slight mass effect at the bladder trigone related to a prominent prostate containing calcifications. There are no enlarged lymph nodes or pelvic ascites. There are mild degenerative changes at the hips and SI joints Cysto 08/18/[address] Burgos: 2-3 cm bladder neoplasm located within a right posteriorly located bladder diverticulum, very little to no bladder serosa around the bladder diverticulum raising the risk of perforation LABS No results found for: PSA Creatinine (mg/dL) Date Value 03/24/2014 0.95 03/23/2014 0.81 03/22/2014 0.74 03/21/2014 1.00 03/20/2014 1.18 PAST MEDICAL HISTORY Diagnosis Date Celiac artery aneurysm (HCC) HTN (hypertension) Hydrocele Sleep apnea Smoker PAST SURGICAL HISTORY Procedure Laterality Date HERNIA REPAIR W/MESH 2001 bilateral open inguinal herniorrhaphy with mesh PAST SURGICAL HISTORY OF 03/18/2014 celiac artery aneurysm repair Social History Tobacco Use Smoking status: Former Packs/day: 1.00 Years: 40.00 Additional pack years: 0.00 Total pack years: 40.00 Types: Cigarettes Smokeless tobacco: Former Types: Snuff Tobacco comments: occasionally has a cigarette Substance Use Topics Alcohol use: No Drug use: No REVIEW OF SYSTEMS: (positive in bold) GENERAL: Recent weight gain/loss, fatigue, weakness, fever, night sweats MUSCLE/JOINTS/BONE: Back pain, joint pain, joint swelling CARDIOVASCULAR: Chest pain, heart attack GASTROINTESTINAL: Abdominal pain, fecal incontinence HEAD AND NECK: Blurry vision, double vision, cataracts, loss of vision, dryness NEUROLOGIC: Numbness, tingling SKIN: Redness, rash, nodules/bumps, hair loss, color change in hands or feet RESPIRATORY: Cough, shortness of breath ENDOCRINE: Diabetes, thyroid problems THROAT: Frequent sore throats, hoarseness PHYSICAL EXAM: Constitutional: Well-nourished, No physical deformities. Normally developed. Good grooming. Neck: Neck symmetrical, not swollen, Normal tracheal position. Eyes: Normal conjunctivae, normal eyelids. Ears, Nose, Mouth, and Throat: Left ear no scars, no lesions, no masses. Right ear no scars, no lesions, no masses. Nose no scars, no lesions, no laurie. Normal hearing. Normal lips. Respiratory: NL effort, no retraction or pursed-lip breathing Cardiovascular: Normal temperature, normal extremity pulses, no swelling, no varicosities. Skin: No paleness, no jaundice, no cyanosis. No lesion, no ulcer, no rash Lymphatic: No enlargement of neck, axillae, groin. Neurologic/Psychiatric: Oriented to time, oriented to place, oriented to person. No depression, no anxiety, no agitation. Musculosckeletal: Normal gait and station of head and neck Extremities: Extremities normal, no deformities, edema, clubbing or skin discoloration Abdomen: Normal abdominal exam, Abdomen soft, non-tender. Bowel sounds normal. No masses, organomegaly IMPRESSION: Jemal Zepeda is a 73 yr old male with a hx of AAA, emphysema, epididymitis, HTH, former smoker, low TSH, BPH, lung nodules, and OA presenting for a bladder mass and elevated PSA. Most recent PSA was 4.57 on 07/14/2023. Will discuss case with Dr. Burgos to ensure that his disease is only within the diverticulum. Pt has a hx of AAA repair. He has a midline incision from the xiphoid to just to under the umbilicus. B/l inguinal hernia incisions from prior repair. Discussed the potential for robotic bladder diverticulectomy. Reviewed the procedure in detail and discussed all risks and benefits. Addressed all questions and concerns. The risks, benefits and alternatives of a robotic bladder diverticulectomy were discussed with the patient. These include, but are not limited to bleeding, infection, injury to adjacent structures (such as the rectum, bowel, or major blood vessels). There can also be wound infections, hernias and rarely chronic neuropathic pain or numbness. We also talked about medical complications, such as cardiac (RI, etc), respiratory (pneumonia, etc), renal (Acute kidney injury, etc), Blood clots (DVTs, PEs, etc), as well as other complications. We also talked about possible bowel complications, including obs (more content not included)... [facility] 08-18-2023 Hospital Discharg e instructions Patient Education 08/18/2023 14:25:24 EU - Cystoscopy Discharge Instructions (Custom) Cystoscopy Voiding after the procedure: there may be some pain, burning, urgency, frequency and blood tinged urine following the procedure. These symptoms usually resolve within 2-5 days. Drink the amount of fluid it takes to keep the urine pink to yellow or clear in color. Drinking enough water and fluids will help to ease any discomfort after your procedure. If you are having problems that seem out of the ordinary, please call. If unable to contact your physician and you feel it is an emergency, go to the nearest emergency room or call 911 Diet you may resume your normal diet. Activity you may resume your normal activities Call if you have a fever over 100 degrees. Follow Up Care 07/16/2023 16:07:06 With:Rex BURGOS Address: [address] [place] [address] Business (1) When: Unknown Comments:As we discussed 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 I will tentatively set you up for a scope and removal of that bladder tumor under anesthesia. The other option is to get another opinion at the [facility]. I may be speaking with one of my colleagues there and then getting back with you.Please finish your antibiotics today. [facility] 08-18-2023 Note [id number] [facility] 08-18-2023 Note Cystoscopy ? Voiding after the procedure: there may be some pain, burning, urgency, frequency and blood tinged urine following the procedure. These symptoms usually resolve within 2-5 days. Drink the amount of fluid it takes to keep the urine pink to yellow or clear in color. Drinking enough water and fluids will help to ease any discomfort after your procedure. ? If you are having problems that seem out of the ordinary, please call. ? If unable to contact your physician and you feel it is an emergency, go to the nearest emergency room or call 911 ? Diet ? you may resume your normal diet. ? Activity ? you may resume your normal activities ? Call if you have a fever over 100 degrees. [facility] 08-18-2023 Evaluation + Plan note Extrac christina from: Title:HOPD visit Author:Rex BURGOS MD Date: 08/18/23 Impression and Plan Assessment and Plan: Diagnosis: Bladder neoplasm of uncertain malignant potential (JHA78-RL D41.4, Working, Medical), BPH with obstruction/lower urinary tract symptoms (WBI76-DW N40.1, Working, Medical). Additional Plan of Care and/or Course of Treatment: Additional Plan of Care and/or Course of Treatment: As discussed above the patient is found to have about a 2 to 3 cm bladder neoplasm located within a right posteriorly located bladder diverticulum. This will need resected. He does carry with him an increased anesthesia risk secondary to comorbidities and also has an increased risk of tumor resection due to its location. There is very little to no bladder serosa around the bladder diverticulum raising the risk of perforation. The possibility exists that the main portion of the procedure will be extensive electrocauterization after resection of the main portion of the tumor. Another option is to get another opinion at a tertiary care center for the possibility of another approach at tumor resection, perhaps externally. Will set him up tentatively for a procedure here. He agrees with that plan and will finish his antibiotic prophylaxis Will schedule Cysto with [facility]. The procedure risks, benefits, details, and treatment alternatives have been discussed with the patient. These include bleeding -- sometimes to the point of hemorrhaging, infection, risk of bladder perforation, recurrence of bladder tumor in 60-70% of patients, need for indwelling catheter for a variable amount of time, as well as the rare risk of needing an open operation to repair the bladder, among others. Additional therapy as well as follow-up bladder evaluation will most likely be required. Full informed consent has been obtained. Will order General anesthesia.. Future Appointments Appointment Date:09/01/2023 10:30:00 AM Scheduled Provider: Location:[facility] Appointment Type:Surgical [facility] Appointment Date:09/18/2023 01:00:00 PM Scheduled Provider: Location:[facility] Appointment Type:Surgery [facility]01-17-2024 Evaluation note* Encounter Date Diagnosis Assessment Notes Treatment Notes Treatment Clinical Notes Jul, Gastric ulcer (ICD-10 - K25.9) The patient states he is feeling much better. He is on Pantoprazole 40 mg BID for 12 weeks. He is using CBC for pain relief & has stopped NSAIDS. As long as he remains symptom free, he does not need to follow up here . [employer] Other 12-27-2023 Note [id number]-2023 [id number] [facility]12-25-2023 Progress note Author Tia Hernandes [facility] July 14, 2023 6:10pm Note Date/Time July 14, 2023 6:10pm [facility] [address] [place] [address] Hospitalist Progress Note Signed Patient: Jemal Zepeda MR#: [id number] : 1950 Acct:[id number] Age/Sex: 73 / M Adm Date: 3 Loc: 4 Room: [address] [place] [address] Type: ADM IN Attending Dr: Yuri Lucero DO Copies to: ~ Date of Service: 07/14/2023 Subjective Subjective Narrative: Patient was seen and examined at the bedside today. Feeling better, no shortness of breath lightheadedness dizziness He still had black stools couple of bowel movements yesterday Blood pressure remained stable however his H&H continued to drop Physical exam: General -awake, alert, oriented ?3, not in acute distress Cardiovascular -S1 with S2, no murmurs, no rubs, no gallops Pulmonary - clear to auscultation bilaterally Gastrointestinal - abdomen is soft, nondistended, nontender, bowel sounds positive, there is no rigidity, no rebound Extremities -no edema Neurological -no focal neurological dysfunction noted Exam Physical Exam Vital Signs: Temp Pulse Resp BP Pulse Ox O2 Del Method O2 Flow Rate 36.4 C 64 18 143/73 H 94 L Room Air 8 07/14/23 16:58 07/14/23 16:58 07/14/23 16:58 07/14/23 16:58 07/14/23 16:58 07/14/23 16:58 07/12/23 10:35 Objective Lab Results 07/14/23 16:03 07/13/23 04:15 Meds Allergies and Active Meds Allergies No Known Allergies Allergy (Verified 07/11/23 17:44) Active Meds: Active Medications Generic Name Dose Route Start Last Admin Trade Name Freq PRN Reason Stop Dose Admin Acetaminophen 650 mg 07/11/23 20:56 07/14/23 05:31 Acetaminophen 325 Mg Tablet PO 07/10/24 20:55 650 mg Q4H PRN Administration Pain Scale 1 - 5 Amlodipine Besylate 5 mg 07/15/23 09:00 Amlodipine 5 Mg Tablet PO 07/14/24 08:59 QAM ALFONZO Carvedilol 6.25 mg 07/14/23 17:00 07/14/23 17:59 Carvedilol 6.25 Mg Tablet PO 07/13/24 16:59 6.25 mg DAILY ALFONZO Administration Citalopram Hydrobromide 20 mg 07/15/23 09:00 Citalopram 20 Mg Tablet PO 07/14/24 08:59 DAILY ALFONZO Pantoprazole Sodium 80 mg/ 100 mls @ 10 mls/hr 07/11/23 21:00 07/14/23 14:08 Sodium Chloride IV 07/10/24 20:59 8 mg/hr .Q10H ALFONZO 10 mls/hr Administration 8 MG/HR Melatonin 10 mg 07/12/23 00:30 07/13/23 21:34 Melatonin 5 Mg Tablet PO 07/14/24 22:00 10 mg QHS ALFONZO Administration Sodium Chloride 0 ml 07/11/23 17:43 07/12/23 09:09 Sodium Chloride 0.9 % 10 Ml Syringe IV-PUSH 07/10/24 17:42 10 ml PRN PRN Administration Flush Sodium Chloride 10 ml 07/11/23 18:17 Sodium Chloride 0.9 % 10 Ml Syringe IV-PUSH 07/10/24 18:16 PRN PRN Flush A&P - Hospitalist Assessment/Plan (1) GI (gastrointestinal bleed): Plan 1. Acute blood loss anemia due to acute upper GI bleeding status post EGD, showing gastric ulcer Mild iron deficiency was noted admission. Drop in H&H, will recheck DVT prophylaxis - SCDs 2. Hypertension, resume adjusted blood pressure medications 3. Unintentional weight loss 4. Night sweats 5. Bladder stone and/or mass within newly noted right-sided bladder diverticulum Will need to follow-up as outpatient Documented By: Tia Hernandes MD 07/14/231807 Signed By: <Electronically signed by Tia Hernandes MD> 07/14/231809 [facility] Work Phone: 1(274) 592-209912-24-2023 Progress note Author Yuri Lucero [facility] July 13, 2023 3:04pm Note Date/Time July 13, 2023 3:04pm [facility] [address] [place] [address] Hospitalist Progress Note Signed Patient: Jemal Zepeda MR#: [id number] : 1950 Acct:[id number] Age/Sex: 73 / M Adm Date: 3 Loc: Room: [address] [place] [address] Type: ADM IN Attending Dr: Yuri Lucero DO Copies to: ~ Date of Service: 07/13/2023 Subjective Subjective Narrative: Patient was seen and examined at the bedside today. He has no major complaints. No shortness of breath or dizziness. His stools still exhibits some melena. Remains on Protonix drip. Physical exam: General -awake, alert, oriented ?3, not in acute distress Cardiovascular -S1 with S2, no murmurs, no rubs, no gallops Pulmonary - clear to auscultation bilaterally Gastrointestinal - abdomen is soft, nondistended, nontender, bowel sounds positive, there is no rigidity, no rebound Extremities -no edema Neurological -no focal neurological dysfunction noted Exam Physical Exam Vital Signs: Temp Pulse Resp BP Pulse Ox O2 Del Method O2 Flow Rate 97.6 F 68 22 121/62 95 Room Air 8 07/13/23 12:00 07/13/23 14:00 07/13/23 14:00 07/13/23 14:00 07/13/23 12:00 07/13/23 14:00 07/12/23 10:35 Objective Lab Results 07/13/23 10:10 07/13/23 04:15 Meds Allergies and Active Meds Allergies No Known Allergies Allergy (Verified 07/11/23 17:44) Active Meds: Active Medications Generic Name Dose Route Start Last Admin Trade Name Freq PRN Reason Stop Dose Admin Acetaminophen 650 mg 07/11/23 20:56 07/13/23 03:18 Acetaminophen 325 Mg Tablet PO 07/10/24 20:55 650 mg Q4H PRN Administration Pain Scale 1 - 5 Pantoprazole Sodium 80 mg/ 100 mls @ 10 mls/hr 07/11/23 21:00 07/13/23 13:56 Sodium Chloride IV 07/10/24 20:59 8 mg/hr .Q10H ALFONZO 10 mls/hr Administration 8 MG/HR Ferric Sodium Gluconate 270 mls @ 135 mls/hr 07/14/23 09:00 Complex 250 mg/ Sodium IV 07/14/23 09:01 Chloride QAM ONE Melatonin 10 mg 07/12/23 00:30 07/12/23 21:40 Melatonin 5 Mg Tablet PO 07/14/24 22:00 10 mg QHS ALFONZO Administration Sodium Chloride 0 ml 07/11/23 17:43 07/12/23 09:09 Sodium Chloride 0.9 % 10 Ml Syringe IV-PUSH 07/10/24 17:42 10 ml PRN PRN Administration Flush Sodium Chloride 10 ml 07/11/23 18:17 Sodium Chloride 0.9 % 10 Ml Syringe IV-PUSH 07/10/24 18:16 PRN PRN Flush A&P - Hospitalist Assessment/Plan (1) GI (gastrointestinal bleed): Plan 1. Acute blood loss anemia due to acute upper GI bleeding status post EGD, showing gastric ulcer H&H stable. Mild iron deficiency was noted admission. Will provide 1 dose of IV iron. Check B12/folate however his anemia is more than likely hemorrhagic innature DVT prophylaxis - SCDs 2. Hypertension, hold blood pressure medications due to above 3. Unintentional weight loss 4. Night sweats 5. Bladder stone and/or mass within newly noted right-sided bladder diverticulum The patient's weight loss and night sweats have been occurring since August. His weight loss has been intentional. He has received some workup for malignancy as an outpatient with recent thyroid studies reported as normal. Testosterone level reported normal. Reviewing his initial CT scan following my encounter with the patient it does report prostate hypertrophy which the patientalready knew about. The bladder diverticulum on the right side with possible stone and/or mass I feel warrants further urologic consultation. Will check a urinalysis to evaluate for any occult hematuria. Documented By: Yuri Lucero DO 07/13/23 14 56 Signed By: <Electronically signed by Yuri Lucero DO> 07/13/23 1508 [facility] Work Phone: 1(253) 288-221612-23-2023 Progress note Author Tia Hernandes [facility] July 12, 2023 1:04pm Note Date/Time July 12, 2023 1:04pm [facility] [address] [place] [address] Hospitalist Progress Note Signed Patient: Jemal Zepeda MR#: [id number] : 1950 Acct:[id number] Age/Sex: 73 / M Adm Date: 3 Loc: Room: [address] [place] [address] Type: ADM IN Attending Dr: Tia Hernnades MD Copies to: ~ Date of Service: 07/12/2023 Subjective Subjective Narrative: Patient has been and examined today. He underwent EGD which showed gastric ulcer He did have small black bowel movements, but he is feeling better, no dizziness no lightheadedness no chest pain. Abdominal pain improved Physical exam: General -awake, alert, oriented ?3, not in acute distress Cardiovascular -S1 with S2, no murmurs, no rubs, no gallops Pulmonary - clear to auscultation bilaterally Gastrointestinal - abdomen is soft, nondistended, nontender, bowel sounds positive, there is no rigidity, no rebound Extremities -no edema Neurological -no focal neurological dysfunction noted Exam Physical Exam Vital Signs: Temp Pulse Resp BP Pulse Ox O2 Del Method O2 Flow Rate 36.4 C 67 15 122/61 97 Room Air 8 07/12/23 12:00 07/12/23 12:00 07/12/23 12:00 07/12/23 12:00 07/12/23 12:00 07/12/23 12:00 07/12/23 10:35 Objective Lab Results 07/12/23 11:30 07/12/23 04:20 Meds Allergies and Active Meds Allergies No Known Allergies Allergy (Verified 07/11/23 17:44) Active Meds: Active Medications Generic Name Dose Route Start Last Admin Trade Name Freq PRN Reason Stop Dose Admin Acetaminophen 650 mg 07/11/23 20:56 Acetaminophen 325 Mg Tablet PO 07/10/24 20:55 Q4H PRN Pain Scale 1 - 5 Bupropion HCl 150 mg 07/12/23 09:00 Bupropion 150 Mg Tablet.Er PO 07/11/24 08:59 QAM ALFONZO Sodium Chloride 500 mls @ 20 mls/hr 07/11/23 20:55 0.9 % Sodium Chloride IV 07/12/23 20:54 PROTOCOL PRN BLOOD TRANSFUSION Pantoprazole Sodium 80 mg/ 100 mls @ 10 mls/hr 07/11/23 21:00 07/12/23 07:26 Sodium Chloride IV 07/10/24 20:59 8 mg/hr .Q10H ALFONZO 10 mls/hr Administration 8 MG/HR Sodium Chloride 500 mls @ 20 mls/hr 07/12/23 05:07 0.9 % Sodium Chloride IV 07/13/23 05:06 PROTOCOL PRN BLOOD TRANSFUSION Sodium Chloride 500 mls @ 20 mls/hr 07/12/23 13:01 0.9 % Sodium Chloride IV 07/13/23 13:00 PROTOCOL PRN BLOOD TRANSFUSION Melatonin 10 mg 07/12/23 00:30 07/12/23 01:17 Melatonin 5 Mg Tablet PO 07/14/24 22:00 10 mg QHS ALFONZO Administration Sodium Chloride 0 ml 07/11/23 17:43 07/12/23 09:09 Sodium Chloride 0.9 % 10 Ml Syringe IV-PUSH 07/10/24 17:42 10 ml PRN PRN Administration Flush Sodium Chloride 10 ml 07/11/23 18:17 Sodium Chloride 0.9 % 10 Ml Syringe IV-PUSH 07/10/24 18:16 PRN PRN Flush A&P - Hospitalist Assessment/Plan (1) GI (gastrointestinal bleed): Plan 1. Acute blood loss anemia due to acute upper GI bleeding status post EGD, showing gastric ulcer Remains hemodynamically stable, H&H drop noted, status post transfusion of 1 unit of packed red blood cells, transfuse 1 more Continue with PPIs DVT prophylaxis -no chemoprophylaxis but mechanical with SCDs 2. Hypertension, hold blood pressure medications due to above Documented By: Tia Hernandes MD 07/12/23 1302 Signed By: <Electronically signed by Tia Hernandes MD> 07/12/23 1304 [facility] Work Phone: 1(255) 856-442012-23-2023 History and physical note Author Tia Hernandes [facility] July 12, 2023 1:02pm Note Date/Time July 11, 2023 9:02pm [facility] [address] [place] [address] Hospitalist H&P Signed Patient: Jemal Zepeda MR#: [id number] : 1950 Acct:[id number] Age/Sex: 73 / M Adm Date: 3 Loc: Room: 6A2846-0 Type: ADM IN Attending Dr: Tia Hernandes MD Copies to: Elham Hernandes MD~ HPI DATE OF EXAMINATION: 07/11/23 CHIEF COMPLAINT: Melena HISTORY OF PRESENT ILLNESS: 73 years old presented with complaints of tarry stools. According to the patient he has been complaining of weakness, dizziness, nausea associated with lightheadedness for the last couple of days. He also complained of indigestion,nausea, feeling that he will follow up but never did. Patient has not been taking any antiplatelet agent to his aspirin, but however today he took Motrin for the headache. Today he reported black stools, x 2. Patient did have screening colonoscopy in 2020, showing colon polyps and diverticulosis. Upon presentation patient was hemodynamically stable, however his blood pressuredropped. Systolic to 90s. Patient does have a history of hypertension and has multiple blood pressure medications which she took this morning. He did have 1 black/maroon bowel movements while in the emergency room, complaining of dizziness. Right subclavian central line was placed in emergency room without any complications. Per family patient was not feeling well and had lost weight. He was scheduled to see associate dean for EGD within the 1 month or so. On July [address] scan of the chest/abdomen/pelvis which did not reveal any significant acute findings. 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 Exact surgery is not clear. He does have enlarged thoracic aortic aneurysm and enlarged infrarenal abdominal aneurysm, following with finance lead. 10 systems are reviewed and are negative after mentioned H&P General patient appears lying in flat position, appears to be weak and fatigued,pale, but responsive, awake and oriented x 3 HEENT -dry oropharyngeal mucosa without any ulcers or exudates Cardiovascular -S1 plus S2, no murmurs Pulmonary -clear to auscultation bilaterally Gastrointestinal -abdomen is soft, tenderness in epigastric area Genitourinary deferred Musculoskeletal -no significant joint pain Neurological -no focal Skin -no significant ulcers, no rash noted Extremities - no edema in bilateral lower extremities noted Psychiatry - appropriate affect Laboratory work up, imaging studies reviewed EKG personally reviewed by me normal sinus rhythm without acute ST-T wave changes, with heart rate 90 Previous records in the computer system reviewed [facility] Medical History (Updated 07/12/23 @ 09:58 by Arvin Al MD) Aneurysm artery, celiac bypass surgery Hypertension Thoracic aortic aneurysm Surgical History H/O hernia repair Family History (Updated 02/28/21 @ 07:13 by Valorie Hernandez RN) Father Hypertension Mother Hypertension Social History Smoking Status: Former smoker Substance Use Type: None Meds Medications and Allergies Allergies No Known Allergies Allergy (Verified 07/11/23 17:44) Home Medications amlodipine 5 mg tablet 1 tab PO QAM hypertension 04/07/17 [History Confirmed 07/11/23] carvedilol 12.5 mg tablet 12.5 mg PO DAILY 07/11/23 [History Confirmed 07/11/23] citalopram 20 mg tablet 20 mg PO DAILY 07/11/23 [History Confirmed 07/11/23] lisinopril 40 mg tablet 40 mg PO ALFONSO 07/11/23 [History Confirmed 07/11/23] Exam Physical Exam Vital Signs: Temp Pulse Resp BP Pulse Ox O2 Del Method 36.7 C 96 H 18 92/53 L 98 Room Air 07/11/23 17:57 07/11/23 20:18 07/11/23 20:18 07/11/23 20:18 07/11/23 20:18 07/11/23 20:18 Results Lab Results Labs: Laboratory Last Values Corrected WBC 10.5 X10E3/uL (4.1-10.5) 07/11/23 18:45 Uncorrected WBC Count 10.5 x10E3/uL (4.1-10.5) 07/11/23 18:45 RBC 3.48 X10E6/uL (3.90-5.60) L 07/11/23 18:45 Hgb 9.0 g/dL (13.0-17.0) L 07/11/23 18:45 Hct 27.1 % (38.8-50.0) L 07/11/23 18:45 MCV 78.1 fl (83.5-101) L 07/11/23 18:45 MCH 25.9 pg (27.5-35.2) L 07/11/23 18:45 MCHC 33.2 g/dL (32.5-35.6) 07/11/23 18:45 RDW 15.2 % (12.0-14.8) H 07/11/23 18:45 Plt Count 392 x10E3/uL (150-450) 07/11/23 18:45 MPV 7.7 fl (6.6-10.1) 07/11/23 18:45 Neut % (Auto) 76.8 % (.) 07/11/23 18:45 Lymph % (Auto) 14.2 % (.) 07/11/23 18:45 [place] % (Auto) 6.7 % (.) 07/11/23 18:45 Eos % (Auto) 1.6 % (.) 07/11/23 18:45 Baso % (Auto) 0.7 % (.) 07/11/23 18:45 Nucleat RBC Rel Count 0.1 /100 WBC (0-0.5) 07/11/23 18:45 Neut # (Auto) 8.1 x10E3/uL (1.8-7.7) H 07/11/23 18:45 Lymph # (Auto) 1.5 x10E3/uL (1.00-4.8) 07/11/23 18:45 [place] # (Auto) 0.7 x10E3/uL (0.0-0.8) 07/11/23 18:45 Eos # (Auto) 0.2 x10E3/uL (0.0-0.45) 07/11/23 18:45 Baso # (Auto) 0.1 x10E3/uL (0.0-0.2) 07/11/23 18:45 Monocyte Dist Width 17.97 % (0.00-20.00) 07/11/23 18:45 PT 14.4 Seconds (9.0-12.9) H 07/11/23 18:45 INR 1.2 07/11/23 18:45 APTT 31.5 Seconds (25.1-36.5) 07/11/23 18:45 PHA Creatinine Clear 72.89 07/11/23 18:45 Sodium 130 mmol/L (136-145) L 07/11/23 18:45 Potassium 4.2 mmol/L (3.5-5.1) 07/11/23 18:45 Chloride 99 mmol/L (98-107) 07/11/23 18:45 Carbon Dioxide 24.2 mmol/L (21.0-31.0) 07/11/23 18:45 Anion Gap 11.0 mEq/L (6.0-15.0) 07/11/23 18:45 BUN 60 mg/dL (7-25) H 07/11/23 18:45 Creatinine 0.99 mg/dL (0.70-1.30) 07/11/23 18:45 Est GFR (CKD-EPI) > 60.0 mL/Min 07/11/23 18:45 Glucose 102 mg/dL (70-100) H 07/11/23 18:45 Calcium 9.3 mg/dL (8.6-10.3) 07/11/23 18:45 Iron 45 ug/dL (50-212) L 07/11/23 18:45 TIBC 265 ug/dL (255-450) 07/11/23 18:45 Transferrin 189 mg/dL (203-362) L 07/11/23 18:45 Total Bilirubin 0.3 mg/dl (0.3-1.0) 07/11/23 18:45 AST 13 U/L (13-39) 07/11/23 18:45 ALT 9 U/L (7-52) 07/11/23 18:45 Alkaline Phosphatase 53 U/L (34-104) 07/11/23 18:45 Total Protein 7.3 gm/dL (6.4-8.9) 07/11/23 18:45 Albumin 3.4 gm/dL (3.5-5.7) L 07/11/23 18:45 Globulin 3.9 gm/dL 07/11/23 18:45 Albumin/Globulin Ratio 0.9 07/11/23 18:45 Blood Type O Positive 07/11/23 18:45 Antibody Screen Negative 07/11/23 18:45 Assessment & Plan Assessment/Plan (1) GI (gastrointestinal bleed): Plan 1. Acute blood loss anemia due to acute upper GI bleeding with currently elevated BUN On presentation patient was hemodynamically stable, however later his blood pressure decreased, he is symptomatic We will admit him for PE, transfuse 1 unit even though his hemoglobin is 9 I requested ER to speak with associate dean who was notified about admissionand about the patient situation For now start Protonix drip, already got 80 mg IV, I suspect he probably has upper GI ulcer, hold aspirin, placed n.p.o., start hydration Serial H&H, Admit to ICU Will check CTA of the abdomen due to reported history of abdominal surgery, DVT prophylaxis -no chemoprophylaxis but mechanical with SCDs 2. Hypertension, hold blood pressure medications due to above IP vs OBS Justification Based on differential dx, clinical care plan, and risk of adverse events, if untreated, in my clinical judgement this patient requires an acute care setting as: INPATIENT because of an expectation of an over 2 midnight stay. Estimated length of stay (# of days): 3 Documented By: Tia Hernandes MD 07/11/232057 Signed By: <Electronically signed by Tia Hernandes MD> 07/12/23 1305 [facility] Work Phone: 1(313) 357-973512-23-2023 Consult note Author Arvin Al [facility] July 12, 2023 9:59am Note Date/Time July 12, 2023 9:56am [facility] [address] [place] [address] Gastroenterology Consult Note Signed Patient: Jemal Zepeda MR#: [id number] : 1950 Acct:[id number] Age/Sex: 73 / M Adm Date: 3 Loc: Room: [address] [place] [address] Type: ADM IN Attending Dr: Tia Hernandes MD Copies to: MD Elham Fregoso CNP, MD~ HPI Data of Consult Date of Consultation: 07/12/23 Requesting Physician: Tia Hernandes MD Consult Narrative History of present illness: Mr. Zepeda is a 73 year old male admitted with melena. The patient has regular NSAID use. He is not on PPIs. He has been prescribed these but states that he was afraid to take them because of side effects. He has been having black tarrystools with weakness for about a day and a half. Denies prior history of GI bleeding. Last colonoscopy in 2020 with X2 sigmoid polyps. Of note he had recently been referred to our office and set up for an outpatient appointment with me in July 2023 for unintentional weight loss and uncontrolled GERD. Hedenies any dysphagia. He states that he has had about a 40 pound unintentional weight loss since August. He has no heavy alcohol use history. On admission he has a significant drop in his hemoglobin, initially was slightly hypotensive and tachycardic. Which is improved with resuscitation. He was loaded with Protonix in the ER. cc:: CC: Tia Hernandes MD Review of Systems Constitutional Constitutional: Denies poor appetite and Denies weight loss Eyes Eyes: Denies change in vision and Denies eye discharge ENT Ears, Nose, Mouth, and Throat: Denies nasal discharge, Denies sore throat and Denies vertigo Cardiovascular Cardiovascular: Denies chest pain and Denies dyspnea on exertion Respiratory Respiratory: Denies chest congestion, Denies cough and Denies dyspnea on exertion Gastrointestinal Gastrointestinal: Reports as per HPI Musculoskeletal Musculoskeletal: Denies arthralgias, Denies muscle weakness and Denies numbness Integumentary/Breasts Skin/Breast: Denies change in pigmentation and Denies rash Neurologic Neurologic: Denies numbness and Denies vertigo Psychiatric Psychiatric: Denies anxiety and Denies depression Hematologic/Lymphatic Hematologic/Lymphatic: Denies easy bruising and Denies lymphadenopathy [facility] Medical History (Updated 07/12/23 @ 09:58 by Arvin Al MD) Aneurysm artery, celiac bypass surgery Hypertension Thoracic aortic aneurysm Surgical History H/O hernia repair Family History (Updated 02/28/21 @ 07:13 by Valorie Hernandez RN) Father Hypertension Mother Hypertension Social History Smoking Status: Former smoker Substance Use Type: None Meds Medications and Allergies Allergies No Known Allergies Allergy (Verified 07/11/23 17:44) Home Medications amlodipine 5 mg tablet 1 tab PO QAM hypertension 04/07/17 [History Confirmed 07/11/23] carvedilol 12.5 mg tablet 12.5 mg PO DAILY 07/11/23 [History Confirmed 07/11/23] citalopram 20 mg tablet 20 mg PO DAILY 07/11/23 [History Confirmed 07/11/23] lisinopril 40 mg tablet 40 mg PO ALFONSO 07/11/23 [History Confirmed 07/11/23] Exam Physical Exam Vital Signs: Temp Pulse Resp BP Pulse Ox O2 Del Method 98.0 F 74 22 108/62 95 Room Air 07/12/23 08:40 07/12/23 08:59 07/12/23 08:59 07/12/23 08:59 07/12/23 08:59 07/12/23 08:59 Const General: no acute distress and well developed HEENT Head: normocephalic and atraumatic Mouth: moist mucous membranes Eyes Sclera: sclerae normal (no scleral icterus) EOM: EOM intact bilaterally Neck Other: trachea midline Resp Effort & Inspection: normal respiratory effort and able to speak in complete sentences GI Inspection: normal to inspection and non-distended Palpation: soft and nontender Skin General: turgor normal and no jaundice Neuro General: patient alert and patient oriented x3 Psych Appearance: grossly normal Mental Status: mental status grossly normal Results Labs Labs: Laboratory Results - last 24 hr 07/11/23 07/11/23 07/11/23 18:45 18:45 18:45 Corrected WBC 10.5 Uncorrected WBC Count 10.5 RBC 3.48 L Hgb 9.0 L Hct 27.1 L MCV 78.1 L MCH 25.9 L MCHC 33.2 RDW 15.2 H Plt Count 392 MPV 7.7 Neut % (Auto) 76.8 Lymph % (Auto) 14.2 [place] % (Auto) 6.7 Eos % (Auto) 1.6 Baso % (Auto) 0.7 Nucleat RBC Rel Count 0.1 Neut # (Auto) 8.1 H Lymph # (Auto) 1.5 [place] # (Auto) 0.7 Eos # (Auto) 0.2 Baso # (Auto) 0.1 Monocyte Dist Width 17.97 PT 14.4 H INR 1.2 APTT 31.5 PHA Creatinine Clear 72.89 Sodium 130 L Potassium 4.2 Chloride 99 Carbon Dioxide 24.2 Anion Gap 11.0 BUN 60 H Creatinine 0.99 Est GFR (CKD-EPI) > 60.0 Glucose 102 H Calcium 9.3 Iron 45 L TIBC 265 Transferrin 189 L Ferritin 60.8 Total Bilirubin 0.3 AST 13 ALT 9 Alkaline Phosphatase 53 Total Protein 7.3 Albumin 3.4 L Globulin 3.9 Albumin/Globulin Ratio 0.9 Blood Type Blood Type Recheck Antibody Screen Crossmatch ([facility]) 07/11/23 07/11/23 07/12/23 18:45 23:00 04:20 Corrected WBC 8.6 Uncorrected WBC Count 8.6 RBC 2.80 L Hgb 7.5 L Hct 22.3 L MCV 79.5 L MCH 26.8 L MCHC 33.7 RDW 15.6 H Plt Count 283 MPV 7.5 Neut % (Auto) 73.2 Lymph % (Auto) 16.8 [place] % (Auto) 7.1 Eos % (Auto) 1.8 Baso % (Auto) 1.1 Nucleat RBC Rel Count 0.0 Neut # (Auto) 6.3 Lymph # (Auto) 1.4 [place] # (Auto) 0.6 Eos # (Auto) 0.2 Baso # (Auto) 0.1 Monocyte Dist Width PT INR APTT PHA Creatinine Clear Sodium Potassium Chloride Carbon Dioxide Anion Gap BUN Creatinine Est GFR (CKD-EPI) Glucose Calcium Iron TIBC Transferrin Ferritin Total Bilirubin AST ALT Alkaline Phosphatase Total Protein Albumin Globulin Albumin/Globulin Ratio Blood Type O Positive Blood Type Recheck O Positive Antibody Screen Negative Crossmatch ([facility]) See Detail 07/12/23 04:20 Corrected WBC Uncorrected WBC Count RBC Hgb Hct MCV MCH MCHC RDW Plt Count MPV Neut % (Auto) Lymph % (Auto) [place] % (Auto) Eos % (Auto) Baso % (Auto) Nucleat RBC Rel Count Neut # (Auto) Lymph # (Auto) [place] # (Auto) Eos # (Auto) Baso # (Auto) Monocyte Dist Width PT INR APTT PHA Creatinine Clear 90.20 Sodium 131 L Potassium 3.9 Chloride 105 Carbon Dioxide 23.1 Anion Gap 6.8 BUN 52 H Creatinine 0.79 Est GFR (CKD-EPI) > 60.0 Glucose 109 H Calcium 7.9 L Iron TIBC Transferrin Ferritin Total Bilirubin AST ALT Alkaline Phosphatase Total Protein Albumin Globulin Albumin/Globulin Ratio Blood Type Blood Type Recheck Antibody Screen Crossmatch ([facility]) A&P - Gastroenterology Assessment/Plan (1) GI (gastrointestinal bleed): (2) Anemia: (3) Melena: (4) GERD (gastroesophageal reflux disease): (5) Unintentional weight loss: Plan -Continue high-dose IV PPI therapy -Resuscitation per primary team -Keep n.p.o., plan for EGD this a.m. Thank you for this consult, please see EGD note for further recommendations. Documented By: Arvin Al MD 07/12/2355 Signed By: <Electronically signed by Arvin Al MD> 07/12/23 0959 [facility] Work Phone: [phone]) 947-694512-23-2023 [facility] History general Narrative - Reported* Type Description Date Medical History gastric ulcer Medical History HYPERTENSION Surgical History KNEE REPLACEMENT Surgical History ANURYSM REPAIR [place] [facility] [place] [employer] Other 10-17-2023 NoteSubjective Patient ID: Jemal Zepeda is a 72 y.o. male who presents for New Patient (Aneurysm if ascending thoracic aorta). HPI Mr. Jemal Zepeda is a 72 year old male who was referred by Dr. Delaney for aneurysm of his ascending thoracic aorta. 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 In August of 2021, on CTA of his chest, a 4.54 cm aneurysm was seen in the ascending aorta with a mildly dilated aortic root at 4.1 cm. On 01/23/21, on abdominal US, an abdominal aortic aneurysm was found measuring 3.0 to 3.3 cm. He is being followed by vascular for his AAA - Dr. Archer. His recent CT (05/02) shows an AAA of 2.89 cm and ascending thoracic aneurysm measuring 4.74 cm with no dissection. Patient had intermittent chest pressure, fatigue and pain in his mid-chest. This last occurred 2-3 months ago and lasted for 1.5 days. He also has symptoms of indigestion and heartburn on exertion when picking up heavy objects and bending over. This is relieved with Tums. He also endorses leg edema. Patient denies tearing chest pain, pain radiating to the back, palpitations, orthopnea and dyspnea. Of note, patient stopped smoking in 2013 but smokes an occasional cigarette with breakfast. He has a history of HTN controlled by amlodipine and lisinopril. He takes regular blood pressure measurements at home that averages 120-130 systolic and 70-80 diastolic. He remains physically active daily. Review of Systems Constitutional: Positive for fatigue. Negative for activity change, appetite change, chills and diaphoresis. HENT: Negative. Eyes: Negative. Respiratory: Negative. Negative for cough, choking, chest tightness and stridor. Cardiovascular: Positive for leg swelling. Negative for chest pain and palpitations. Gastrointestinal: Negative for abdominal distention, abdominal pain, nausea and vomiting. Occasional indigestion, heartburn with bending over/lifting heavy objects Endocrine: Negative. Genitourinary: Negative. Musculoskeletal: Positive for arthralgias and joint swelling. Skin: Negative. Neurological: Negative. Hematological: Negative. Psychiatric/Behavioral: Negative. Objective Visit Vitals BP 130/73 (BP Location: Left arm, Patient Position: Sitting, BP Cuff Size: Adult long) Pulse 57 Temp 36.4 ???C (97.5 ???F) (Temporal) Resp 16 Physical Exam Constitutional: Appearance: Normal appearance. HENT: Head: Normocephalic. Nose: Nose normal. Mouth/Throat: Mouth: Mucous membranes are moist. Eyes: Pupils: Pupils are equal, round, and reactive to light. Cardiovascular: Rate and Rhythm: Normal rate and regular rhythm. Pulses: Normal pulses. Pulmonary: Effort: Pulmonary effort is normal. Abdominal: General: Bowel sounds are normal. Palpations: Abdomen is soft. Musculoskeletal: General: Normal range of motion. Cervical back: Normal range of motion. Right lower leg: Edema present. Left lower leg: Edema present. Skin: General: Skin is warm. Neurological: General: No focal deficit present. Mental Status: He is alert. Psychiatric: Mood and Affect: Mood normal. Assessment/Plan -AAA -Asymptomatic Ascending Thoracic Artery Aneurysm - Incisional Hernia Repair -HTN Plan: - For thoracic aorta aneurysm, repeat CT scan to assess growth. If growing rapidly or greater than 5.5 cm, we will discuss surgical intervention -Patient educated on alarm symptoms of aortic dissection that requires urgent 911 call such as chest pain/pressure radiating to the back, ripping or tearing sensation of chest, lightheadedness, dizziness and related symptoms. -AAA - continue to observe. Follows Dr. Archer with vascular surgery. - Continue strict blood pressure control. As the teaching physician, I have personally performed or re-performed the history of present illness, physical exam and medical decision-making activities of the encounter and agree with the above documentation. Jaylene Logan [facility] NotePROCEDURE: MRI LEG RT WO CON COMPARISON: None. HISTORY: Rupture of muscle TECHNIQUE:A variety of imaging planes and parameters were utilized for visualization of suspected pathology. Images were performed without contrast. FINDINGS: BONES: No acute fracture or dislocation. The knee is partially imaged with suspected moderate to severe degenerative changes of the medial compartment with joint space narrowing suspected meniscal tear. Subchondral cystic changes along the posterior aspect of the medial tibial plateau. SOFT TISSUES: Extensive subcutaneous edema throughout the calf. There is increased STIR signal identified throughout the medial gastrocnemius muscle this is most significant along the proximal muscle. Lenticular fluid collection measuring 2.4 x 0.8 cm on axial image 12 and 7.8 cm in craniocaudal extent, sagittal image 7 appears contained within the muscle fascia possibly representing an subcapsular hematoma EFFUSION: No definite joint effusion. OTHER: Heterogeneous 4.4 x 3.3 x 6.2 cm fluid collection extends from the posterior aspect of the medial popliteal fossa, a popliteal cyst is favored. IMPRESSION: Signal abnormality within the medial gastrocnemius muscle most significant proximal leg consistent with muscle injury and edema Subcapsular fluid collection along the medial posterior aspect of the medial gastrocnemius muscle, subcapsular hematoma suspected Extensive subcutaneous edema of the visualized lower leg 4.4 cm popliteal cyst Electronically authenticated by: MIKY DEMARCO Date: 2022-02-25 21:18[facility] No data available for this section [facility] Future Appointments Appointment Date:08/04/2023 10:00:00 AM Scheduled Provider:Martha KELLEY MD Location:[facility] Appointment Type:URO New Patient Diagnostic Tests Pending * T3 Free 07/09/23 * Testosterone Level Total 07/09/23 [facility] Future Appointments Appointment Date:08/18/2023 01:45:00 PM Scheduled Provider: Location:[facility] Appointment Type:[facility] Future Appointments Appointment Date:09/01/2023 10:30:00 AM Scheduled Provider: [facility] Appointment Type:Surgical PAT FT Appointment Date:09/18/2023 01:00:00 PM Scheduled Provider: Location[facility] Future Appointments Appointment Date:08/04/2023 10:00:00 AM Scheduled Provider:Martha KELLEY MD Location:[facility]O [facility] Diagnosis Onset Date Resolution Status Anemia acute GI (gastrointestinal bleed) acute [facility] Work Phone: Evaluation note* Diagnosis Onset Date Resolution Status Anemia acute GERD (gastroesophageal reflux disease) acute GI (gastrointestinal bleed) acute Melena acute Unintentional weight loss ac aminata [facility] Work Phone: Evaluation note* Diagnosis Malignant neoplasm of urinary bladder, unspecified site (HCC)- Primary [facility] Diagnosis Malignant neoplasm of overlapping sites of bladder (HCC)- Primary Malignant neoplasm of other specified sites of bladder Abnormal coagulation profile Abnormal urine levels of substances chiefly nonmedicinal as to source Nonspecific abnormal toxicological findings [facility] Encounter for removal of urinary catheter- Primary Fitting and adjustment of urinary device Post-operative state Other postprocedural status [facility] Diagnosis Malignant neoplasm of overlapping sites of bladder (HCC)- Primary Malignant neoplasm of other specified sites of bladder Abnormal urine levels of substances chiefly nonmedicinal as to source Nonspecific abnormal toxicological findings [facility] Diagnosis Dysuria- Primary [facility] Diagnosis Dysuria- Primary [facility] Diagnosis Malignant neoplasm of overlapping sites of bladder (HCC)- Primary Malignant neoplasm of other specified sites of bladder [facility] Diagnosis Malignant neoplasm of overlapping sites of bladder (HCC)- Primary Malignant neoplasm of other specified sites of bladder [facility] Diagnosis Pre-op evaluation- Primary Preoperative examination, unspecified Abdominal aortic aneurysm (AAA) without rupture, unspecified part (HCC) 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 Pulmonary fibrosis (HCC) Postinflammatory pulmonary fibrosis Centrilobular emphysema (HCC) Other emphysema Primary hypertension Unspecified essential hypertension Bleeding ulcer Chronic or unspecified peptic ulcer, unspecified site, with hemorrhage, without mention of obstruction Former smoker Personal history of tobacco use, presenting hazards to health Anemia, unspecified type Malignant neoplasm of urinary bladder, unspecified site (HCC)- Primary documented in this encounter [facility] note* Diagnosis Pre-op evaluation- Primary Preoperative examination, unspecified Abdominal aortic aneurysm (AAA) without rupture, unspecified part (HCC) 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 Pulmonary fibrosis (HCC) Postinflammatory pulmonary fibrosis Centrilobular emphysema (HCC) Other emphysema Primary hypertension Unspecified essential hypertension Bleeding ulcer Chronic or unspecified peptic ulcer, unspecified site, with hemorrhage, without mention of obstruction Former smoker Personal history of tobacco use, presenting hazards to health Anemia, unspecified type Malignant neoplasm of overlapping sites of bladder (HCC) Malignant neoplasm of other specified sites of bladder documented in this encounter [facility] note* Diagnosis Pre-op evaluation- Primary Preoperative examination, unspecified Abdominal aortic aneurysm (AAA) without rupture, unspecified part (HCC) 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 Pulmonary fibrosis (HCC) Postinflammatory pulmonary fibrosis Centrilobular emphysema (HCC) Other emphysema Primary hypertension Unspecified essential hypertension Bleeding ulcer Chronic or unspecified peptic ulcer, unspecified site, with hemorrhage, without mention of obstruction Former smoker Personal history of tobacco use, presenting hazards to health Anemia, unspecified type Malignant neoplasm of overlapping sites of bladder (HCC) Malignant neoplasm of other specified sites of bladder Malignant neoplasm of urinary bladder, unspecified site (HCC) documented in this encounter [facility] Discharge instructions No data available for this section [facility] Additional Instructions Please avoid any nonsteroidal medications [id number] such as Motrin, Advil, ibuprofen, naproxen etc. You can take Tylenol.[facility] Work Phone: Progress note No data available for this section [facility] Summary Purpose Family History Relationship Condition Age at Onset Recorded Date/T maikel father Hypertension Unknown Not Specified Hypertension Unknown Advance Directives Advance Directive Response Recorded Date/ Time Advance Directives No March 12:04pm Chief Complaint and Reason for Visit Chief Complaint dark stools Reason for Visit Anemia GI (gastrointestinal bleed) Chief Complaint dark stools Reason for Visit Anemia GERD (gastroesophageal reflux disease) GI (gastrointestinal bleed) Melena Unintentional weight loss Reason for Referral Specialty Diagnoses / Procedures Referred By Alan johnson Referred To Contact CT IMAGING Diagnoses Malignant neoplasm of overlapping sites of bladder (HCC) Procedures CT UROGRAM WO/W IVCON CT ABD & PELVIS W/WO CONTRST 1+ BODY REGNS Brenda Leggett MD [address] [place] [address] Ct Imaging [facility] Referral ID Status Reason Start Date Expiration Date Visits Requested Visits Authorized [id number] Authorized Auto-Generat ed Referral 02/02/2024 01/01/2025 1 1 Additional Source Comments (unrecognized sect ion and content) No Status Records FoundNo Status Records FoundNo Status Records FoundNo Status Records FoundNo Status Records FoundNo Status Records FoundNo Status Records FoundNo Status Records FoundNo Status Records Found INFORMATION SOURCE (unrecogn ized section and content) DATE CREATED AUTHOR 12/04/2022 [facility] DATE CREATED AUTHOR AUTHOR'S ORGANIZ ATION 08/29/2023 [facility] DATE CREATED AUTHOR AUTHOR'S ORGANIZ ATION 08/31/2023 [facility] DATE CREATED AUTHOR AUTHOR'S ORGANIZ ATION 01/06/2024 [facility] DATE CREATED AUTHOR AUTHOR'S ORGANIZ ATION 01/09/2024 [facility] DATE CREATED AUTHOR AUTHOR'S ORGANIZ ATION 02/21/2024 [facility] DATE CREATED AUTHOR AUTHOR'S ORGANIZ ATION 04/13/[address] [facility] DATE CREATED AUTHOR AUTHOR'S ORGANIZ ATION 04/22/2024 [facility] DATE CREATED AUTHOR AUTHOR'S ORGANIZ ATION 05/19/2024 [facility] Patient Care team informatio n (unrecognized section and content) Personnel Name: Elham Moon Address: Address: [address] [place] [id number]- Team Status: Active Member Role Status Dates ALVARADO Moreno Primary Care Provider Active Team Status: Inactive Member Role Status Dates Timo Santamaria PA-C Emergency Provider Active Elham Damico , VEGETABLE VENDOR-C Primary Care Provider Active Tia Hernandes MD Admit Provider, Attending Provide r Active Arvin Al MD Other Provider Active Rex Burgos MD Other Provider Active Team Status: Active Member Role Status Dates Timo Santamaria PA-C Emergency Provider Active Elham Damico , VEGETABLE VENDOR-C Primary Care Provider Active Tia Hernandes MD Admit Provider, Attending Provide r Active Kettle Chipper Relationship Specialty Start Date End Date Mookie, Elham L, STAFFING CONSULTANT.SHOT [employer] [address] [place] [address] PCP - General 10/15/23 Kettle Chipper Relationship Specialty Start Date End Date Mookie, Elham L, STAFFING CONSULTANT.[employer] [address] [place] [address] PCP - General 10/15/23 Kettle Chipper Relationship Specialty Start Date End Date Mookie, Elham L, STAFFING CONSULTANT.SH[employer] MAN [address] [place] [address] PCP - General 10/15/23 Kettle Chipper Relationship Specialty Start Date End Date Mookie, Elham L, STAFFING CONSULTANT.SH[employer] MAN [address] [place] [address] PCP - General 10/15/23 Kettle Chipper Relationship Specialty Start Date End Date Mookie, Elham L, STAFFING CONSULTANT.SH[employer] MAN [address] [place] [address] PCP - General 10/15/23 Kettle Chipper Relationship Specialty Start Date End Date Mookie, Elham L, STAFFING CONSULTANT.[employer] MAN [address] [place] [address] PCP - General 10/15/23 Kettle Chipper Relationship Specialty Start Date End Date Elham Damico, STAFFING CONSULTANT.SH[employer] MAN [address] [place] [address] [facility] General 10/15/23 Kettle Chipper Relationship Specialty Start Date End Date Elham Damico, STAFFING CONSULTANT.SH[employer] MAN [address] [place] [address] [facility] General 10/15/23 Kettle Chipper Relationship Specialty Start Date End Date Elham Damico, STAFFING CONSULTANT.SH[employer] MAN [address] [place] [address] [facility] 10/15/23 Kettle Chipper Relationship Specialty Start Date End Date Elham Damico, STAFFING CONSULTANT.SH[employer] MAN [address] [place] [address] PCP [facility] 10/15/23 Kettle Chipper Relationship Specialty Start Date End Date Elham Damico, STAFFING CONSULTANT.SHOT MAN [address] [place] [address] [facility] 10/15/23 Goals (unrecognized section and content) Goals may be documented in a n alternate section REASON FOR VISIT (unrecogniz ed section and content) Reason Comments Surgery and Pacc dates Reason Comments Follow Up Reason Comments Pre-Op Teaching Reason Comments Post Op Reason Comments Established Patient Reason Comments Results Reason Comments Appointment Reason Comments Orders Reason Comments Established Patient Reason Comments Patient Update Reason Comments Radiology CT Specialty Diagnoses / Procedures Referred By Contac t Referred To Contact CT IMAGING Diagnoses Malignant neoplasm of overlapping sites of bladder (HCC) Procedures CT UROGRAM WO/W IVCON CT ABD & PELVIS W/WO CONTRST 1+ BODY REGBrenda Torres MD [address] [place] [address] [place] [address] Referral ID Status Reason Start Date Expiration Date V isits Requested Visits Authorized [id number] Closed Auto-Generate d Referral 02/02/2024 01/01/2025 1 1 Referral ID Status Reason Start Date Expiration Date V isits Requested Visits Authorized [id number] Closed Auto-Generate d Referral 05/20/2024 03/19/2025 1 1 Source Comments (unrecognize d section and content) In the event this informatio n is protected by the Federal Confidentiality of Alcohol and Drug Abuse Patient Records regulations: The Federal rules restrict any use of the information to criminally investigate or prosecute any alcohol or drug abuse patient.[facility] the event this information is protected by the Federal Confidentiality of Alcohol and Drug Abuse Patient Records regulations: The Federal rules restrict any use of the information to criminally investigate or prosecute any alcohol or drug abuse patient.[facility] HospitalIn the event this information is protected by the Federal Confidentiality of Alcohol and Drug Abuse Patient Records regulations: The Federal rules restrict any use of the information to criminally investigate or prosecute any alcohol or drug abuse patient.[facility]In the event this information is protected by the Federal Confidentiality of Alcohol and Drug Abuse Patient Records regulations: The Federal rules restrict any use of the information to criminally investigate or prosecute any alcohol or drug abuse patient.[facility] HospitalIn the event this information is protected by the Federal Confidentiality of Alcohol and Drug Abuse Patient Records regulations: The Federal rules restrict any use of the information to criminally investigate or prosecute any alcohol or drug abuse patient.[facility] HospitalIn the event this information is protected by the Federal Confidentiality of Alcohol and Drug Abuse Patient Records regulations: The Federal rules restrict any use of the information to criminally investigate or prosecute any alcohol or drug abuse patient.[facility] HospitalIn the event this information is protected by the Federal Confidentiality of Alcohol and Drug Abuse Patient Records regulations: The Federal rules restrict any use of the information to criminally investigate or prosecute any alcohol or drug abuse patient.[facility] HospitalIn the event this information is protected by the Federal Confidentiality of Alcohol and Drug Abuse Patient Records regulations: The Federal rules restrict any use of the information to criminally investigate or prosecute any alcohol or drug abuse patient.[facility] HospitalIn the event this information is protected by the Federal Confidentiality of Alcohol and Drug Abuse Patient Records regulations: The Federal rules restrict any use of the information to criminally investigate or prosecute any alcohol or drug abuse patient.[facility] HospitalIn the event this information is protected by the Federal Confidentiality of Alcohol and Drug Abuse Patient Records regulations: The Federal rules restrict any use of the information to criminally investigate or prosecute any alcohol or drug abuse patient.[facility] HospitalIn the event this information is protected by the Federal Confidentiality of Alcohol and Drug Abuse Patient Records regulations: The Federal rules restrict any use of the information to criminally investigate or prosecute any alcohol or drug abuse patient.[facility] HospitalIn the event this information is protected by the Federal Confidentiality of Alcohol and Drug Abuse Patient Records regulations: The Federal rules restrict any use of the information to criminally investigate or prosecute any alcohol or drug abuse patient.[facility] HospitalIn the event this information is protected by the Federal Confidentiality of Alcohol and Drug Abuse Patient Records regulations: The Federal rules restrict any use of the information to criminally investigate or prosecute any alcohol or drug abuse patient.[facility] HospitalIn the event this information is protected by the Federal Confidentiality of Alcohol and Drug Abuse Patient Records regulations: The Federal rules restrict any use of the information to criminally investigate or prosecute any alcohol or drug abuse patient.[facility] HospitalIn the event this information is protected by the Federal Confidentiality of Alcohol and Drug Abuse Patient Records regulations: The Federal rules restrict any use of the information to criminally investigate or prosecute any alcohol or drug abuse patient.[facility] HospitalIn the event this information is protected by the Federal Confidentiality of Alcohol and Drug Abuse Patient Records regulations: The Federal rules restrict any use of the information to criminally investigate or prosecute any alcohol or drug abuse patient.[facility] HospitalIn the event this information is protected by the Federal Confidentiality of Alcohol and Drug Abuse Patient Records regulations: The Federal rules restrict any use of the information to criminally investigate or prosecute any alcohol or drug abuse patient.[facility] HospitalIn the event this information is protected by the Federal Confidentiality of Alcohol and Drug Abuse Patient Records regulations: The Federal rules restrict any use of the information to criminally investigate or prosecute any alcohol or drug abuse patient.[facility] HospitalIn the event this information is protected by the Federal Confidentiality of Alcohol and Drug Abuse Patient Records regulations: The Federal rules restrict any use of the information to criminally investigate or prosecute any alcohol or drug abuse patient.[facility] HospitalIn the event this information is protected by the [facility] Confidentiality of Alcohol and Drug Abuse Patient Records regulations: The Federal rules restrict any use of the information to criminally investigate or prosecute any alcohol or drug abuse patient.[facility] HospitalIn the event this information is protected by the Federal Confidentiality of Alcohol and Drug Abuse Patient Records regulations: The Federal rules restrict any use of the information to criminally investigate or prosecute any alcohol or drug abuse patient.[facility] FOR RECORDS PERTAINING TO PATIENTS WHO ARE OR HAVE BEEN ENROLLED IN A CHEMICAL DEPENDENCY/SUBSTANCEABUSE PROGRAM, SOME INFORMATION MAY BE OMITTED. This clinical summary was aggregated from multiple sources. Caution should be exercised in using it in the provision of clinical care. This summary normalizes information from multiple sources, and as a consequence, information in this document may materially change the coding, format and clinical context of patient data. In addition, data may be omitted in some cases. CLINICAL DECISIONS SHOULD BE BASED ON THE PRIMARY CLINICAL RECORDS. [facility] [employer] [facility]. provides no warranty or guarantee of the accuracy or completeness of information in this document.
[2024-12-23 08:59] LABS: Basophils Absolute Auto 0.1 10^3/uL (0.0-0.1); Basophils Percent Auto 0.8 % (0.2-2.0); Eosinophils Absolute Auto 0.3 10^3/uL (0.0-0.7); Eosinophils Percent Auto 3.3 % (0.9-7.0); Hematocrit 40.7 % (42.0-54.0); Hemoglobin 13.2 g/dL (14.0-18.0); Immature Granulocytes Abs Auto 0.02 10^3/uL (0.00-0.03); Immature Granulocytes Pct Auto 0.2 % (0.0-0.5); Lymphocytes Absolute Auto 1.4 10^3/uL (1.2-3.8); Lymphocytes Percent Auto 16.2 % (20.5-60.0); Mean Corpuscular HGB Conc 32.4 g/dL (29.9-35.2); Mean Corpuscular Hemoglobin 27.6 pg (25.9-34.0); Mean Platelet Volume 10.3 fL (9.5-13.5); Monocytes Absolute Auto 0.7 10^3/uL (0.3-0.8); Monocytes Percent Auto 8.6 % (1.7-12.0); Neutrophils Percent Auto 70.9 % (43.0-75.0); Platelet Count 224 10^3/uL (150-450); Red Blood Count 4.79 10^6/uL (4.70-6.10); Red Cell Distribution Width 14.6 % (11.0-15.0); White Blood Count 8.5 10^3/uL (4.0-11.0)
== END 2024-12-23 08:35 | disposition home or self-care (01) ==
LOC: LAB 08:36
PROVIDERS: PCP Nurse Practitioner
DX: H02.835 Dermatochalasis of left lower eyelid (principal)
CPT/HCPCS: 36415; 85025